=== PATIENT | male | born 1960 | race Caucasian/White ===

== ENCOUNTER 2016-10-30 16:53 | Inpatient (IN) | payer MEDICARE ==
[~2016-10-30] VITALS: Ht 177.8 cm; Wt 85.2 kg
[~2016-10-30 16:53] MED LIST: ASPIRIN EC81 M1 PO; BENICAR40 MG PO; BRILINTA90 MG PO; CELEXA40 MG PO; CRESTOR10 MG PO; ECOTRIN325 MG PO; GLUCOPHAGE500 MG PO; LANTUS SOL100 UNIT/1 SQ; LYRICA75 MG PO; METOPROLOL TART50 MG PO; MULTIPLE VITAMI1 TA1 PO; NOVOLOG100 U/M1 SQ; PERCOCET 10/3251 TA1 PO; PLAVIX75 MG PO; PRAVACHOL80 MG PO; PRINIVIL20 MG PO; TRESIBA; TRESIBA FL100 UNIT/1 SC; TRICOR145 MG PO; VALIUM5 MG PO; XANAX1 MG PO
[2016-10-30] MEDS ORDERED: ZOLOFT100 MG PO (17:35)
[2016-10-30] MEDS ORDERED: INSULIN ASPART (17:38)
[2016-10-30 18:05] LABS: BASOPHILS 0.3 % (0.0-2.0); EOSINOPHILS 0.8 % (0-7); HEMATOCRIT 44.3 % (42.0-54.0); IMMATURE GRANULOCYTES 0.3 % (0-5); LYMPHOCYTES 23.9 % (15-50); MCH 31.4 pg (26.0-34.0); MCHC 33.9 g/dL (31.0-37.0); MCV 92.9 fL (80.0-100.0); MEAN PLATELET VOLUME 12.9 fL (7.4-10.4); NEUTROPHILS 69.7 % (40-80); PLATELET COUNT 179 10x3/uL (130-400); RBC 4.77 10x6/uL (4.20-6.10); RDW 13.6 % (11.5-14.5); WBC 7.5 10x3/uL (4.8-10.8)
[2016-10-30 18:15] VITALS: BP 136/76; BMI 26.3
[2016-10-30 18:30] LABS: ALBUMIN 3.8 g/dL (3.4-5.0); ANION GAP 29.3 mmol/L (8-16); BILIRUBIN - TOTAL 0.52 mg/dL (0.2-1.3); CALCIUM 8.9 mg/dL (8.5-10.1); CARBON DIOXIDE 16.1 mmol/L (21.0-32.0); CREATININE - SERUM 2.1 mg/dL (0.6-1.3); POTASSIUM - SERUM 5.4 mmol/L (3.5-5.1); PROTEIN - SERUM 7.3 g/dL (6.4-8.2)
--- NOTE | 2016-10-30 18:34 | NUR ---
ALERT AND ORIENTED X4. BLOOD GAS GLUCOSE 627. HUMALOG GIVEN 28UNITS. PAGE ESTELLE WITH HEALTH STAR. UNABLE TO SITE IV. PASS ON TO GAUGE CONTROLLER. LOVENOX ORDERED. SCDs ON. INSTRUCT NOT TO EAT OR DRINK ANYTHING PER DOCTOR ORDER. AT BEDSIDE. LAB CALLED WITH CRITICAL GLUCOSE 566. PREPAIR SHIFT CHANGE REPORT. BED LOCKED AND LOW. CALL LIGHT IN REACH. TWO SIDERAILS UP.
--- NOTE | 2016-10-30 19:10 | NUR ---
ASSESSMENT COMPLETED, NO ACUTE DISTRESS NOTED, IN ROOM, PT DENIES NEEDS AT THIS TIME, WILL SITE IV, SR'S UP , CL IN REACH, WILL MONITOR
--- NOTE | 2016-10-30 20:06 | NUR ---
20G IV SITED IN R HAND X 1 ATTEMPT, FLUIDS STARTED ORDERED, DARVIN WELL, IN ROOM, CL IN REACH
--- NOTE | 2016-10-30 21:44 | NUR ---
MEDS GIVEN PER MAR, DARVIN WELL, DENIES NEEDS AT THIS TIME, CL IN REACH
[2016-10-30 21:56] VITALS: BP 130/65
--- NOTE | 2016-10-30 23:25 | NUR ---
RESTING WITH EYES CLOSED, RESP WITH EASE, NO DISTRESS NOTED, CL IN REACH
[2016-10-31] VITALS (11 sets, daily range): BP systolic 113–157; BP diastolic 58–81; Ht 177.8 cm; Wt 85.2 kg
--- NOTE | 2016-10-31 01:09 | NUR ---
RESTING WITH EYES CLOSED, SNORING RESP, NO DISTRESS NOTED, SR'S UP, CL IN REACH
--- NOTE | 2016-10-31 06:03 | NUR ---
INSULIN HELD PER SLIDING SCALE FOR BS OF 61, SNACK PROVIDED, PT UNSYMPTOMATIC, REMINDED TO CALL WHEN HE URINATES SO UA CAN BE COLLECTED, UNDERSTANDING VOICED, SR'S UP X2, CL IN REACH
--- NOTE | 2016-10-31 07:31 | NUR ---
RECHECKED FSBS THIS AM. RESULTS OF 127. RIGHT HAND SEEN WITH NS INFUSING AT 125 CC/HR. ON ROOM AIR. PATIENT IS INSTRUCTED IN NEED FOR UA. ON ROOM AIR. WILL CONTINUE TO MONITOR.
[2016-10-31] MEDS ORDERED: LYRICA150 MG PO (07:52)
--- NOTE | 2016-10-31 10:09 | NUR ---
WHILE WITH STUDENT NURSE, DAUGHTER IS AT BEDSIDE AND STATES THAT SHE BROUGHT PATIENT'S HOME DOSE OF TRESIBA INSULIN. I TOLD HER THAT WE WOULD HOLD IT RIGHT NOW HIS BLOOD SUGAR WAS 61 THIS AM AND THEN 127 AFTER TREATING IT. SHE REPLIES THAT SHE GAVE HIM THE 60 U OF INSULIN. I ALSO SEE THAT THIS HAS BEEN DISCONTUNUED ON THE EMAR FOR THE AM DOSE AND PLACED ON THE BEDTIME DOSE. THE PATIENT STATES THAT HE TAKES THIS DURING THE DAY, NOT AT NIGHT. I TOLD HER THAT I ASSUME THE DOCTOR CHANGED THIS R/T HIS LOW SUGAR THIS AM AND THAT I WOULD CLARIFY IT WITH THEM. PATIENT TELLS ME THAT HE HAD A MRI IN [place]UL[place] THAT SHOWED A LARGE STROKE TO THE BACK OF THE HEAD. I TOLD THEM THAT THE CT OF THE HEAD YESTERDAY SHOWED CHRONIC SINUSITIS, AND NO ACUTE ABNORMALITIES. HE AKED IF THAT MEANT HIS STROKE WAS GONE. I REPLIED THAT I COULD TELL HE HAD SOME RESIDUAL OF IT FROM HIS SPEECH. I ALSO INFORMD THEM THAT WE WOULD NEED TO KEEP A CLOSER EYE ON HIS BLOOD SUGAR SINCE THE HOME INSULIN WAS GIVEN. UP TO TAKE A SHOWER AND VOID IN URINAL. THIS INFO IS PASSED TO PRINCESS TOBIAS, CONTROLLER MECHANIC ABOUT THE INSULIN. 1010-ESTELLE CONDE APN PAGED TO NOTIFY HER OF THE INSULIN BEING GIVEN.
--- NOTE | 2016-10-31 10:19 | NUR ---
1020--CALL BACK FROM ESTELLE CONDE APN AND SHE IS NOTIFIED OF WHAT HAS BEEN DONE REGARDING HOME DOSE.
--- NOTE | 2016-10-31 10:38 | NUR ---
FSBS CHECKED WITH RESULT OF 273
[2016-10-31 10:55] LABS: APPEARANCE CLEAR (CLEAR); BILIRUBIN NEGATIVE (NEGATIVE); COLOR YELLOW (YELLOW); GLUCOSE 1000 mg/dL (NEGATIVE); KETONE LARGE mg/dL (NEGATIVE); LEUKOCYTE ESTERASE NEGATIVE (NEGATIVE); NITRITE NEGATIVE (NEGATIVE); PROTEIN NEGATIVE (NEGATIVE); UROBILINOGEN NORMAL (NORMAL)
--- NOTE | 2016-10-31 12:09 | NUR ---
FIRST TIMED EKG DONE ORDERED, FSBS IS 271. COVERED WITH 10 U INSULIN ORDERED. WILL COTNINUE TO MONITOR.
--- NOTE | 2016-10-31 12:22 | NUR ---
ORTHO. VITAL SIGNS: 116/58 LAYING 122/78 SITTING 122/72 STANDING
--- NOTE | 2016-10-31 13:24 | NUR ---
TO MRI VIA WHEELCHAIR
[2016-10-31 13:44] LABS: CKMB 1.2 U/L (0.0-3.6); CREATINE KINASE 81 UL (21-232); TROPONIN-I < 0.017 ng/mL (0.000-0.060)
--- NOTE | 2016-10-31 13:54 | NUR ---
RETURNS FROM MRI
[2016-10-31] MEDS ORDERED: LISINOPRIL2.5 MG PO (13:59)
--- NOTE | 2016-10-31 14:53 | NUR ---
UA SENT TO LAB ORDERED.
[2016-10-31 14:54] LABS: ALBUMIN 3.4 g/dL (3.4-5.0); BILIRUBIN - TOTAL 0.36 mg/dL (0.2-1.3); CALCIUM 8.4 mg/dL (8.5-10.1); CREATININE - SERUM 1.6 mg/dL (0.6-1.3); POTASSIUM - SERUM 5.1 mmol/L (3.5-5.1); PROTEIN - SERUM 6.6 g/dL (6.4-8.2)
[2016-10-31 15:00] LABS: CREATININE - URINE 69.3 mg/dL (30-125); PROTEIN - URINE 18.7 mg/dL (0.0-11.9)
[2016-10-31 15:03] LABS: APPEARANCE CLEAR (CLEAR); BILIRUBIN NEGATIVE (NEGATIVE); COLOR YELLOW (YELLOW); GLUCOSE 1000 mg/dL (NEGATIVE); KETONE LARGE mg/dL (NEGATIVE); LEUKOCYTE ESTERASE NEGATIVE (NEGATIVE); NITRITE NEGATIVE (NEGATIVE); PROTEIN NEGATIVE (NEGATIVE); UROBILINOGEN NORMAL (NORMAL)
[2016-10-31 15:04] LABS: BACTERIA NONE SEEN /hpf (NONE SEEN); EPITHELIAL CELLS NSEEN /hpf (0-5); RED CELLS - URINE 0-5 /hpf (0-5); WHITE CELLS - URINE NSEEN /hpf (0-5)
[2016-10-31 15:05] LABS: ANION GAP 22.6 mmol/L (8-16); CARBON DIOXIDE 20.5 mmol/L (21.0-32.0)
[2016-10-31 17:21] LABS: CKMB 0.9 U/L (0.0-3.6); CREATINE KINASE 74 UL (21-232)
[2016-10-31 17:25] LABS: TROPONIN-I < 0.017 ng/mL (0.000-0.060)
--- NOTE | 2016-10-31 18:15 | NUR ---
1730-2ND TIMED EKG DONE ORDERED. DENIES NEEDS AT PRESENT TIME. WILL CONTINUE TO MONITOR.
[2016-10-31 23:35] LABS: CKMB 0.7 U/L (0.0-3.6); CREATINE KINASE 68 UL (21-232); TROPONIN-I < 0.017 ng/mL (0.000-0.060)
[2016-11-01] VITALS: BP 123/64
--- NOTE | 2016-11-01 03:31 | NUR ---
CERAMIC PLATER AT BEDSIDE TO OBTAIN VITALS, CALL LIGHT IN REACH. WILL CONTINUE WITH PLAN OF CARE.
[2016-11-01 04:00] VITALS: BP 115/67
[2016-11-01 06:22] LABS: BASOPHILS 0.7 % (0.0-2.0); EOSINOPHILS 4.6 % (0-7); HEMATOCRIT 40.5 % (42.0-54.0); HEMOGLOBIN 14.1 g/dL (13.5-17.5); IMMATURE GRANULOCYTES 0.2 % (0-5); LYMPHOCYTES 35.2 % (15-50); MCH 30.9 pg (26.0-34.0); MCHC 34.8 g/dL (31.0-37.0); MEAN PLATELET VOLUME 12.6 fL (7.4-10.4); MONOCYTES 6.1 % (2-11); NEUTROPHILS 53.2 % (40-80); PLATELET COUNT 166 10x3/uL (130-400); RBC 4.56 10x6/uL (4.20-6.10); RDW 13.6 % (11.5-14.5); WBC 6.1 10x3/uL (4.8-10.8)
[2016-11-01 06:31] LABS: MCV 88.8 fL (80.0-100.0)
[2016-11-01 06:46] LABS: ALBUMIN 2.9 g/dL (3.4-5.0); ANION GAP 13.6 mmol/L (8-16); BILIRUBIN - DIRECT 0.09 mg/dL (0.00-0.30); BILIRUBIN - INDIRECT 0.31 mg/dL (0.00-1.00); BILIRUBIN - TOTAL 0.4 mg/dL (0.2-1.3); CALCIUM 8.1 mg/dL (8.5-10.1); CARBON DIOXIDE 26.4 mmol/L (21.0-32.0); CREATININE - SERUM 1.3 mg/dL (0.6-1.3); MAGNESIUM - SERUM 1.8 mg/dL (1.8-2.4); PHOSPHOROUS 2.7 mg/dL (2.5-4.9); PROTEIN - SERUM 6.2 g/dL (6.4-8.2)
--- NOTE | 2016-11-01 07:27 | NUR ---
AM ROUNDING- PT LAYING IN BED ON BACK WITH EYES OPEN RESTING. ON ROOM AIR. NO MONITOR. IV SEEN TO RIGHT HAND WITH SODIUM BICARB RUNNING AT 150CC/HR. PT IS ALERT AND ORIENTED. PER REPORT FROM [employer] TEACHER NURSE ETELVINA, PT IS UP WITH ASSIST. POTASSIUM WAS 3.0 THIS AM, WILL AWAIT ESTELLE CONDE NP TO MAKE ROUNDS AND WILL NOTIFY HER OF THIS. NO NEED AT CURRENT TIME. WILL CONTINUE TO MONITOR AND FOLLOW PLAN OF CARE.
[2016-11-01 07:56] VITALS: BP 129/79
--- NOTE | 2016-11-01 07:56 | NUR ---
ON THE PHONE WITH ESTELLE CONDE NP INFORMED HER OF PTS POTASSIUM LEVEL THIS AM. NEW ORDERS RECEIVED.
--- NOTE | 2016-11-01 09:59 | NUR ---
D/C PTS CURRENT IV FLUID (SODIUM BICARB) ORDERED AND STARTED NS AT 30CC ORDERED.
[2016-11-01 12:22] VITALS: BP 132/73
--- NOTE | 2016-11-01 15:06 | NUR ---
PT OUT OF SHOWER, HOOKED PT BACK UP TO IV FLUIDS ORDERED. PT DENIES ANY NEED AT CURRENT TIME.
[2016-11-01 16:06] VITALS: BP 131/94
--- NOTE | 2016-11-01 17:24 | NUR ---
Patient Name: ESTELLA GUSMAN Admission Status: Urgent Accout number: [id number] Admission Date: 10-31-2016 : 1960 Admission Diagnosis: Attending: REED Current LOS: 1 Anticipated DC Date: 11-02-2016 Planned Disposition: Home Primary Insurance: [facility] Discharge Planning Comments: CM met with patient to discuss discharge planning and needs. The patient states he resides at home with his spouse "Carole" ([phone]) and children. He states they reside in a single story home with 2 steps and rails leading into the front door. Patient stated he is independent of his care and occasionally uses a cane at home. The patient's PCP is Dr. Navas and his pharmacy is [facility] ([phone]) in [place]. The patient has not had home health before and declines the need for HH at this time. His transportation home will be his friend "Frantz Little" ([phone]) as his is scheduled to work the weekend. CM will continue to follow and assist as needed with discharge planning/needs. Beader Tender: Deirdre Anglin RN/CM Is the patient Alert and Oriented? Yes 0 * How many steps to enter\\exit or inside your home? 2 0 * PCP Dr. Navas 0 * Pharmacy Foodist ([facility]) " " 0 * Preadmission Environment Home with Family 0 * ADLs Independent 0 * Equipment Cane 0 * List name and contact numbers for known caregivers / representatives who currently or will assist patient after discharge: Carole (spouse) [phone] 0 * Community resources currently utilized None 0 * Additional services required to return to the preadmission environment? No 0 * Can the patient safely return to the preadmission environment? Yes 0 * Has this patient been hospitalized within the prior 30 days at any hospital? No 0 Grand Total: 0
--- NOTE | 2016-11-01 17:47 | NUR ---
PT SITTING UP IN BED ON BACK WITH EYES OPEN TALKING ON CELL PHONE. DENIES ANY NEED AT CURRENT TIME. WILL CONTINUE TO MONITOR.
[2016-11-01 20:31] VITALS: BP 151/92
--- NOTE | 2016-11-01 21:20 | NUR ---
PT LAYING IN BED NO DISTRESS OBSERVED RESPERATIONS EVEN AND UNLABORED CALL LIGHT IN REACH SRX2 BED LOW AND LOCKED WILL MONITOR
[2016-11-02 00:15] VITALS: BP 123/90
[2016-11-02 04:30] VITALS: BP 116/80
--- NOTE | 2016-11-02 04:34 | NUR ---
RECEIVED REPORT FROM OFF GOING NURSE. PT RESTING IN BED WITH NO DISTRESS. IVF NS @ 30ML/HR INFUSING. CPOC. CALL LIGHT IN REACH.
[2016-11-02 04:57] LABS: BASOPHILS 0.6 % (0.0-2.0); HEMATOCRIT 41.9 % (42.0-54.0); HEMOGLOBIN 14.5 g/dL (13.5-17.5); IMMATURE GRANULOCYTES 0.2 % (0-5); LYMPHOCYTES 42.8 % (15-50); MCH 30.9 pg (26.0-34.0); MCHC 34.6 g/dL (31.0-37.0); MCV 89.3 fL (80.0-100.0); MEAN PLATELET VOLUME 12.4 fL (7.4-10.4); MONOCYTES 7.8 % (2-11); NEUTROPHILS 43.6 % (40-80); PLATELET COUNT 156 10x3/uL (130-400); RBC 4.69 10x6/uL (4.20-6.10); RDW 13.3 % (11.5-14.5); WBC 5.2 10x3/uL (4.8-10.8)
[2016-11-02 05:23] LABS: CALC OSMOLALITY 281 mosm/kg (275-300); CALCIUM 8.8 mg/dL (8.5-10.1); CARBON DIOXIDE 28.7 mmol/L (21.0-32.0); CHLORIDE - SERUM 105 mmol/L (98-107); GLUCOSE 103 mg/dL (74-106); POTASSIUM - SERUM 3.1 mmol/L (3.5-5.1); SODIUM 142 mmol/L (136-145); UREA NITROGEN 10 mg/dL (7-18); eGFR NON AFRICAN AMERICAN 82 mL/min (90-120)
--- NOTE | 2016-11-02 07:00 | NUR ---
PT REC'D FROM [facility]. RESTING IN BED WATCHING TV WITH BREAKFAST TRAY IN ROOM. AAOX4. NO COMPLAINTS OF PAIN. LUNG SOUNDS CLEAR AND EQUAL BILAT. REGULAR HEART RATE AND RHYTHM. BOWEL SOUNDS ACTIVE X4 QUADRANTS. BED LOW, CALL LIGHT IN REACH, DENIES NEEDS. CPOC.
[2016-11-02 07:55] VITALS: BP 110/68
--- NOTE | 2016-11-02 09:20 | NUR ---
MORNING MEDS PASSED AT THIS TIME. PT WONDERING WHEN HE WILL BED DISCHARGED. STATED I DID NOT HAVE ANY DC ORDERS AT THIS TIME, BUT I WOULD BE LOOKING FOR THEM. BED LOW, CALL LIGHT IN REACH, DENIES NEEDS. CPOC.
--- NOTE | 2016-11-02 10:04 | NUR ---
RESTS IN BED WITHOUT NEEDS VOICED. CALL LIGHT IN REACH. WILL MONITOR.
--- NOTE | 2016-11-02 10:09 | NUR ---
IV SITE TO R HAND SWOLLEN AND LEAKING. IV REMOVED WITH CATHETER INTACT AND WARM COMPRESS APPLIED. BED LOW, CALL LIGHT IN REACH, DENIES NEEDS. CPOC.
--- NOTE | 2016-11-02 11:44 | NUR ---
CURRENT FSBS 334. 12 UNITS OF INSULIN ADMINISTERED PER SS. DR. WEINBERG IN ROOM DISCUSSING DISCHARGE. BED LOW, CALL LIGHT IN REACH, DENIES NEEDS.
[2016-11-02 11:47] VITALS: BP 145/90
[2016-11-02] MEDS ORDERED: HYDROCODON-ACE1 EAC7 PO (11:47)
--- NOTE | 2016-11-02 13:51 | NUR ---
PT ESCORTED OUT VIA WC BY STAFF. DC PAPER SIGNED AND HARD SCRIPTS IN HAND. DC TO HOME. NO QUESTIONS OR CONCERNS VOICED AT THIS TIME.
[2016-11-04 20:07] LABS: SPE - A/G RATIO 1.1 (0.7-1.7); SPE - ALBUMIN 3.1 g/dL (2.9-4.4); SPE - ALPHA-1 GLOBULIN 0.2 g/dL (0.0-0.4); SPE - ALPHA-2 GLOBULIN 0.8 g/dL (0.4-1.0); SPE - BETA GLOBULIN 0.9 g/dL (0.7-1.3); SPE - GAMMA GLOBULIN 0.9 g/dL (0.4-1.8); SPE - M-SPIKE Not Observed g/dL (Not Observed); SPE - TOTAL PROTEIN 5.8 g/dL (6.0-8.5)
--- NOTE | 2016-11-11 10:08 | EC ---
PATIENT:ESTELLA GUSMAN DATE OF SERVICE: 10/30/16 SEX: M MEDICAL RECORD: [id number] DATE OF : [birth year] LOCATION:D.M2 D.210 AGE OF PATIENT: 55 ADMISSION DATE: 10/31/16 REFERRING PHYSICIAN: INTERPRETING PHYSICIAN: LUCIO SUÁREZ MD ECHOCARDIOGRAM REPORT ECHO CHARGES 4 ECHO COMPLETE CLINICAL DIAGNOSIS: DIZZINESS/DYSPNEA HX OF CAD/CABG/STENTS X7 ECHOCARDIOGRAPHIC MEASUREMENTS (adult normal given) AC root (d.<3.7cm) 4.0 LV Septum d (<1.2 cm> 1.6 Valve Excursion 1.0 LV Septum (systole) 1.8 Left Atria (s.<4.0cm> 3.8 LVPW d(<1.2cm) 1.5 RV (d.<2.3cm) 3.8 LVPW (sytole) 1.8 LV diastole(<5.6CM) 4.2 MV E-F(>70mm/sec) LV systole 2.0 LVOT Diameter 1.7 MV exc.(>10mm) 1.4 Est.ejection fraction (50-75%) Pericardial Effusion N DOPPLER: LVIT A 79.0 E 62.0 LA RVSP 21 LVOT 105 AOP1/2T Asc. Ao 149 RVOT 87 RA PA 111 AV Gradient Peak 8.89 AV Mean 4.01 AV Area 1.6 MV Gradient Peak 4.02 MV Mean 1.38 MV Area COMMENTS: Concrete Truck Driver: Brittany DYE Buggy Ladle Tender:Moira Suárez TAPE# PACS DATE OF SERVICE: 10/31/2016 Echocardiogram FINDINGS: 1. Left ventricular chamber size is within normal limits. Left ventricular systolic function is normal. Overall ejection fraction estimated at 50%. 2. Left atrium is within normal limits at 3.8 cm. Right atrium and right ventricular chamber sizes are mildly dilated. 3. Valvular structures have normal structure and motion. ECHOCARDIOGRAM REPORT [id number] ESTELLA GUSMAN 4. Doppler interrogation reveals mild tricuspid regurgitation, no other valvular insufficiency or stenosis and pulmonary systolic pressure is normal estimated at 21 mmHg. 5. No evidence of pericardial effusion or left ventricular thrombus. TRANSINT:[id number] Voice Confirmation ID: [id number] DOCUMENT ID: [id number] LUCIO SUÁREZ MD at 1008 CC: [id number] DICTATION DATE: 10/31/16 1201 COMFORT STATION ATTENDANT: 10/31/16 1609 DIS IN 11/02/16 [address] [place] [id number]
--- NOTE | 2016-11-21 09:33 | HP ---
PATIENT: ESTELLA GUSMAN MEDICAL RECORD: [id number] ACCOUNT: [id number] LOCATION:[address] : [birth year] ADMISSION DATE: 10/31/16 HISTORY AND PHYSICAL EXAMINATION CHIEF COMPLAINT: Dizziness. HISTORY OF PRESENT ILLNESS: A 55-year-old white male patient of mine with history of recent stroke, insulin-dependent diabetes and coronary artery disease, presents with worsening dizziness over the past week or so. He feels fatigued, lightheaded, unsteady gait, weakness and says he can barely stand up straight. Reports his sugars at home, has been over 600. He did have a stroke here, back a couple months ago. He is on aspirin and Plavix. Urinalysis today shows large ketones and sugar over 400, so at that time, we will admit to the hospital for possible DKA. REVIEW OF SYSTEMS: CONSTITUTIONAL: Positive fatigue. No fever, no chills. CARDIOVASCULAR: No chest pain or tachycardia. RESPIRATORY: No cough or wheeze. GASTROINTESTINAL: Does have nausea and vomiting. MUSCULOSKELETAL: General for arthralgias and back pain. NEUROLOGIC: See HPI. PAST MEDICAL HISTORY: 1. Hyperlipidemia. 2. Hypertension. 3. Coronary artery disease. 4. Chronic back pain. 5. Peripheral neuropathy. 6. Insulin-dependent diabetes. 7. Cerebrovascular accident. PAST SURGICAL HISTORY: Coronary artery stent placement, triple bypass in 2017. FAMILY HISTORY: Father with stomach cancer. Mother with Alzheimer's. Brother with hypothyroidism. Sister with hypothyroidism. Paternal grandmother with type 2 diabetes. SOCIAL HISTORY: The patient is , retired. Has 5 children. Past history of cigarette smoking. Does drink alcohol on a regular basis, couple beers a night. ALLERGIES: No known drug allergies. MEDICATIONS: Lyrica 150 mg b.i.d., Tresiba U-100 of 60 units q.h.s., Zoloft 100 mg a day, NovoLog FlexPen sliding scale, metformin 1000 mg b.i.d., Antara 130 mg daily, Plavix 75 mg a day, Crestor 10 mg a day, Valium 5 mg at bedtime p.r.n. and aspirin 81 mg a day. PHYSICAL EXAMINATION: VITAL SIGNS: Temperature 97.7, blood pressure 122/64, pulse 90, respirations 18, O2 sat 98% on room air. GENERAL: No acute distress. HEENT: Normocephalic, atraumatic. HISTORY AND PHYSICAL [id number] ESTELLA GUSMAN NECK: Supple. LUNGS: Clear to auscultation bilaterally. CARDIOVASCULAR: Regular rate and rhythm. A II/ systolic ejection murmur. GASTROINTESTINAL: Soft, nontender to palpation. Bowel sounds positive. MUSCULOSKELETAL: Pain with flexion and extension of back. NEUROLOGIC: Awake, alert, oriented times 3, does have ataxic gait. ASSESSMENT: 1. Hyperglycemia. 2. Insulin-dependent diabetes. 3. Recent cerebrovascular accident. 4. Residual expressive aphasia. PLAN: We will admit the patient to the hospital for DKA workup, CT head due to recent stroke and dizziness. Other orders as written on chart. TRANSINT:[id number] Voice Confirmation ID: [id number] DOCUMENT ID: [id number] BRITTNEY MCBRIDE MD at 0933 CC: [id number] DICTATION DATE: 10/30/16 1619 CLOTHING PATTERN PREPARER: 10/30/16 1723 DIS IN 11/02/16 [facility] [address] [place] [address]
== END 2016-11-02 16:41 | disposition home or self-care (01) | DRG 638 ==
LOC: OBSVTIME → D.M2 16:53 → UNDOADMOB 16:53 → D.M2 16:53 → OBSVTIME 16:54 → UNDOADMOB 17:00 → OBSVTIME 17:00 → D.M2 17:00 → EDSTATUS 11-04 15:00
PROVIDERS: Emergency Medicine; Internal Medicine Nephrology; ADMIT Family Medicine
DX: E11.65 Type 2 diabetes mellitus with hyperglycemia (principal); N17.9 Acute kidney failure, unspecified; E11.42 Type 2 diabetes mellitus with diabetic polyneuropathy; Z79.4 Long term (current) use of insulin; I25.10 Atherosclerotic heart disease of native coronary artery without angina pectoris; E78.5 Hyperlipidemia, unspecified; E87.5 Hyperkalemia; I10 Essential (primary) hypertension; I07.1 Rheumatic tricuspid insufficiency; I69.920 Aphasia following unspecified cerebrovascular disease; Z87.891 Personal history of nicotine dependence

== ENCOUNTER → 2017-03-14 08:54 | Outpatient (CLI) | payer MEDICARE ==
[2016-10-31 09:51] VITALS: BMI 26.1
[~2017-03-14 08:54] MED LIST changes: +HYDROCODON-ACE1 EAC7 PO; +INSULIN ASPART; +LISINOPRIL2.5 MG PO; +LYRICA150 MG PO; +ZOLOFT100 MG PO
== END | disposition home or self-care (01) ==
LOC: D.RAD 08:54
DX: I69.991 Dysphagia following unspecified cerebrovascular disease (principal)

== ENCOUNTER 2017-04-23 11:37 | Inpatient (IN) | payer MEDICARE ==
[~2017-04-23] VITALS: Ht 177.8 cm; Wt 76.8 kg
--- NOTE | ~2017-04-23 | EC ---
PATIENT:ESTELLA GUSMAN DATE OF SERVICE: 04/24/17 SEX: M MEDICAL RECORD: [id number] DATE OF : [birth year] LOCATION:D.MS [address] AGE OF PATIENT: 56 ADMISSION DATE: 04/24/17 REFERRING PHYSICIAN: INTERPRETING PHYSICIAN: JUAN ALBERTO LANDRY MD ECHOCARDIOGRAM REPORT ECHO CHARGES 4 ECHO COMPLETE CLINICAL DIAGNOSIS: CVA HX CAD/CABG/STENTS ECHOCARDIOGRAPHIC MEASUREMENTS (adult normal given) AC root (d.<3.7cm) 3.0 cm LV Septum d (<1.2 cm> 1.3 cm Valve Excursion 1.6 cm LV Septum (systole) 1.4 cm Left Atria (s.<4.0cm> 3.8 cm LVPW d(<1.2cm) 1.3 cm RV (d.<2.3cm) 3.3 cm LVPW (sytole) 1.7 cm LV diastole(<5.6CM) 5.9 cm MV E-F(>70mm/sec) cm LV systole 3.3 cm LVOT Diameter 1.7 cm MV exc.(>10mm) 1.8 cm Est.ejection fraction (50-75%) % Pericardial Effusion N DOPPLER: LVIT cm/sec A 95.0 cm/sec E 77.0 cm/sec LA cm/sec RVSP 30 mmHg LVOT 92 cm/sec AOP1/2T m/s Asc. Ao 138 cm/sec RVOT 103 cm/sec RA cm/sec PA 115 cm/sec AV Gradient Peak 7.60 mmHg AV Mean 4.11 mmHg AV Area 1.5 cm MV Gradient Peak 4.0 mmHg MV Mean 1.66 mmHg MV Area cm COMMENTS: Delivery Driver/Supervisor: Brittany DYE Flight Test Supervisor: 4 Dr. Landry TAPE# PACS DATE OF SERVICE: 04/24/2017 Echocardiogram Report FINDINGS: 1. The left ventricle has regional wall motion abnormalities. There is considerable number of PVCs, which certainly limits interpretation on several views; however, there does appear to be an anterior septal area of dyskinesis. The overall ejection fraction is 45%. There does appear to be left ventricular hypertrophy. Inflow characteristics are consistent with diastolic dysfunction. ECHOCARDIOGRAM REPORT [id number] ESTELLA GUSMAN 2. The mitral valve is difficult to visualize on multiple views, but appears to be grossly normal in structure. We could not demonstrate any mitral regurgitation. 3. The tricuspid valve has normal structure and normal function, mild tricuspid regurgitation, RVSP of 30 mmHg. 4. The right ventricle is mildly enlarged. The right ventricular function appears to be grossly normal. Right atrium is mildly enlarged. 5. The aortic valve was not well visualized, but appears to be normal structurally without any evidence of stenosis or regurgitation. 6. The pericardium is normal. CONCLUSIONS: The patient has evidence of regional wall motion abnormalities and mild possible ischemic cardiomyopathy with fairly preserved valvular structure and evidence of left ventricular hypertrophy. TRANSINT:[id number] Voice Confirmation ID: [id number] DOCUMENT ID: [id number] JUAN ALBERTO LANDRY MD CC: [id number] DICTATION DATE: 04/24/17 162 TERRITORY MANAGER: 04/24/17 2253 [facility] [address] [id number]
[2017-04-23 12:34] LABS: BASOPHILS 0.2 % (0-2); EOSINOPHILS 0.4 % (0-7); HEMATOCRIT 46.1 % (42.0-54.0); HEMOGLOBIN 16.1 g/dL (13.5-17.5); IMMATURE GRANULOCYTES 0.2 % (0-5); LYMPHOCYTES 23.3 % (15-50); MCH 31.7 pg (26.0-34.0); MCHC 34.9 g/dL (31.0-37.0); MCV 90.7 fL (80.0-100.0); MEAN PLATELET VOLUME 13.5 fL (7.4-10.4); MONOCYTES 5.1 % (2-11); NEUTROPHILS 70.8 % (40-80); PLATELET COUNT 127 10x3/uL (130-400); RBC 5.08 10x6/uL (4.20-6.10); RDW 14.1 % (11.5-14.5)
[2017-04-23 12:37] LABS: APTT 26.3 SECONDS (22.8-39.4); INR 1.07 (0.85-1.17); PROTIME 13.7 SECONDS (11.6-15.0)
[2017-04-23 12:44] LABS: ALBUMIN 3.5 g/dL (3.4-5.0); ANION GAP 28.7 mmol/L (8-16); BILIRUBIN - TOTAL 0.46 mg/dL (0.2-1.3); CALCIUM 8.8 mg/dL (8.5-10.1); CARBON DIOXIDE 12.9 mmol/L (21.0-32.0); CREATININE - SERUM 1.6 mg/dL (0.6-1.3); POTASSIUM - SERUM 4.6 mmol/L (3.5-5.1); PROTEIN - SERUM 7.5 g/dL (6.4-8.2)
[2017-04-23 13:02] LABS: APPEARANCE HAZY (CLEAR); BACTERIA FEW /hpf (NONE SEEN); BILIRUBIN NEGATIVE (NEGATIVE); COLOR DK YELLOW (YELLOW); EPITHELIAL CELLS OCC /hpf (0-5); GLUCOSE 1000 mg/dL (NEGATIVE); GRANULAR CAST RARE /lpf (NONE SEEN); KETONE LARGE mg/dL (NEGATIVE); LEUKOCYTE ESTERASE NEGATIVE (NEGATIVE); MUCUS >1+ /lpf (NONE SEEN); NITRITE NEGATIVE (NEGATIVE); PROTEIN 1+ mg/dL (NEGATIVE); SPECIFIC GRAVITY 1.025 (1.005-1.020); WAXY CAST 0-5 /lpf (NONE SEEN); WHITE CELLS - URINE OCC /hpf (0-5)
[2017-04-23 17:51] LABS: UDS - AMPHET NEGATIVE QUAL (NEGATIVE); UDS - BARB NEGATIVE QUAL (NEGATIVE); UDS - BENZO POSITIVE QUAL (NEGATIVE); UDS - COCAINE NEGATIVE QUAL (NEGATIVE); UDS - METH NEGATIVE QUAL (NEGATIVE); UDS - OPIATE NEGATIVE QUAL (NEGATIVE); UDS - PCP NEGATIVE QUAL (NEGATIVE); UDS - THC NEGATIVE QUAL (NEGATIVE)
[2017-04-23 17:53] LABS: HEMOGLOBIN A1C 9.4 % (4.8-6.0)
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
[2017-04-23 19:33] LABS: CKMB 0.8 U/L (0.0-3.6); CREATINE KINASE 76 UL (21-232)
[2017-04-23 19:34] LABS: TROPONIN-I < 0.017 ng/mL (0.000-0.060)
[2017-04-23 23:48] VITALS: BP 118/55; BMI 24.0
[2017-04-24] VITALS: BP 105/62
[2017-04-24 00:14] LABS: CKMB 1.1 U/L (0.0-3.6); CREATINE KINASE 66 UL (21-232)
[2017-04-24 00:16] LABS: TROPONIN-I < 0.017 ng/mL (0.000-0.060)
--- NOTE | 2017-04-24 02:30 | NUR ---
IV RESITED TO LEFT HAND X2 STICKS USING ASEPTIC TECH,22G.PT TOLERATED WELL.PREVIOUS IV DCD WITH CATH TIP INTACT.
[2017-04-24 06:03] LABS: BASOPHILS 0.3 % (0-2); EOSINOPHILS 0.7 % (0-7); HEMATOCRIT 42.5 % (42.0-54.0); HEMOGLOBIN 14.9 g/dL (13.5-17.5); IMMATURE GRANULOCYTES 0.7 % (0-5); LYMPHOCYTES 24.8 % (15-50); MCH 31.8 pg (26.0-34.0); MCHC 35.1 g/dL (31.0-37.0); MCV 90.8 fL (80.0-100.0); MEAN PLATELET VOLUME 13.9 fL (7.4-10.4); MONOCYTES 4.8 % (2-11); NEUTROPHILS 68.7 % (40-80); PLATELET COUNT 115 10x3/uL (130-400); RBC 4.68 10x6/uL (4.20-6.10); RDW 14.7 % (11.5-14.5); WBC 7.1 10x3/uL (4.8-10.8)
[2017-04-24 06:41] LABS: ALKALINE PHOSPHATASE 85 U/L (46-116); ALT (SGPT) 15 U/L (10-68); CHLORIDE - SERUM 100 mmol/L (98-107); CREATINE KINASE 59 UL (21-232); CREATININE - SERUM 1.5 mg/dL (0.6-1.3); POTASSIUM - SERUM 4.7 mmol/L (3.5-5.1); PROTEIN - SERUM 6.5 g/dL (6.4-8.2); SODIUM 135 mmol/L (136-145); TROPONIN-I < 0.017 ng/mL (0.000-0.060); eGFR NON AFRICAN AMERICAN 51 mL/min (90-120)
[2017-04-24 06:45] LABS: CALC OSMOLALITY 281 mosm/kg (275-300); GLUCOSE 321 mg/dL (74-106); UREA NITROGEN 13 mg/dL (7-18)
--- NOTE | 2017-04-24 07:28 | NUR ---
REMAINS WITHOUT NEEDS,WITHOUT CHANGE.CONT PLAN OF CARE
--- NOTE | 2017-04-24 07:30 | NUR ---
PATIENT RECEIVED IN MID NIELSON POSITION RESTING QUIETLY. RESPIRATIONS EVEN AND UNLABORED. DENIES NEEDS. SIDE RAILS UP X2. BED IN LOW POSITION. CALL LIGHT IN REACH.
[2017-04-24 09:49] VITALS: BP 130/80
--- NOTE | 2017-04-24 10:20 | NUR ---
PATIENT IN MID NIELSON POSITION RESTING WITH EYES CLOSED. RESPIRATIONS EVEN AND UNLABORED. SIDE RAILS UP X2. BED IN LOW POSITION. CALL LIGHT IN REACH. BOX ALARM ON.
[2017-04-24 12:21] VITALS: Ht 177.8 cm; Wt 76.8 kg
--- NOTE | 2017-04-24 12:47 | NUR ---
ALERT IN BED EATING DINNER. NO DIFFICULTY. SCHEDULED MEDICATION ADMINISTERED. SIDE RAILS UP X2. BED IN LOW POSITION. CALL LIGHT IN REACH. DENIES NEEDS.
[2017-04-24 12:48] VITALS: BP 130/78
[2017-04-24 14:21] VITALS: BP 95/48
--- NOTE | 2017-04-24 14:55 | NUR ---
Rehab Note- Acute Rehab Prescreen order received. The patient continues to have a medical work up, awaiting Dr. Sun consult. The patient has [employer] and will need a PreAuth prior to transfer to acute rehab. The patient appears to be a good acute rehab candidate. Will follow at this time and plan for discharge to [facility] acute rehab when ready for discharge from the acute hospital. Thank you for this referral! Bonnie Burrows RN Clinical Liaison, [facility] Rehab
--- NOTE | 2017-04-24 16:03 | NUR ---
PATIENT RESTING QUIETLY WITH EYES CLOSED. RESPIRATIONS EVEN AND UNLABORED. ACCU CHECK 237. INSULIN PER SLIDING SCALE. SIDE RAILS UP X2. BED IN LOW POSITION. CALL LIGHT IN REACH. BOX ALARM ON AND ATTACHED TO PATIENT.
--- NOTE | 2017-04-24 16:13 | NUR ---
Patient Name: ESTELLA GUSMAN Admission Status: ER Accout number: [id number] Admission Date: 04-24-2017 : 1960 Admission Diagnosis: Attending: EDIL CHADWICK Current LOS: 1 Anticipated DC Date: 04-28-2017 Planned Disposition: Inpatient Rehab Primary Insurance: [facility] Discharge Planning Comments: CM MET WITH PATIENT, (ABILIO), AND DAUGHTER (GAYLE) REGARDING D/C NEEDS AND PLANS. DAUGHTER STATED THERE ARE 2 STEPS TO ENTER HOME AND NO STAIRS INSIDE HOME. PATIENT IS INDEPENDENT WITH HIS CARE AND HAS A CANE, AND GLUCOMETER AT HOME. PATIENT DOES NOT CHECK HIS SUGARS. PATIENTS PCP IS DR. MCBRIDE AND PHARMACY IS [facility] [place]. PATIENT WILL GO TO REHAB AT DISCHARGE PER ELIU. CM WILL CONTINUE TO FOLLOW PATIENT WITH D/C NEEDS AND PLANS. PCP DR. [facility]- [phone] ABILIO () [phone] CHRISTINA (DAUGHTER) [phone] Creative Writing Professor: Flavia Shrestha Is the patient Alert and Oriented? Yes 0 * How many steps to enter\exit or inside your home? 2 STEPS 0 * PCP DR. MCBRIDE 0 * Pharmacy [facility] 0 * Preadmission Environment Home with Family 0 * ADLs Independent 0 * Equipment Cane Glucometer 0 * List name and contact numbers for known caregivers / representatives who currently or will assist patient after discharge: ABILIO (SPOUSE) [phone] GAYLE (DAUGHTER) [phone] 0 * Additional services required to return to the preadmission environment? Yes 0 * Can the patient safely return to the preadmission environment? No 0 * Has this patient been hospitalized within the prior 30 days at any hospital? No 0 Grand Total: 0
--- NOTE | 2017-04-24 16:38 | NUR ---
OT NOTE: PT COMPLETED BUE FM ACTIVITIES FOR INCREASED I WITH ADLS. THANK YOU, BRUNILDA DANIELS/Flako
[2017-04-24 17:01] VITALS: BP 113/59
--- NOTE | 2017-04-24 19:20 | NUR ---
ASSESSMENT PER FLOW SHEET.PT ANXIOUS THIS AFTERNOON.STATES HE IS ALSO VERY TIRED.DENIES PAIN AT PRESENT.HE REMAINS ALAERT.FALL PREVENTION IN PLACE.MONIOTR FOR NEEDS.DOOR OPEN
[2017-04-24 20:00] VITALS: BP 110/55
[2017-04-25] VITALS: BP 106/58
--- NOTE | 2017-04-25 00:53 | NUR ---
SLEEPING SOUNDLY WITHOUT DISTRESS.CALL LIGHT IN REACH.DOOR OPEN
--- NOTE | 2017-04-25 02:33 | NUR ---
SLEEPING ON BACK,WITHOUT DISTRESS.DOOR OPEN TO MONITOR.FALL PREVENTION STILL IN PROGRESS
[2017-04-25 04:00] VITALS: BP 107/65
--- NOTE | 2017-04-25 05:48 | NUR ---
STILL SLEEPING,BUT AWAKENS INT.WITHOUT CHANGE.CONT PLAN OF CARE
--- NOTE | 2017-04-25 07:10 | NUR ---
PATIENT RECEIVED IN LEFT LATERAL POSITION RESTING WITH EYES CLOSED. RESPIRATIONS EVEN AND UNLABORED. SIDE RAILS UP X2. BED IN LOW POSITION. CALL LIGHT IN REACH.
[2017-04-25 07:12] LABS: HEMATOCRIT 40.2 % (42.0-54.0); HEMOGLOBIN 14.1 g/dL (13.5-17.5); LYMPHOCYTES 38.6 % (15-50); MCHC 35.1 g/dL (31.0-37.0); MEAN PLATELET VOLUME 13.4 fL (7.4-10.4); NEUTROPHILS 52.4 % (40-80); PLATELET COUNT 94 10x3/uL (130-400); RBC 4.55 10x6/uL (4.20-6.10)
[2017-04-25 07:13] LABS: MCV 88.4 fL (80.0-100.0); WBC 4.6 10x3/uL (4.8-10.8)
[2017-04-25 07:16] LABS: HEMOGLOBIN A1C 10.8 % (4.8-6.0)
[2017-04-25 07:29] LABS: PLATELET ESTIMATE DECREASED
[2017-04-25 07:43] LABS: ALBUMIN 2.9 g/dL (3.4-5.0); BILIRUBIN - TOTAL 0.5 mg/dL (0.2-1.3); CALCIUM 8.1 mg/dL (8.5-10.1); CHOL - HDL RATIO 4.3 ratio (2.3-4.9); CREATININE - SERUM 1.5 mg/dL (0.6-1.3); LDL-HDL RATIO 2.5 ratio (1.5-3.5); MAGNESIUM - SERUM 1.5 mg/dL (1.8-2.4); PHOSPHOROUS 2.7 mg/dL (2.5-4.9); PROTEIN - SERUM 6.1 g/dL (6.4-8.2); THYROID STIMULATING HORMONE 1.95 uIU/mL (0.36-3.74)
[2017-04-25 07:46] LABS: ANION GAP 26.1 mmol/L (8-16); CARBON DIOXIDE 13.8 mmol/L (21.0-32.0); POTASSIUM - SERUM 3.9 mmol/L (3.5-5.1)
[2017-04-25 08:32] VITALS: BP 105/63
--- NOTE | 2017-04-25 09:10 | NUR ---
ALERT IN HIGH NIELSON POSITION. NO SIGNS OF DISTRESS NOTED. SCHEDULED MEDICATION ADMINISTERED. DENIES NEEDS. SIDE RAILS UP X2. BED IN LOW POSITION. CALL LIGHT IN REACH. BOX ALARM ON AND ATTACHED TO PATIENT.
--- NOTE | 2017-04-25 10:26 | NUR ---
Called [facility] [phone] spoke to Charlette Austin No preauthorization is required for IRF, follow Medicare guidelines. This patient will be accepted today if physician agrees. Ref# [id number]. The YOLETTE Sykes RN has been made aware. Aliya Loera RN Clinical Liaison, Rehab
--- NOTE | 2017-04-25 11:39 | NUR ---
PATIENT IN RIGHT LATERAL POSITION RESTING WITH EYES CLOSED. RESPIRATIONS EVEN AND UNLABORED. WAKES EASY. ACCU CHECK 326. INSULIN PER SLIDING SCALE. NO NEEDS VOICED. SIDE RAILS UP X2. BED IN LOW POSITION. CALL LIGHT IN REACH. BOX ALARM ON.
[2017-04-25] MEDS ORDERED: THIAMINE HCL50 MG PO (12:01)
[2017-04-25] MEDS ORDERED: FOLIC ACID1 MG PO (12:01)
[2017-04-25] MEDS ORDERED: SODIUM BICARBO650 MG PO (12:03)
[2017-04-25] MEDS ORDERED: PROTONIX40 MG PO (12:03)
[2017-04-25] MEDS ORDERED: HUMALOG 30100 UNITS/ SC (12:03)
[2017-04-25 14:13] VITALS: BP 129/73
--- NOTE | 2017-04-25 14:14 | NUR ---
CM REASSESSMENT NOTE: PATIENT IS SCHEDULED TO DISCHARGE TO IP REHAB TODAY.
--- NOTE | 2017-04-25 16:19 | NUR ---
REPORT CALLED TO RAHEL HUA ON REHAB.
--- NOTE | 2017-04-25 16:35 | NUR ---
PATIENT D/C TO [facility] REHAB. TRANSFERRED DOWNSTAIRS VIA WHEELCHAIR WITH STAFF. D/C TEACHING PROVIDED. STATES UNDERSTANDING.
== END 2017-04-25 16:41 | DRG 64 ==
LOC: D.ER 11:37 → OBSVTIME 17:20 → D.M2 17:20 → D.MS 17:20
PROVIDERS: Emergency Medicine; ADMIT Family Medicine
DX: I63.9 Cerebral infarction, unspecified (principal); E10.10 Type 1 diabetes mellitus with ketoacidosis without coma; F17.293 Nicotine dependence, other tobacco product, with withdrawal; N17.9 Acute kidney failure, unspecified; R47.01 Aphasia; R13.10 Dysphagia, unspecified; E10.40 Type 1 diabetes mellitus with diabetic neuropathy, unspecified; F10.20 Alcohol dependence, uncomplicated

== ENCOUNTER 2017-04-25 16:15 | Inpatient (IN) | payer MEDICARE ==
[~2017-04-25] VITALS: Ht 177.8 cm; Wt 74.8 kg
[~2017-04-25 16:15] MED LIST changes: +FOLIC ACID1 MG PO; +HUMALOG 30100 UNITS/ SC; +PROTONIX40 MG PO; +SODIUM BICARBO650 MG PO; +THIAMINE HCL50 MG PO
[2017-04-25 17:38] VITALS: BP 106/70; BMI 23.7
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
--- NOTE | 2017-04-25 19:20 | NUR ---
RESTING IN BED ON RIGHT SIDE. DAUGHTER SEATED IN ROOM AT BEDSIDE. SAYS SHE WILL BE DEPARTING SOON.
--- NOTE | 2017-04-25 20:10 | NUR ---
DAUGHTER NO LONGER PRESENT. PATIENT CONTINUES ON HIS RIGHT SIDE WITH HOB UP 20 DEGREES. NO DISTRESS NOTED.
[2017-04-25 20:27] VITALS: BP 104/58
--- NOTE | 2017-04-25 22:25 | NUR ---
ASSESSMENT AND HS MEDS COMPLETE. FSBS 298. GAVE PATIENT 4 UNITS HUMALOG SLIDING SCALE INSULIN SC IN LEFT ARM.
--- NOTE | 2017-04-26 00:05 | NUR ---
RESTING IN BED ON LEFT SIDE, EYES CLOSED.
--- NOTE | 2017-04-26 02:15 | NUR ---
CONTINUES IN BED, EYES CLOSED. LEFT SIDELYING WITH HOB UP 20 DEGREES.
--- NOTE | 2017-04-26 04:45 | NUR ---
RESTING IN BED ON RIGHT SIDE. RESPIRATIONS ARE QUIET AND UNLABORED.
--- NOTE | 2017-04-26 06:35 | NUR ---
GAVE PATIENT SCHEDULED MEDS. DENIES NEEDS.
--- NOTE | 2017-04-26 07:30 | NUR ---
PATIENT ALERT/ORIENT X4. SPEECH IS SLOW. CALL LIGHT WITHIN REACH. PATIENT SITTING UP IN BED FOR BREAKFAST. VOICES NO NEEDS AT THIS TIME.
[2017-04-26 08:10] LABS: BASOPHILS 0.6 % (0-2); HEMATOCRIT 38.5 % (42.0-54.0); HEMOGLOBIN 13.7 g/dL (13.5-17.5); IMMATURE GRANULOCYTES 0.4 % (0-5); MCH 31.5 pg (26.0-34.0); MCHC 35.6 g/dL (31.0-37.0); MCV 88.5 fL (80.0-100.0); MEAN PLATELET VOLUME 13.5 fL (7.4-10.4); MONOCYTES 6.5 % (2-11); NEUTROPHILS 53.5 % (40-80); PLATELET COUNT 101 10x3/uL (130-400); RBC 4.35 10x6/uL (4.20-6.10); RDW 14.2 % (11.5-14.5); WBC 4.9 10x3/uL (4.8-10.8)
[2017-04-26 08:20] LABS: ANION GAP 23.3 mmol/L (8-16); CALCIUM 8.3 mg/dL (8.5-10.1); CARBON DIOXIDE 16.9 mmol/L (21.0-32.0); CREATININE - SERUM 1.4 mg/dL (0.6-1.3)
[2017-04-26 08:21] LABS: POTASSIUM - SERUM 3.2 mmol/L (3.5-5.1)
[2017-04-26 10:08] VITALS: BP 138/50
--- NOTE | 2017-04-26 10:10 | NUR ---
OCCUPATIONAL THERAPIST IN ROOM. SHOWER OT EVAL DONE. LINENS ON BED CHANGED WHILE PATIENT IN SHOWER.
--- NOTE | 2017-04-26 10:41 | NUR ---
SITTING UP IN WC IN ROOM.CL IN REACH.
[2017-04-26 10:43] VITALS: Ht 177.8 cm; Wt 74.8 kg
--- NOTE | 2017-04-26 11:50 | NUR ---
GLUCOSE LEVEL 294. SIX UNITS OF SLIDING SCALE INSULIN GIVEN
--- NOTE | 2017-04-26 17:00 | NUR ---
GLUCOSE LEVEL 497. TWELEVE UNITS OF SLIDING SCALE INSULIN GIVEN. CALL INTO DR Sheri WEINBERG.
--- NOTE | 2017-04-26 17:27 | NUR ---
GLUCOSE LEVEL RETAKEN. 552. DR. Sheri WEINBERG PAGED
--- NOTE | 2017-04-26 18:21 | NUR ---
DR. Sheri WEINBERG HAS NOT RETURNED PAGE. LAB GLUCOSE, ORDERED.
--- NOTE | 2017-04-26 19:16 | NUR ---
DR. Sheri WEINBERG RETURNED PAGE. NEW ORDERS RECEIVED. STEPHANIE RN, GOVERNMENT AFFAIRS MANAGER CALLED IN REGARDS TO NEW ORDER
--- NOTE | 2017-04-26 19:45 | NUR ---
PT. IN BED WITH HOB UP FOR COMFORT AND WATCHING TV AND REQUESTING TV GUIDE SO HE CAN FIND CHANNELS EASIER. ASSESSMENT COMPLETED. INFORMED PT. AWAITING CELERY TIER TO BRING HIS LANTUS INSULIN FOR ADMIN. FOR HIS ELEVATED BS OF 537. PT AWARE OF NEED FOR LANTUS. NO OTHER VOICED NEEDS AT THIS TIME AND HIS CALL LIGHT IS WITHIN REACH.
[2017-04-26 19:55] VITALS: BP 138/76
--- NOTE | 2017-04-26 20:15 | NUR ---
40UNITS OF LANTUS INSULIN ADMIN. FOR BS OF 537 THAT WAS OBTAINED EARLIER TODAY.
--- NOTE | 2017-04-26 21:15 | NUR ---
BS 418 AFTER RECEIVING HIS 40 UNITS OF LANTUS 1 HOUR AGO. ADMIN. 12 UNITS HUMALOG AND CALLED MD ANSWERING SERVICE FOR DR. WEINBERG.
--- NOTE | 2017-04-26 22:50 | NUR ---
NO RETURN CALL FROM DR. WEINBERG. CALLED ANSWERING SERVICE AGAIN AND WAS TOLD TO CALL THE ER PHYSICIAN. CALLED A DIFFERENT PHONE NUMBER FOR DR. WEINBERG AND LEFT MESSAGE REGARDING PT'S BS [phone] AT [phone].
--- NOTE | 2017-04-26 23:04 | NUR ---
PT. IN BED WITH HOB UP FOR COMFORT WITH EYES CLOSED AND RESP. EVEN. CALL LIGHT WITHIN REACH.
--- NOTE | 2017-04-27 03:01 | NUR ---
PT. IN BED WITH HOB UP FOR COMFORT AND LYING ON HIS RIGHT SIDE. EYES CLOSED AND RESP. DEEP AND EVEN. CALL LIGHT WITHIN REACH.
--- NOTE | 2017-04-27 05:37 | NUR ---
PT'S FSBS THIS MORNING IS 65. PT. DIDN'T EAT HIS BEDTIME SNACK LAST NIGHT. EVELIO CRACKERS STILL ON BEDSIDE TABLE SO I INSTRUCTED HIM TO EAT THOSE MARIN ALSO GAVE HIM APPLE JUICE.
--- NOTE | 2017-04-27 08:11 | NUR ---
UP OOB IN WC EATING BREAKFAST.CL IN REACH.
[2017-04-27 08:31] VITALS: BP 119/82
--- NOTE | 2017-04-27 08:47 | NUR ---
PT UP IN WHEELCHAIR AT BEDSIDE EATING BREAKFAST TOLERATING WELL WILL MONITER
--- NOTE | 2017-04-27 14:54 | NUR ---
PT RESTING IN BED WITH EYES OPEN CALL LIGHT IN REACH NO PROBLEMS WILL MONITER
--- NOTE | 2017-04-27 19:30 | NUR ---
PT. IN BED WITH HOB UP FOR COMFORT WATCHING TV. ASSESSMENT COMPLETED. NO VOICED NEEDS AND HE HAS HIS CALL LIGHT WITHIN REACH.
--- NOTE | 2017-04-27 19:30 | NUR ---
PT. IN BED WITH HOB UP FOR COMFORT AND IS WATCHING TV. ASSESSMENT COMPLETED. NO VOICED NEEDS AT THIS TIME AND HIS CALL LIGHT IS WITHIN REACH.
[2017-04-27 19:50] VITALS: BP 119/70
--- NOTE | 2017-04-27 23:10 | NUR ---
PT. IN BED WITH HOB UP FOR COMFORT AND LYING ON HIS RIGHT SIDE. EYES CLOSED AND RESP. DEEP AND EVEN. CALL LIGHT WITHIN REACH.
--- NOTE | 2017-04-28 03:07 | NUR ---
PT. IN BED WITH HOB UP FOR COMFORT WITH EYES CLOSED AND RESP. DEEP AND EVEN. CALL LIGHT WITHIN REACH.
[2017-04-28 06:05] LABS: BASOPHILS 0.2 % (0-2); EOSINOPHILS 1.5 % (0-7); HEMATOCRIT 38.4 % (42.0-54.0); HEMOGLOBIN 13.8 g/dL (13.5-17.5); LYMPHOCYTES 31.3 % (15-50); MCH 31.3 pg (26.0-34.0); MCHC 35.9 g/dL (31.0-37.0); MCV 87.1 fL (80.0-100.0); MEAN PLATELET VOLUME 13.5 fL (7.4-10.4); MONOCYTES 6.6 % (2-11); NEUTROPHILS 60.4 % (40-80); PLATELET COUNT 84 10x3/uL (130-400); RBC 4.41 10x6/uL (4.20-6.10); RDW 13.6 % (11.5-14.5); WBC 5.5 10x3/uL (4.8-10.8)
[2017-04-28 06:30] LABS: CALCIUM 8.8 mg/dL (8.5-10.1); CHLORIDE - SERUM 106 mmol/L (98-107); CHOL - HDL RATIO 3.9 ratio (2.3-4.9); CHOLESTEROL, TOTAL 159 mg/dL (0-200); HDL CHOLESTEROL 41 mg/dL (32-96); LDL CHOLESTEROL 100 mg/dL (0-100); LDL-HDL RATIO 2.4 ratio (1.5-3.5); SODIUM 145 mmol/L (136-145); TRIGLYCERIDE 91 mg/dL (30-200); UREA NITROGEN 7 mg/dL (7-18)
[2017-04-28 06:34] LABS: CALC OSMOLALITY 286 mosm/kg (275-300); GLUCOSE 101 mg/dL (74-106); eGFR NON AFRICAN AMERICAN 82 mL/min (90-120)
--- NOTE | 2017-04-28 07:18 | NUR ---
RESTING QUIETLY IN BED. NO S/S DISTRESS. CALL LIGHT IN REACH
--- NOTE | 2017-04-28 08:46 | NUR ---
PT UP IN WHEELCHAIR IN ROOM NO PROBELMS CALL LIGHT IN REACH WILL MONITER
[2017-04-28 08:59] VITALS: BP 119/76
--- NOTE | 2017-04-28 14:15 | NUR ---
PT RESTING IN BED WITH EYES OPEN CALL LIGHT IN REACH NO PROBLEMS WILL MONITER
--- NOTE | 2017-04-28 19:35 | NUR ---
PATIENT AWAKE. ARMED BED ALARM. INFORMED PATIENT THAT PER SPEECH THERAPIST HE IS STILL ASPIRATING A BIT WHEN HE SWALLOWS. A RESULT WE NEED TO MAKE ALL HIS FLUIDS NECTAR THICK. PATIENT REFUSED THIS. SAYS HE DOSEN'T LIKE THICKENED FLUIDS HE HAS TRIED THEM BEFORE.
--- NOTE | 2017-04-28 20:00 | NUR ---
RECEIVED CALL FROM PATIENT'S SAYING HE EXPRESSED HE SLEPT POORLY AND WANTED A "SLEEPING PILL" TONIGHT. EXPLAINED THAT WE WILL NEED TO ADDRESS THIS WITH DR. WEINBERG IN THE MORNING. I RPORTED PATIENT'S REFUSAL OF THICKENED FLUIDS AND SHE CORROBORATED HIS CLAIM THAT HE WILL NOT DRINK THICKENED FLUIDS AND HAS REFUSED IT ON MULTIPLE OCCASIONS IN THE PAST. SHE USED THE OLD ANALOGY ABOUT LEADING A HORSE TO WATER BUT INABILITY TO MAKE IT DRINK.
[2017-04-28 21:20] VITALS: BP 126/78
--- NOTE | 2017-04-28 21:20 | NUR ---
PATIENT RELENTED FROM EARLIER REFUSAL OF NECTAR THICK LIQUIDS. ASSESSMENT NOW COMPLETE. GAVE PATIENT HIS HS MEDS PO WITH NECTAR THICK WATER. FSBS 245. GAVE PATIENT 8 UNITS HUMALOG SLIDING SCALE INSULIN SC IN LEFT UPPER ARM. GAVE SCHEDULED 40 UNITS LANTUS INSULIN SC IN LEFT ABDOMEN. PATIENT DENIES NEEDS. REFUSED SHOWER SAYING HE TOOK ONE BY HIMSELF THIS MORNING.
--- NOTE | 2017-04-29 00:05 | NUR ---
RESTING IN BED ON BACK. APPEARS COMFORTABLE.
--- NOTE | 2017-04-29 02:15 | NUR ---
RESTING IN BED ON LEFT SIDE. APPEARS COMFORTABLE.
--- NOTE | 2017-04-29 02:45 | NUR ---
PATIENT REPORTS HE THINKS HIS BLOOD SUGAR WAS LOW. GLUCOMETER CHECK SHOWS FSBS OF 51. GAVE HIM 8 OZS NECTAR-THICK APPLE JUICE AND 5 EVELIO CRAX SQUARES.
--- NOTE | 2017-04-29 04:25 | NUR ---
RESTING QUIETLY IN BED, EYES CLOSED. WAS ASSISTED UP TO BR, AMBULATING WITH CANE AND SBA, AT 0330.
--- NOTE | 2017-04-29 06:10 | NUR ---
FSBS 272. GAVE PATIENT 10 UNITS HUMALOG SLIDING SCALE INSULIN WELL SCHEDULED PROTONIX. ASSISTED HIM TO TRANSFER SBA TO W/C.
[2017-04-29 07:00] VITALS: BP 121/67
--- NOTE | 2017-04-29 07:35 | NUR ---
SITTING UP IN WHEELCHAIR. DENIES ANY PAIN. NO S/SX OF DISTRESS. CALL LIGHT IN REACH. WILL CONTINUE TO MONITOR
--- NOTE | 2017-04-29 10:14 | NUR ---
IN THERAPY GYM WITH OCCUPATIONAL THERAPY. OFFERS NO COMPLAINTS. ADMINISTERED MORNING MEDS WITHOUT DIFFICULTY
--- NOTE | 2017-04-29 11:05 | NUR ---
SITTING UP IN WHEELCHAIR. OFFERS NO COMPLAINTS. CALL LIGHT IN REACH
--- NOTE | 2017-04-29 16:45 | NUR ---
LYING IN BED RESTING QUIETLY. OFFERS NO COMPLAINTS. CALL LIGHT IN REACH. WILL CONTINUE TO MONITOR
--- NOTE | 2017-04-29 18:14 | NUR ---
SITTING UP IN WHEELCHAIR VISITING FAMILY. CALL LIGHT IN REACH. OFFERS NO COMPLAINTS AND DENIES PAIN.
--- NOTE | 2017-04-29 19:40 | NUR ---
REST IN BED AND WATCH TV.
[2017-04-29 22:11] VITALS: BP 131/76
--- NOTE | 2017-04-30 01:53 | NUR ---
RESTING IN BED WITH EYES CLOSED. NO S/S OF DISTRESS OBSERVED. LYING INN BED WITH EYES CLOSED. CALL LIGHT AND OVERBED TABLE IN REACH,
--- NOTE | 2017-04-30 03:22 | NUR ---
REST QUIETLY IN BED, CALL LIGHT IN REACH.
[2017-04-30 06:44] LABS: BASOPHILS 0.4 % (0-2); EOSINOPHILS 2.4 % (0-7); MCH 31.3 pg (26.0-34.0); MCHC 35.1 g/dL (31.0-37.0); MCV 88.9 fL (80.0-100.0); MEAN PLATELET VOLUME 13.6 fL (7.4-10.4); MONOCYTES 7.9 % (2-11); NEUTROPHILS 55.3 % (40-80); PLATELET COUNT 96 10x3/uL (130-400); RBC 4.16 10x6/uL (4.20-6.10); WBC 4.9 10x3/uL (4.8-10.8)
[2017-04-30 06:54] LABS: CALC OSMOLALITY 294 mosm/kg (275-300); CALCIUM 8.2 mg/dL (8.5-10.1); CARBON DIOXIDE 31.2 mmol/L (21.0-32.0); CHLORIDE - SERUM 107 mmol/L (98-107); CREATININE - SERUM 0.9 mg/dL (0.6-1.3); GLUCOSE 167 mg/dL (74-106); POTASSIUM - SERUM 3.1 mmol/L (3.5-5.1); SODIUM 146 mmol/L (136-145); UREA NITROGEN 12 mg/dL (7-18); eGFR NON AFRICAN AMERICAN > 90 mL/min (90-120)
[2017-04-30 08:00] VITALS: BP 117/61
--- NOTE | 2017-04-30 08:00 | NUR ---
DENIES NEEDS.CL IN REACH.
--- NOTE | 2017-04-30 08:28 | NUR ---
PATIENT ALERT/ORIENT X4. SITTING UP IN A CHAIR TO EAT BREAKFAST. PATIENT ON THICKEN LIQUIDS. CALL LIGHT WITHIN REACH. USING CALL LIGHT FOR NEEDS.
--- NOTE | 2017-04-30 10:00 | NUR ---
PATIENT IN REHAB ROOM. WORKING WITH PHYSICAL THERAPIST. DENIES ANY PAIN/DISC AT THIS TIME.
--- NOTE | 2017-04-30 10:20 | NUR ---
Nutrition Follow Up: Pt was asleep at the time of RD visit. Interview deferred. Pt is eating 89% meal avg on a diabetic diet. He is receiving Glucerna with meals. +BM 04/29/17. No new wt. Labs reviewed - Glucose continues elevated. Meds noted. Rec continue current diet, supplement regimen. RD following.
--- NOTE | 2017-04-30 11:55 | NUR ---
GLUCOSE LEVEL 136. NO SLIDING SCALE INSULIN GIVEN PER SLIDING SCALE
--- NOTE | 2017-04-30 17:43 | NUR ---
PATIENT HAS SIGNED A RELEASE OF RESPONSIBILITY FOR BED/CHAIR ALARM. PATIENT HAS A STEADY GAIT WHILE WALKING AROUND IN ROOM. PATIENT REMINDED TO USE CALL LIGHT IF HE FEELS UNSTEADY AT ANY TIME. REMINDED TO HAVE SOMEONE WITH HIM TO WALK IN HALLWAYS
--- NOTE | 2017-04-30 19:25 | NUR ---
PT. IN BED WITH HOB UP FOR COMFORT WATCHING TV. NO VOICED NEEDS AT THIS TIME. ASSSESSMENT COMPLETED. DISCUSSED MD ORDERS FOR NECTAR THICK LIQUIDS AND PT. STATED HE DIDN'T NEED IT. INFORMED PT. THAT HIS SPEECH THERAPIST HAS SAID THAT HE DOES SO HE DOESN'T ASPIRATE AND GET ASPIRATION PNEUMONIA. PT. STATED HE DIDN'T THINK THAT WOULD HAPPEN. REINFORCED NEED TO ALWAYS DRINK NECTAR THICK LIQUIDS UNTIL INSTRUCTED OTHERWISE. CALL LIGHT WITHIN REACH.
[2017-04-30 19:50] VITALS: BP 112/63
--- NOTE | 2017-04-30 23:01 | NUR ---
PT. IN BED WITH HOB UP FOR COMFORT WITH EYES CLOSED AND RESP. DEEP AND EVEN. CALL LIGHT WITHIN REACH.
--- NOTE | 2017-05-01 03:00 | NUR ---
PT. IN BED WITH HOB UP FOR COMFORT AND IS LYING ON HIS STOMACH. EYES CLOSED AND RESP. DEEP AND EVEN. CALL LIGHT WITHIN REACH.
[2017-05-01 05:54] LABS: BASOPHILS 0.4 % (0-2); EOSINOPHILS 2.8 % (0-7); HEMATOCRIT 36.6 % (42.0-54.0); HEMOGLOBIN 12.7 g/dL (13.5-17.5); LYMPHOCYTES 32.8 % (15-50); MCH 31.2 pg (26.0-34.0); MCHC 34.7 g/dL (31.0-37.0); MCV 89.9 fL (80.0-100.0); MONOCYTES 7.7 % (2-11); NEUTROPHILS 56.3 % (40-80); PLATELET COUNT 93 10x3/uL (130-400); RBC 4.07 10x6/uL (4.20-6.10); WBC 5.3 10x3/uL (4.8-10.8)
[2017-05-01 06:04] LABS: CALC OSMOLALITY 281 mosm/kg (275-300); CALCIUM 7.9 mg/dL (8.5-10.1); CARBON DIOXIDE 30.8 mmol/L (21.0-32.0); CHLORIDE - SERUM 103 mmol/L (98-107); GLUCOSE 155 mg/dL (74-106); POTASSIUM - SERUM 3.3 mmol/L (3.5-5.1); SODIUM 140 mmol/L (136-145); UREA NITROGEN 13 mg/dL (7-18); eGFR NON AFRICAN AMERICAN 82 mL/min (90-120)
--- NOTE | 2017-05-01 07:25 | NUR ---
SITTING UP IN W/C READING NEWSPAPER. OFFERS NO COMPLAINTS. AND DENIES PAIN. CALL LIGHT IN REACH. BED ALARM WAIVER SIGNED. WILL CONTINUE TO MONITOR
[2017-05-01 08:00] VITALS: BP 105/69
--- NOTE | 2017-05-01 08:00 | NUR ---
SITTING UP IN BED.CL IN REACH.
[2017-05-01] MEDS ORDERED: LANTUS INSULIN10 ML SC (08:21)
--- NOTE | 2017-05-01 08:22 | RHP ---
PATIENT: ESTELLA GUSMAN MEDICAL RECORD: [id number] ACCOUNT: [id number] LOCATION:[facility]1110 : 58 ADMISSION DATE: 04/25/17 REHABILITATION HISTORY AND PHYSICAL EXAMINATION POST ADMISSION PHYSICIAN EXAMINATION Post-Admission Physical Examination and History and Physical DATE OF ADMISSION: 04/25/2017 ADMITTING DIAGNOSIS: Cerebrovascular accident affecting the right basal ganglia with left body involvement. HISTORY OF PRESENT ILLNESS: The patient is a 56-year-old gentleman admitted to inpatient rehab for a right basal ganglia infarction. He presented with complaints of weakness, slurred speech, dysphagia and unintentional weight loss of 30 pounds. There is not any new neurological symptoms, has had chronic dizziness and some weakness on the right side of face and slurred speech that have been present since the previous stroke, admitting he stated he has just not been feeling good, not taking care of himself at home. He has got a history of hypertension, diabetes, hyperlipidemia; former tobacco use, quit 2-3 years ago; coronary artery disease, has had multiple previous infarcts. He is on aspirin and Plavix. MRI revealed a right basal ganglia lacunar infarct. Echo with regional wall motion abnormalities, but no thrombus. Bedside swallow eval revealed oropharyngeal dysphagia on exam. He had no language deficits, slight dysarthria. His extraocular muscles are full. Face had some mild right central 7th nerve palsy. He, prior to admit, was independent with ADLs and ambulated with a cane. Currently, he is moderate to max assist with ADLs and mobility. His blood sugars have been running greater than 250. He is on fingerstick blood sugars q.a.c. and q.h.s. with a low resistant sliding scale. His hemoglobin A1c shows poor control at 10.8. He has been ambulating short distances with a cane, but very unsteady and dizzy with any movement. He hopes to regain his strength and return home, hopefully with his family. COMORBIDITIES: Include malnutrition, metabolic acidosis, hypomagnesemia, CHF, acute kidney injury, diabetic ketoacidosis, dysarthria, expressive aphasia, ataxia, dysphagia, peripheral neuropathy, coronary artery disease, hyperlipidemia, hypertension, history of CT, status post coronary artery bypass grafting, and unintentional weight loss. PAST MEDICAL HISTORY: Significant for neuropathy, diabetes, history of CT, angina, coronary artery disease, and depression. PAST SURGICAL HISTORY: Includes open-heart surgery, he has had stents times 7. He has had a vasectomy. ALLERGIES: No known drug allergies. CURRENT MEDICATIONS: Include potassium 20 mEq daily, thiamine 100 mg daily, Zoloft 100 mg daily, Crestor 10 mg daily, Protonix 40 mg daily, multivitamin daily, folic acid 1 mg daily, TriCor 145 mg daily, Plavix 75 mg daily, chewable aspirin 81 mg daily, sodium bicarbonate 1300 mg t.i.d., Lyrica 150 b.i.d. He is on [place] 10/325 as needed for pain and he is on low resistant sliding scale insulin. HISTORY AND PHYSICAL [id number] ESTELLA GUSMAN HABITS: No alcohol or tobacco use at this time, but smoked in approximately 3 years ago. FAMILY HISTORY: Noncontributory. SOCIAL HISTORY: The patient hopes to return back home with family and hopefully get back to his prior level of functioning. REVIEW OF SYSTEMS: GENERAL: Does complain of weakness and fatigue, worse on one side. HEENT: Denies cold, cough or congestion. CARDIOVASCULAR: Denies chest pain. LUNGS: Does complain of shortness of breath with activity. PHYSICAL EXAMINATION: VITAL SIGNS: Stable, afebrile. GENERAL: A well-developed gentleman in no acute distress, alert upon exam. HEENT: Normocephalic and atraumatic. Mucosa moist. NECK: Supple, with no lymphadenopathy. LUNGS: Clear at this time. HEART: Regular rate and rhythm. ABDOMEN: Benign. EXTREMITIES: No clubbing, cyanosis or edema. NEUROLOGIC: Does have left-sided weakness. LABORATORY DATA: White count is 4.9, H&H of 13 and 38 and platelet count was noted to be 101. His sodium is 140, potassium 3.2, BUN and creatinine of 7 and 1.4, blood sugars noted to be 252. ASSESSMENT: This 56-year-old gentleman was admitted to the rehab with a working diagnosis of cerebrovascular accident involving the left side of his body with his right basal ganglia involvement. The patient has potential to make improvement. We instituted the following multidisciplinary therapies including, but not limited to physical, occupational, respiratory, speech, nutritional services, prosthetics and orthotics. Given his complex condition and risk for more complications, rehabilitation services cannot be provided at a lower level of care such as a custodial facility. PLAN: 1. Admit to [facility] rehab for intensive inpatient therapy to include the following disciplines: A. Physical therapy to improve gait, all transfer skills and bed mobility to a modified independent level. B. Occupational therapy to improve activities of daily living to a modified independent level. C. Case management to assist with discharge planning and placement options. D. Nutrition to assist with nutritional needs. E. Rehabilitation nursing to assist in monitoring the patient's underlying medical condition and to assist with any type of bowel or bladder management. 2. The patient's current medications and medical care will be continued. 3. The patient will be placed on standard fall precautions. 4. The patient's estimated length of stay is approximately 10-14 days. 5. Discuss this patient during care team staff meeting this week. TRANSINT:[id number] Voice Confirmation ID: [id number] DOCUMENT ID: [id number] HISTORY AND PHYSICAL [id number] ESTELLA GUSMAN notes whether there has been none or any medical/functional change since admission: - JOSH attests patient continues to be appropriate for IRF: - JENA WEINBERG MD at 0822 CC: [id number] DICTATION DATE: 04/26/17 1606 OFFICE COORDINATOR RECEPTIONIST: 04/26/17 1640 ADM IN [place] [id number]
--- NOTE | 2017-05-01 09:08 | NUR ---
SITTING UP IN BED WATCHING TV. OFFERS NO COMPLAINTS. ADMINISTERED MORNING MEDS WITHOUT DIFFICULTY. CALL LIGHT IN REACH.
--- NOTE | 2017-05-01 12:31 | NUR ---
SITTING UP IN BED EATING LUNCH. OFFERS NO COMPLAINTS. CALL LIGHT IN REACH
--- NOTE | 2017-05-01 14:18 | NUR ---
SITTING UP IN WHEELCHAIR WATCHING TV. OFFERS NO COMPLAINTS. CALL LIGHT IN REACH
--- NOTE | 2017-05-01 16:58 | NUR ---
SITTING UP IN BED VISITING WITH FRIENDS. OFFERS NO COMPLAINTS. CALL LIGHT IN REACH
--- NOTE | 2017-05-01 19:30 | NUR ---
RESTING IN BED ON LEFT SIDE, HOB UP 20 DEGREES. APPEARS COMFORTABLE.
--- NOTE | 2017-05-01 21:40 | NUR ---
IN BED WATCHING FOOTBALL GAME.
[2017-05-01 22:55] VITALS: BP 146/72
--- NOTE | 2017-05-01 22:55 | NUR ---
ASSESSMENT AND HS MEDS COMPLETE. FSBS 180. GAVE PATIENT 4 UNITS SLIDING SCALE HUMALOG INSULIN SC IN LEFT UPPER ARM. GAVE PATIENT 40 UNITS LANTUS INSULIN SC IN LEFT ABDOMEN. GAVE PATIENT SNACK WHICH HE STATED HE WOULD EAT LATER IN THE NIGHT.
--- NOTE | 2017-05-02 00:05 | NUR ---
RESTING QUIETLY IN BED, EYES CLOSED.
--- NOTE | 2017-05-02 02:15 | NUR ---
IN BED ON LEFT SIDE, SNORING.
--- NOTE | 2017-05-02 02:15 | NUR ---
RESTING IN BED ON LEFT SIDE. NO DISTRESS NOTED.
--- NOTE | 2017-05-02 07:48 | NUR ---
RESTING QUIETLY IN BED. NO S/S DISTRESS OR NEEDS. CALL LIGHT IN REACH
[2017-05-02 08:11] VITALS: BP 120/81
[2017-05-02] MEDS ORDERED: HYDROCODON-ACE1 EAC7 PO (08:30)
--- NOTE | 2017-05-02 10:19 | NUR ---
DISCHARGE INSTRUCTIONS GIVEN TO PATIENT AND PATIENTS DAUGHTER. DISCHARGE MEDICATIONS CALLED INTO [facility].
--- NOTE | 2017-05-02 10:33 | NUR ---
PATIENT DISCHARGING HOME TODAY WITH FAMILY. [facility] WILL FOLLOW WITH PATIENT AT HOME. NO DME NEEDED AT THIS TIME. DR. MCBRIDE 05/08/17 @ 10:30. PATIENT CHOICE FORM FOR HOME HEALTH WAS SIGNED AND FILED IN CHART. ORDERS HAVE BEEN FAXED WITH CONFORMATION RECIEVED
--- NOTE | 2017-05-02 11:25 | NUR ---
GLUCOSE LEVEL 203. EIGHT UNITS OF SLIDING SCALE INSULIN GIVEN PER ORDER.
--- NOTE | 2017-05-02 11:40 | NUR ---
PATIENTS FRIEND HERE TO TAKE PATIENT HOME. PATIENT HELPED OUT OT CAR BY STAFF.
== END 2017-05-02 11:41 | disposition home health service (06) | DRG 64 ==
LOC: D.REHAB 16:15
PROVIDERS: ADMIT Emergency Medicine
DX: I63.9 Cerebral infarction, unspecified (principal); E13.10 Other specified diabetes mellitus with ketoacidosis without coma; E43 Unspecified severe protein-calorie malnutrition; R13.12 Dysphagia, oropharyngeal phase; R47.1 Dysarthria and anarthria; R53.1 Weakness; R47.01 Aphasia; E78.5 Hyperlipidemia, unspecified; Z87.891 Personal history of nicotine dependence; E83.42 Hypomagnesemia; I11.0 Hypertensive heart disease with heart failure; I50.9 Heart failure, unspecified; R27.0 Ataxia, unspecified; I25.10 Atherosclerotic heart disease of native coronary artery without angina pectoris; Z95.1 Presence of aortocoronary bypass graft; G62.9 Polyneuropathy, unspecified; N28.9 Disorder of kidney and ureter, unspecified; Z68.24 Body mass index [BMI] 24.0-24.9, adult

== ENCOUNTER 2017-05-09 09:32 | Inpatient (IN) | payer MEDICARE ==
[2017-05-09] VITALS (15 sets, daily range): BP systolic 92–127; BP diastolic 53–74; BMI 23.7
[~2017-05-09] VITALS: Ht 177.8 cm; Wt 76.5 kg
[~2017-05-09 09:32] MED LIST changes: +LANTUS INSULIN10 ML SC
[2017-05-09 10:05] LABS: BASOPHILS 0.1 % (0-2); EOSINOPHILS 0 % (0-7); HEMATOCRIT 42.7 % (42.0-54.0); HEMOGLOBIN 14.5 g/dL (13.5-17.5); IMMATURE GRANULOCYTES 0.4 % (0-5); LYMPHOCYTES 11.4 % (15-50); MCH 31.9 pg (26.0-34.0); MCV 93.8 fL (80.0-100.0); MEAN PLATELET VOLUME 12.2 fL (7.4-10.4); MONOCYTES 3.1 % (2-11); RBC 4.55 10x6/uL (4.20-6.10); RDW 15.2 % (11.5-14.5)
[2017-05-09 10:18] LABS: PLATELET COUNT 208 10x3/uL (130-400)
[2017-05-09 10:22] LABS: ALBUMIN 3.6 g/dL (3.4-5.0); ALKALINE PHOSPHATASE 103 U/L (46-116); ALT (SGPT) 19 U/L (10-68); BILIRUBIN - TOTAL 0.52 mg/dL (0.2-1.3); CHLORIDE - SERUM 94 mmol/L (98-107); CREATININE - SERUM 2.3 mg/dL (0.6-1.3); POTASSIUM - SERUM 4.8 mmol/L (3.5-5.1); PROTEIN - SERUM 7.8 g/dL (6.4-8.2); SODIUM 137 mmol/L (136-145); UREA NITROGEN 20 mg/dL (7-18); eGFR NON AFRICAN AMERICAN 31 mL/min (90-120)
[2017-05-09 10:23] LABS: CALC OSMOLALITY 307 mosm/kg (275-300)
[2017-05-09 10:25] LABS: GLUCOSE 653 mg/dL (74-106)
[2017-05-09 10:29] LABS: KETONE - SERUM LARGE mg/dL (NEGATIVE)
--- NOTE | 2017-05-09 13:12 | NUR ---
REC'D FROM ER VIA STRETCHER. TRANSFERRED WITH ASSISTANCE X2 TO ICU BED. CONNECTED TO MONITOR AND VS OBTAINED. SEE FLOWSHEET FOR ASSESSMENT.
[2017-05-09] MEDS ORDERED: BAYER CHEWABLE81 MG PO (13:40)
--- NOTE | 2017-05-09 15:00 | NUR ---
RESTING QUIETLY WITH EYES CLOSED. NO DISTRESS NOTED.
[2017-05-09 16:49] LABS: CALCIUM 8.5 mg/dL (8.5-10.1); CREATININE - SERUM 2.1 mg/dL (0.6-1.3); MAGNESIUM - SERUM 2.2 mg/dL (1.8-2.4)
[2017-05-09 16:51] LABS: ANION GAP 26.5 mmol/L (8-16); POTASSIUM - SERUM 3.5 mmol/L (3.5-5.1)
--- NOTE | 2017-05-09 17:00 | NUR ---
INSULIN GTT CONTINUES. FSBS Q ONE HOUR. NO DISTRESS NOTED.
--- NOTE | 2017-05-09 18:00 | NUR ---
DAUGHTER AT BEDSIDE. CONDITION UPDATE GIVEN. NO ACUTE DISTRESS NOTED.
--- NOTE | 2017-05-09 19:10 | NUR ---
ASSESSMENT COMPLETE. S1S2. AAO. PERRLA. RR UNLABORED; SHALLOW; DIMINISHED BILATERALLY IN LOWER LOBES. NSR SHOWING ON MONITOR. RADIAL AND PEDAL PULSES PALPATED. NPO WITH ICE CHIPS. ROOM AIR. ACTIVE BOWEL SOUNDS X4. URINAL AT BEDSIDE. DENIES URGE TO VOID.
--- NOTE | 2017-05-09 20:00 | NUR ---
FSBS 85. 25 X 0.03 = 0.75. READJUSTED INSULIN DRIP.
--- NOTE | 2017-05-09 21:00 | NUR ---
PT ABLE TO HAVE ICE CHIPS, WATER, AND FLUIDS WITH MODERATION; PER DR. WEINBERG. PT SWALLOWED DIET COLA WITHOUT DIFFICULTY. PT AWARE OF MODERATION. WILL CONTINUE TO MONITOR.
--- NOTE | 2017-05-09 21:30 | NUR ---
NO VISITORS OR FAMILY DURING VISITATION.
[2017-05-09 21:41] LABS: KETONE - SERUM LARGE mg/dL (NEGATIVE)
[2017-05-09 21:43] LABS: CALC OSMOLALITY 289 mosm/kg (275-300); CALCIUM 8.5 mg/dL (8.5-10.1); CARBON DIOXIDE 20.3 mmol/L (21.0-32.0); CHLORIDE - SERUM 106 mmol/L (98-107); GLUCOSE 79 mg/dL (74-106); POTASSIUM - SERUM 3.5 mmol/L (3.5-5.1); SODIUM 145 mmol/L (136-145); UREA NITROGEN 17 mg/dL (7-18); eGFR NON AFRICAN AMERICAN 37 mL/min (90-120)
--- NOTE | 2017-05-09 22:00 | NUR ---
FSBS 93. 93-60 = 33. 33 X 0.01 = 0.33. ADJUSTED INSULIN DRIP.
--- NOTE | 2017-05-09 23:20 | NUR ---
REASSESSMENT COMPLETE. VSS. NO DISTRESS NOTED. NO ACUTE CHANGES FROM PREVIOUS ASSESSMENT. WILL CONTINUE TO MONITOR.
[2017-05-10] VITALS (24 sets, daily range): BP systolic 94–117; BP diastolic 46–72; Ht 177.8 cm; Wt 76.5 kg
--- NOTE | 2017-05-10 | NUR ---
FSBS 125. INSULIN ADJUSTED. CURRENT 1.3
[2017-05-10 01:45] LABS: CALC OSMOLALITY 282 mosm/kg (275-300); CALCIUM 7.9 mg/dL (8.5-10.1); CARBON DIOXIDE 18.1 mmol/L (21.0-32.0); CHLORIDE - SERUM 104 mmol/L (98-107); CREATININE - SERUM 1.7 mg/dL (0.6-1.3); POTASSIUM - SERUM 3.7 mmol/L (3.5-5.1); SODIUM 140 mmol/L (136-145); UREA NITROGEN 16 mg/dL (7-18); eGFR NON AFRICAN AMERICAN 44 mL/min (90-120)
[2017-05-10 01:47] LABS: GLUCOSE 152 mg/dL (74-106)
[2017-05-10 01:56] LABS: KETONE - SERUM LARGE mg/dL (NEGATIVE)
--- NOTE | 2017-05-10 03:15 | NUR ---
REASSESSMENT COMPLETE. NO ACUTE CHANGES FROM PREVIOUS ASSESSMENT. OCCASIONAL PVC'S AND PAC'S NOTED. WILL CONTINUE TO MONITOR.
--- NOTE | 2017-05-10 05:16 | NUR ---
PT RESTING; EYES CLOSED. VSS. NO DISTRESS NOTED. CALL LIGHT IN REACH. WILL CONTINUE TO MONITOR.
[2017-05-10 05:31] LABS: BASOPHILS 0.1 % (0-2); EOSINOPHILS 0.2 % (0-7); IMMATURE GRANULOCYTES 0.2 % (0-5); LYMPHOCYTES 17.6 % (15-50); MCH 31.7 pg (26.0-34.0); MCHC 36.1 g/dL (31.0-37.0); MEAN PLATELET VOLUME 11.2 fL (7.4-10.4); MONOCYTES 5.2 % (2-11); NEUTROPHILS 76.7 % (40-80); PLATELET COUNT 171 10x3/uL (130-400); RBC 3.78 10x6/uL (4.20-6.10)
[2017-05-10 05:36] LABS: ALBUMIN 2.7 g/dL (3.4-5.0); ALKALINE PHOSPHATASE 68 U/L (46-116); ALT (SGPT) 15 U/L (10-68); BILIRUBIN - TOTAL 0.24 mg/dL (0.2-1.3); CALC OSMOLALITY 280 mosm/kg (275-300); CALCIUM 7.9 mg/dL (8.5-10.1); CARBON DIOXIDE 22.5 mmol/L (21.0-32.0); CHLORIDE - SERUM 106 mmol/L (98-107); CREATININE - SERUM 1.7 mg/dL (0.6-1.3); GLUCOSE 137 mg/dL (74-106); SODIUM 140 mmol/L (136-145); UREA NITROGEN 13 mg/dL (7-18); eGFR NON AFRICAN AMERICAN 44 mL/min (90-120)
[2017-05-10 05:37] LABS: HEMATOCRIT 33.2 % (42.0-54.0); MCV 87.8 fL (80.0-100.0); WBC 11.1 10x3/uL (4.8-10.8)
[2017-05-10 06:09] LABS: KETONE - SERUM MODERATE mg/dL (NEGATIVE)
--- NOTE | 2017-05-10 06:27 | NUR ---
RIGHT AC PIV INFILTRATED. DC'D WITH CATH INTACT. PIV STARTED TO RIGHT WRIST; PATENT. X6 ATTEMPT.
--- NOTE | 2017-05-10 07:30 | NUR ---
ASSESSMENT COMPLETE. NO DISTRESS NOTED.
--- NOTE | 2017-05-10 09:00 | NUR ---
REMAINS ON INSULIN GTT. NO DISTRESS NOTED.
[2017-05-10 09:35] LABS: KETONE - SERUM MODERATE mg/dL (NEGATIVE)
[2017-05-10 09:37] LABS: CALC OSMOLALITY 282 mosm/kg (275-300); CALCIUM 7.8 mg/dL (8.5-10.1); CARBON DIOXIDE 26.5 mmol/L (21.0-32.0); CHLORIDE - SERUM 107 mmol/L (98-107); CREATININE - SERUM 1.7 mg/dL (0.6-1.3); GLUCOSE 127 mg/dL (74-106); SODIUM 141 mmol/L (136-145); UREA NITROGEN 12 mg/dL (7-18); eGFR NON AFRICAN AMERICAN 44 mL/min (90-120)
[2017-05-10 09:38] LABS: POTASSIUM - SERUM 3.5 mmol/L (3.5-5.1)
--- NOTE | 2017-05-10 11:00 | NUR ---
ASSESSMENT UNCHANGED. REMAINS ON INSULIN. SERUM KETONES REMAIN POSITIVE.
--- NOTE | 2017-05-10 13:00 | NUR ---
RESTING QUIETLY WITH EYES CLOSED. NO DISTRESS NOTED.
[2017-05-10 13:10] LABS: CALC OSMOLALITY 280 mosm/kg (275-300); CALCIUM 8.1 mg/dL (8.5-10.1); CARBON DIOXIDE 24.3 mmol/L (21.0-32.0); CHLORIDE - SERUM 108 mmol/L (98-107); CREATININE - SERUM 1.5 mg/dL (0.6-1.3); GLUCOSE 121 mg/dL (74-106); KETONE - SERUM SMALL mg/dL (NEGATIVE); POTASSIUM - SERUM 3.3 mmol/L (3.5-5.1); SODIUM 141 mmol/L (136-145); UREA NITROGEN 11 mg/dL (7-18); eGFR NON AFRICAN AMERICAN 51 mL/min (90-120)
--- NOTE | 2017-05-10 15:00 | NUR ---
NO CHANGES IN CONDITION.
[2017-05-10 16:58] LABS: KETONE - SERUM SMALL mg/dL (NEGATIVE)
[2017-05-10 17:00] LABS: CALC OSMOLALITY 282 mosm/kg (275-300); CALCIUM 8.2 mg/dL (8.5-10.1); CARBON DIOXIDE 24.3 mmol/L (21.0-32.0); CHLORIDE - SERUM 107 mmol/L (98-107); CREATININE - SERUM 1.5 mg/dL (0.6-1.3); GLUCOSE 153 mg/dL (74-106); POTASSIUM - SERUM 3.4 mmol/L (3.5-5.1); SODIUM 141 mmol/L (136-145); UREA NITROGEN 10 mg/dL (7-18); eGFR NON AFRICAN AMERICAN 51 mL/min (90-120)
--- NOTE | 2017-05-10 19:50 | NUR ---
IN ROOM WITH PATIENT. SHIFT ASSESSMENT COMPLETED. SEE ASSESSMENT FLOWSHEET DOCUMENTED @ 2000 FOR DETAILS. EQUAL MOVEMENT AGAINST GRAVITY TO UE'S BILATERALLY. LE'S ALSO EQUAL. OLD SCAR TO CHEST FROM OPEN HEART SURGERY REPORTED. AND LEFT KNEE SCAR FROM CHAINSAW INJURY REPORTED. FSBS ASSESSED. DECREASED INSULIN GTT PER PROTOCOL TO 2 UNITS/HR ON REGULAR INSULIN GTT. NSR IN THE 60'S ON THE MONITOR. DENIES NEEDS OR ANY PAIN JUST "DON'T FEEL GOOD" REPORTED ALL OVER. WILL MONITOR.
--- NOTE | 2017-05-10 21:45 | NUR ---
LAB CALLED TO INFORM OF NEED FOR TIMED BMP AND KETONES.
[2017-05-10 22:10] LABS: KETONE - SERUM SMALL mg/dL (NEGATIVE)
[2017-05-10 22:14] LABS: CALC OSMOLALITY 281 mosm/kg (275-300); CALCIUM 8.1 mg/dL (8.5-10.1); CARBON DIOXIDE 24.2 mmol/L (21.0-32.0); CHLORIDE - SERUM 110 mmol/L (98-107); CREATININE - SERUM 1.4 mg/dL (0.6-1.3); GLUCOSE 110 mg/dL (74-106); POTASSIUM - SERUM 3.2 mmol/L (3.5-5.1); SODIUM 142 mmol/L (136-145); UREA NITROGEN 8 mg/dL (7-18); eGFR NON AFRICAN AMERICAN 55 mL/min (90-120)
--- NOTE | 2017-05-10 22:38 | NUR ---
PO KCL GIVEN PER ELECTROLYTE PROTOCOL WITH DIET LEMON-LOWER ELWHA DRINK. REASSESSMENT COMPLETED. SEE ASSESSMENT FLOWSHEET. DAUGHTER CALLED ON PHONE TO CHECK ON HIM. PASSWORD OBTAINED AND VERIFIED. PATIENT DID NOT WANT TO SPEAK WITH DAUGHTER AT THIS TIME.
--- NOTE | 2017-05-10 23:00 | NUR ---
DECREASED INSULIN GTT TO 1 UNIT/HR PER PROTOCOL. WILL MONITOR.
[2017-05-11] VITALS (21 sets, daily range): BP systolic 110–146; BP diastolic 60–103
--- NOTE | 2017-05-11 00:55 | NUR ---
FSBS ASSESSED. INSULIN GTT ADJUSTED PER PROTOCOL.
--- NOTE | 2017-05-11 02:00 | NUR ---
FSBS ASSESSED. EYES CLOSED. AWAKENS TO GIVE ME A FINGER TO POKE. INCREASED INSULIN GTT TO 2.8 UNITS/HR. WILL MONITOR.
[2017-05-11 02:27] LABS: KETONE - SERUM SMALL mg/dL (NEGATIVE)
[2017-05-11 02:29] LABS: CALC OSMOLALITY 282 mosm/kg (275-300); CALCIUM 8.1 mg/dL (8.5-10.1); CARBON DIOXIDE 24.1 mmol/L (21.0-32.0); CHLORIDE - SERUM 110 mmol/L (98-107); CREATININE - SERUM 1.3 mg/dL (0.6-1.3); GLUCOSE 136 mg/dL (74-106); POTASSIUM - SERUM 3.5 mmol/L (3.5-5.1); SODIUM 142 mmol/L (136-145); UREA NITROGEN 6 mg/dL (7-18); eGFR NON AFRICAN AMERICAN 60 mL/min (90-120)
--- NOTE | 2017-05-11 03:10 | NUR ---
POTASSIUM 3.5 ON BMP AND INFORMED OF LEVEL. INFORMED OF NEED FOR MORE POTASSIUM IN JUICE PER PROTOCOL. REFUSES. WANTS TO EAT. INFORMED OF DOCTOR ORDERS BUT IF STILL KETONES IN AM WITH ASK DOC IF HE CAN EAT. VERBALIZED UNDERSTANDING.
--- NOTE | 2017-05-11 04:08 | NUR ---
REASSESSMENT COMPLETED. SEE ASSESSMENT FLOWSHEET. FSBS ASSESSED. DECREASED INSULIN GTT.
--- NOTE | 2017-05-11 05:00 | NUR ---
FSBS ASSESSED. INSULIN GTT ADJUSTED.
--- NOTE | 2017-05-11 06:10 | NUR ---
FSBS TAKEN USING BLOOD DRAWN FROM PERIPHERAL STICK PER ESTELLE HARRISON. INSULIN GTT ADJUSTED PER PROTOCOL.
[2017-05-11 06:24] LABS: BASOPHILS 0.2 % (0-2); EOSINOPHILS 1.1 % (0-7); HEMATOCRIT 32.9 % (42.0-54.0); HEMOGLOBIN 11.9 g/dL (13.5-17.5); LYMPHOCYTES 24.1 % (15-50); MCH 31.6 pg (26.0-34.0); MCHC 36.2 g/dL (31.0-37.0); MCV 87.5 fL (80.0-100.0); MEAN PLATELET VOLUME 11.6 fL (7.4-10.4); MONOCYTES 3.9 % (2-11); NEUTROPHILS 70.7 % (40-80); PLATELET COUNT 143 10x3/uL (130-400); RBC 3.76 10x6/uL (4.20-6.10); RDW 15.1 % (11.5-14.5)
[2017-05-11 06:28] LABS: WBC 6.4 10x3/uL (4.8-10.8)
[2017-05-11 06:42] LABS: ALBUMIN 2.5 g/dL (3.4-5.0); ANION GAP 10.6 mmol/L (8-16); BILIRUBIN - TOTAL 0.27 mg/dL (0.2-1.3); CARBON DIOXIDE 24.8 mmol/L (21.0-32.0); CREATININE - SERUM 1.2 mg/dL (0.6-1.3); POTASSIUM - SERUM 3.4 mmol/L (3.5-5.1); PROTEIN - SERUM 5.8 g/dL (6.4-8.2)
--- NOTE | 2017-05-11 07:15 | NUR ---
K+ RESULTS 3.4. REFUSES PO K+. STATES " I WILL TAKE IT LATER" .
[2017-05-11 10:34] LABS: KETONE - SERUM SMALL mg/dL (NEGATIVE)
[2017-05-11 10:38] LABS: CALC OSMOLALITY 280 mosm/kg (275-300); CHLORIDE - SERUM 108 mmol/L (98-107); CREATININE - SERUM 1.1 mg/dL (0.6-1.3); GLUCOSE 160 mg/dL (74-106); POTASSIUM - SERUM 3.4 mmol/L (3.5-5.1); SODIUM 141 mmol/L (136-145); UREA NITROGEN 4 mg/dL (7-18); eGFR NON AFRICAN AMERICAN 73 mL/min (90-120)
[2017-05-11 13:46] LABS: ANION GAP 10.5 mmol/L (8-16); CALCIUM 8.4 mg/dL (8.5-10.1); CREATININE - SERUM 1.1 mg/dL (0.6-1.3); POTASSIUM - SERUM 3.5 mmol/L (3.5-5.1)
[2017-05-11 18:34] LABS: CALC OSMOLALITY 280 mosm/kg (275-300); CALCIUM 8.5 mg/dL (8.5-10.1); CARBON DIOXIDE 24.2 mmol/L (21.0-32.0); CHLORIDE - SERUM 109 mmol/L (98-107); GLUCOSE 117 mg/dL (74-106); POTASSIUM - SERUM 3.3 mmol/L (3.5-5.1); SODIUM 142 mmol/L (136-145); eGFR NON AFRICAN AMERICAN 82 mL/min (90-120)
[2017-05-11 18:35] LABS: UREA NITROGEN 3 mg/dL (7-18)
[2017-05-11 18:50] LABS: KETONE - SERUM NEGATIVE (NEGATIVE)
--- NOTE | 2017-05-11 19:00 | NUR ---
REPORT RECIEVED SHIFT ASSESSMENT COMPLETE, PLEASE SEE FLOW SHEETS FOR DETAILS. DENIES PAIN/NEEDS ATT. VSS, BED LOW AND LOCKED, CALL LIGHT IN REACH. ARNOLDO @ 2205 NEGATIVE, PREVIOUS NURSE ADJUSTING INSULIN ORDERS PER ORDERS. WILL CPOC.
--- NOTE | 2017-05-11 20:15 | NUR ---
FSBS 83, KETONES NEGATIVE, TURNED OFF INSULIN GTTP, GAVE LANTUS PER ORDERS. CONFERED WITH CHARGE NURSE, WILL IMPLEMENT MD ORDERS TO TX PT TO FLOOR.
--- NOTE | 2017-05-11 20:59 | NUR ---
RESTING, VSS, BED LOW AND LOCKED, CALL LIGHT IN REACH. WILL CPOC.
--- NOTE | 2017-05-11 23:00 | NUR ---
RESTING, VSS, BED LOW AND LOCKED, CALL LIGHT IN REACH. WILL CPOC.
--- NOTE | 2017-05-12 00:59 | NUR ---
RESTING, NO S&S OF ACUTE DISTRESS NOTED. BED LOW AND LOCKED, CALL LIGHT IN REACH. VSS, WILL CPOC.
[2017-05-12 03:00] VITALS: BP 150/98
--- NOTE | 2017-05-12 03:06 | NUR ---
RESTING, VSS, NO S&S OF ACUTE DISTRESS NOTED. BED LOW AND LOCKED, CALL LIGHT IN REACH. WILL CPOC.
[2017-05-12 03:46] LABS: BASOPHILS 0.4 % (0-2); EOSINOPHILS 3.4 % (0-7); HEMATOCRIT 36.3 % (42.0-54.0); HEMOGLOBIN 13.1 g/dL (13.5-17.5); IMMATURE GRANULOCYTES 0.2 % (0-5); LYMPHOCYTES 38.7 % (15-50); MCH 31.6 pg (26.0-34.0); MCHC 36.1 g/dL (31.0-37.0); MCV 87.5 fL (80.0-100.0); MEAN PLATELET VOLUME 11.5 fL (7.4-10.4); MONOCYTES 6.6 % (2-11); NEUTROPHILS 50.7 % (40-80); PLATELET COUNT 134 10x3/uL (130-400); RBC 4.15 10x6/uL (4.20-6.10); RDW 14.8 % (11.5-14.5); WBC 4.7 10x3/uL (4.8-10.8)
[2017-05-12 04:12] LABS: ALBUMIN 2.6 g/dL (3.4-5.0); ALKALINE PHOSPHATASE 77 U/L (46-116); ALT (SGPT) 16 U/L (10-68); BILIRUBIN - TOTAL 0.34 mg/dL (0.2-1.3); CALC OSMOLALITY 279 mosm/kg (275-300); CALCIUM 8.3 mg/dL (8.5-10.1); CARBON DIOXIDE 26.2 mmol/L (21.0-32.0); CHLORIDE - SERUM 108 mmol/L (98-107); CREATININE - SERUM 0.9 mg/dL (0.6-1.3); GLUCOSE 105 mg/dL (74-106); POTASSIUM - SERUM 3.4 mmol/L (3.5-5.1); PROTEIN - SERUM 6.2 g/dL (6.4-8.2); SODIUM 142 mmol/L (136-145); UREA NITROGEN 3 mg/dL (7-18); eGFR NON AFRICAN AMERICAN > 90 mL/min (90-120)
--- NOTE | 2017-05-12 05:00 | NUR ---
SLEEPING, NO S&S OF ACUTE DISTRESS NOTED. VSS, BED LOW AND LOCKED, CALL LIGHT IN REACH. WILL CPOC.
[2017-05-12 08:00] VITALS: BP 150/98
--- NOTE | 2017-05-12 09:55 | NUR ---
NUTRITION F/U CHART REVIEWED, NURSING REPORTS PT TOLERATING REG ADA DIET, GOOD INTAKE BREAKFAST. WILL CONTINUE TO PROVIDE DIET, MONITOR PO INTAKE. RD FOLLOWING
--- NOTE | 2017-05-12 10:03 | NUR ---
* Is the patient Alert and Oriented? Yes 0 * How many steps to enter\exit or inside your home? 2 0 * PCP Dr. Navas 0 * Pharmacy [facility] 0 * Preadmission Environment Home with Family 0 * ADLs Independent 0 * Equipment Cane Glucometer 0 * List name and contact numbers for known caregivers / representatives who currently or will assist patient after discharge: Spouse - Brandi [phone] 0 * Community resources currently utilized Home Health 0 * Please name any agencies selected above. [facility] 0 * Additional services required to return to the preadmission environment? No 0 * Can the patient safely return to the preadmission environment? Yes 0 * Has this patient been hospitalized within the prior 30 days at any hospital? Yes Patient Name: ESTELLA GUSMAN Admission Status: ER Accout number: [id number] Admission Date: 05-09-2017 : 1960 Admission Diagnosis: Attending: JENA WEINBERG Current LOS: 3 Anticipated DC Date: 05-14-2017 Planned Disposition: Home with Home Health Primary Insurance: [facility] Discharge Planning Comments: CM met with patient & spouse to assess dc plans/needs. Patient states he lives at home with his , Brandi. He reports he uses a cane for mobility. He is current with [facility] & wants to resume their services at discharge. No other needs identified or verbalized at this time. CM will follow. Gas Welding Equipment Mechanic: Mela Vela
--- NOTE | 2017-05-12 13:59 | NUR ---
Patient arrived from ICU @ 1325 via wheelchair, IV site in right wrist with D5 1/2 running at 75ml/hr. Denies any needs or pain at this time, call light within reach and daughter is at bedside. Oriented patient to room and call light.
--- NOTE | 2017-05-12 14:10 | NUR ---
0800 AM ASSESMENT IS COMPLETE SEE FLOW SHEET FOR FINDINGS.. PT IS AWAKE AND ALERT .. FSBS DONE INSULIN COVER .. BREAKFAST IS SERVED.. RIGHT PIV WITH D51/2NS AT 75CC /HR... 0900 VISITOR AT THE BEDSIDE.. UPDATE GIVEN.. 1030 DR REAL IN TO SEE PT.. UPDATE IS GIVEN.. 1200 DAUGHTER AT BEDSIDE.. FSBS DONE LUNCH SERVED.. 1300 ROOM 2135 OBTAINED FOR TRANSFER TO FLOOR.. REPORT CALLED.. 1315 TRANSPORTED TO THE FLOOR VIA WHEELCHAIR
--- NOTE | 2017-05-12 15:48 | NUR ---
PT IN BED, RESP EVEN AND UNLABORED, PT DENIES ANY NEEDS AT THIS TIME. CALL LIGHT IN REACH, NAD NOTED, WILL CONTINUE TO MONITOR.
--- NOTE | 2017-05-12 16:14 | NUR ---
Patient is resting in bed watching TV, call light within reach. Denies any needs or pain at this time.
[2017-05-12 17:18] VITALS: BP 139/83
[2017-05-12 19:00] VITALS: BP 129/83
--- NOTE | 2017-05-12 20:00 | NUR ---
PT RESTING IN BED WITH NO DISTRESS. IVF INFUSING. CALL LIGHT IN REACH. SEE SHIFT ASSESSMENT. CPOC.
[2017-05-13] VITALS: BP 134/81
[2017-05-13 04:03] VITALS: BP 139/82
--- NOTE | 2017-05-13 05:49 | NUR ---
PT HAS RESTED THROUGHT THE NIGHT. NONLABORED RESPIRATIONS ON ROOM AIR. D5.45NS @ 75ML/HR INFUSING TO RIGHT WRIST. SPEECH IS SLOW AND CAREFULLY SPOKEN, RESIDUAL FROM HIS CVA. NO NEEDS VOICED. CALL LIGHT IN REACH. CPOC.
[2017-05-13 05:52] LABS: BASOPHILS 0.4 % (0-2); EOSINOPHILS 4.5 % (0-7); HEMATOCRIT 36.8 % (42.0-54.0); HEMOGLOBIN 13.2 g/dL (13.5-17.5); LYMPHOCYTES 33.9 % (15-50); MCH 31.8 pg (26.0-34.0); MCHC 35.9 g/dL (31.0-37.0); MCV 88.7 fL (80.0-100.0); MEAN PLATELET VOLUME 11.8 fL (7.4-10.4); MONOCYTES 7.1 % (2-11); NEUTROPHILS 54.1 % (40-80); PLATELET COUNT 125 10x3/uL (130-400); RBC 4.15 10x6/uL (4.20-6.10); RDW 14.8 % (11.5-14.5); WBC 4.5 10x3/uL (4.8-10.8)
[2017-05-13 06:11] LABS: ALBUMIN 2.7 g/dL (3.4-5.0); ALKALINE PHOSPHATASE 87 U/L (46-116); ALT (SGPT) 16 U/L (10-68); BILIRUBIN - TOTAL 0.52 mg/dL (0.2-1.3); CALCIUM 8.5 mg/dL (8.5-10.1); CARBON DIOXIDE 23.8 mmol/L (21.0-32.0); CHLORIDE - SERUM 103 mmol/L (98-107); CREATININE - SERUM 0.9 mg/dL (0.6-1.3); POTASSIUM - SERUM 4.2 mmol/L (3.5-5.1); PROTEIN - SERUM 6.4 g/dL (6.4-8.2); SODIUM 138 mmol/L (136-145); eGFR NON AFRICAN AMERICAN > 90 mL/min (90-120)
[2017-05-13 06:13] LABS: CALC OSMOLALITY 283 mosm/kg (275-300); GLUCOSE 285 mg/dL (74-106); UREA NITROGEN 8 mg/dL (7-18)
--- NOTE | 2017-05-13 07:30 | NUR ---
AM ROUNDS COMPLETED. INTRODUCED MYSELF TO PT PRIMARY RN FOR TODAYS SHIFT. PT A&O SITTING UP IN BED RESTING QUIETLY SHIFT ASSESSMENT COMPLETED. PT HAS A R.WRIST PIV WITH FLUIDS RUNNING @100ML/HR, DRSG CDI AND SWAB CAPS IN USE. PT DENIES ANY CURRENT PAIN OR NEEDS AT THIS TIME. CL IN REACH. WILL CPOC.
[2017-05-13 08:00] VITALS: BP 129/78
--- NOTE | 2017-05-13 08:11 | NUR ---
FSBS 260. PROVIDED PT WITH 10 UNITS SS INSULIN. PT SITTING UP IN BED EATING BREAKFAST AND HOPES TO BE DISCHARGED TODAY. PT A&O RR NONLABORED ON RA. SHIFT ASSESSMENT COMPLETED. PT DENIES ANY CURRENT PAIN OR NEEDS. CL IN REACH, BED IN LOWEST, SIDE RAILS X2. WILL CPOC.
--- NOTE | 2017-05-13 10:27 | NUR ---
PT REMOVED TELEMETRY AND DOESNT WANT TO WEAR IT ANYMORE. PT ANXIOUS TO BE DISCHARGE AND IS AWAITING DOCTORS RELEASE. WILL CTM.
[2017-05-13 12:00] VITALS: BP 110/62
--- NOTE | 2017-05-13 12:35 | NUR ---
PT HAD ME SL HIS PIV AND STATED TO TAKE IT OUT AND HE WANTS TO BE DISCHARGED OR HE IS LEAVING IN THE NEXT HOUR. AND ESTELLE HAVE ROUNDED AND AWAITING DISCHARGE PAPERS. WILL CTM.
--- NOTE | 2017-05-13 14:09 | NUR ---
WENT TO D/C PTS PIV BUT HE HAD ALREADY TAKEN IT OUT HIMSELF. DISCHARGED TEACHING PROVIDED AND PAPERS SIGNED AND SENT WITH PT. PT REFUSED A W/C TRANSPORTATION AND WANTED TO AMBULATE OUT. NO FURTHER NEEDS.
--- NOTE | 2017-05-14 09:15 | NUR ---
Patient Name: ESTELLA GUSMAN Encounter No: [id number] : 1960 Primary Insurance: [facility] [employer] MCR PFFS Anticipated DC Date: 05-14-2017 Planned Disposition: Home with Home Health External Planned Provider: [facility] DCP follow-up note: CM REVIEWED CHART, PT DISCHARGED HOME. CM CALLED [facility], , SPOKE TO WIN SWANN PT WAS ON HOLD FOR HOME HEALTH, [facility] TO RESUME HOME HEALTH TODAY. CM FAXED DISCHARGE INFORMATION TO [facility] AT [phone]. Ammon Augustin, CASE MANAGEMENT
== END 2017-05-13 14:10 | disposition home health service (06) | DRG 638 ==
LOC: D.ER 09:32 → D.M2 12:05 → D.ICU 12:05 → D.M2 05-12 13:51
PROVIDERS: Emergency Medicine; ADMIT Emergency Medicine
DX: E13.10 Other specified diabetes mellitus with ketoacidosis without coma (principal); F17.203 Nicotine dependence unspecified, with withdrawal; Z79.4 Long term (current) use of insulin; E11.40 Type 2 diabetes mellitus with diabetic neuropathy, unspecified; I25.10 Atherosclerotic heart disease of native coronary artery without angina pectoris; E78.1 Pure hyperglyceridemia; I69.920 Aphasia following unspecified cerebrovascular disease; Z95.1 Presence of aortocoronary bypass graft

== ENCOUNTER → 2017-12-25 11:40 | Outpatient (CLI) | payer MEDICARE, BC ==
[2017-05-10 11:24] VITALS: BMI 24.0
[~2017-12-25 11:40] MED LIST changes: +BAYER CHEWABLE81 MG PO; +CIPRO500 MG PO; +HUMULIN R100 U/ML SC; +NEURONTIN 300300 MG PO
== END | disposition home or self-care (01) ==
LOC: D.MRI 11:30
DX: M25.512 Pain in left shoulder (principal)

== ENCOUNTER 2018-01-20 15:05 | Emergency (ER) | payer MEDICARE, BC ==
[2017-05-10 11:24] VITALS: BMI 24.0
[~2018-01-20 15:05] MED LIST changes: -CIPRO500 MG PO; -HUMULIN R100 U/ML SC; -NEURONTIN 300300 MG PO
[2018-01-20 16:00] LABS: BASOPHILS 0.3 % (0-2); EOSINOPHILS 1.4 % (0-7); HEMATOCRIT 36.7 % (42.0-54.0); IMMATURE GRANULOCYTES 0.1 % (0-5); LYMPHOCYTES 25.5 % (15-50); MCH 31.4 pg (26.0-34.0); MCHC 35.4 g/dL (31.0-37.0); MCV 88.6 fL (80.0-100.0); MEAN PLATELET VOLUME 11.9 fL (7.4-10.4); MONOCYTES 2.3 % (2-11); NEUTROPHILS 70.4 % (40-80); RBC 4.14 10x6/uL (4.20-6.10); RDW 12.8 % (11.5-14.5); WBC 7.8 10x3/uL (4.8-10.8)
[2018-01-20 16:09] LABS: PLATELET COUNT 209 10x3/uL (130-400)
[2018-01-20 16:13] LABS: APPEARANCE CLEAR (CLEAR); BILIRUBIN NEGATIVE (NEGATIVE); COLOR YELLOW (YELLOW); GLUCOSE 1000 mg/dL (NEGATIVE); KETONE MODERATE mg/dL (NEGATIVE); NITRITE NEGATIVE (NEGATIVE); PROTEIN NEGATIVE (NEGATIVE); SPECIFIC GRAVITY 1.015 (1.005-1.020); UROBILINOGEN NORMAL (NORMAL)
[2018-01-20 16:41] LABS: ALBUMIN 3.3 g/dL (3.4-5.0); ALKALINE PHOSPHATASE 89 U/L (46-116); ALT (SGPT) 15 U/L (10-68); CALC OSMOLALITY 292 mosm/kg (275-300); CALCIUM 8.2 mg/dL (8.5-10.1); CARBON DIOXIDE 24.9 mmol/L (21.0-32.0); CHLORIDE - SERUM 98 mmol/L (98-107); CREATININE - SERUM 1.5 mg/dL (0.6-1.3); POTASSIUM - SERUM 3.7 mmol/L (3.5-5.1); PROTEIN - SERUM 6.9 g/dL (6.4-8.2); SODIUM 136 mmol/L (136-145); UDS - AMPHET NEGATIVE QUAL (NEGATIVE); UDS - BARB NEGATIVE QUAL (NEGATIVE); UDS - BENZO POSITIVE QUAL (NEGATIVE); UDS - COCAINE NEGATIVE QUAL (NEGATIVE); UDS - OPIATE NEGATIVE QUAL (NEGATIVE); UDS - PCP NEGATIVE QUAL (NEGATIVE); UDS - THC NEGATIVE QUAL (NEGATIVE); UREA NITROGEN 17 mg/dL (7-18); eGFR NON AFRICAN AMERICAN 51 mL/min (90-120)
[2018-01-20 16:57] LABS: GLUCOSE 443 mg/dL (74-106)
[2018-01-20 17:00] LABS: KETONE - SERUM SMALL mg/dL (NEGATIVE)
== END 2018-01-20 19:46 | disposition home or self-care (01) ==
LOC: D.ER 15:05
PROVIDERS: Family Medicine; Physician Assistant Medical
DX: E10.65 Type 1 diabetes mellitus with hyperglycemia (principal); Z79.4 Long term (current) use of insulin; Z91.14 Patient's other noncompliance with medication regimen; I25.10 Atherosclerotic heart disease of native coronary artery without angina pectoris; I10 Essential (primary) hypertension; Z86.73 Personal history of transient ischemic attack (TIA), and cerebral infarction without residual deficits

== ENCOUNTER 2018-01-21 19:11 | Inpatient (IN) | payer MEDICARE, BC ==
[~2018-01-21] VITALS: Ht 177.8 cm; Wt 81.4 kg
[2018-01-21 20:22] LABS: BASOPHILS 0 % (0-2); EOSINOPHILS 0 % (0-7); HEMATOCRIT 36.4 % (42.0-54.0); HEMOGLOBIN 12.3 g/dL (13.5-17.5); IMMATURE GRANULOCYTES 0.4 % (0-5); LYMPHOCYTES 7.4 % (15-50); MCH 31.5 pg (26.0-34.0); MCHC 33.8 g/dL (31.0-37.0); MEAN PLATELET VOLUME 12.7 fL (7.4-10.4); MONOCYTES 0.4 % (2-11); NEUTROPHILS 91.8 % (40-80); RBC 3.91 10x6/uL (4.20-6.10); RDW 13.7 % (11.5-14.5)
[2018-01-21 20:29] LABS: KETONE - SERUM MODERATE mg/dL (NEGATIVE)
[2018-01-21 20:31] LABS: MCV 93.1 fL (80.0-100.0); PLATELET COUNT 254 10x3/uL (130-400); WBC 16.8 10x3/uL (4.8-10.8)
[2018-01-21 20:42] LABS: ALBUMIN 3.5 g/dL (3.4-5.0); ALKALINE PHOSPHATASE 86 U/L (46-116); ALT (SGPT) 17 U/L (10-68); BILIRUBIN - TOTAL 0.52 mg/dL (0.2-1.3); CALCIUM 9.2 mg/dL (8.5-10.1); CHLORIDE - SERUM 91 mmol/L (98-107); PROTEIN - SERUM 6.7 g/dL (6.4-8.2); SODIUM 137 mmol/L (136-145)
[2018-01-21 20:45] LABS: CALC OSMOLALITY 304 mosm/kg (275-300); CREATININE - SERUM 1.9 mg/dL (0.6-1.3); UREA NITROGEN 23 mg/dL (7-18); eGFR NON AFRICAN AMERICAN 39 mL/min (90-120)
[2018-01-21 20:48] LABS: APPEARANCE CLEAR (CLEAR); COLOR YELLOW (YELLOW); GLUCOSE 1000 mg/dL (NEGATIVE); KETONE LARGE mg/dL (NEGATIVE); NITRITE NEGATIVE (NEGATIVE); PROTEIN NEGATIVE (NEGATIVE); SPECIFIC GRAVITY 1.015 (1.005-1.020)
[2018-01-21 20:49] LABS: BILIRUBIN NEGATIVE (NEGATIVE); UROBILINOGEN NORMAL (NORMAL)
[2018-01-21 20:50] LABS: GLUCOSE 580 mg/dL (74-106)
[2018-01-21 20:51] LABS: BACTERIA FEW /hpf (NONE SEEN); RED CELLS - URINE OCC /hpf (0-5); WHITE CELLS - URINE 0-5 /hpf (0-5)
[2018-01-21 20:51] LABS: CARBON DIOXIDE 8.7 mmol/L (21.0-32.0)
[2018-01-21 23:55] VITALS: BP 123/78; BMI 25.6
[2018-01-22] VITALS (28 sets, daily range): BP systolic 98–149; BP diastolic 50–92; Ht 177.8 cm; Wt 81.4 kg
[2018-01-22 04:29] LABS: BASOPHILS 0.2 % (0-2); EOSINOPHILS 0.1 % (0-7); HEMATOCRIT 32.2 % (42.0-54.0); HEMOGLOBIN 11.3 g/dL (13.5-17.5); IMMATURE GRANULOCYTES 0.2 % (0-5); LYMPHOCYTES 16.7 % (15-50); MCH 31.4 pg (26.0-34.0); MCHC 35.1 g/dL (31.0-37.0); MEAN PLATELET VOLUME 12.1 fL (7.4-10.4); MONOCYTES 5.1 % (2-11); NEUTROPHILS 77.7 % (40-80); PLATELET COUNT 237 10x3/uL (130-400); RDW 13.5 % (11.5-14.5); WBC 12.7 10x3/uL (4.8-10.8)
[2018-01-22 04:30] LABS: MCV 89.4 fL (80.0-100.0)
[2018-01-22 04:58] LABS: ALBUMIN 3.1 g/dL (3.4-5.0); BILIRUBIN - TOTAL 0.51 mg/dL (0.2-1.3); CALCIUM 8.5 mg/dL (8.5-10.1); CREATININE - SERUM 1.5 mg/dL (0.6-1.3); PROTEIN - SERUM 6.3 g/dL (6.4-8.2)
[2018-01-22 04:59] LABS: ANION GAP 21.5 mmol/L (8-16); CARBON DIOXIDE 19.3 mmol/L (21.0-32.0); POTASSIUM - SERUM 3.8 mmol/L (3.5-5.1)
[2018-01-22 09:56] LABS: % SATURATION 5 % (15-55); IRON 13 ug/dl (35-150); TOTAL IRON BIND CAPACITY 256 ug/dl (260-445); UNSAT IRON BIND CAPACITY 243 ug/dl (150-375)
[2018-01-23] VITALS (10 sets, daily range): BP systolic 121–154; BP diastolic 51–90
[2018-01-23 03:53] LABS: CALCIUM 8.4 mg/dL (8.5-10.1); CREATININE - SERUM 1.3 mg/dL (0.6-1.3)
[2018-01-23 03:55] LABS: BASOPHILS 0.2 % (0-2); EOSINOPHILS 0.9 % (0-7); HEMATOCRIT 31.8 % (42.0-54.0); HEMOGLOBIN 11.2 g/dL (13.5-17.5); IMMATURE GRANULOCYTES 0.2 % (0-5); LYMPHOCYTES 20.9 % (15-50); MCH 30.9 pg (26.0-34.0); MCHC 35.2 g/dL (31.0-37.0); MCV 87.8 fL (80.0-100.0); MEAN PLATELET VOLUME 11.8 fL (7.4-10.4); MONOCYTES 4.9 % (2-11); NEUTROPHILS 72.9 % (40-80); PLATELET COUNT 190 10x3/uL (130-400); RBC 3.62 10x6/uL (4.20-6.10); RDW 13.4 % (11.5-14.5)
[2018-01-23 04:04] LABS: WBC 9.4 10x3/uL (4.8-10.8)
[2018-01-23 04:10] LABS: CARBON DIOXIDE 27.2 mmol/L (21.0-32.0); POTASSIUM - SERUM 3.2 mmol/L (3.5-5.1)
[2018-01-23 08:20] LABS: FOLATE (FOLIC ACID) - SERUM 15.5 ng/mL (>3.0)
[2018-01-23] MEDS ORDERED: HUMULIN R100 U/ML SC (13:18)
== END 2018-01-23 16:17 | disposition home or self-care (01) | DRG 637 ==
LOC: D.ER 19:11 → D.EDHOLD 22:33 → D.MS 22:33 → D.ICU 22:33 → D.MS 01-23 06:35
PROVIDERS: Family Medicine; Internal Medicine Nephrology
DX: E11.10 Type 2 diabetes mellitus with ketoacidosis without coma (principal); G92 Toxic encephalopathy; N17.9 Acute kidney failure, unspecified; I69.353 Hemiplegia and hemiparesis following cerebral infarction affecting right non-dominant side; Z79.4 Long term (current) use of insulin; I10 Essential (primary) hypertension; I25.10 Atherosclerotic heart disease of native coronary artery without angina pectoris; D64.9 Anemia, unspecified; I69.322 Dysarthria following cerebral infarction

== ENCOUNTER 2018-01-27 15:37 | Inpatient (IN) | payer MEDICARE, BC ==
[~2018-01-27] VITALS: Ht 177.8 cm; Wt 72.6 kg
[~2018-01-27 15:37] MED LIST changes: +HUMULIN R100 U/ML SC
[2018-01-27 16:15] LABS: BASOPHILS 0.3 % (0-2); EOSINOPHILS 1.2 % (0-7); HEMATOCRIT 35.1 % (42.0-54.0); HEMOGLOBIN 12.5 g/dL (13.5-17.5); LYMPHOCYTES 23.3 % (15-50); MCH 31.3 pg (26.0-34.0); MCHC 35.6 g/dL (31.0-37.0); MEAN PLATELET VOLUME 11.7 fL (7.4-10.4); MONOCYTES 6.9 % (2-11); NEUTROPHILS 68.3 % (40-80); RBC 3.99 10x6/uL (4.20-6.10); RDW 13.1 % (11.5-14.5); WBC 6.7 10x3/uL (4.8-10.8)
[2018-01-27 16:32] LABS: INR 0.97 (0.85-1.17); PROTIME 12.5 SECONDS (11.6-15.0)
[2018-01-27 16:38] LABS: ALBUMIN 3.2 g/dL (3.4-5.0); ALKALINE PHOSPHATASE 77 U/L (46-116); ALT (SGPT) 16 U/L (10-68); BILIRUBIN - TOTAL 0.34 mg/dL (0.2-1.3); CALC OSMOLALITY 288 mosm/kg (275-300); CALCIUM 9.8 mg/dL (8.5-10.1); CARBON DIOXIDE 28.8 mmol/L (21.0-32.0); CHLORIDE - SERUM 99 mmol/L (98-107); CREATININE - SERUM 1.6 mg/dL (0.6-1.3); GLUCOSE 351 mg/dL (74-106); PLATELET COUNT 277 10x3/uL (130-400); POTASSIUM - SERUM 3.8 mmol/L (3.5-5.1); PROTEIN - SERUM 7.2 g/dL (6.4-8.2); SODIUM 137 mmol/L (136-145); UREA NITROGEN 16 mg/dL (7-18); eGFR NON AFRICAN AMERICAN 47 mL/min (90-120)
[2018-01-27 16:46] LABS: CREATINE KINASE 60 UL (21-232); LIPASE 257 U/L (73-393); PRO BNP 236 pg/mL (0-125)
[2018-01-27 16:49] LABS: TROPONIN-I < 0.017 ng/mL (0.000-0.060)
[2018-01-27 17:14] LABS: KETONE - SERUM SMALL mg/dL (NEGATIVE)
[2018-01-27 17:47] LABS: APPEARANCE CLEAR (CLEAR); BILIRUBIN NEGATIVE (NEGATIVE); COLOR YELLOW (YELLOW); GLUCOSE 1000 mg/dL (NEGATIVE); KETONE MODERATE mg/dL (NEGATIVE); NITRITE NEGATIVE (NEGATIVE); PROTEIN NEGATIVE (NEGATIVE); SPECIFIC GRAVITY 1.015 (1.005-1.020); UROBILINOGEN NORMAL (NORMAL)
[2018-01-27 17:50] LABS: UDS - AMPHET NEGATIVE QUAL (NEGATIVE); UDS - BARB NEGATIVE QUAL (NEGATIVE); UDS - BENZO POSITIVE QUAL (NEGATIVE); UDS - COCAINE NEGATIVE QUAL (NEGATIVE); UDS - OPIATE NEGATIVE QUAL (NEGATIVE); UDS - PCP NEGATIVE QUAL (NEGATIVE); UDS - THC NEGATIVE QUAL (NEGATIVE)
[2018-01-28 04:56] LABS: BASOPHILS 0.2 % (0-2); EOSINOPHILS 1.5 % (0-7); HEMATOCRIT 37.6 % (42.0-54.0); HEMOGLOBIN 13.1 g/dL (13.5-17.5); IMMATURE GRANULOCYTES 0.2 % (0-5); MCH 31.5 pg (26.0-34.0); MCHC 34.8 g/dL (31.0-37.0); MCV 90.4 fL (80.0-100.0); MEAN PLATELET VOLUME 11.8 fL (7.4-10.4); NEUTROPHILS 71.1 % (40-80); PLATELET COUNT 260 10x3/uL (130-400); RBC 4.16 10x6/uL (4.20-6.10); RDW 13.4 % (11.5-14.5); WBC 8.9 10x3/uL (4.8-10.8)
[2018-01-28 05:06] LABS: ANION GAP 23.7 mmol/L (8-16); CALCIUM 9.1 mg/dL (8.5-10.1); CREATININE - SERUM 1.3 mg/dL (0.6-1.3); POTASSIUM - SERUM 4.2 mmol/L (3.5-5.1)
[2018-01-28 05:08] LABS: CARBON DIOXIDE 19.5 mmol/L (21.0-32.0)
[2018-01-28 23:26] VITALS: BP 129/76; BMI 23.0
[2018-01-29 03:50] VITALS: BP 134/74
[2018-01-29 05:34] LABS: BASOPHILS 0.3 % (0-2); EOSINOPHILS 2.6 % (0-7); HEMATOCRIT 32.9 % (42.0-54.0); HEMOGLOBIN 11.6 g/dL (13.5-17.5); IMMATURE GRANULOCYTES 0.1 % (0-5); LYMPHOCYTES 30.6 % (15-50); MCH 31.2 pg (26.0-34.0); MCHC 35.3 g/dL (31.0-37.0); MEAN PLATELET VOLUME 11.5 fL (7.4-10.4); MONOCYTES 7.7 % (2-11); NEUTROPHILS 58.7 % (40-80); PLATELET COUNT 267 10x3/uL (130-400); RBC 3.72 10x6/uL (4.20-6.10); WBC 6.8 10x3/uL (4.8-10.8)
[2018-01-29 06:01] LABS: ALBUMIN 2.6 g/dL (3.4-5.0); BILIRUBIN - TOTAL 0.23 mg/dL (0.2-1.3); CALCIUM 8.3 mg/dL (8.5-10.1); CREATININE - SERUM 1.1 mg/dL (0.6-1.3)
[2018-01-29 06:03] LABS: MCV 88.4 fL (80.0-100.0)
[2018-01-29 08:14] VITALS: BP 122/73
[2018-01-29 10:40] VITALS: Ht 177.8 cm; Wt 72.6 kg
[2018-01-29 12:27] VITALS: BP 142/85
[2018-01-29 15:59] VITALS: BP 137/87
[2018-01-29 21:15] VITALS: BP 134/79
[2018-01-30 00:45] VITALS: BP 129/71
[2018-01-30 04:00] VITALS: BP 119/77
[2018-01-30 04:22] LABS: BASOPHILS 0.5 % (0-2); EOSINOPHILS 3.9 % (0-7); HEMATOCRIT 32.9 % (42.0-54.0); HEMOGLOBIN 11.4 g/dL (13.5-17.5); IMMATURE GRANULOCYTES 0.2 % (0-5); LYMPHOCYTES 44.8 % (15-50); MCH 30.9 pg (26.0-34.0); MCHC 34.7 g/dL (31.0-37.0); MCV 89.2 fL (80.0-100.0); MEAN PLATELET VOLUME 11.5 fL (7.4-10.4); MONOCYTES 9.7 % (2-11); NEUTROPHILS 40.9 % (40-80); PLATELET COUNT 271 10x3/uL (130-400); RBC 3.69 10x6/uL (4.20-6.10); RDW 13.2 % (11.5-14.5); WBC 6.2 10x3/uL (4.8-10.8)
[2018-01-30 04:38] LABS: ALBUMIN 2.7 g/dL (3.4-5.0); ALKALINE PHOSPHATASE 57 U/L (46-116); ALT (SGPT) 13 U/L (10-68); BILIRUBIN - TOTAL 0.18 mg/dL (0.2-1.3); CALCIUM 8.5 mg/dL (8.5-10.1); CARBON DIOXIDE 29.6 mmol/L (21.0-32.0); CHLORIDE - SERUM 106 mmol/L (98-107); PROTEIN - SERUM 6.1 g/dL (6.4-8.2); SODIUM 143 mmol/L (136-145); UREA NITROGEN 13 mg/dL (7-18); eGFR NON AFRICAN AMERICAN 81 mL/min (90-120)
[2018-01-30 04:40] LABS: CALC OSMOLALITY 282 mosm/kg (275-300); GLUCOSE 63 mg/dL (74-106); POTASSIUM - SERUM 2.9 mmol/L (3.5-5.1)
[2018-01-30 08:02] VITALS: BP 131/76
[2018-01-30] MEDS ORDERED: HUMALOG 30100 UNITS/ SC (10:07)
[2018-01-30 10:18] LABS: MAGNESIUM - SERUM 1.9 mg/dL (1.8-2.4); PHOSPHOROUS 3.8 mg/dL (2.5-4.9)
[2018-01-30] MEDS ORDERED: CIPRO500 MG PO (14:25)
== END 2018-01-30 16:22 | disposition home health service (06) | DRG 638 ==
LOC: D.ER 15:37 → D.EDHOLD 22:43 → OBSVTIME 22:43 → D.MS 22:43
PROVIDERS: Family Medicine; Nurse Practitioner Family
DX: E11.10 Type 2 diabetes mellitus with ketoacidosis without coma (principal); E87.2 Acidosis; N17.9 Acute kidney failure, unspecified; F17.203 Nicotine dependence unspecified, with withdrawal; Z79.4 Long term (current) use of insulin; F10.20 Alcohol dependence, uncomplicated; E11.42 Type 2 diabetes mellitus with diabetic polyneuropathy; R63.4 Abnormal weight loss; Z68.22 Body mass index [BMI] 22.0-22.9, adult; G89.29 Other chronic pain; M54.9 Dorsalgia, unspecified

== ENCOUNTER 2018-02-04 08:00 | Outpatient (CLI) | payer MEDICARE, BC ==
[~2018-02-04 08:00] MED LIST changes: +CIPRO500 MG PO
[2018-02-04] MEDS ORDERED: VALIUM5 MG PO (08:54)
[2018-02-04] MEDS ORDERED: NEURONTIN 300300 MG PO (08:55)
[2018-02-13 05:29] VITALS: BMI 22.7
== END 2018-02-04 08:01 | disposition home or self-care (01) ==
LOC: D.RAD 08:00
DX: M75.102 Unspecified rotator cuff tear or rupture of left shoulder, not specified as traumatic (principal)

== ENCOUNTER 2018-02-13 05:20 | Day surgery (SDC) | payer MEDICARE, BC ==
[~2018-02-13] VITALS: Ht 177.8 cm; Wt 71.8 kg
--- NOTE | ~2018-02-13 | OP ---
PATIENT NAME: ESTELLA GUSMAN MEDICAL RECORD: [id number] :58 LOCATION:D.OPS ADMISSION DATE: SURGEON: KRIS CASTLE MD DATE OF OPERATION: 02/13/2018 PREOPERATIVE DIAGNOSES: 1. Instability of the left shoulder. 2. Rotator cuff tear of the left shoulder. POSTOPERATIVE DIAGNOSES: 1. Instability of the left shoulder. 2. Rotator cuff tear of the left shoulder. 3. Biceps tendinitis. PROCEDURES: 1. Open Bankart repair of the left shoulder. 2. Rotator cuff repair of the left shoulder. 3. Diagnostic arthroscopy. 4. Biceps tenodesis. SURGEON: Kris Castle MD ANESTHESIA: General. INTRAOPERATIVE COMPLICATIONS: None. SUMMARY OF PATHOLOGIC FINDINGS: The patient had a bony Bankart with approximately the anterior inferior 5 mm less than overall 10%; however, the labrum was done on the neck of the glenoid and had to be reapproximated as a part of the tear. OPERATIVE SUMMARY IN DETAIL: After obtaining the appropriate preoperative orthopedic surgery consent as well as anesthetic consultation, evaluation and clearance, the patient was brought to the operating room and placed on operating table in supine position. After general laryngeal mask airway was administered, the patient was placed in beach chair position. All pressure points were well padded. He was held firmly to the operating table using the vacuum pack suction system. Left upper extremity and shoulder were then prepped and draped in routine sterile fashion. The arm was held in Trimano arm holding device. Arthroscopy was established in the glenohumeral joint for diagnostic arthroscopy. At this point, the Bankart and labral tear was seen and photographed. At this point, decision was made to proceed with a standard Bankart repair, non-Latarjet as there was not enough bone loss as predicted by the MRI. Rotator cuff tearing was noted at the time of diagnostic arthroscopy and the patient also had severe biceps tendinitis. Having completed the arthroscopic portion of the case, deltopectoral incision was taken down past the cephalic vein. The patient's deltoid was retracted gently over the lateral aspect of the humeral head using the brown retractor. Conjoint tendon was gently retracted medially. Subscapularis was then peeled off the capsule and both planes were identified. The capsule was then incised and the brown retractor was switched for a Fukuda retractor, gently held the humeral head back. The anterior and inferior portion of the defect was burred using arthroscopic resector for a good bleeding bone bed. Three Arthrex suture tacks were then placed, one at the 6 o'clock, 8 o'clock, and 10 o'clock position. These were then passed through the capsule underneath the labrum and tied OPERATIVE REPORT [id number] GUSMANESTELLA CONNN extracapsularly while the capsule was held very taut. Having completed this, the capsule was then reapproximated to the humerus transosseously with #2 FiberWire. This was then followed by reapproximation of the subscapularis back to the rotator cuff tissue. Good repair was achieved. At this point, the patient's rotator cuff tear and biceps tendonitis was approached. Rotator cuff tear was just at the anterior aspect of the supraspinatus tendon. The biceps tendon was mobilized, tied, and then cut at the bicipital-labral junction. The Arthrex system for Bio-Tenodesis was then used, size 7 screw was used for Bio-Tenodesis of the tendon at approximately the lower one-third to proximal two-third junction of the bicipital groove. Good fixation was achieved. Having completed this, the resector was again brought in to decorticate the footprint of the supraspinatus tendinous footprint. A #2 Ethibond was placed in a horizontal mattress fashion. It was anchored laterally using a self-punching 5.5 SwiveLock from Arthrex. Having completed this, the wound was copiously irrigated. The skin was closed with #1 Vicryl, followed by 2-0 Vicryl, followed by skin dyllan. The arthroscopic portal posteriorly was also treated with the skin dyllan. Sterile dressings were applied. The patient was awakened and taken to recovery room in stable condition. All final needle and sponge counts were correct. TRANSINT:[id number] Voice Confirmation ID: [id number] DOCUMENT ID: [id number] 02/20/2018 Edited per susan Villafana. TIN APARICIO, KRIS ALVAREZ at 0903 CC: [id number] DICTATION DATE: 02/13/18920 TANK CAR CLEANER: 02/13/18 1055 [facility] 02/13/18 [facility] [address] [facility] [place] [address]
[~2018-02-13 05:20] MED LIST changes: +NEURONTIN 300300 MG PO
[2018-02-13 05:29] VITALS: BP 117/75; Ht 177.8 cm; Wt 71.8 kg
[2018-02-13 05:55] LABS: BASOPHILS 0.3 % (0-2); EOSINOPHILS 7.6 % (0-7); IMMATURE GRANULOCYTES 0.1 % (0-5); LYMPHOCYTES 30.1 % (15-50); MCH 31.3 pg (26.0-34.0); MCHC 34.2 g/dL (31.0-37.0); MCV 91.3 fL (80.0-100.0); MEAN PLATELET VOLUME 10.9 fL (7.4-10.4); MONOCYTES 5.4 % (2-11); NEUTROPHILS 56.5 % (40-80); PLATELET COUNT 232 10x3/uL (130-400); RBC 4.16 10x6/uL (4.20-6.10); RDW 14.3 % (11.5-14.5); WBC 7.9 10x3/uL (4.8-10.8)
[2018-02-13 06:05] LABS: APTT 23.8 SECONDS (22.8-39.4); PROTIME 12.8 SECONDS (11.6-15.0)
[2018-02-13 06:18] LABS: ANION GAP 11.8 mmol/L (8-16); CALCIUM 9.2 mg/dL (8.5-10.1); CREATININE - SERUM 1.4 mg/dL (0.6-1.3); POTASSIUM - SERUM 3.8 mmol/L (3.5-5.1)
[2018-02-13] MEDS ORDERED: PERCOCET 10/3251 TA1 PO (09:15)
== END 2018-02-13 13:20 | disposition home or self-care (01) ==
LOC: D.OPS 05:20
PROVIDERS: Anesthesiology
DX: S43.491A Other sprain of right shoulder joint, initial encounter (principal); M75.102 Unspecified rotator cuff tear or rupture of left shoulder, not specified as traumatic; F17.200 Nicotine dependence, unspecified, uncomplicated; I25.10 Atherosclerotic heart disease of native coronary artery without angina pectoris; E11.9 Type 2 diabetes mellitus without complications; Z95.1 Presence of aortocoronary bypass graft; Z01.812 Encounter for preprocedural laboratory examination

== ENCOUNTER 2018-04-14 16:26 | Inpatient (IN) | payer MEDICARE, BC ==
[~2018-04-14] VITALS: Ht 177.8 cm; Wt 76.6 kg
--- NOTE | ~2018-04-14 | EC ---
PATIENT:ESTELLA GUSMAN DATE OF SERVICE: 04/15/18 SEX: M MEDICAL RECORD: [id number] DATE OF : [birth year] LOCATION:D.M2 D.211 AGE OF PATIENT: 57 ADMISSION DATE: 04/15/18 REFERRING PHYSICIAN: INTERPRETING PHYSICIAN: LUCIO SUÁREZ MD ECHOCARDIOGRAM REPORT ECHO CHARGES 4 ECHO COMPLETE Date: 04/15 CLINICAL DIAGNOSIS: CHF ECHOCARDIOGRAPHIC MEASUREMENTS (adult normal given) AC root (d.<3.7cm) 2.2 cm LV Septum d (<1.2 cm> 1.0 cm Valve Excursion 1.4 cm LV Septum (systole) 1.0 cm Left Atria (s.<4.0cm> 2.9 cm LVPW d(<1.2cm) 0.9 cm RV (d.<2.3cm) 2.9 cm LVPW (sytole) 1.2 cm LV diastole(<5.6CM) 4.8 cm MV E-F(>70mm/sec) cm LV systole 4.0 cm LVOT Diameter 1.9 cm MV exc.(>10mm) cm Est.ejection fraction (50-75%) % DOPPLER: LVIT cm/sec A 80 cm/sec E 60 cm/sec LA cm/sec RVSP 29.3 mmHg LVOT 132 cm/sec AOP1/2T m/s Asc. Ao 162 cm/sec RVOT 109 cm/sec RA cm/sec PA 123 cm/sec AV Gradient Peak 10.5 mmHg AV Mean 1.1 mmHg AV Area 2.2 cm MV Gradient Peak 3.0 mmHg MV Mean 2.0 mmHg MV Area cm COMMENTS: Pattern Fitter: Beulah [facility] Director Of Enrollment: 1 Dr. Suárez TAPE# PACS Pericardial Effusion N DATE OF SERVICE: FINDINGS: 1. Left ventricular chamber size is within normal limits. Left ventricular systolic function is preserved. Overall ejection fraction estimated at 50%. 2. Left atrium, right atrium, and right ventricle chamber sizes are within normal limits. 3. Valvular structures have normal structure and motion. 4. Doppler interrogation reveals trace mitral regurgitation, trace tricuspid regurgitation, no other valvular insufficiency or stenosis. Pulmonary systolic ECHOCARDIOGRAM REPORT [id number] ESTELLA GUSMAN pressure is estimated at 29 mmHg. 5. No evidence of pericardial effusion or left ventricular thrombus. TRANSINT:[id number] Voice Confirmation ID: [id number] DOCUMENT ID: [id number] LUCIO SUÁREZ MD at 1752 CC: [id number] DICTATION DATE: 04/15/18 1615 RESIDENT SERVICE COORDINATOR: 04/15/18 1620 ADM IN [place] [id number] [place] [address]
[2018-04-14 17:00] LABS: BASOPHILS 0.3 % (0-2); HEMATOCRIT 37.7 % (42.0-54.0); HEMOGLOBIN 13.2 g/dL (13.5-17.5); IMMATURE GRANULOCYTES 0.2 % (0-5); LYMPHOCYTES 26.3 % (15-50); MCH 30.8 pg (26.0-34.0); MCV 87.9 fL (80.0-100.0); MEAN PLATELET VOLUME 11.7 fL (7.4-10.4); MONOCYTES 4.5 % (2-11); NEUTROPHILS 67.7 % (40-80); RBC 4.29 10x6/uL (4.20-6.10); RDW 13.5 % (11.5-14.5); WBC 10.2 10x3/uL (4.8-10.8)
[2018-04-14 17:01] LABS: PLATELET COUNT 285 10x3/uL (130-400)
[2018-04-14 17:17] LABS: APTT 22.8 SECONDS (22.8-39.4); INR 0.96 (0.85-1.17); PROTIME 12.4 SECONDS (11.6-15.0)
[2018-04-14 17:19] LABS: ALBUMIN 3.6 g/dL (3.4-5.0); ALKALINE PHOSPHATASE 98 U/L (46-116); ALT (SGPT) 20 U/L (10-68); BILIRUBIN - TOTAL 0.38 mg/dL (0.2-1.3); CALC OSMOLALITY 283 mosm/kg (275-300); CALCIUM 9.5 mg/dL (8.5-10.1); CARBON DIOXIDE 21.6 mmol/L (21.0-32.0); CHLORIDE - SERUM 95 mmol/L (98-107); CREATININE - SERUM 1.8 mg/dL (0.6-1.3); D-DIMER-QUANTITATIVE 0.28 ug/mLFEU (0.20-0.54); GLUCOSE 310 mg/dL (74-106); POTASSIUM - SERUM 4.5 mmol/L (3.5-5.1); PROTEIN - SERUM 7.5 g/dL (6.4-8.2); SODIUM 134 mmol/L (136-145); UREA NITROGEN 25 mg/dL (7-18); eGFR NON AFRICAN AMERICAN 41 mL/min (90-120)
[2018-04-14 17:30] LABS: CKMB 1.3 U/L (0.0-3.6); CREATINE KINASE 56 UL (21-232); MAGNESIUM - SERUM 2.2 mg/dL (1.8-2.4); THYROID STIMULATING HORMONE 1.93 uIU/mL (0.36-3.74)
[2018-04-14 17:31] LABS: TROPONIN-I < 0.017 ng/mL (0.000-0.060)
[2018-04-14 19:59] LABS: APPEARANCE CLEAR (CLEAR); BILIRUBIN NEGATIVE (NEGATIVE); COLOR YELLOW (YELLOW); GLUCOSE 1000 mg/dL (NEGATIVE); KETONE MODERATE mg/dL (NEGATIVE); NITRITE NEGATIVE (NEGATIVE); PROTEIN NEGATIVE (NEGATIVE); SPECIFIC GRAVITY 1.025 (1.005-1.020); UROBILINOGEN NORMAL (NORMAL)
[2018-04-15 02:59] VITALS: BP 176/62; BMI 24.4
[2018-04-15 05:28] VITALS: BP 176/62
[2018-04-15 06:50] LABS: BASOPHILS 0.2 % (0-2); HEMATOCRIT 40.1 % (42.0-54.0); HEMOGLOBIN 13.4 g/dL (13.5-17.5); IMMATURE GRANULOCYTES 0.3 % (0-5); LYMPHOCYTES 21.6 % (15-50); MCH 30.5 pg (26.0-34.0); MCHC 33.4 g/dL (31.0-37.0); MEAN PLATELET VOLUME 11.6 fL (7.4-10.4); MONOCYTES 3.1 % (2-11); NEUTROPHILS 73.8 % (40-80); PLATELET COUNT 265 10x3/uL (130-400); RDW 14.1 % (11.5-14.5); WBC 12.5 10x3/uL (4.8-10.8)
[2018-04-15 06:53] LABS: MCV 91.1 fL (80.0-100.0)
[2018-04-15 07:04] LABS: CALCIUM 8.8 mg/dL (8.5-10.1); CREATININE - SERUM 1.6 mg/dL (0.6-1.3)
[2018-04-15 07:29] LABS: ANION GAP 34.4 mmol/L (8-16); POTASSIUM - SERUM 5.3 mmol/L (3.5-5.1)
[2018-04-15 07:31] LABS: CARBON DIOXIDE 6.9 mmol/L (21.0-32.0)
[2018-04-15 09:12] VITALS: BP 128/76
[2018-04-15] MEDS ORDERED: XALATAN 0.0052.5 ML EACH EYE (10:25)
[2018-04-15] MEDS ORDERED: GLIPIZIDE10 MG PO (10:25)
[2018-04-15 12:08] VITALS: BP 148/89
[2018-04-15 12:17] VITALS: BMI 24.3
[2018-04-15 12:35] VITALS: Ht 177.8 cm; Wt 76.6 kg
[2018-04-15 14:22] LABS: % SATURATION 15 % (15-55); IRON 54 ug/dl (35-150); TOTAL IRON BIND CAPACITY 341 ug/dl (260-445); UNSAT IRON BIND CAPACITY 287 ug/dl (150-375)
[2018-04-15 14:35] LABS: MAGNESIUM - SERUM 2.2 mg/dL (1.8-2.4)
[2018-04-15 16:05] VITALS: BP 137/66
[2018-04-15 20:42] VITALS: BP 110/70
[2018-04-16 00:59] VITALS: BP 119/76
[2018-04-16 05:14] VITALS: BP 104/66
[2018-04-16 05:35] LABS: BASOPHILS 0.2 % (0-2); EOSINOPHILS 2.4 % (0-7); HEMATOCRIT 36.5 % (42.0-54.0); HEMOGLOBIN 12.6 g/dL (13.5-17.5); IMMATURE GRANULOCYTES 0.2 % (0-5); LYMPHOCYTES 25.1 % (15-50); MCH 30.4 pg (26.0-34.0); MCHC 34.5 g/dL (31.0-37.0); MEAN PLATELET VOLUME 11.4 fL (7.4-10.4); MONOCYTES 4.7 % (2-11); NEUTROPHILS 67.4 % (40-80); PLATELET COUNT 231 10x3/uL (130-400); RBC 4.14 10x6/uL (4.20-6.10); RDW 14.1 % (11.5-14.5)
[2018-04-16 05:39] LABS: MCV 88.2 fL (80.0-100.0)
[2018-04-16 06:03] LABS: CALCIUM 8.7 mg/dL (8.5-10.1); CHOL - HDL RATIO 5.7 ratio (2.3-4.9); CREATININE - SERUM 1.7 mg/dL (0.6-1.3); LDL-HDL RATIO 3.5 ratio (1.5-3.5)
[2018-04-16 06:05] LABS: ANION GAP 13.4 mmol/L (8-16); CARBON DIOXIDE 25.4 mmol/L (21.0-32.0); POTASSIUM - SERUM 3.8 mmol/L (3.5-5.1)
[2018-04-16 07:30] VITALS: BP 105/63
[2018-04-16 08:22] LABS: FOLATE (FOLIC ACID) - SERUM >20.0 ng/mL (>3.0)
[2018-04-16 11:40] VITALS: BP 101/58
[2018-04-16 16:21] VITALS: BP 108/64
[2018-04-16 21:09] VITALS: BP 99/60
[2018-04-17 05:47] LABS: BASOPHILS 0.2 % (0-2); EOSINOPHILS 1.2 % (0-7); HEMATOCRIT 34.6 % (42.0-54.0); HEMOGLOBIN 11.8 g/dL (13.5-17.5); IMMATURE GRANULOCYTES 0.2 % (0-5); LYMPHOCYTES 21.5 % (15-50); MCH 30.3 pg (26.0-34.0); MCHC 34.1 g/dL (31.0-37.0); MCV 88.7 fL (80.0-100.0); MEAN PLATELET VOLUME 11.4 fL (7.4-10.4); NEUTROPHILS 70.9 % (40-80); PLATELET COUNT 234 10x3/uL (130-400); RDW 13.8 % (11.5-14.5); WBC 8.5 10x3/uL (4.8-10.8)
[2018-04-17 05:50] VITALS: BP 100/67
[2018-04-17 06:07] LABS: ANION GAP 12.4 mmol/L (8-16); CALCIUM 8.9 mg/dL (8.5-10.1); CREATININE - SERUM 1.5 mg/dL (0.6-1.3); POTASSIUM - SERUM 3.4 mmol/L (3.5-5.1)
[2018-04-17 08:25] VITALS: BP 114/74
[2018-04-17 11:43] VITALS: BP 132/59
[2018-04-17 15:10] VITALS: BP 104/74
== END 2018-04-17 18:30 | DRG 637 ==
LOC: D.ER 16:26 → D.M2 20:18 → D.EDHOLD 20:18 → OBSVTIME 20:18 → D.M2 22:19
PROVIDERS: Family Medicine; Internal Medicine Nephrology
DX: E11.65 Type 2 diabetes mellitus with hyperglycemia (principal); G93.41 Metabolic encephalopathy; N17.9 Acute kidney failure, unspecified; E87.1 Hypo-osmolality and hyponatremia; I69.951 Hemiplegia and hemiparesis following unspecified cerebrovascular disease affecting right dominant side; E78.5 Hyperlipidemia, unspecified; D64.9 Anemia, unspecified; I25.10 Atherosclerotic heart disease of native coronary artery without angina pectoris; Z95.5 Presence of coronary angioplasty implant and graft; Z95.1 Presence of aortocoronary bypass graft; E87.5 Hyperkalemia; I10 Essential (primary) hypertension; K21.9 Gastro-esophageal reflux disease without esophagitis; F32.9 Major depressive disorder, single episode, unspecified

== ENCOUNTER 2018-04-17 15:48 | Inpatient (IN) | payer MEDICARE, BC ==
[~2018-04-17] VITALS: Ht 177.8 cm; Wt 77.1 kg
--- NOTE | ~2018-04-17 | RHP ---
PATIENT: ESTELLA GUSMAN MEDICAL RECORD: [id number] ACCOUNT: [id number] LOCATION:[facility]1114 : 58 ADMISSION DATE: 04/17/18 REHABILITATION HISTORY AND PHYSICAL EXAMINATION POST ADMISSION PHYSICIAN EXAMINATION POST-ADMISSION PHYSICAL EXAMINATION AND HISTORY AND PHYSICAL DATE OF ADMISSION TO THE REHAB: 04/17/2018 ADMITTING DIAGNOSIS: Acute metabolic encephalopathy. HISTORY OF PRESENT ILLNESS: The patient is a 57-year-old gentleman, who presented to inpatient rehab with nontraumatic brain dysfunction secondary to acute metabolic encephalopathy. He has had a history of hypertension, hyperlipidemia, coronary artery disease status post stent placement, most recent in 2017, coronary artery bypass grafting, diabetes, CVA, gastroesophageal reflux disease, and depression, presented to the Emergency Room with complaints of right-sided weakness. It has been there for approximately 2-3 hours. The patient states he was in his normal state of health. When he woke up, he felt dizzy, his right arm was weaker than usual, he had associated nausea and vomiting. His blood sugars have been really high over the previous week. He demonstrated ataxia and dysarthria of speech, right facial droop and then drooling. Pediatric Physiatrist were weak on the right, absent on left secondary to a recent shoulder surgery. A bedside swallow eval showed no signs of aspiration. He has got a history of oropharyngeal dysphagia and admits to being choking and strangulating on foods at times. Speech therapy is recommended for dietary tolerance and safety swallowing 5-7 days a week, to work on this. MRI of his brain showed no acute intracranial abnormality, specifically no evidence of a recent ischemic injury or intracranial hemorrhage. He did have signs of chronic microvascular ischemic changes. He has stable lacunar infarcts noted in the left basal ganglia and thalamus. The patient has remained stable and is in need of intensive therapy by physical therapy, occupational therapy, and speech therapy. Previously, he lived alone, was moderately independent with single-point cane for ADLs and mobility. Currently, he is mod-to-max assist for ADLs and mobility. He is fatigued and weak. He continued to have a flaccid arm and with limited use. His balance is fair and he has ambulated 40 feet with a rolling walker, gait belt, and 15% assist by PT. He would like to regain his strength and hopefully return home at his prior level of functioning or better if possible. Comorbidities in this patient include acute dysarthria of speech, oropharyngeal dysphagia, diabetes, coronary artery disease, peripheral neuropathy, diabetes, acute metabolic encephalopathy, right-sided weakness, flaccid arm, right side facial droop, TIA in the past, nausea, vomiting, dizziness, electrolyte abnormalities, acute kidney injury, and normocytic anemia. PAST MEDICAL HISTORY: Significant for CVA, neuropathy, diabetes, OH, stents, coronary artery bypass grafting, angina, coronary artery disease, shortness of breath, acid reflux, depression, bulging and herniated discs, and clavicular fracture in the past. PAST SURGICAL HISTORY: Includes heart surgery, stents times 7, and vasectomy. ALLERGIES: No known drug allergies. HISTORY AND PHYSICAL [id number] ESTELLA GUSMAN CURRENT MEDICATIONS: Include insulin 10 units q.a.c. He is on thiamine 100 mg daily, Zoloft 100 mg daily, Crestor 10 mg daily, Protonix 40 mg daily, multivitamin daily, Glucotrol 10 mg b.i.d. prior to meals, folic acid 1 mg daily, TriCor 145 mg daily, Plavix 75 mg daily, aspirin 325 mg daily. He is on Xalatan eye drops at bedtime. He is on Lantus 40 units at bedtime and Neurontin 300 mg b.i.d. and polyethylene glycol 17 grams in 8 ounces of water daily. HABITS: No current alcohol or tobacco use. FAMILY HISTORY: Noncontributory. SOCIAL HISTORY: The patient hopes to return back home and get back to his prior level of functioning. REVIEW OF SYSTEMS: GENERAL: Does complain of weakness and fatigue, worse on the right side. HEENT: Denies cold, cough, or congestion. CARDIOVASCULAR: Denies chest pain. PHYSICAL EXAMINATION: VITAL SIGNS: Stable, afebrile. GENERAL: An older than stated age gentleman in no acute distress upon exam. HEENT: Normocephalic and atraumatic. Mucosa moist. NECK: Supple. No lymphadenopathy. LUNGS: Clear at this time. HEART: Regular rate and rhythm. ABDOMEN: Benign. EXTREMITIES: No clubbing, cyanosis or edema. NEUROLOGIC: He does have noted weakness. He also has some facial droop noted. LABORATORY DATA: White count of 6.2, H&H of 11 and 33, and platelet count was noted to be 199. His sodium is 143, potassium 3.3, BUN and creatinine of 15 and 1.1, and blood sugar was noted to be 122 on admission. ASSESSMENT: This is a 57-year-old gentleman admitted to the rehab with a working diagnosis of metabolic encephalopathy. The patient has potential to make improvement. We will institute the following multidisciplinary therapies including but not limited to physical, occupational, respiratory, speech, nutritional services, prosthetics and orthotics. Given his complex medical condition and risks for more complications, rehabilitation services cannot be provided at a low level of care such as shelter facility. PLAN: 1. Admit to [facility] for intensive inpatient therapy to include the following disciplines: A. Physical therapy to improve gait, all transfer skills, and bed mobility to a modified independent level. B. Occupational therapy to improve activities of daily living to a modified independent level. C. Case management to assist with discharge planning and placement options. D. Nutrition to assist with nutritional needs. E. Rehabilitation nursing to assist in following the patient's medical conditions and to assist with any type of bowel or bladder management. 2. The patient's current medication and medical care will be continued. 3. The patient will be placed on standard fall precautions. HISTORY AND PHYSICAL [id number] ESTELLA GUSMAN 4. I am going to check a hemoglobin A1c. Follow up his blood work on Friday. 5. We work with speech therapy closely and I will follow up their recommendations. TRANSINT:[id number] Voice Confirmation ID: [id number] DOCUMENT ID: [id number] JOSH notes whether there has been none or any medical/functional change since admission: - No change since prescreen. JOSH attests patient continues to be appropriate for IRF: - Continues to be appropriate. JENA WEINBERG MD at 0814 CC: [id number] DICTATION DATE: 04/18/18 1312 INJECTION MOLDING PROCESS TECHNICIAN: 04/18/18 1336 ADM IN [place] [address] [place] [address]
[~2018-04-17 15:48] MED LIST changes: +GLIPIZIDE10 MG PO; +XALATAN 0.0052.5 ML EACH EYE
[2018-04-17 18:00] VITALS: BP 112/66
[2018-04-17 20:08] VITALS: BP 112/66; BMI 24.4
[2018-04-18 06:47] LABS: BASOPHILS 0.5 % (0-2); EOSINOPHILS 2.6 % (0-7); HEMATOCRIT 32.6 % (42.0-54.0); HEMOGLOBIN 11.2 g/dL (13.5-17.5); IMMATURE GRANULOCYTES 0.2 % (0-5); LYMPHOCYTES 24.7 % (15-50); MCH 30.6 pg (26.0-34.0); MCHC 34.4 g/dL (31.0-37.0); MCV 89.1 fL (80.0-100.0); MEAN PLATELET VOLUME 11.4 fL (7.4-10.4); MONOCYTES 6.1 % (2-11); NEUTROPHILS 65.9 % (40-80); PLATELET COUNT 199 10x3/uL (130-400); RBC 3.66 10x6/uL (4.20-6.10); RDW 13.8 % (11.5-14.5)
[2018-04-18 06:49] LABS: WBC 6.2 10x3/uL (4.8-10.8)
[2018-04-18 06:54] LABS: ANION GAP 10.9 mmol/L (8-16); CALCIUM 8.3 mg/dL (8.5-10.1); CARBON DIOXIDE 28.4 mmol/L (21.0-32.0); POTASSIUM - SERUM 3.3 mmol/L (3.5-5.1)
[2018-04-18 07:02] LABS: CREATININE - SERUM 1.1 mg/dL (0.6-1.3)
[2018-04-18 08:00] VITALS: BP 142/83
[2018-04-18 08:32] VITALS: Ht 177.8 cm; Wt 77.1 kg
[2018-04-18 22:59] VITALS: BP 127/56
[2018-04-19 06:39] LABS: BASOPHILS 0.6 % (0-2); EOSINOPHILS 4.1 % (0-7); HEMATOCRIT 32.2 % (42.0-54.0); LYMPHOCYTES 33.5 % (15-50); MCH 30.1 pg (26.0-34.0); MCHC 34.2 g/dL (31.0-37.0); MCV 88.2 fL (80.0-100.0); MEAN PLATELET VOLUME 11.5 fL (7.4-10.4); MONOCYTES 6.4 % (2-11); NEUTROPHILS 55.4 % (40-80); PLATELET COUNT 202 10x3/uL (130-400); RBC 3.65 10x6/uL (4.20-6.10); RDW 13.6 % (11.5-14.5); WBC 4.8 10x3/uL (4.8-10.8)
[2018-04-19 06:54] LABS: CALC OSMOLALITY 284 mosm/kg (275-300); CALCIUM 8.1 mg/dL (8.5-10.1); CARBON DIOXIDE 28.6 mmol/L (21.0-32.0); CHLORIDE - SERUM 105 mmol/L (98-107); CREATININE - SERUM 0.9 mg/dL (0.6-1.3); GLUCOSE 163 mg/dL (74-106); POTASSIUM - SERUM 3.6 mmol/L (3.5-5.1); SODIUM 141 mmol/L (136-145); UREA NITROGEN 13 mg/dL (7-18); eGFR NON AFRICAN AMERICAN > 90 mL/min (90-120)
[2018-04-19 08:18] VITALS: BP 147/91
[2018-04-20 00:10] VITALS: BP 121/76
[2018-04-20 08:00] VITALS: BP 129/78
[2018-04-20 20:00] VITALS: BP 130/63
[2018-04-21 08:00] VITALS: BP 143/83
[2018-04-21 19:00] VITALS: BP 152/76
[2018-04-22 06:28] LABS: BASOPHILS 0.2 % (0-2); EOSINOPHILS 2.4 % (0-7); HEMATOCRIT 32.9 % (42.0-54.0); IMMATURE GRANULOCYTES 0.2 % (0-5); LYMPHOCYTES 19.5 % (15-50); MCH 30.1 pg (26.0-34.0); MCHC 33.4 g/dL (31.0-37.0); MCV 89.9 fL (80.0-100.0); MEAN PLATELET VOLUME 11.8 fL (7.4-10.4); MONOCYTES 6.6 % (2-11); NEUTROPHILS 71.1 % (40-80); RBC 3.66 10x6/uL (4.20-6.10); RDW 13.6 % (11.5-14.5); WBC 9.2 10x3/uL (4.8-10.8)
[2018-04-22 06:45] LABS: ANION GAP 11.6 mmol/L (8-16); CALCIUM 8.2 mg/dL (8.5-10.1); CARBON DIOXIDE 29.1 mmol/L (21.0-32.0); CREATININE - SERUM 1.1 mg/dL (0.6-1.3); POTASSIUM - SERUM 3.7 mmol/L (3.5-5.1)
[2018-04-22 06:50] LABS: PLATELET COUNT 265 10x3/uL (130-400)
[2018-04-22 08:00] VITALS: BP 112/73
[2018-04-22 19:00] VITALS: BP 118/74
[2018-04-23 07:53] VITALS: BP 110/70
[2018-04-23 19:00] VITALS: BP 124/76; BP 146/58
[2018-04-24 07:21] LABS: ANION GAP 6.5 mmol/L (8-16); CALCIUM 7.7 mg/dL (8.5-10.1); CARBON DIOXIDE 30.2 mmol/L (21.0-32.0); CREATININE - SERUM 1.2 mg/dL (0.6-1.3); POTASSIUM - SERUM 3.7 mmol/L (3.5-5.1)
[2018-04-24 07:58] VITALS: BP 122/81
[2018-04-24 08:02] LABS: BASOPHILS 0.3 % (0-2); HEMOGLOBIN 10.5 g/dL (13.5-17.5); IMMATURE GRANULOCYTES 0.3 % (0-5); LYMPHOCYTES 47.2 % (15-50); MCH 30.4 pg (26.0-34.0); MCHC 33.9 g/dL (31.0-37.0); MCV 89.9 fL (80.0-100.0); MEAN PLATELET VOLUME 11.4 fL (7.4-10.4); MONOCYTES 7.2 % (2-11); PLATELET COUNT 311 10x3/uL (130-400); RBC 3.45 10x6/uL (4.20-6.10); RDW 14.1 % (11.5-14.5)
[2018-04-24 18:00] VITALS: BP 141/51
[2018-04-25 08:00] VITALS: BP 107/53
[2018-04-25 19:24] VITALS: BP 128/72
[2018-04-26 08:00] VITALS: BP 119/71
[2018-04-26 20:00] VITALS: BP 130/70
[2018-04-27 05:27] LABS: BASOPHILS 0.2 % (0-2); EOSINOPHILS 3.4 % (0-7); HEMATOCRIT 31.6 % (42.0-54.0); HEMOGLOBIN 10.4 g/dL (13.5-17.5); IMMATURE GRANULOCYTES 0.2 % (0-5); LYMPHOCYTES 28.9 % (15-50); MCH 29.8 pg (26.0-34.0); MCHC 32.9 g/dL (31.0-37.0); MCV 90.5 fL (80.0-100.0); MEAN PLATELET VOLUME 11.1 fL (7.4-10.4); MONOCYTES 6.2 % (2-11); NEUTROPHILS 61.1 % (40-80); PLATELET COUNT 292 10x3/uL (130-400); RBC 3.49 10x6/uL (4.20-6.10); RDW 14.3 % (11.5-14.5); WBC 8.5 10x3/uL (4.8-10.8)
[2018-04-27 05:37] LABS: ANION GAP 11.6 mmol/L (8-16); CARBON DIOXIDE 25.7 mmol/L (21.0-32.0); CREATININE - SERUM 1.2 mg/dL (0.6-1.3); POTASSIUM - SERUM 4.3 mmol/L (3.5-5.1)
[2018-04-27] MEDS ORDERED: TRADJENTA5 MG PO (08:13)
[2018-04-27 09:11] VITALS: BP 130/74
[2018-04-27 18:00] VITALS: BP 127/61
[2018-04-28 07:47] VITALS: BP 125/68
[2018-04-28 07:51] VITALS: BP 124/71
== END 2018-04-28 12:30 | disposition home or self-care (01) | DRG 71 ==
LOC: D.REHAB 15:48
PROVIDERS: Emergency Medicine
DX: G93.41 Metabolic encephalopathy (principal); N17.9 Acute kidney failure, unspecified; E87.1 Hypo-osmolality and hyponatremia; R47.1 Dysarthria and anarthria; R13.12 Dysphagia, oropharyngeal phase; I25.10 Atherosclerotic heart disease of native coronary artery without angina pectoris; G62.9 Polyneuropathy, unspecified; R53.1 Weakness; R29.810 Facial weakness; R11.2 Nausea with vomiting, unspecified; R42 Dizziness and giddiness; D64.9 Anemia, unspecified; E11.65 Type 2 diabetes mellitus with hyperglycemia

== ENCOUNTER 2018-07-28 14:45 | Inpatient (IN) | payer MEDICARE, BC ==
[~2018-07-28] VITALS: Ht 177.8 cm; Wt 74.8 kg
--- NOTE | ~2018-07-28 | MORECARE ---
CASE MANAGEMENT DISCHARGE SUMMARY PATIENT: ESTELLA GUSMAN UNIT: [id number] ADM DATE: 07/28/18 AGE: 57 : 58 SEX: M ROOM/BED: D.2102 AUTHOR: JANINE,DOC PHYSICIAN: REFERRING PHYSICIAN: ANTONIO LO MD DATE OF SERVICE: 08/03/18 Discharge Plan Patient Name: ESTELLA GUSMAN Facility: [facility]:[place] : 1960 Planned Disposition: Home Anticipated Discharge Date: 08/02/18 Discharge Date: 08/02/2018 Expected LOS: 5 Initial Reviewer: [email or web address] Initial Review Date: 07/29/2018 Generated: 08/03/18 10:25 am Comments DCP- Discharge Planning Updated by [email or web address]: Mela Stringer on 08/01/18 4:[address] Patient Name: ESTELLA GUSMAN Admission Status: ER Accout number: [id number] Admission Date: 07-28-2018 : 1960 Admission Diagnosis:UNSPECIFIED ABDOMINAL PAIN Attending: ANTONIO LO Current LOS: 4 Anticipated DC Date: 08-02-2018 Planned Disposition: Primary Insurance: MEDICARE A & B Discharge Planning Comments: CM met with patient about dc planning/needs. Plans to discharge to home tomorrow. No needs identified. States goes to physical therapy at [facility]. CM will follow and assist as needed with dc planning/needs. IMM served. [employer]: Mela Stringer DCPIA - Discharge Planning Initial Assessment Updated by [email or web address]: Mela Stringer on 08/01/18 5:29 pm * Is the patient Alert and Oriented? Yes * PCP SUSAN * [facility] * Preadmission Environment Home Alone * ADLs Independent * Equipment Cane * List name and contact numbers for known caregivers / representatives who currently or will assist patient after discharge: JOSE EDUARDO GUSMAN, BROTHER, * Community resources currently utilized Other * Please name any agencies selected above. PHYSICAL THERAPY AT [facility] * Can the patient safely return to the preadmission environment? Yes * Has this patient been hospitalized within the prior 30 days at any hospital? No Coverage Notice Reviewer: [email or web address] Arlin Stringer Notice Issued Date-Time: 08/01/2018 17:25 Notice Type: IM Discharge Notice Notice Delivered To: Patient Relationship to Patient: Self Commercial Loan Administrator Name: Delivery Method: HAND - Hand Delivered Rachel Days: Prior Verbal Notification: Recipient Understood Notice: Yes Recipient Signature: Yes Med Rec Note Co-signed by Attending: Coverage Notice Comment: Last DP export: 08/01/18 4:33 p Patient Name: ESTELLA GUSMAN Page [id number] at 0926 All edits/amendments must be made on the electronic document DICTATION DATE: 08/03/18924 MERCHANDISER: AGNES 08/03/18924 RPT#: [id number] DC DATE:08/02/18 STATUS: DIS IN [facility] [address] [place] [address] END OF REPORT
--- NOTE | ~2018-07-28 | MORECARE ---
CASE MANAGEMENT DISCHARGE SUMMARY PATIENT: ESTELLA GUSMAN UNIT: [id number] ADM DATE: 07/28/18 AGE: 57 : 58 SEX: M ROOM/BED: D.2101 AUTHOR: JANINE,DOC PHYSICIAN: REFERRING PHYSICIAN: ANTONIO LO MD DATE OF SERVICE: 08/01/18 Discharge Plan Patient Name: ESTELLA GUSMAN Facility: [facility]:[place] : 1960 Planned Disposition: Anticipated Discharge Date: 08/02/18 Discharge Date: Expected LOS: 5 Initial Reviewer: [email or web address] Initial Review Date: 07/29/2018 Generated: 08/01/18 6:33 pm Comments DCP- Discharge Planning Updated by [email or web address]: Mela Stringer on 08/01/18 4:[address] Patient Name: ESTELLA GUSMAN Admission Status: ER Accout number: [id number] Admission Date: 07-28-2018 : 1960 Admission Diagnosis:UNSPECIFIED ABDOMINAL PAIN Attending: ANTONIO LO Current LOS: 4 Anticipated DC Date: 08-02-2018 Planned Disposition: Primary Insurance: MEDICARE A & B Discharge Planning Comments: CM met with patient about dc planning/needs. Plans to discharge to home tomorrow. No needs identified. States goes to physical therapy at [facility]. CM will follow and assist as needed with dc planning/needs. IMM served. Automobile Designer: Mela Stringer DCPIA - Discharge Planning Initial Assessment Updated by [email or web address]: Mela Stringer on 08/01/18 5:29 pm * Is the patient Alert and Oriented? Yes * PCP SUSAN * [facility] * Preadmission Environment Home Alone * ADLs Independent * Equipment Cane * List name and contact numbers for known caregivers / representatives who currently or will assist patient after discharge: JOSE EDUARDO GUSMAN, BROTHER, * Community resources currently utilized Other * Please name any agencies selected above. [facility]ICAL [facility]APY AT [facility] * Can the patient safely return to the preadmission environment? Yes * Has this patient been hospitalized within the prior 30 days at any hospital? No Coverage Notice Reviewer: [email or web address] Arlin Stringer Notice Issued Date-Time: 08/01/2018 17:25 Notice Type: IM Discharge Notice Notice Delivered To: Patient Relationship to Patient: Self Radio Electronics Officer Name: Delivery Method: HAND - Hand Delivered Rachel Days: Prior Verbal Notification: Recipient Understood Notice: Yes Recipient Signature: Yes Med Rec Note Co-signed by Attending: Coverage Notice Comment: Last DP export: 07/29/18 7:04 Patient Name: ESTELLA GUSMAN Page [id number] at 1734 All edits/amendments must be made on the electronic document DICTATION DATE: 08/01/181732 DRIER AND EVAPORATOR OPERATOR: AGNES 08/01/181732 RPT#: [id number] DC DATE: STATUS: ADM IN [facility] [address] [place] [address] END OF REPORT
--- NOTE | ~2018-07-28 | MORECARE ---
CASE MANAGEMENT DISCHARGE SUMMARY PATIENT: ESTELLA GUSMAN UNIT: [id number] ADM DATE: 07/28/18 AGE: 57 : 58 SEX: M ROOM/BED: D.2105 AUTHOR: CARLOS MANUEL MEHTA PHYSICIAN: REFERRING PHYSICIAN: ANTONIO LO MD DATE OF SERVICE: 07/29/18 Discharge Plan Patient Name: ESTELLA GUSMAN Facility: [facility]:[place] : 1960 Planned Disposition: Anticipated Discharge Date: Discharge Date: Expected LOS: 0 Initial Reviewer: [email or web address] Initial Review Date: 07/29/2018 Generated: 07/29/18 9:04 am Patient Name: ESTELLA GUSMAN Page [phone] at 0804 All edits/amendments must be made on the electronic document DICTATION DATE: 07/29/18 0804 FIXED WING AIRCRAFT FLIGHT MECHANIC: AGNES 07/29/18 0804 RPT#: [id number] DC DATE: STATUS: ADM IN [facility] [address] [place] [address] END OF REPORT
[~2018-07-28 14:45] MED LIST changes: +TRADJENTA5 MG PO
[2018-07-28 15:15] LABS: BASOPHILS 0.2 % (0-2); EOSINOPHILS 0.1 % (0-7); HEMOGLOBIN 14.4 g/dL (13.5-17.5); IMMATURE GRANULOCYTES 0.2 % (0-5); LYMPHOCYTES 14.4 % (15-50); MCH 30.4 pg (26.0-34.0); MCHC 34.3 g/dL (31.0-37.0); MCV 88.8 fL (80.0-100.0); MEAN PLATELET VOLUME 12.8 fL (7.4-10.4); MONOCYTES 2.4 % (2-11); NEUTROPHILS 82.7 % (40-80); PLATELET COUNT 253 10x3/uL (130-400); RBC 4.73 10x6/uL (4.20-6.10); RDW 13.9 % (11.5-14.5); WBC 13.1 10x3/uL (4.8-10.8)
[2018-07-28 15:20] LABS: KETONE - SERUM MODERATE mg/dL (NEGATIVE)
[2018-07-28 15:28] LABS: ALBUMIN 4.2 g/dL (3.4-5.0); ALKALINE PHOSPHATASE 106 U/L (46-116); ALT (SGPT) 16 U/L (10-68); BILIRUBIN - TOTAL 0.63 mg/dL (0.2-1.3); CALCIUM 10.6 mg/dL (8.5-10.1); CARBON DIOXIDE 15.5 mmol/L (21.0-32.0); CHLORIDE - SERUM 93 mmol/L (98-107); CREATININE - SERUM 2.1 mg/dL (0.6-1.3); POTASSIUM - SERUM 4.9 mmol/L (3.5-5.1); PROTEIN - SERUM 8.8 g/dL (6.4-8.2); SODIUM 136 mmol/L (136-145); UREA NITROGEN 27 mg/dL (7-18); eGFR NON AFRICAN AMERICAN 35 mL/min (90-120)
[2018-07-28 15:31] VITALS: BP 112/50
[2018-07-28 15:31] LABS: AMYLASE - SERUM 245 U/L (25-115)
[2018-07-28 15:32] LABS: APTT 22.9 SECONDS (22.8-39.4); PROTIME 12.7 SECONDS (11.6-15.0)
[2018-07-28 15:37] LABS: LIPASE 2471 U/L (73-393)
[2018-07-28 15:38] LABS: CALC OSMOLALITY 287 mosm/kg (275-300); GLUCOSE 305 mg/dL (74-106); TROPONIN-I < 0.017 ng/mL (0.000-0.060)
[2018-07-28 16:31] VITALS: BP 131/63
[2018-07-28 16:31] LABS: APPEARANCE CLEAR (CLEAR); BILIRUBIN NEGATIVE (NEGATIVE); COLOR YELLOW (YELLOW); GLUCOSE 1000 mg/dL (NEGATIVE); KETONE LARGE mg/dL (NEGATIVE); NITRITE NEGATIVE (NEGATIVE); PROTEIN TRACE mg/dL (NEGATIVE); UROBILINOGEN NORMAL (NORMAL)
[2018-07-28 17:31] VITALS: BP 115/44
[2018-07-28 18:30] VITALS: BP 145/78; BMI 23.7
[2018-07-28 19:00] VITALS: BP 119/81
[2018-07-29 01:14] VITALS: BP 125/66
[2018-07-29 05:25] VITALS: BP 136/69
[2018-07-29 05:53] LABS: BASOPHILS 0.1 % (0-2); EOSINOPHILS 0.2 % (0-7); HEMATOCRIT 34.9 % (42.0-54.0); IMMATURE GRANULOCYTES 0.4 % (0-5); LYMPHOCYTES 14.6 % (15-50); MCH 30.5 pg (26.0-34.0); MCHC 34.4 g/dL (31.0-37.0); MCV 88.6 fL (80.0-100.0); MEAN PLATELET VOLUME 12.2 fL (7.4-10.4); NEUTROPHILS 80.7 % (40-80); RBC 3.94 10x6/uL (4.20-6.10); RDW 14.1 % (11.5-14.5); WBC 11.2 10x3/uL (4.8-10.8)
[2018-07-29 06:04] LABS: PLATELET COUNT 202 10x3/uL (130-400)
[2018-07-29 06:23] LABS: ALBUMIN 3.3 g/dL (3.4-5.0); BILIRUBIN - TOTAL 0.39 mg/dL (0.2-1.3); CREATININE - SERUM 1.9 mg/dL (0.6-1.3); PROTEIN - SERUM 7.1 g/dL (6.4-8.2)
[2018-07-29 07:18] LABS: ANION GAP 18.1 mmol/L (8-16); CARBON DIOXIDE 22.8 mmol/L (21.0-32.0); POTASSIUM - SERUM 3.9 mmol/L (3.5-5.1)
[2018-07-29 09:27] VITALS: BP 131/75
[2018-07-29 11:33] VITALS: BP 128/70
[2018-07-29 19:45] VITALS: BP 149/68
[2018-07-29 23:35] VITALS: BP 136/40
[2018-07-30 03:34] VITALS: BP 123/71
[2018-07-30 06:16] LABS: BASOPHILS 0.1 % (0-2); EOSINOPHILS 1.3 % (0-7); HEMATOCRIT 31.3 % (42.0-54.0); HEMOGLOBIN 10.5 g/dL (13.5-17.5); IMMATURE GRANULOCYTES 0.2 % (0-5); LYMPHOCYTES 14.7 % (15-50); MCH 30.1 pg (26.0-34.0); MCHC 33.5 g/dL (31.0-37.0); MCV 89.7 fL (80.0-100.0); MONOCYTES 5.1 % (2-11); NEUTROPHILS 78.6 % (40-80); RBC 3.49 10x6/uL (4.20-6.10); RDW 14.2 % (11.5-14.5); WBC 9.4 10x3/uL (4.8-10.8)
[2018-07-30 06:20] LABS: PLATELET COUNT 160 10x3/uL (130-400)
[2018-07-30 06:43] LABS: ALBUMIN 2.7 g/dL (3.4-5.0); ANION GAP 19.5 mmol/L (8-16); BILIRUBIN - TOTAL 0.41 mg/dL (0.2-1.3); CALCIUM 8.7 mg/dL (8.5-10.1); CARBON DIOXIDE 21.3 mmol/L (21.0-32.0); CREATININE - SERUM 1.5 mg/dL (0.6-1.3); POTASSIUM - SERUM 3.8 mmol/L (3.5-5.1); PROTEIN - SERUM 6.2 g/dL (6.4-8.2)
[2018-07-30 08:22] VITALS: BP 116/68
[2018-07-30 09:40] VITALS: Ht 177.8 cm; Wt 74.8 kg
[2018-07-30 11:39] VITALS: BP 118/68
[2018-07-30 15:30] VITALS: BP 146/68
[2018-07-30 19:45] VITALS: BP 149/65
[2018-07-30 23:45] VITALS: BP 117/53
[2018-07-31 03:55] VITALS: BP 130/64
[2018-07-31 05:08] LABS: BASOPHILS 0.3 % (0-2); EOSINOPHILS 1.9 % (0-7); HEMOGLOBIN 10.4 g/dL (13.5-17.5); IMMATURE GRANULOCYTES 0.2 % (0-5); LYMPHOCYTES 19.4 % (15-50); MCH 30.1 pg (26.0-34.0); MCHC 33.5 g/dL (31.0-37.0); MCV 89.9 fL (80.0-100.0); MEAN PLATELET VOLUME 13.2 fL (7.4-10.4); MONOCYTES 7.6 % (2-11); NEUTROPHILS 70.6 % (40-80); PLATELET COUNT 145 10x3/uL (130-400); RBC 3.45 10x6/uL (4.20-6.10); RDW 14.1 % (11.5-14.5)
[2018-07-31 05:09] LABS: WBC 6.4 10x3/uL (4.8-10.8)
[2018-07-31 05:32] LABS: ALBUMIN 2.4 g/dL (3.4-5.0); ANION GAP 22.8 mmol/L (8-16); BILIRUBIN - TOTAL 0.44 mg/dL (0.2-1.3); CALCIUM 8.9 mg/dL (8.5-10.1); CREATININE - SERUM 1.4 mg/dL (0.6-1.3); POTASSIUM - SERUM 3.8 mmol/L (3.5-5.1); PROTEIN - SERUM 6.1 g/dL (6.4-8.2)
[2018-07-31 08:35] VITALS: BP 118/57
[2018-07-31 11:34] VITALS: BP 110/53
[2018-07-31 15:16] VITALS: BP 112/59
[2018-07-31 20:00] VITALS: BP 123/52
[2018-08-01 04:00] VITALS: BP 130/54
[2018-08-01 05:11] LABS: BASOPHILS 0.6 % (0-2); EOSINOPHILS 2.9 % (0-7); HEMATOCRIT 28.7 % (42.0-54.0); HEMOGLOBIN 9.8 g/dL (13.5-17.5); IMMATURE GRANULOCYTES 0.2 % (0-5); LYMPHOCYTES 23.4 % (15-50); MCH 30.1 pg (26.0-34.0); MCHC 34.1 g/dL (31.0-37.0); MEAN PLATELET VOLUME 12.2 fL (7.4-10.4); MONOCYTES 7.3 % (2-11); NEUTROPHILS 65.6 % (40-80); PLATELET COUNT 140 10x3/uL (130-400); RBC 3.26 10x6/uL (4.20-6.10); RDW 13.7 % (11.5-14.5); WBC 5.2 10x3/uL (4.8-10.8)
[2018-08-01 05:33] LABS: ALBUMIN 2.1 g/dL (3.4-5.0); ANION GAP 16.6 mmol/L (8-16); BILIRUBIN - TOTAL 0.26 mg/dL (0.2-1.3); CALCIUM 8.6 mg/dL (8.5-10.1); CARBON DIOXIDE 20.9 mmol/L (21.0-32.0); CREATININE - SERUM 1.1 mg/dL (0.6-1.3); POTASSIUM - SERUM 3.5 mmol/L (3.5-5.1); PROTEIN - SERUM 5.7 g/dL (6.4-8.2)
[2018-08-01 09:56] VITALS: BP 113/52
[2018-08-01 16:17] VITALS: BP 120/68
[2018-08-01 20:30] VITALS: BP 149/80
[2018-08-02 04:30] VITALS: BP 147/85
[2018-08-02 06:53] LABS: ALBUMIN 2.4 g/dL (3.4-5.0); ANION GAP 24.1 mmol/L (8-16); BILIRUBIN - TOTAL 0.32 mg/dL (0.2-1.3); CALCIUM 8.8 mg/dL (8.5-10.1); CARBON DIOXIDE 18.5 mmol/L (21.0-32.0); CREATININE - SERUM 1.1 mg/dL (0.6-1.3); POTASSIUM - SERUM 3.6 mmol/L (3.5-5.1); PROTEIN - SERUM 6.3 g/dL (6.4-8.2)
[2018-08-02 07:06] LABS: BASOPHILS 0.4 % (0-2); EOSINOPHILS 3.5 % (0-7); HEMATOCRIT 31.7 % (42.0-54.0); HEMOGLOBIN 10.9 g/dL (13.5-17.5); LYMPHOCYTES 34.1 % (15-50); MCH 30.1 pg (26.0-34.0); MCHC 34.4 g/dL (31.0-37.0); MCV 87.6 fL (80.0-100.0); MEAN PLATELET VOLUME 13.2 fL (7.4-10.4); MONOCYTES 7.7 % (2-11); NEUTROPHILS 54.3 % (40-80); RBC 3.62 10x6/uL (4.20-6.10); RDW 13.7 % (11.5-14.5); WBC 5.1 10x3/uL (4.8-10.8)
[2018-08-02 07:15] LABS: PLATELET COUNT 183 10x3/uL (130-400)
[2018-08-02] MEDS ORDERED: CREON DR 6,0001 EACH PO (07:33)
[2018-08-02 09:23] VITALS: BP 134/87
== END 2018-08-02 10:15 | disposition home or self-care (01) | DRG 439 ==
LOC: D.ER 14:45 → D.M2 17:16
PROVIDERS: Emergency Medicine; Family Medicine
DX: K85.90 Acute pancreatitis without necrosis or infection, unspecified (principal); F33.0 Major depressive disorder, recurrent, mild; N28.9 Disorder of kidney and ureter, unspecified; I10 Essential (primary) hypertension; E78.5 Hyperlipidemia, unspecified; I25.10 Atherosclerotic heart disease of native coronary artery without angina pectoris; Z95.1 Presence of aortocoronary bypass graft; E11.9 Type 2 diabetes mellitus without complications; K21.9 Gastro-esophageal reflux disease without esophagitis

== ENCOUNTER 2018-08-03 03:41 | Inpatient (IN) | payer MEDICARE, BC ==
[2018-08-03] VITALS (24 sets, daily range): BP systolic 75–123; BP diastolic 48–73; Ht 177.8 cm; Wt 86.4 kg
[~2018-08-03] VITALS: Ht 177.8 cm; Wt 86.4 kg
--- NOTE | ~2018-08-03 | MORECARE ---
CASE MANAGEMENT DISCHARGE SUMMARY PATIENT: ESTELLA GUSMAN UNIT: [id number] ADM DATE: 08/03/18 AGE: 57 : 58 SEX: M ROOM/BED: D.2302 AUTHOR: CARLOS MANUEL MEHTA PHYSICIAN: REFERRING PHYSICIAN: JAMES BAH MD DATE OF SERVICE: 08/03/18 Discharge Plan Patient Name: ESTELLA GUSMAN Facility: [facility]:[place] : 1960 Planned Disposition: Home Anticipated Discharge Date: Discharge Date: Expected LOS: Initial Reviewer: [email or web address] Initial Review Date: 08/03/2018 Generated: 08/03/18 7:37 pm DCPIA - Discharge Planning Initial Assessment Updated by [email or web address]: Abi Vaz on 08/03/18 6:34 pm * Is the patient Alert and Oriented? Yes * How many steps to enter\exit or inside your home? * PCP Dennise * Pharmacy [place] * Preadmission Environment Home Alone * ADLs Independent * Equipment Cane * Other Equipment Glucometer * List name and contact numbers for known caregivers / representatives who currently or will assist patient after discharge: Velasquez Gusman - brother- [phone] Anuradha WaldronTonny girlfriend- [phone] * Verbal permission to speak to the caregivers and representatives has been obtained from the patient. N/A * Community resources currently utilized Home Health * Please name any agencies selected above. Patient stated that he has had HH in past with [facility] but was suppose to be setup with HH on last discharge but unsure of company * Additional services required to return to the preadmission environment? No * Can the patient safely return to the preadmission environment? Yes * Has this patient been hospitalized within the prior 30 days at any hospital? Yes Last DP export: 08/03/18 5:30 p Patient Name: ESTELLA GUSMAN Page [id number] at 1837 All edits/amendments must be made on the electronic document DICTATION DATE: 08/03/181835 DIRECTOR OF SPEECH PATHOLOGY: AGNES 08/03/181835 RPT#: [id number] DC DATE: STATUS: ADM IN [facility] [address] [facility] [place] [address] END OF REPORT
--- NOTE | ~2018-08-03 | EC ---
PATIENT:ESTELLA GUSMAN DATE OF SERVICE: 08/03/18 SEX: M MEDICAL RECORD: [id number] DATE OF : 58 LOCATION:[facility] AGE OF PATIENT: 57 ADMISSION DATE: 08/03/18 REFERRING PHYSICIAN: INTERPRETING PHYSICIAN: LUCIO SUÁREZ MD ECHOCARDIOGRAM REPORT ECHO CHARGES 5 ECHO LIMITED Date: 08/06/18 CLINICAL DIAGNOSIS: S/P VFIB/ ASSESS EF ECHOCARDIOGRAPHIC MEASUREMENTS (adult normal given) AC root (d.<3.7cm) cm LV Septum d (<1.2 cm> 1.3 cm Valve Excursion cm LV Septum (systole) 1.4 cm Left Atria (s.<4.0cm> 4.5 cm LVPW d(<1.2cm) 1.4 cm RV (d.<2.3cm) 3.7 cm LVPW (sytole) 1.5 cm LV diastole(<5.6CM) 5.4 cm MV E-F(>70mm/sec) cm LV systole 4.7 cm LVOT Diameter cm MV exc.(>10mm) cm Est.ejection fraction (50-75%) % DOPPLER: LVIT cm/sec A cm/sec E cm/sec LA cm/sec RVSP 28 mmHg LVOT cm/sec AOP1/2T m/s Asc. Ao cm/sec RVOT cm/sec RA cm/sec PA cm/sec AV Gradient Peak mmHg AV Mean mmHg AV Area cm MV Gradient Peak mmHg MV Mean mmHg MV Area cm COMMENTS: Cyber Incident Handler: Brittany DYE Social Worker Masters: 1 Dr. Suárez TAPE# PACS Pericardial Effusion N DATE OF SERVICE: 08/06/2018 FINDINGS: 1. Left ventricular chamber size is mildly dilated. Left ventricular systolic function is markedly reduced. Overall ejection fraction 15% to 20%. 2. Left atrium, right atrium, and right ventricular chamber sizes are mildly dilated. Left atrium measures 4.5 cm. 3. Valvular structures have normal structure and motion. 4. Doppler interrogation only reveals mild tricuspid regurgitation. No other valvular insufficiency or stenosis. Pulmonary systolic pressure is normal, ECHOCARDIOGRAM REPORT [id number] ESTELLA GUSMAN estimated at 28 mmHg. 5. No evidence of pericardial effusion or left ventricular thrombus. TRANSINT:[id number] Voice Confirmation ID: [id number] DOCUMENT ID: [id number] LUCIO SUÁREZ MD at 1025 CC: [id number] DICTATION DATE: 08/06/18 1238 BINDER CHAINSTITCH: 08/06/18 1301 ADM IN [facility] [address] [place] [id number]
--- NOTE | ~2018-08-03 | MORECARE ---
CASE MANAGEMENT DISCHARGE SUMMARY PATIENT: ESTELLA GUSMAN UNIT: [id number] ADM DATE: 08/03/18 AGE: 57 : 58 SEX: M ROOM/BED: D.2128 AUTHOR: JANINE,DOC PHYSICIAN: REFERRING PHYSICIAN: JAMES BAH MD DATE OF SERVICE: 08/14/18 Discharge Plan Patient Name: ESTELLA GUSMAN Facility: [facility]:[place] : 1960 Planned Disposition: Inpatient Rehab Anticipated Discharge Date: 08/14/18 Discharge Date: Expected LOS: 11 Initial Reviewer: [email or web address] Initial Review Date: 08/03/2018 Generated: 08/14/18 4:26 pm Comments DCP- Discharge Planning Updated by [email or web address]: Ammon Augustin on 08/14/18 2:[address] Patient Name: ESTELLA GUSMAN Encounter No: [id number] : 1960 Primary Insurance: MEDICARE A & B Anticipated DC Date: 08-14-2018 Planned Disposition: Inpatient Rehab External Planned Provider: [facility] DCP follow-up note: CM SPOKE TO [facility] OF INPATIENT REHAB, THEY WILL ACCEPT PT TODAY FOR REHAB. PT NOTIFIED, IN AGREEMENT WITH DISCHARGE TO INPATIENT REHAB. [facility] ACCEPTED TO ROOM 1108-B, READY TO ACCEPT NURSE REPORT. BUTTON RIVETER NURSE AND MINING HELPER NOTIFIED. Ammon Augustin, JASMYN LANGSTON DCP- Discharge Planning Updated by [email or web address]: Ammon Augustin on 08/13/18 2:[address] Patient Name: ESTELLA GUSMAN Encounter No: [id number] : 1960 Primary Insurance: MEDICARE A & B Anticipated DC Date: 08-14-2018 Planned Disposition: Inpatient Rehab External Planned Provider: [facility] DCP follow-up note: CM RECEIVED ORDER FOR INPATIENT REHAB PRESCREENING, MET WITH PT IN ROOM TO DISCUSS DISCHARGE PLANNING AND NEEDS. CM DISCUSSED INPATIENT REHAB PROVIDERS, EXPECTIONS OF REHAB AND LOCATIONS. PT WOULD LIKE TO REMAIN AT [facility] INPAT[facility] WITH PLAN TO RETURN HOME AT DISCHARGE FROM REHAB. PT STATES HE HAS BEEN TO REHAB AT [facility] AND KNOWS HE CAN DO THREE HOURS OF PROGRESSIVE THERAPY PER DAY. BEDSIDE NURSE WHO WAS PROVIDING PT'S MEDICATIONS AGREES THAT SHE ALSO THINKS PT CAN DO THREE OR MORE HOURS OF THERAPY PER DAY. IMPORTANT MESSAGE FROM MEDICARE PROVIDED AND EXPLAINED. CM WAITING COMPLETION OF INPATIENT REHAB PRESCREENING AND ADMISSION DETERMINATION FROM [facility]. Ammon Augustin, CASE MANAGEMENT DCP- Discharge Planning Updated by [email or web address]: Beena Goodrich on 08/08/18 2:[address] FAMILY REQUESTED MEETING WITH PMD AT NOON TOMORROW. PRIMARY NURSE SPOKE WITH DR BAH. FAMILY HAS QUESTIONS REGARDING PATIENT'S PROGNOSIS AND PLAN OF CARE. DCP- Discharge Planning Updated by [email or web address]: Abi Vaz on 08/03/18 5:[address] Patient Name: ESTELLA GUSMAN Admission Status: ER Accout number: [id number] Admission Date: 08-03-2018 : 1960 Admission Diagnosis: Attending: JAMES BAH Current LOS: 1 Anticipated DC Date: Planned Disposition: Home Primary Insurance: MEDICARE A & B Discharge Planning Comments: CM met with patient at bedside after obtaining verbal consent. Patient states he plans on returning home after discharge. Patient states he will have family transport him home via private vehicle. CM spoke with patient about his ability to obtain his insulin Patient denies any problems obtaining insulin. Patient stated he wished he could find a way to get it free. CM called [facility] to see when his insulin was last filled. Last filled 06/03/18 Novalog 34 day supply $68.00 and Levamir 25 day supply $10.00. Pharmacist stated that has [employer] Ins. for prescription drug coverage. She stated that as far as she can tell patient isn't in donut hole at this time. She stated that patient doesn't get meds filled on a regular basis. Patient denies any discharge needs. CM will continue to follow and assist as needed for discharge planning / needs. Cement Loader: Abi Vaz DCPIA - Discharge Planning Initial Assessment Updated by [email or web address]: Abi Vaz on 08/03/18 6:34 pm * Is the patient Alert and Oriented? Yes * How many steps to enter\exit or inside your home? * PCP Dennise * Pharmacy [facility] * Preadmission Environment Home Alone * ADLs Independent * Equipment Cane * Other Equipment Glucometer * List name and contact numbers for known caregivers / representatives who currently or will assist patient after discharge: Velasquez Gusman - brother- [phone] Anuradha Herr - girlfriend- [phone] * Verbal permission to speak to the caregivers and representatives has been obtained from the patient. N/A * Community resources currently utilized Home Health * Please name any agencies selected above. Patient stated that he has had HH in past with [facility] but was suppose to be setup with HH on last discharge but unsure of company * Additional services required to return to the preadmission environment? No * Can the patient safely return to the preadmission environment? Yes * Has this patient been hospitalized within the prior 30 days at any hospital? Yes Coverage Notice Reviewer: [id number] Arlin Augustin Notice Issued Date-Time: 08/13/2018 12:10 Notice Type: IM Discharge Notice Notice Delivered To: Patient Relationship to Patient: Production Finisher Name: Delivery Method: HAND - Hand Delivered Rachel Days: Prior Verbal Notification: Recipient Understood Notice: Yes Recipient Signature: Yes Med Rec Note Co-signed by Attending: Coverage Notice Comment: Last DP export: 08/13/18 2:18 Patient Name: ESTELLA GUSMAN Page 97622 at 1527 All edits/amendments must be made on the electronic document DICTATION DATE: 08/14/18 152 DAG COATER: AGNES 08/14/18 1526 RPT#: [id number] DC DATE: STATUS: ADM IN [facility] [address] [place] [address] END OF REPORT
--- NOTE | ~2018-08-03 | MORECARE ---
CASE MANAGEMENT DISCHARGE SUMMARY PATIENT: ESTELLA GUSMAN UNIT: [id number] ADM DATE: 08/03/18 AGE: 57 : 58 SEX: M ROOM/BED: D.1258 AUTHOR: JANINE,DOC PHYSICIAN: REFERRING PHYSICIAN: JAMES BAH MD DATE OF SERVICE: 08/13/18 Discharge Plan Patient Name: ESTELLA GUSMAN Facility: [facility]:[place] : 1960 Planned Disposition: Inpatient Rehab Anticipated Discharge Date: 08/14/18 Discharge Date: Expected LOS: 11 Initial Reviewer: [email or web address] Initial Review Date: 08/03/2018 Generated: 08/13/18 4:18 pm Comments DCP- Discharge Planning Updated by [email or web address]: Ammon Augustin on 08/13/18 2:[address] Patient Name: ESTELLA GUSMAN Encounter No: [id number] : 1960 Primary Insurance: MEDICARE A & B Anticipated DC Date: 08-14-2018 Planned Disposition: Inpatient Rehab External Planned Provider: [facility] DCP follow-up note: CM RECEIVED ORDER FOR INPATIENT REHAB PRESCREENING, MET WITH PT IN ROOM TO DISCUSS DISCHARGE PLANNING AND NEEDS. CM DISCUSSED INPATIENT REHAB PROVIDERS, EXPECTIONS OF REHAB AND LOCATIONS. PT WOULD LIKE TO REMAIN AT [facility] IN[facility] WITH PLAN TO RETURN HOME AT DISCHARGE FROM REHAB. PT STATES HE HAS BEEN TO REHAB AT [facility] AND KNOWS HE CAN DO THREE HOURS OF PROGRESSIVE THERAPY PER DAY. BEDSIDE NURSE WHO WAS PROVIDING PT'S MEDICATIONS AGREES THAT SHE ALSO THINKS PT CAN DO THREE OR MORE HOURS OF THERAPY PER DAY. IMPORTANT MESSAGE FROM MEDICARE PROVIDED AND EXPLAINED. CM WAITING COMPLETION OF INPATIENT REHAB PRESCREENING AND ADMISSION DETERMINATION FROM [facility]. Ammon Augustin, CASE MANAGEMENT DCP- Discharge Planning Updated by [email or web address]: Beena Goodrich on 08/08/18 2:[address] FAMILY REQUESTED MEETING WITH PMD AT NOON TOMORROW. PRIMARY NURSE SPOKE WITH DR BAH. FAMILY HAS QUESTIONS REGARDING PATIENT'S PROGNOSIS AND PLAN OF CARE. DCP- Discharge Planning Updated by [id number]: Abi Vaz on 08/03/18 5:[address] Patient Name: ESTELLA GUSMAN Admission Status: ER Accout number: [id number] Admission Date: 08-03-2018 : 1960 Admission Diagnosis: Attending: JAMES BAH Current LOS: 1 Anticipated DC Date: Planned Disposition: Home Primary Insurance: MEDICARE A & B Discharge Planning Comments: CM met with patient at bedside after obtaining verbal consent. Patient states he plans on returning home after discharge. Patient states he will have family transport him home via private vehicle. CM spoke with patient about his ability to obtain his insulin Patient denies any problems obtaining insulin. Patient stated he wished he could find a way to get it free. CM called [facility] to see when his insulin was last filled. Last filled 06/03/18 Novalog 34 day supply $68.00 and Levamir 25 day supply $10.00. Pharmacist stated that has [employer] Ins. for prescription drug coverage. She stated that as far as she can tell patient isn't in donut hole at this time. She stated that patient doesn't get meds filled on a regular basis. Patient denies any discharge needs. CM will continue to follow and assist as needed for discharge planning / needs. Stretching Machine Tender Frame: Abi ESCOBEDOA - Discharge Planning Initial Assessment Updated by [id number]: Abi Vaz on 08/03/18 6:34 pm * Is the patient Alert and Oriented? Yes * How many steps to enter\exit or inside your home? * PCP Dennise * Pharmacy [facility] * Preadmission Environment Home Alone * ADLs Independent * Equipment Cane * Other Equipment Glucometer * List name and contact numbers for known caregivers / representatives who currently or will assist patient after discharge: Velasquez Gusman - brother- [phone] Anuradha HartArlinDes girlfriend- [phone] * Verbal permission to speak to the caregivers and representatives has been obtained from the patient. N/A * Community resources currently utilized Home Health * Please name any agencies selected above. Patient stated that he has had HH in past with [facility] but was suppose to be setup with HH on last discharge but unsure of company * Additional services required to return to the preadmission environment? No * Can the patient safely return to the preadmission environment? Yes * Has this patient been hospitalized within the prior 30 days at any hospital? Yes Coverage Notice Reviewer: [id number] - Ammon Augustin Notice Issued Date-Time: 08/13/2018 12:10 Notice Type: IM Discharge Notice Notice Delivered To: Patient Relationship to Patient: Senior Applications Developer Name: Delivery Method: HAND - Hand Delivered Rachel Days: Prior Verbal Notification: Recipient Understood Notice: Yes Recipient Signature: Yes Med Rec Note Co-signed by Attending: Coverage Notice Comment: Last DP export: 08/13/18 2:04 Patient Name: ESTELLA GUSMAN Page 85021 at 1518 All edits/amendments must be made on the electronic document DICTATION DATE: 08/13/181516 PROCESSING ASSISTANT: AGNES 08/13/181516 RPT#: [id number] DC DATE: STATUS: ADM IN [facility] [address] [place] [address] END OF REPORT
--- NOTE | ~2018-08-03 | MORECARE ---
CASE MANAGEMENT DISCHARGE SUMMARY PATIENT: ESTELLA GUSMAN UNIT: [id number] ADM DATE: 08/03/18 AGE: 57 : 58 SEX: M ROOM/BED: D.2302 AUTHOR: CARLOS MANUEL MEHTA PHYSICIAN: REFERRING PHYSICIAN: JAMES BAH MD DATE OF SERVICE: 08/03/18 Discharge Plan Patient Name: ESTELLA GUSMAN Facility: [facility]:[place] : 1960 Planned Disposition: Home Anticipated Discharge Date: Discharge Date: Expected LOS: Initial Reviewer: [email or web address] Initial Review Date: 08/03/2018 Generated: 08/03/18 7:30 pm Patient Name: ESTELLA GUSMAN Page 91749 at 1830 All edits/amendments must be made on the electronic document DICTATION DATE: 08/03/181829 KETTLE ROOM HELPER: AGNES 08/03/181829 RPT#: [id number] DC DATE: STATUS: ADM IN [facility] [address] [place] [address] END OF REPORT
--- NOTE | ~2018-08-03 | MORECARE ---
CASE MANAGEMENT DISCHARGE SUMMARY PATIENT: ESTELLA GUSMAN UNIT: [id number] ADM DATE: 08/03/18 AGE: 57 : 58 SEX: M ROOM/BED: D.3392 AUTHOR: JANINE,DOC PHYSICIAN: REFERRING PHYSICIAN: JAMES BAH MD DATE OF SERVICE: 08/13/18 Discharge Plan Patient Name: ESTELLA GUSMAN Facility: [facility]:[place] : 1960 Planned Disposition: Inpatient Rehab Anticipated Discharge Date: 08/14/18 Discharge Date: Expected LOS: 11 Initial Reviewer: [id number] Initial Review Date: 08/03/2018 Generated: 08/13/18 4:04 pm Comments DCP- Discharge Planning Updated by [email or web address]: Beena Goodrich on 08/08/18 2:[address] FAMILY REQUESTED MEETING WITH PMD AT NOON TOMORROW. PRIMARY NURSE SPOKE WITH DR BAH. FAMILY HAS QUESTIONS REGARDING PATIENT'S PROGNOSIS AND PLAN OF CARE. DCP- Discharge Planning Updated by [email or web address]: Abi Vaz on 08/03/18 5:[address] Patient Name: ESTELLA GUSMAN Admission Status: ER Accout number: [id number] Admission Date: 08-03-2018 : 1960 Admission Diagnosis: Attending: JAMES BAH Current LOS: 1 Anticipated DC Date: Planned Disposition: Home Primary Insurance: MEDICARE A & B Discharge Planning Comments: CM met with patient at bedside after obtaining verbal consent. Patient states he plans on returning home after discharge. Patient states he will have family transport him home via private vehicle. CM spoke with patient about his ability to obtain his insulin Patient denies any problems obtaining insulin. Patient stated he wished he could find a way to get it free. CM called [facility] to see when his insulin was last filled. Last filled 06/03/18 Novalog 34 day supply $68.00 and Levamir 25 day supply $10.00. Pharmacist stated that has [employer] Ins. for prescription drug coverage. She stated that as far as she can tell patient isn't in donut hole at this time. She stated that patient doesn't get meds filled on a regular basis. Patient denies any discharge needs. CM will continue to follow and assist as needed for discharge planning / needs. Risk Management Intern: Abi Vaz DCPIA - Discharge Planning Initial Assessment Updated by [id number]: Abi Vaz on 08/03/18 6:34 pm * Is the patient Alert and Oriented? Yes * How many steps to enter\exit or inside your home? * PCP Dennise * Pharm[facility] * Preadmission Environment Home Alone * ADLs Independent * Equipment Cane * Other Equipment Glucometer * List name and contact numbers for known caregivers / representatives who currently or will assist patient after discharge: Velasquez Gusman - brother- [phone] Anuradha RamirezDes Arlin girlfriend- [phone] * Verbal permission to speak to the caregivers and representatives has been obtained from the patient. N/A * Community resources currently utilized Home Health * Please name any agencies selected above. Patient stated that he has had HH in past with [facility] but was suppose to be setup with HH on last discharge but unsure of company * Additional services required to return to the preadmission environment? No * Can the patient safely return to the preadmission environment? Yes * Has this patient been hospitalized within the prior 30 days at any hospital? Yes Coverage Notice Reviewer: [id number] Arlin Augustin Notice Issued Date-Time: 08/13/2018 12:10 Notice Type: IM Discharge Notice Notice Delivered To: Patient Relationship to Patient: Children'S Tutor Name: Delivery Method: HAND - Hand Delivered Rachel Days: Prior Verbal Notification: Recipient Understood Notice: Yes Recipient Signature: Yes Med Rec Note Co-signed by Attending: Coverage Notice Comment: Last DP export: 08/11/18 2:30 Patient Name: ESTELLA GUSMAN Page 59705 at 1504 All edits/amendments must be made on the electronic document DICTATION DATE: 08/13/18 150 ANIMATION CAMERA OPERATOR: AGNES 08/13/18 1504 RPT#: [id number] DC DATE: STATUS: ADM IN [facility] [address] [place] [address] END OF REPORT
--- NOTE | ~2018-08-03 | MORECARE ---
CASE MANAGEMENT DISCHARGE SUMMARY PATIENT: ESTELLA GUSMAN UNIT: [id number] ADM DATE: 08/03/18 AGE: 57 : 58 SEX: M ROOM/BED: D.2301 AUTHOR: JANINE,DOC PHYSICIAN: REFERRING PHYSICIAN: JAMES BAH MD DATE OF SERVICE: 08/08/18 Discharge Plan Patient Name: ESTELLA GSUMAN Facility: [facility]:[place] : 1960 Planned Disposition: Home Anticipated Discharge Date: Discharge Date: Expected LOS: Initial Reviewer: [email or web address] Initial Review Date: 08/03/2018 Generated: 08/08/18 4:55 pm Comments DCP- Discharge Planning Updated by [email or web address]: Beena Goodrich on 08/08/18 2:[address] FAMILY REQUESTED MEETING WITH PMD AT NOON TOMORROW. PRIMARY NURSE SPOKE WITH DR BAH. FAMILY HAS QUESTIONS REGARDING PATIENT'S PROGNOSIS AND PLAN OF CARE. DCP- Discharge Planning Updated by [email or web address]: Abi Vaz on 08/03/18 5:[address] Patient Name: ESTELLA GUSMAN Admission Status: ER Accout number: [id number] Admission Date: 08-03-2018 : 1960 Admission Diagnosis: Attending: JAMES BAH Current LOS: 1 Anticipated DC Date: Planned Disposition: Home Primary Insurance: MEDICARE A & B Discharge Planning Comments: CM met with patient at bedside after obtaining verbal consent. Patient states he plans on returning home after discharge. Patient states he will have family transport him home via private vehicle. CM spoke with patient about his ability to obtain his insulin Patient denies any problems obtaining insulin. Patient stated he wished he could find a way to get it free. CM called [facility] to see when his insulin was last filled. Last filled 06/03/18 Novalog 34 day supply $68.00 and Levamir 25 day supply $10.00. Pharmacist stated that has [employer] Ins. for prescription drug coverage. She stated that as far as she can tell patient isn't in donut hole at this time. She stated that patient doesn't get meds filled on a regular basis. Patient denies any discharge needs. CM will continue to follow and assist as needed for discharge planning / needs. Flange Turner: Abi Vaz DCPIA - Discharge Planning Initial Assessment Updated by [email or web address]: Abi Vaz on 08/03/18 6:34 pm * Is the patient Alert and Oriented? Yes * How many steps to enter\exit or inside your home? * PCP Dennise * Pharmacy [facility] * Preadmission Environment Home Alone * ADLs Independent * Equipment Cane * Other Equipment Glucometer * List name and contact numbers for known caregivers / representatives who currently or will assist patient after discharge: Velasquez Gusman - brother- [phone] Anuradha Herr girlfriend- [phone] * Verbal permission to speak to the caregivers and representatives has been obtained from the patient. N/A * Community resources currently utilized Home Health * Please name any agencies selected above. Patient stated that he has had HH in past with [facility] but was suppose to be setup with HH on last discharge but unsure of company * Additional services required to return to the preadmission environment? No * Can the patient safely return to the preadmission environment? Yes * Has this patient been hospitalized within the prior 30 days at any hospital? Yes Last DP export: 08/03/18 5:50 p Patient Name: ESTELLA GUSMAN Page 83781 at 1555 All edits/amendments must be made on the electronic document DICTATION DATE: 08/08/181553 COAL GASIFICATION TECHNICIAN: AGNES 08/08/181553 RPT#: [id number] DC DATE: STATUS: ADM IN [facility] [address] [place] [address] END OF REPORT
--- NOTE | ~2018-08-03 | MORECARE ---
CASE MANAGEMENT DISCHARGE SUMMARY PATIENT: ESTELLA GUSMAN UNIT: [id number] ADM DATE: 08/03/18 AGE: 57 : 58 SEX: M ROOM/BED: D.2302 AUTHOR: JANINE,DOC PHYSICIAN: REFERRING PHYSICIAN: JAMES BAH MD DATE OF SERVICE: 08/03/18 Discharge Plan Patient Name: ESTELLA GUSMAN Facility: [facility]:[place] : 1960 Planned Disposition: Home Anticipated Discharge Date: Discharge Date: Expected LOS: Initial Reviewer: [email or web address] Initial Review Date: 08/03/2018 Generated: 08/03/18 7:50 pm Comments DCP- Discharge Planning Updated by [email or web address]: Abi Vaz on 08/03/18 5:[address] Patient Name: ESTELLA GUSMAN Admission Status: ER Accout number: [id number] Admission Date: 08-03-2018 : 1960 Admission Diagnosis: Attending: JAMES BAH Current LOS: 1 Anticipated DC Date: Planned Disposition: Home Primary Insurance: MEDICARE A & B Discharge Planning Comments: CM met with patient at bedside after obtaining verbal consent. Patient states he plans on returning home after discharge. Patient states he will have family transport him home via private vehicle. CM spoke with patient about his ability to obtain his insulin Patient denies any problems obtaining insulin. Patient stated he wished he could find a way to get it free. CM called [facility] to see when his insulin was last filled. Last filled 06/03/18 Novalog 34 day supply $68.00 and Levamir 25 day supply $10.00. Pharmacist stated that has [employer]. for prescription drug coverage. She stated that as far as she can tell patient isn't in donut hole at this time. She stated that patient doesn't get meds filled on a regular basis. Patient denies any discharge needs. CM will continue to follow and assist as needed for discharge planning / needs. Online Services Manager: Abi Vaz DCPIA - Discharge Planning Initial Assessment Updated by [email or web address]: Abi Vaz on 08/03/18 6:34 pm * Is the patient Alert and Oriented? Yes * How many steps to enter\exit or inside your home? * PCP Dennise * Pharm[facility] * Preadmission Environment Home Alone * ADLs Independent * Equipment Cane * Other Equipment Glucometer * List name and contact numbers for known caregivers / representatives who currently or will assist patient after discharge: Velasquez Gusman - brother- [phone] Anuradha Herr - girlfriend- [phone] * Verbal permission to speak to the caregivers and representatives has been obtained from the patient. N/A * Community resources currently utilized Home Health * Please name any agencies selected above. Patient stated that he has had HH in past with [facility] but was suppose to be setup with HH on last discharge but unsure of company * Additional services required to return to the preadmission environment? No * Can the patient safely return to the preadmission environment? Yes * Has this patient been hospitalized within the prior 30 days at any hospital? Yes Last DP export: 08/03/18 5:37 p Patient Name: ESTELLA GUSMAN Page [id number] at 1850 All edits/amendments must be made on the electronic document DICTATION DATE: 08/03/181848 AGRICULTURAL ADVISER: AGNES 08/03/181848 RPT#: [id number] DC DATE: STATUS: ADM IN [facility] [address] [place] [address] END OF REPORT
--- NOTE | ~2018-08-03 | OP ---
PATIENT NAME: ESTELLA GUSMAN MEDICAL RECORD: [id number] :58 LOCATION:D[facility] D.2301 ADMISSION DATE:08/03/18 SURGEON: LUCIO RM MD DATE OF OPERATION: 08/08/2018 DATE OF SERVICE: 08/08/2018 PROCEDURES: 1. PTCA stent RCA after a patent vein graft. 2. Selective coronary and vein graft angiography. INDICATION: Myocardial infarction, coronary artery disease, cardiomyopathy. PROCEDURE IN DETAIL: After informed consent was obtained and after detailed description of risks, benefits, as well as alternative therapies the patient elected to proceed with angiogram and angioplasty. The left femoral area was prepped and draped in normal sterile fashion. Left femoral artery was cannulated via modified Seldinger technique with placement of 6-Japanese sheath. All catheters exchanged through this sheath. FINDINGS: The right coronary vein graft is open. The distal RCA is closed. This was easy to traverse with a balloon wire and stent with a 2.5 x 22 mm Integrity stent. Result was 0% residual stenosis. OVERALL IMPRESSION: Successful percutaneous transluminal coronary angioplasty stent of the right coronary artery going from 100% initial stenosis to 0% residual. TRANSINT:[id number] Voice Confirmation ID: [id number] DOCUMENT ID: [id number] LUCIO RM MD at 1108 CC: [id number] DICTATION DATE: 08/08/18 0953 GARBAGE PICK UP MAN: 08/08/18 1130 [place] [address]
--- NOTE | ~2018-08-03 | MORECARE ---
CASE MANAGEMENT DISCHARGE SUMMARY PATIENT: ESTELLA GUSMAN UNIT: [id number] ADM DATE: 08/03/18 AGE: 57 : 58 SEX: M ROOM/BED: D.2301 AUTHOR: JANINE,DOC PHYSICIAN: REFERRING PHYSICIAN: JAMES BAH MD DATE OF SERVICE: 08/11/18 Discharge Plan Patient Name: ESTELLA GUSMAN Facility: [facility]:[place] : 1960 Planned Disposition: Home Anticipated Discharge Date: Discharge Date: Expected LOS: Initial Reviewer: [email or web address] Initial Review Date: 08/03/2018 Generated: 08/11/18 4:30 pm Comments DCP- Discharge Planning Updated by [email or web address]: Beena Goodrich on 08/08/18 2:[address] FAMILY REQUESTED MEETING WITH PMD AT NOON TOMORROW. PRIMARY NURSE SPOKE WITH DR BAH. FAMILY HAS QUESTIONS REGARDING PATIENT'S PROGNOSIS AND PLAN OF CARE. DCP- Discharge Planning Updated by [email or web address]: Abi Vaz on 08/03/18 5:[address] Patient Name: ESTELLA GUSMAN Admission Status: ER Accout number: [id number] Admission Date: 08-03-2018 : 1960 Admission Diagnosis: Attending: JAMES BAH Current LOS: 1 Anticipated DC Date: Planned Disposition: Home Primary Insurance: MEDICARE A & B Discharge Planning Comments: CM met with patient at bedside after obtaining verbal consent. Patient states he plans on returning home after discharge. Patient states he will have family transport him home via private vehicle. CM spoke with patient about his ability to obtain his insulin Patient denies any problems obtaining insulin. Patient stated he wished he could find a way to get it free. CM called [facility] to see when his insulin was last filled. Last filled 06/03/18 Novalog 34 day supply $68.00 and Levamir 25 day supply $10.00. Pharmacist stated that has [employer]. for prescription drug coverage. She stated that as far as she can tell patient isn't in donut hole at this time. She stated that patient doesn't get meds filled on a regular basis. Patient denies any discharge needs. CM will continue to follow and assist as needed for discharge planning / needs. Plate Filler: Abi Vaz DCPIA - Discharge Planning Initial Assessment Updated by [email or web address]: Abi Vaz on 08/03/18 6:34 pm * Is the patient Alert and Oriented? Yes * How many steps to enter\exit or inside your home? * PCP Dennise * [facility] * Preadmission Environment Home Alone * ADLs Independent * Equipment Cane * Other Equipment Glucometer * List name and contact numbers for known caregivers / representatives who currently or will assist patient after discharge: Velasquez Gusman - brother- [phone] Anuradha Herr girlfriend- [phone] * Verbal permission to speak to the caregivers and representatives has been obtained from the patient. N/A * Community resources currently utilized Home Health * Please name any agencies selected above. Patient stated that he has had HH in past with [facility] but was suppose to be setup with HH on last discharge but unsure of company * Additional services required to return to the preadmission environment? No * Can the patient safely return to the preadmission environment? Yes * Has this patient been hospitalized within the prior 30 days at any hospital? Yes Last DP export: 08/08/18 2:55 p Patient Name: ESTELLA GUSMAN Page [id number] at 1530 All edits/amendments must be made on the electronic document DICTATION DATE: 08/11/18 1530 SECURITY SYSTEMS ADMINISTRATOR: AGNES 08/11/18 1530 RPT#: [id number] DC DATE: STATUS: ADM IN [facility] [address] [place] [address] END OF REPORT
--- NOTE | ~2018-08-03 | HEMODYNAMI ---
PATIENT:ESTELLA GUSMAN MEDICAL RECORD: [id number] : 58 LOC[id number] ADMISSION DATE: 08/03/18 Generatedon:08/07/20188:34 Patient name: ESTELLA GUSMAN Patient #: [id number] SSN: : 1960 Date of study: 08/07/2018 Page: Of Hemodynamic Procedure Report Patient Data Patient Demographics Procedure consent was obtained First Name: ESTELLA Gender: Male Last Name: UZMA : 1960 Middle Initial: MAYANK Age: 57 year(s) Patient #: [id number] Race: Additional ID: [id number] Contact details Address: [place] [address] State: [place] City: [place] Zip code: [address] Past Medical History Allergies: No known allergies Admission Admission Data Admission Date: 08/03/2018 Admission Time: 6:50 Room #: D2301 Lab Results Lab Result Date: 08/07/2018 Lab Result Time: 0:00 Biochemistry Name Units Result Min Max BUN mg/dl 10 --(-*--)-- 7 18 Creatinine mg/dl 1.4 --(----)*- 0.6 1.3 CBC Name Units Result Min Max Hemoglobin g/dl 10 *-(----)-- 13.5 17.5 Procedure Procedure Types Cath Procedure Diagnostic Procedure [facility] w/Coronaries PCI Procedure Coronary Stent Coronary Stent Initial 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 SVG-BMS/ADIN Initial Procedure Description Procedure Date Procedure Date: 08/07/2018 Procedure Start Time: 7:44 Procedure End Time: 8:34 Procedure Staff Name Function Ace Thomson MD Performing Physician Lashay Nunes RN Nurse Aide Resendiz RT Scrub Dena Mcdowell RT Monitor Procedure Data Cath Procedure Fluoroscopy Diagnostic fluoroscopy Total fluoroscopy Time: time: 11.2 min 11.2 min Diagnostic fluoroscopy Total fluoroscopy dose: dose: 1721 mGy 1721 mGy Contrast Material Contrast Material Type Amount (ml) Isovue 370 0 Isovue 300 207 Entry Location Entry Primary Successful Side Size Upsize Upsize Entry Closure Succes sful Closure Location (Fr) 1 (Fr) 2 (Fr) Remarks Device Remarks Femoral Right 5 Fr 6 Fr Exoseal artery Short Estimated blood loss: 10 ml Diagnostic catheters Device Type Used For End Catheter Placement MULTIPACK JL 4.0 5Fr Left Coronary catheter Angiography DIAGNOSTIC AR MOD 5Fr Right Coronary Catheter ([id number]) Angiography DIAGNOSTIC AR MOD 5Fr SVG Angiography Catheter ([id number]) DIAGNOSTIC AR MOD 5Fr SVG Angiography Catheter ([id number]) DIAGNOSTIC IM 5Fr Internal mammary catheter ([id number]) arteriography MULTIPACK Pigtail 5 Fr LV Angiography catheter Procedure Complications No complications Procedure Medications Medication Administration Route Dosage Sodium Bicarbonate I.V. drip 125 Drip (3amps/1LD5W) Oxygen Lidocaine 2% added to field 20 Heparin Flush Bag added to field 2 bags (1000units/500ml NS) unlisted medication I.V. drip 60 mcg/kg/min 0.9% NaCl I.V. 100 ml/hr Heparin Bolus I.V. 7400 units Nitroglycerin IC/IA I.C. 50 mcg Plavix 600 mg Integrilin Drip I.V. drip 6 ml/hr (75mg/100ml) Hemodynamics Rest HGB: 10 (g/dl) Heart Rate: 79 (bpm) Pressure Samples Time Site Value (mmHg) Purpose Heart Use Rate(bpm) 7:57 LV 103/11,30 Snapshot 91 7:57 AO 101/62(79) Pullback 79 7:57 LV 106/11,33 Pullback 79 Gradients Valve Time Site 1 Site 2 Mean SEP/DFP Peak To Heart Use (mmHg) (sec/min) Peak Rate (mmHg) (bpm) Aortic 7:57 LV AO 8 17 5 79 106/11,33 101/62(79) Calculations Valve P-P Mean Valve Index Valve Source Name Gradient Area Flow (cm2) Aortic 5 8 5 8 Snapshots Pre Cath Intra NCS Post Cath Vital Signs Time Heart Resp SPO2 NIBP Rhythm Pain Sedation Rate (ipm) (%) (mmHg) Status Level (bpm) 7:35:48 77 21 100 105/65(81) NSR 0 (11) 5(A) , No pain 7:39:54 72 20 100 96/59(77) NSR 0 (11) 5(A) , No pain 7:44:00 73 22 100 97/61(79) NSR 0 (11) 5(A) , No pain 7:48:05 76 20 100 99/62(77) NSR 0 (11) 5(A) , No pain 7:52:11 81 21 100 100/67(83) NSR 0 (11) 5(A) , No pain 7:56:19 79 20 100 102/61(83) NSR 0 (11) 5(A) , No pain 8:00:27 78 21 100 100/66(82) NSR 0 (11) 5(A) , No pain 8:04:35 77 21 100 99/61(80) NSR 0 (11) 5(A) , No pain 8:08:41 82 22 100 97/64(80) NSR 0 (11) 5(A) , No pain 8:12:46 84 21 100 94/62(75) NSR 0 (11) 5(A) , No pain 8:16:54 89 23 100 95/60(73) NSR 0 (11) 5(A) , No pain 8:21:00 76 20 100 91/55(72) NSR 0 (11) 5(A) , No pain 8:25:08 77 21 100 87/54(64) NSR 0 (11) 5(A) , No pain 8:29:12 79 21 100 90/59(71) NSR 0 (11) 5(A) , No pain 8:33:13 87 15 100 97/67(81) NSR 0 (11) 5(A) , No pain Medications Time Medication Route Dose Verified Delivered Reason Notes Effectiveness by by 7:31:56 Sodium I.V. drip 125mL/hr Ace Lashay Per physician infusing Bicarbonate Drip Berto Nunes upon (3amps/1LD5W) RN arriva l 7:32:59 Oxygen ventilator FiO2 100% Ace Lashay for low 02 sat s pt Berto Nunes intubated RN upon arrival 7:33:53 Lidocaine 2% added to 20ml vial Ace Ace for local field Berto Thomson MD anesthetic 7:34:07 Heparin Flush added to 2 bags Ace Ace used for Bag field Berto Thomson MD procedure (1000units/500ml NS) 7:34:50 Diprivan I.V. drip 60 Ace Lashay for sedation infusing (1000mg/100mL) mcg/kg/min Berto Nunes upon RN arrival 7:39:04 0.9% NaCl I.V. 100 ml/hr Ace Lashay used for Berto Nunes regulatory affairs analyst 8:03:35 Heparin Bolus I.V. 7400 units Ace Lashay for verified Berto Nunes anticoagulation with DrLayton Thomson 8:21:40 Nitroglycerin I.C. 50 mcg Ace Ace for IC/IA Berto Thomson MD vasodilation 8:29:59 Plavix NGT 600 mg Ace Lashay for Berto Nunes antiplatelet RN therapy 8:31:39 Integrilin Drip I.V. drip 6 ml/hr Ace Lashay for (75mg/100ml) Berto Nunes anticoagulation protection analyst Log Time Note 6:59:50 Informed consent obtained and on chart 6:59:53 Diagnostic Cath Status : Elective 7:10:35 Lashay Nunes RN sent for patient. Start room use. 7:10:36 Time tracking: Regular hours (M-F 7:00 - 5:00) 7:10:41 Plan of Care:Hemodynamics will remain stable., Cardiac rhythm will remain stable., Comfort level will be maintained., Respiratory function will remain adequate., Patient/ family verbilizes understanding of procedure., Procedure tolerated without complication., Recovers from procedure without complications.. 7:19:14 Lab Result : BUN 10 mg/dl 7:19:14 Lab Result : Hemoglobin 10 g/dl 7:19:14 Lab Result : Creatinine 1.4 mg/dl 7:26:06 Pt received from ICU intubated and sedated with Propofol drip infusing upon arrival. 7:26:10 Patient received from ICU to CCL 1 Alert and oriented. Tansferred to table in Supine position. 7:26:11 Warm blankets applied, and laron hugger turned on for patient comfort. 7:26:11 Correct patient and procedure confirmed by team. 7:26:13 ECG and BP/O2 sat monitors applied to patient. 7:26:14 Full Disclosure recording started 7:30:28 PATIENT ARRIVED ON VENT FROM ICU. 7:31:56 Sodium Bicarbonate Drip (3amps/1LD5W) 125mL/hr I.V. drip was administered by Lashay Nunes RN; Per physician; infusing upon arrival 7:32:59 Oxygen FiO2 100% ventilator was administered by Lashay Nunes RN; for low 02 sats; pt intubated upon arrival 7:33:53 Lidocaine 2% 20ml vial added to field was administered by Ace Thomson MD; for local anesthetic; 7:34:07 Heparin Flush Bag (1000units/500ml NS) 2 bags added to field was administered by Ace Thomson MD; used for procedure; 7:34:42 Vital chart was started 7:34:50 Diprivan (1000mg/100mL) 60 mcg/kg/min I.V. drip was administered by Lashay Nunes RN; for sedation; infusing upon arrival 7:35:35 Baseline sample Acquired. 7:36:32 H&P Date Dictated: 08/06/2018 Within 30 days and on chart.. 7:36:36 Pre-procedure instructions explained to patient. 7:36:37 Pre-op teaching completed and patient verbalized understanding. 7:36:40 Family in waiting room. 7:36:42 Patient NPO since Midnight. 7:36:57 Patient allergic to No known allergies 7:36:59 Is the patient allergic to Iodine/contrast media? No. 7:37:05 Is patient on blood thinner?Yes 7:37:09 ACC The patient was administered the following blood thiners within the last 24 hours: ACCLovenox 7:37:12 Patient diabetic? No. 7:38:20 UNABLE TO OBTAIN PRE-ASSESSMENT/PATIENT ON VENT 7:38:24 Pre procedure: right dorsailis pedis pulse 2+ Normal; easily identifiable; not easily obliterated 7:38:27 Patient pain scale 0/10 ?. 7:38:39 IV patent on arrival in left forearm with 0.9% NaCl at KVO. 7:38:43 Lab results completed and on chart. 7:38:46 Right groin area was prepped with chlora-prep and draped in sterile fashion 7:38:47 Alarms reviewed by R. N. 7:38:47 Sharps counted by scrub and verified by R.N. 7:39:04 0.9% NaCl 100 ml/hr I.V. was administered by Lashay Nunes RN; used for procedure; 7:40:50 Final Timeout: patient, procedure, and site verified with staff and physician. All members of the team are in agreement. 7:40:51 Right groin site verified by team. 7:40:59 Physical assessment completed. ASA score P 4 - A patient with severe systemic disease that is a constant threat to life as per Ace Thomson MD. 7:41:27 JOE EtCO2, pt intubated upon arrival to CL 7:41:43 SEDATION PLAN: PATIENT ALREADY ON DIPROVAN DRIP FOR VENT 7:41:48 Use device set Femoral Dx 7:41:49 ACIST Syringe (37338) opened to sterile field. 7:41:49 Bag Decanter (2002S) opened to sterile field. 7:41:50 Medline Cath Pack ([id number]) opened to sterile field. 7:41:50 DIAGNOSTIC WIRE .035 260cm J wire (845751) opened to sterile field. 7:41:52 ACIST Hand Control (92161) opened to sterile field. 7:41:53 ACIST Manifold (96838) opened to sterile field. 7:41:54 DIAGNOSTIC Multipack 5Fr catheter set (PR4105) opened to sterile field. 7:41:54 Tegaderm 4 x 4 (1626W) opened to sterile field. 7:42:09 SHEATH 6FR [place] (YCX061) opened to sterile field. 7:44:32 Procedure started. 7:44:35 Local anesthetic to right femoral artery with Lidocaine 2% by Ace Thomson MD.INITIAL ACCESS ONLY 7:44:50 A 5 Fr sheath was inserted into the Right Femoral artery 7:47:00 A MULTIPACK JL 4.0 5Fr catheter was advanced over the wire and used for Left Coronary Angiography. 7:51:08 Catheter removed. 7:51:21 A DIAGNOSTIC AR MOD 5Fr Catheter ([id number]) was advanced over the wire and used for Right Coronary Angiography. 7:53:09 A DIAGNOSTIC AR MOD 5Fr Catheter (083549D) was advanced over the wire and used for SVG Angiography.TO CIRC 7:53:18 A DIAGNOSTIC AR MOD 5Fr Catheter (059204G) was advanced over the wire and used for SVG Angiography.TO RCA 7:53:33 Catheter removed. 7:53:46 A DIAGNOSTIC IM 5Fr catheter ([id number]) was advanced over the wire and used for Internal mammary arteriography. TO DIAG 7:55:18 Catheter removed. 7:56:22 A MULTIPACK Pigtail 5 Fr catheter was advanced over the wire and used for LV Angiography. 7:57:07 LV gram done using PALACIO 7:57:11 Injector settings: Ml/sec: 10, Volume: 20, 7:57:27 EF : 15 % 7:58:04 Catheter removed. 7:58:06 Use device set Bangcle PCI 7:58:13 TUBING High Pressure Extension Tubing (Edusoft) ([id number]) opened to sterile field. 7:58:14 INFLATOR Merit BasixCompak (XS3602) opened to sterile field. 7:58:17 BMW 300cm [place] 2 J wire ([id number]) opened to sterile field. 7:58:21 GUIDE 6FR AR 2.0 catheter (AE4ND92) opened to sterile field. 8:01:02 Sheath upsized to a 6 Fr Short. 8:02:40 6 Fr AR 2.0 guide catheter was inserted over the wire 8:03:35 Heparin Bolus 7400 units I.V. was administered by Lashay Nunes RN; for anticoagulation; verified with Dr. Thomson 8:08:17 BMW wire advanced. 8:10:27 Place stent Inflation Number: 1 A SHREYA OTW 3.5 x 34 stent ([id number]) was prepped and advanced across the Aorta Left -> Prox CX. The stent was deployed at 12 LITZY for 0:26 (min:sec). 8:11:12 Stent catheter was removed intact over wire. 8:11:13 Wire removed. 8:11:14 Guide catheter removed. 8:11:17 GUIDE 6FR XBLAD 3.5 catheter ([id number]) opened to sterile field. 8:12:19 6 Fr XBLAD 3.5 guide catheter was inserted over the wire 8:15:00 BMW wire advanced. 8:18:12 Inflate balloon Inflation number: 1 A EUPHORA 2.5 x 15 Balloon ([id number]) was prepped and advanced across the Prox LAD, then inflated to 12 LITZY for 0:22 (min:sec). 8:18:55 Balloon removed over the wire. 8:21:40 Nitroglycerin IC/IA 50 mcg I.C. was administered by Ace Thomson MD; for vasodilation; 8:22:25 Place stent Inflation Number: 2 A SHREYA OTW 2.5 x 15 stent ([id number]) was prepped and advanced across the Prox LAD. The stent was deployed at 14 LITZY for 0:22 (min:sec). 8:25:02 Stent catheter was removed intact over wire. 8:25:03 Wire removed. 8:25:03 Guide catheter removed. 8:25:19 Sheath removed intact; hemostasis achieved with Exoseal to the Right Femoral artery. 8:25:24 Procedure ended.(Physican Out) 8:25:48 Fluoroscopy time 11.20 minutes. 8:25:52 Flurop Dose total: 1721 8:25:52 Fluoroscopy dose: 1721 mGy 8:26:06 Contrast amount:Isovue 370 0ml. 8:26:08 Contrast amount:Isovue 300 207ml. 8:26:16 Sharps counted by scrub and verified by R.N. 8:26:20 Insertion/operative site no bleeding no hematoma. 8:26:23 Post-op/insertion site Right Femoral artery dressed using a 4 x 4 and Tegaderm. 8:26:26 Post right femoral artery:stable, clean and dry 8:26:28 Post Procedure Pulses reassessed and unchanged 8:26:32 Post-procedure physical assessment completed. ASA score P 3 - A patient with severe systemic disease as per Ace Thomson MD. 8:26:34 Post procedure rhythm: unchanged. 8:26:39 Estimated blood loss: 10 ml 8:26:40 Post procedure instruction explained to patient.Patient verbalizes understanding. 8:26:41 Patient needs reinforcement of post procedure teaching. 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 8:27:47 EXOSEAL 6Fr (EX600) opened to sterile field. 8:29:43 Procedure and supply charges have been captured, reviewed, submitted and are correct. 8:29:59 Plavix 600 mg NGT was administered by Lashay Nunes RN; for antiplatelet therapy; 8:31:39 Integrilin Drip (75mg/100ml) 6 ml/hr I.V. drip was administered by Lashay Nunes RN; for anticoagulation; 8:34:15 Vital chart was stopped 8:34:17 Report given to ICU. 8:34:21 Patient transfered to ICU with Bed. 8:34:33 Procedure ended. 8:34:33 Full Disclosure recording stopped 8:34:37 End room use (Document Last) Intervention Summary Intervention Notes Time ActionType Lesion and Equipment Action# Pressure Duration Attributes Used 8:10:27 Place stent Aorta Left SHREYA OTW 3.5 1 12 00:26 -> Prox CX x 34 stent ([id number]) 8:18:12 Inflate Prox LAD EUPHORA 2.5 x 1 12 00:22 balloon 15 Balloon ([id number]) 8:22:25 Place stent Prox LAD SHREYA OTW 2.5 2 14 00:22 x 15 stent ([id number]) Device Usage Item Name Manufacture Quantity Catalog Hospital Part Current Mini [facility] Lot# / Number Charge Number Stock Stock Serial# Code ACIST Syringe Acist 1 92187 689900 841183 626756 20 (06803) Medical Systems Inc Bag Decanter Microtek 1 2001S 481774 82091 749197 5 () Medical Inc. Medline Cath Medline 1 [id number] 914704 41339 043463 5 Pack ([id number]) DIAGNOSTIC [facility] [place] 1 572038 734814 110668 847211 30 WIRE .035 260cm J wire (708324) ACIST Hand Acist 1 82541 229604 120270 408852 5 Control Medical (26611) Systems Inc ACIST Acist 1 54720 804482 613752 132292 5 Manifold Medical (27202) Systems Inc DIAGNOSTIC Cardinal 1 KV1123 714420 49993 007453 30 Multipack 5Fr Health catheter set (TL8997) Tegaderm 4 x 3M 1 1626W 991028 741479 050179 5 4 (1626W) SHEATH 6FR Terumo 1 BRF024 920482 551924 625672 40 [place] (ZAH981) MULTIPACK JL Cardinal 1 553882 5 4.0 5Fr Health catheter DIAGNOSTIC AR Cardinal 1 173353I 895696 265381 678876 15 MOD 5Fr Health Catheter (403471U) DIAGNOSTIC IM Cardinal 1 544297Q 116005 823080 932447 5 5Fr catheter Health (530894E) MULTIPACK Cardinal 1 037106 5 Pigtail 5 Fr Health catheter TUBING High Merit 1 [id number] 754260 98099 393176 10 Pressure Medical Extension Tubing (Thomson) (CH6435Y) INFLATOR Merit 1 LJ5882 557387 528823 963372 15 Merit Medical BasixCompak (SA8535) BMW 300cm Baeza 1 [id number] 073802 988245 183344 5 [place] 2 J Vascular wire ([id number]) GUIDE 6FR AR Medtronic 1 IR3GF47 503325 67469 418865 1 2.0 catheter (PI3AA39) SHREYA OTW 3.5 Medtronic 1 [id number] 929026 2967973 875350 5 [id number] x 34 stent ([id number]) GUIDE 6FR Cardinal 1 75114579 991668 146764 048390 10 XBLAD 3.5 Health catheter (49411656) EUPHORA 2.5 x Medtronic 1 [id number] 694970 236068 991014 5 [id number] 15 Balloon (CHY0871W) SHREYA OTW 2.5 Medtronic 1 [id number] 541790 15810 125064 5 [id number] x 15 stent ([id number]) EXOSEAL 6Fr Cardinal 1 EX600 868705 858408 535610 10 (EX600) Health Signature Audit [place] Stage Time Signature Unsigned Intra-Procedure 08/07/2018 Dena 8:34:48 AM Counts RT(R) Signatures Monitor : Dena Signature : Counts RT Date : Time : [facility] [address] [place] [address]
--- NOTE | ~2018-08-03 | HEMODYNAMI ---
PATIENT:ESTELLA GUSMAN MEDICAL RECORD: [id number] : 58 LOCATION[facility] [facility] [id number] ADMISSION DATE: 08/03/18 Generatedon:08/08/20189:54 Patient name: ESTELLA GUSMAN Patient #: [id number] SSN: : 1960 Date of study: 08/08/2018 Page: Of Hemodynamic Procedure Report Patient Data Patient Demographics Procedure consent was obtained First Name: ESTELLA Gender: Male Last Name: UZMA : 1960 Middle Initial: MAYANK Age: 57 year(s) Patient #: [id number] Race: Additional ID: [id number] Contact details Address: [place] [address] State: [place] City: [place] Zip code: [address] Past Medical History Allergies: No known allergies Admission Admission Data Admission Date: 08/03/2018 Admission Time: 6:50 Room #: D.2301 Weight (lbs.): 163.14 Weight (kg.): 74 Lab Results Lab Result Date: 08/08/2018 Lab Result Time: 0:00 Biochemistry Name Units Result Min Max BUN mg/dl 12 --(-*--)-- 7 18 Creatinine mg/dl 1 --(--*-)-- 0.6 1.3 CBC Name Units Result Min Max Hemoglobin g/dl 8 *-(----)-- 13.5 17.5 Platelets 10^3/l 107 -*(----)-- 130 400 Procedure Procedure Types Cath Procedure PCI Procedure AMI/SVG/HANG GLIDING INSTRUCTOR PTCA or Stent SVG-BMS/ADIN Initial Procedure Description Procedure Date Procedure Date: 08/08/2018 Procedure Start Time: 9:35 Procedure End Time: 9:53 Procedure Staff Name Function Kalen Suárez MD Performing Physician Vipul Johnson RT Monitor Annel Turner RN Nurse Virgie Catherien RT Scrub Procedure Data Cath Procedure Fluoroscopy Diagnostic fluoroscopy Total fluoroscopy Time: 5.6 time: 5.6 min min Diagnostic fluoroscopy Total fluoroscopy dose: 640 dose: 640 mGy mGy Contrast Material Contrast Material Type Amount (ml) Isovue 300 43 Entry Location Entry Primary Successful Side Size Upsize Upsize Entry Closure Succes sful Closure Location (Fr) 1 (Fr) 2 (Fr) Remarks Device Remarks Femoral Left 6 Fr Exoseal artery Short Estimated blood loss: 10 ml Procedure Complications No complications Procedure Medications Medication Administration Route Dosage Oxygen Lidocaine 2% added to field 20 Heparin Flush Bag added to field 2 bags (1000units/500ml NS) Levophed (8mg/250ml 4 mcg/min D5W) Heparin Bolus I.V. 4000 units Potassium I.V. drip 20 Diprivan 1% I.V. 40 mcg/kg/min (Propofol) Hemodynamics Rest HGB: 8 (g/dl) Heart Rate: 74 (bpm) Snapshots Pre Cath Intra NCS Post Cath Vital Signs Time Heart Resp SPO2 etCO2 NIBP Rhythm Pain Sedation Rate (ipm) (%) (mmHg) (mmHg) Status Level (bpm) 9:23:21 74 14 94 0 117/76(99) NSR 0 (11) 4(A) , No pain 9:27:31 73 14 94 0 121/75(93) NSR 0 (11) 4(A) , No pain 9:31:39 74 27 91 0 111/76(92) NSR 0 (11) 4(A) , No pain 9:35:47 75 11 94 0 108/75(90) NSR 0 (11) 4(A) , No pain 9:39:52 75 11 91 0 115/76(91) NSR 0 (11) 4(A) , No pain 9:44:02 76 12 91 0 108/71(85) NSR 0 (11) 4(A) , No pain 9:48:12 75 12 94 0 108/68(80) NSR 0 (11) 4(A) , No pain 9:52:20 75 13 0 108/73(89) NSR 0 (11) 4(A) , No pain Medications Time Medication Route Dose Verified Delivered Reason No loida Effectiveness by by 8:30:07 Levophed 4 mcg/min Kalen Up Per physician (8mg/250ml D5W) Kamini Tunrer RN 8:30:11 Diprivan 1% I.V. 40 Kalen Up Per physician (Propofol) mcg/kg/min Kamini Turner RN 8:30:38 Oxygen ET intubated Kalen Up for low 02 sats tube on Kamini Turner RN ventilator 8:30:45 Potassium I.V. 20 meq/100 Kalen Up Per physician drip ml @50 Kamini Turner RN ml/hr 9:21:50 Lidocaine 2% added 20ml vial Kalen Kalen for local to Kamini Suárez MD anesthetic field 9:21:56 Heparin Flush added 2 bags Kalenned Higuera used for Bag to Kamini Suárez MD procedure (1000units/500ml field NS) 9:39:14 Heparin Bolus I.V. 4000 units Kalen Up for ve rified Kamini Turner RN anticoagulation with dr suárez Procedure Log Time Note 8:30:07 Levophed (8mg/250ml D5W) 4 mcg/min was administered by Annel Turner RN; Per physician; 8:30:11 Diprivan 1% (Propofol) 40 mcg/kg/min I.V. was administered by Annel Turner RN; Per physician; 8:30:38 Oxygen intubated on ventilator ET tube was administered by Annel Turner RN; for low 02 sats; 8:30:45 Potassium 20 meq/100 ml @50 ml/hr I.V. drip was administered by Annel Turner RN; Per physician; 8:30:52 Vipul Johnson RT(R) sent for patient. Start room use. 8:41:53 Time tracking: Regular hours (M-F 7:00 - 5:00) 8:41:58 Plan of Care:Hemodynamics will remain stable., Cardiac rhythm will remain stable., Comfort level will be maintained., Respiratory function will remain adequate., Patient/ family verbilizes understanding of procedure., Procedure tolerated without complication., Recovers from procedure without complications.. 8:46:42 Signed procedure consent form obtained from patient. 9:09:40 Patient received from ICU to CCL 1 Alert and oriented. Tansferred to table in Supine position. 9:09:41 Warm blankets applied, and laron hugger turned on for patient comfort. 9:09:42 Correct patient and procedure confirmed by team. 9:09:44 ECG and BP/O2 sat monitors applied to patient. 9:21:50 Lidocaine 2% 20ml vial added to field was administered by Kalen Suárez MD; for local anesthetic; 9:21:56 Heparin Flush Bag (1000units/500ml NS) 2 bags added to field was administered by Kalen Suárez MD; used for procedure; 9::21 Vital chart was started 9:26:06 Baseline sample Acquired. 9:26:11 Rhythm: sinus rhythm 9:26:13 Full Disclosure recording started 9:26:18 H&P Date Dictated: 08/07/2018 Within 30 days and on chart.. 9::26 Pre-procedure instructions explained to patient. 9:26:26 Pre-op teaching completed and patient verbalized understanding. 9:26:30 Family in waiting room. 9::31 Patient NPO since Midnight. 9:26:34 Is the patient allergic to Iodine/contrast media? No. 9:26:36 Is patient on blood thinner?Yes 9:26:53 ACC The patient was administered the following blood thiners within the last 24 hours: ACCPlavix 9:27:58 Pt is intubated, unable to answer pre-cath questions. 9:28:05 Pre procedure: left dorsailis pedis pulse Doppler 9:28:08 Patient pain scale 0/10 ?. 9:28:15 IV patent on arrival in left forearm with 0.9% NaCl at O. 9:28:17 Lab results completed and on chart. 9:28:21 Left groin area was prepped with chlora-prep and draped in sterile fashion 9::22 Alarms reviewed by R. N. 9:28:22 Sharps counted by scrub and verified by R.N. 9:28:42 Physician paged 9:: Lab Result : Hemoglobin 8 g/dl 9:: Lab Result : Platelets 107 10^3/l 9:: Lab Result : BUN 12 mg/dl :: Lab Result : Creatinine 1 mg/dl 9:29:33 Patient Weight : 163.14 lbs 9:32:54 --------ALL STOP TIME OUT------ 9:32:55 Final Timeout: patient, procedure, and site verified with staff and physician. All members of the team are in agreement. 9:32:59 Left groin site verified by team. 9:33:09 Physical assessment completed. ASA score P 4 - A patient with severe systemic disease that is a constant threat to life as per Kalen Suárez MD. 9:33:13 Sedation plan: IV Moderate Sedation Medication:Versed, Fentanyl 9:34:56 Use device set Radial Dx or PCI 9:34:58 Use device set TAUTH PCI 9:35:04 Tegaderm 4 x 4 (1626W) opened to sterile field. 9:35:05 ACIST Manifold (16650) opened to sterile field. 9:35:06 ACIST Hand Control (98328) opened to sterile field. 9:35:07 ACIST Syringe (63129) opened to sterile field. 9:35:07 Medline Cath Pack ([id number]) opened to sterile field. 9:35:08 Bag Decanter (2002S) opened to sterile field. 9:35:08 DIAGNOSTIC WIRE .035 260cm J wire (829881) opened to sterile field. 9:35:11 INFLATOR Merit BasixCompak (PJ4318) opened to sterile field. 9:35:13 CHOICE PT Extra Support 182cm wire ([id number]) opened to sterile field. 9:35:16 SHEATH 6FR [place] (RMV309) opened to sterile field. 9:35:20 Procedure started. 9:35:24 Local anesthetic to left femerol artery with Lidocaine 2% by Kalen Suárez MD.INITIAL ACCESS ONLY 9:36:05 A 6 Fr Short sheath was inserted into the Left Femoral artery 9:36:10 GUIDE 6FR MB 1 catheter (LA6MB1) opened to sterile field. 9:36:19 6 Fr MB 1 guide catheter was inserted over the wire 9:38:12 CPTXS wire advanced. 9:39:14 Heparin Bolus 4000 units I.V. was administered by Annel Turner RN; for anticoagulation; verified with dr suárez 9:40:42 Wire removed. unable to cross lesion. 9:40:50 CHOICE PT Extra Support J 300cm guide wire ([id number]) opened to sterile field. 9:41:05 CPTXS wire advanced. 9:41:32 Wire advanced across lesion. 9:42:35 Inflate balloon Inflation number: 1 A EMERGE OTW 2.5 x 30 balloon ([id number]) was prepped and advanced across the Aorta Right -> Dist RCA, then inflated to 13 LITZY for 0:10 (min:sec). 9:43:15 Inflation number: 2 The EMERGE OTW 2.5 x 30 balloon ([id number]) was reinflated across the Aorta Right -> Dist RCA, to 15 LITZY for 0:10 (min:sec). 9:43:34 Balloon removed over the wire. 9:44:12 Place stent Inflation Number: 3 A INTEGRITY RX 2.5 x 22 stent ([id number]) was prepped and advanced across the Aorta Right -> Dist RCA. The stent was deployed at 17 LITZY for 0:10 (min:sec). 9:45:06 Stent catheter was removed intact over wire. 9:45:07 Wire removed. 9:45:08 Guide catheter removed. 9:45:11 EXOSEAL 6Fr (EX600) opened to sterile field. 9:46:19 Sheath removed intact; hemostasis achieved with Exoseal to the Left Femoral artery. 9:46:21 Procedure ended.(Physican Out) 9:51:02 Fluoroscopy time 05.60 minutes. 9:51:06 Fluoroscopy dose: 640 mGy 9:51:06 Flurop Dose total: 640 9:51:10 Contrast amount:Isovue 300 43ml. 9:51:12 Sharps counted by scrub and verified by R.N. 9:51:13 Insertion/operative site no bleeding no hematoma. 9:51:17 Post-op/insertion site Left Femoral artery dressed using a 4 x 4 and Tegaderm. 9:51:27 Post Procedure Pulses reassessed and unchanged 9:51:30 Post-procedure physical assessment completed. ASA score P 4 - A patient with severe systemic disease that is a constant threat to life as per Kalen Suárez MD. 9:51:33 Post procedure rhythm: unchanged. 9:51:38 Estimated blood loss: 10 ml 9:51:40 Post procedure instruction explained to patient.Patient verbalizes understanding. 9:51:41 Patient needs reinforcement of post procedure teaching. 9:51:49 Procedure and supply charges have been captured, reviewed, submitted and are correct. 9:51:59 Procedure Complication : No complications 9:52:51 Vital chart was stopped 9:52:51 See physician's report for complete and final results. 9:53:26 Report given to ICU. 9:53:30 Patient transfered to ICU with Bed. 9:53:33 Procedure ended. 9:53:33 Full Disclosure recording stopped 9:53:37 End room use (Document Last) Intervention Summary Intervention Notes Time ActionType Lesion and Equipment Action# Pressure Duration Attributes Used 9:42:35 Inflate Aorta Right EMERGE OTW 1 13 00:10 balloon -> Dist RCA 2.5 x 30 balloon ([id number]) 9:43:15 Reinflate Aorta Right EMERGE OTW 2 15 00:10 balloon -> Dist RCA 2.5 x 30 balloon ([id number]) 9:44:12 Place stent Aorta Right INTEGRITY RX 3 17 00:10 -> Dist RCA 2.5 x 22 stent ([id number]) Device Usage Item Name Manufacture Quantity Catalog Number Hospital Part Current Min imal Lot# / Charge Number Stock Stock Serial# Code Tegaderm 4 x 3M 1 1626W [id number] 792229 [id number] 5 4 (1626W) ACIST Acist 1 69794 112092 050746 739459 5 Manifold Medical (00479) Systems Inc ACIST Hand Acist 1 33593 877934 139618 708257 5 Control Medical (47969) Systems Inc ACIST Acist 1 01102 746166 998133 625539 20 Syringe Medical (62194) Systems Inc Medline Cath Medline 1 [id number] 076422 58800 908462 5 Pack ([id number]) Bag Decanter Microtek 1 2002S 789098 89172 771161 5 (2001S) Medical Inc. DIAGNOSTIC [place] 1 859183 250900 589069 296703 30 WIRE .035 260cm J wire (116939) INFLATOR Merit 1 CV9976 789240 024184 247733 15 Merit Medical BasixCompak (RK0041) CHOICE PT [place] 1 [id number] 304164 180715 320939 5 Extra Scientific Support 182cm wire ([id number]) SHEATH 6FR Terumo 1 TVD014 703323 972377 614092 40 [place] (GCG843) CHOICE PT [place] 1 [id number] 592355 569688 178289 5 Extra Scientific Support J 300cm guide wire (5038446P7) EMERGE OTW [place] 1 [id number] 013219 248840 891408 5 [id number] 2.5 x 30 Scientific balloon ([id number]) GUIDE 6FR MB Medtronic 1 LA6MB1 742357 42761 511188 1 1 catheter (LA6MB1) INTEGRITY RX Medtronic 1 [id number] 282535 730599 252958 5 [id number] 2.5 x 22 stent ([id number]) EXOSEAL 6Fr Cardinal 1 EX600 613915 731349 120953 10 (EX600) Health Signature Audit [place] Stage Time Signature Unsigned Intra-Procedure 08/08/2018 Vipul Johnson 9:54:54 AM RT(R) Signatures Monitor : Vipul Johnson RT Signature : Date : Time : [address] [address]
[~2018-08-03 03:41] MED LIST changes: +CREON DR 6,0001 EACH PO
[2018-08-03 04:04] LABS: BASOPHILS 0.2 % (0-2); EOSINOPHILS 0.1 % (0-7); HEMATOCRIT 34.5 % (42.0-54.0); HEMOGLOBIN 11.3 g/dL (13.5-17.5); IMMATURE GRANULOCYTES 1.1 % (0-5); MCHC 32.8 g/dL (31.0-37.0); MEAN PLATELET VOLUME 12.2 fL (7.4-10.4); MONOCYTES 4.2 % (2-11); NEUTROPHILS 74.4 % (40-80); RBC 3.65 10x6/uL (4.20-6.10); RDW 14.6 % (11.5-14.5)
[2018-08-03 04:09] LABS: MCV 94.5 fL (80.0-100.0); PLATELET COUNT 298 10x3/uL (130-400); WBC 14.3 10x3/uL (4.8-10.8)
[2018-08-03 04:17] LABS: D-DIMER-QUANTITATIVE 2.04 ug/mLFEU (0.20-0.54)
[2018-08-03 04:19] LABS: ALKALINE PHOSPHATASE 98 U/L (46-116); BILIRUBIN - TOTAL 0.44 mg/dL (0.2-1.3); CALCIUM 9.9 mg/dL (8.5-10.1); CHLORIDE - SERUM 93 mmol/L (98-107); PROTEIN - SERUM 7.5 g/dL (6.4-8.2); SODIUM 134 mmol/L (136-145)
[2018-08-03 04:22] LABS: CREATINE KINASE 47 UL (21-232); MAGNESIUM - SERUM 2.1 mg/dL (1.8-2.4); TROPONIN-I 0.019 ng/mL (0.000-0.060)
[2018-08-03 04:24] LABS: ALBUMIN 3.2 g/dL (3.4-5.0); ALT (SGPT) 11 U/L (10-68); APTT 25.3 SECONDS (22.8-39.4); CALC OSMOLALITY 306 mosm/kg (275-300); CARBON DIOXIDE 4.7 mmol/L (21.0-32.0); CREATININE - SERUM 2.1 mg/dL (0.6-1.3); GLUCOSE 762 mg/dL (74-106); INR 1.36 (0.85-1.17); POTASSIUM - SERUM 4.8 mmol/L (3.5-5.1); PROTIME 16.2 SECONDS (11.6-15.0); UREA NITROGEN 17 mg/dL (7-18); eGFR NON AFRICAN AMERICAN 35 mL/min (90-120)
[2018-08-03 04:32] LABS: LIPASE 261 U/L (73-393)
[2018-08-03 04:36] LABS: AMYLASE - SERUM 48 U/L (25-115)
[2018-08-03 05:11] LABS: KETONE - SERUM LARGE mg/dL (NEGATIVE)
[2018-08-03 08:28] LABS: ANION GAP 37.4 mmol/L (8-16); CALCIUM 9.7 mg/dL (8.5-10.1); POTASSIUM - SERUM 3.7 mmol/L (3.5-5.1)
[2018-08-03 08:29] LABS: CARBON DIOXIDE 7.3 mmol/L (21.0-32.0)
[2018-08-03 14:47] LABS: ANION GAP 24.7 mmol/L (8-16); CREATININE - SERUM 1.6 mg/dL (0.6-1.3); POTASSIUM - SERUM 3.8 mmol/L (3.5-5.1)
[2018-08-03 15:15] LABS: CARBON DIOXIDE 17.1 mmol/L (21.0-32.0)
[2018-08-03 18:26] LABS: ANION GAP 23.4 mmol/L (8-16); CALCIUM 8.4 mg/dL (8.5-10.1); CARBON DIOXIDE 15.1 mmol/L (21.0-32.0); CREATININE - SERUM 1.5 mg/dL (0.6-1.3); POTASSIUM - SERUM 3.5 mmol/L (3.5-5.1)
[2018-08-03 22:33] LABS: ANION GAP 15.5 mmol/L (8-16); CALCIUM 8.3 mg/dL (8.5-10.1); CREATININE - SERUM 1.5 mg/dL (0.6-1.3); POTASSIUM - SERUM 3.2 mmol/L (3.5-5.1)
[2018-08-03 22:38] LABS: CARBON DIOXIDE 20.7 mmol/L (21.0-32.0)
[2018-08-04] VITALS (15 sets, daily range): BP systolic 77–110; BP diastolic 45–73
[2018-08-04 04:49] LABS: BASOPHILS 0.1 % (0-2); IMMATURE GRANULOCYTES 0.3 % (0-5); LYMPHOCYTES 22.2 % (15-50); MCH 29.8 pg (26.0-34.0); MEAN PLATELET VOLUME 12.1 fL (7.4-10.4); MONOCYTES 7.5 % (2-11); NEUTROPHILS 68.9 % (40-80); RBC 3.02 10x6/uL (4.20-6.10); RDW 14.1 % (11.5-14.5)
[2018-08-04 05:01] LABS: HEMATOCRIT 26.5 % (42.0-54.0); MCV 87.7 fL (80.0-100.0); PLATELET COUNT 192 10x3/uL (130-400)
[2018-08-04 05:39] LABS: ANION GAP 17.9 mmol/L (8-16); BILIRUBIN - TOTAL 0.14 mg/dL (0.2-1.3); CALCIUM 8.1 mg/dL (8.5-10.1); CARBON DIOXIDE 19.4 mmol/L (21.0-32.0); CREATININE - SERUM 1.4 mg/dL (0.6-1.3); POTASSIUM - SERUM 3.3 mmol/L (3.5-5.1)
[2018-08-04 05:47] LABS: ALBUMIN 2.2 g/dL (3.4-5.0); PROTEIN - SERUM 5.5 g/dL (6.4-8.2)
[2018-08-04 12:41] LABS: ANION GAP 17.6 mmol/L (8-16); CALCIUM 7.9 mg/dL (8.5-10.1); CREATININE - SERUM 1.1 mg/dL (0.6-1.3); POTASSIUM - SERUM 3.6 mmol/L (3.5-5.1)
[2018-08-05 01:06] VITALS: BP 101/60
[2018-08-05 03:21] LABS: APPEARANCE CLEAR (CLEAR); BILIRUBIN NEGATIVE (NEGATIVE); COLOR STRAW (YELLOW); GLUCOSE 1000 mg/dL (NEGATIVE); KETONE SMALL mg/dL (NEGATIVE); NITRITE NEGATIVE (NEGATIVE); PROTEIN NEGATIVE (NEGATIVE); SPECIFIC GRAVITY 1.015 (1.005-1.020); UROBILINOGEN NORMAL (NORMAL)
[2018-08-05 03:29] VITALS: BP 110/58
[2018-08-05 08:11] VITALS: BP 125/76
[2018-08-05 08:11] LABS: CALC OSMOLALITY 285 mosm/kg (275-300); CALCIUM 8.1 mg/dL (8.5-10.1); CARBON DIOXIDE 19.5 mmol/L (21.0-32.0); CHLORIDE - SERUM 103 mmol/L (98-107); GLUCOSE 280 mg/dL (74-106); POTASSIUM - SERUM 3.3 mmol/L (3.5-5.1); SODIUM 139 mmol/L (136-145); UREA NITROGEN 7 mg/dL (7-18); eGFR NON AFRICAN AMERICAN 81 mL/min (90-120)
[2018-08-05 12:43] LABS: CALC OSMOLALITY 279 mosm/kg (275-300); CALCIUM 8.1 mg/dL (8.5-10.1); CARBON DIOXIDE 23.2 mmol/L (21.0-32.0); CHLORIDE - SERUM 106 mmol/L (98-107); CREATININE - SERUM 0.9 mg/dL (0.6-1.3); GLUCOSE 198 mg/dL (74-106); POTASSIUM - SERUM 3.2 mmol/L (3.5-5.1); SODIUM 138 mmol/L (136-145); UREA NITROGEN 7 mg/dL (7-18); eGFR NON AFRICAN AMERICAN > 90 mL/min (90-120)
[2018-08-05 15:35] VITALS: BP 117/72
[2018-08-05 16:00] LABS: CALCIUM 8.2 mg/dL (8.5-10.1); CARBON DIOXIDE 22.5 mmol/L (21.0-32.0); CHLORIDE - SERUM 106 mmol/L (98-107); SODIUM 139 mmol/L (136-145); UREA NITROGEN 7 mg/dL (7-18); eGFR NON AFRICAN AMERICAN 81 mL/min (90-120)
[2018-08-05 16:05] LABS: CALC OSMOLALITY 283 mosm/kg (275-300); GLUCOSE 247 mg/dL (74-106); POTASSIUM - SERUM 3.7 mmol/L (3.5-5.1)
[2018-08-05 20:14] VITALS: BP 105/69
[2018-08-05 21:30] LABS: CALC OSMOLALITY 276 mosm/kg (275-300); CALCIUM 8.2 mg/dL (8.5-10.1); CARBON DIOXIDE 23.3 mmol/L (21.0-32.0); CHLORIDE - SERUM 109 mmol/L (98-107); POTASSIUM - SERUM 3.4 mmol/L (3.5-5.1); SODIUM 140 mmol/L (136-145); UREA NITROGEN 7 mg/dL (7-18); eGFR NON AFRICAN AMERICAN 81 mL/min (90-120)
[2018-08-05 21:39] LABS: GLUCOSE 95 mg/dL (74-106)
[2018-08-06] VITALS (82 sets, daily range): BP systolic 77–138; BP diastolic 48–89
[2018-08-06 03:58] LABS: BASOPHILS 0.3 % (0-2); EOSINOPHILS 1.1 % (0-7); IMMATURE GRANULOCYTES 5.8 % (0-5); MCHC 33.3 g/dL (31.0-37.0); MCV 90.1 fL (80.0-100.0); MEAN PLATELET VOLUME 12.1 fL (7.4-10.4); MONOCYTES 1.5 % (2-11); NEUTROPHILS 43.3 % (40-80); PLATELET COUNT 172 10x3/uL (130-400); RBC 3.33 10x6/uL (4.20-6.10); RDW 14.9 % (11.5-14.5); WBC 7.4 10x3/uL (4.8-10.8)
[2018-08-06 04:23] LABS: ALKALINE PHOSPHATASE 81 U/L (46-116); ALT (SGPT) 139 U/L (10-68); BILIRUBIN - TOTAL 0.14 mg/dL (0.2-1.3); CALC OSMOLALITY 292 mosm/kg (275-300); CALCIUM 7.3 mg/dL (8.5-10.1); CARBON DIOXIDE 25.1 mmol/L (21.0-32.0); CHLORIDE - SERUM 108 mmol/L (98-107); CKMB 1.7 U/L (0.0-3.6); CREATINE KINASE 105 UL (21-232); GLUCOSE 286 mg/dL (74-106); POTASSIUM - SERUM 3.6 mmol/L (3.5-5.1); PROTEIN - SERUM 5.3 g/dL (6.4-8.2); SODIUM 143 mmol/L (136-145); UREA NITROGEN 8 mg/dL (7-18); eGFR NON AFRICAN AMERICAN 81 mL/min (90-120)
[2018-08-06 04:25] LABS: TROPONIN-I 0.976 ng/mL (0.000-0.060)
[2018-08-06 10:31] LABS: CALC OSMOLALITY 297 mosm/kg (275-300); CALCIUM 7.6 mg/dL (8.5-10.1); CARBON DIOXIDE 26.8 mmol/L (21.0-32.0); CHLORIDE - SERUM 108 mmol/L (98-107); CREATINE KINASE 138 UL (21-232); GLUCOSE 310 mg/dL (74-106); MAGNESIUM - SERUM 1.2 mg/dL (1.8-2.4); POTASSIUM - SERUM 3.6 mmol/L (3.5-5.1); SODIUM 144 mmol/L (136-145); UREA NITROGEN 10 mg/dL (7-18)
[2018-08-06 10:36] LABS: CKMB 2.2 U/L (0.0-3.6); CREATININE - SERUM 1.4 mg/dL (0.6-1.3); eGFR NON AFRICAN AMERICAN 55 mL/min (90-120)
[2018-08-06 10:38] LABS: TROPONIN-I 1.233 ng/mL (0.000-0.060)
[2018-08-06 15:13] LABS: CALCIUM 7.8 mg/dL (8.5-10.1); CARBON DIOXIDE 26.3 mmol/L (21.0-32.0); CHLORIDE - SERUM 109 mmol/L (98-107); CKMB 9.7 U/L (0.0-3.6); CREATININE - SERUM 1.2 mg/dL (0.6-1.3); POTASSIUM - SERUM 3.3 mmol/L (3.5-5.1); SODIUM 145 mmol/L (136-145); UREA NITROGEN 11 mg/dL (7-18); eGFR NON AFRICAN AMERICAN 66 mL/min (90-120)
[2018-08-06 15:20] LABS: CALC OSMOLALITY 291 mosm/kg (275-300); CREATINE KINASE 324 UL (21-232); GLUCOSE 175 mg/dL (74-106)
[2018-08-06 15:36] LABS: BASOPHILS 0.4 % (0-2); EOSINOPHILS 0.9 % (0-7); HEMATOCRIT 29.3 % (42.0-54.0); HEMOGLOBIN 9.9 g/dL (13.5-17.5); IMMATURE GRANULOCYTES 0.6 % (0-5); MCH 29.8 pg (26.0-34.0); MCHC 33.8 g/dL (31.0-37.0); MCV 88.3 fL (80.0-100.0); MEAN PLATELET VOLUME 12.3 fL (7.4-10.4); MONOCYTES 7.3 % (2-11); NEUTROPHILS 60.8 % (40-80); PLATELET COUNT 161 10x3/uL (130-400); RBC 3.32 10x6/uL (4.20-6.10); RDW 15.1 % (11.5-14.5); WBC 8.5 10x3/uL (4.8-10.8)
[2018-08-06 22:00] LABS: CALC OSMOLALITY 289 mosm/kg (275-300); CALCIUM 7.4 mg/dL (8.5-10.1); CARBON DIOXIDE 27.8 mmol/L (21.0-32.0); CHLORIDE - SERUM 106 mmol/L (98-107); CKMB 51.9 U/L (0.0-3.6); CREATINE KINASE 1109 UL (21-232); CREATININE - SERUM 1.2 mg/dL (0.6-1.3); GLUCOSE 233 mg/dL (74-106); POTASSIUM - SERUM 3.3 mmol/L (3.5-5.1); SODIUM 142 mmol/L (136-145); UREA NITROGEN 12 mg/dL (7-18); eGFR NON AFRICAN AMERICAN 66 mL/min (90-120)
[2018-08-06 22:01] LABS: TROPONIN-I 25.846 ng/mL (0.000-0.060)
[2018-08-07] VITALS (46 sets, daily range): BP systolic 75–123; BP diastolic 44–78
[2018-08-07 05:10] LABS: TROPONIN-I 49.286 ng/mL (0.000-0.060)
[2018-08-07 09:16] LABS: BASOPHILS 0.2 % (0-2); EOSINOPHILS 0.3 % (0-7); HEMATOCRIT 25.7 % (42.0-54.0); HEMOGLOBIN 8.6 g/dL (13.5-17.5); IMMATURE GRANULOCYTES 0.3 % (0-5); LYMPHOCYTES 14.5 % (15-50); MCHC 33.5 g/dL (31.0-37.0); MCV 89.5 fL (80.0-100.0); MEAN PLATELET VOLUME 12.8 fL (7.4-10.4); MONOCYTES 7.9 % (2-11); NEUTROPHILS 76.8 % (40-80); RBC 2.87 10x6/uL (4.20-6.10); RDW 15.1 % (11.5-14.5); WBC 9.3 10x3/uL (4.8-10.8)
[2018-08-07 09:19] LABS: ANION GAP 17.4 mmol/L (8-16); CALCIUM 7.5 mg/dL (8.5-10.1); CARBON DIOXIDE 25.1 mmol/L (21.0-32.0); CREATININE - SERUM 1.3 mg/dL (0.6-1.3); POTASSIUM - SERUM 3.5 mmol/L (3.5-5.1)
[2018-08-07 09:20] LABS: PLATELET COUNT 114 10x3/uL (130-400)
[2018-08-07 13:01] LABS: CARBON DIOXIDE 28.1 mmol/L (21.0-32.0); CREATININE - SERUM 1.2 mg/dL (0.6-1.3)
[2018-08-07 13:04] LABS: ANION GAP 14.8 mmol/L (8-16)
[2018-08-07 13:05] LABS: CALCIUM 6.6 mg/dL (8.5-10.1); POTASSIUM - SERUM 2.9 mmol/L (3.5-5.1)
[2018-08-07 17:14] LABS: ANION GAP 13.6 mmol/L (8-16); CARBON DIOXIDE 29.7 mmol/L (21.0-32.0); CREATININE - SERUM 1.3 mg/dL (0.6-1.3); POTASSIUM - SERUM 3.3 mmol/L (3.5-5.1)
[2018-08-07 20:42] LABS: ANION GAP 7.7 mmol/L (8-16); CALCIUM 7.1 mg/dL (8.5-10.1); CARBON DIOXIDE 34.3 mmol/L (21.0-32.0); CREATININE - SERUM 1.2 mg/dL (0.6-1.3)
[2018-08-08] VITALS (51 sets, daily range): BP systolic 78–135; BP diastolic 53–89
[2018-08-08 05:08] LABS: BASOPHILS 0.1 % (0-2); EOSINOPHILS 0.4 % (0-7); HEMATOCRIT 23.5 % (42.0-54.0); IMMATURE GRANULOCYTES 0.1 % (0-5); LYMPHOCYTES 8.1 % (15-50); MCH 30.1 pg (26.0-34.0); MCV 88.3 fL (80.0-100.0); MEAN PLATELET VOLUME 11.7 fL (7.4-10.4); MONOCYTES 8.9 % (2-11); NEUTROPHILS 82.4 % (40-80); PLATELET COUNT 107 10x3/uL (130-400); RBC 2.66 10x6/uL (4.20-6.10); RDW 15.3 % (11.5-14.5); WBC 13.5 10x3/uL (4.8-10.8)
[2018-08-08 05:25] LABS: ALBUMIN 1.9 g/dL (3.4-5.0); ALKALINE PHOSPHATASE 72 U/L (46-116); ALT (SGPT) 75 U/L (10-68); BILIRUBIN - DIRECT 0.19 mg/dL (0.00-0.30); BILIRUBIN - INDIRECT 0.18 mg/dL (0.00-1.00); BILIRUBIN - TOTAL 0.37 mg/dL (0.2-1.3); PHOSPHOROUS 3.1 mg/dL (2.5-4.9)
[2018-08-08 06:39] LABS: CALC OSMOLALITY 280 mosm/kg (275-300); CALCIUM 7.2 mg/dL (8.5-10.1); CARBON DIOXIDE 30.5 mmol/L (21.0-32.0); CHLORIDE - SERUM 105 mmol/L (98-107); SODIUM 142 mmol/L (136-145); UREA NITROGEN 12 mg/dL (7-18); eGFR NON AFRICAN AMERICAN 81 mL/min (90-120)
[2018-08-08 06:42] LABS: GLUCOSE 68 mg/dL (74-106)
[2018-08-08 08:57] LABS: CHLORIDE - SERUM 109 mmol/L (98-107); SODIUM 143 mmol/L (136-145); UREA NITROGEN 10 mg/dL (7-18)
[2018-08-08 09:03] LABS: CALC OSMOLALITY 284 mosm/kg (275-300); CALCIUM 5.9 mg/dL (8.5-10.1); CREATININE - SERUM 0.7 mg/dL (0.6-1.3); GLUCOSE 110 mg/dL (74-106); POTASSIUM - SERUM 2.6 mmol/L (3.5-5.1); eGFR NON AFRICAN AMERICAN > 90 mL/min (90-120)
[2018-08-08 09:13] LABS: ALBUMIN 1.6 g/dL (3.4-5.0)
[2018-08-08 13:48] LABS: CALC OSMOLALITY 281 mosm/kg (275-300); CARBON DIOXIDE 27.4 mmol/L (21.0-32.0); CHLORIDE - SERUM 103 mmol/L (98-107); GLUCOSE 183 mg/dL (74-106); POTASSIUM - SERUM 3.6 mmol/L (3.5-5.1); SODIUM 139 mmol/L (136-145); UREA NITROGEN 11 mg/dL (7-18); eGFR NON AFRICAN AMERICAN 81 mL/min (90-120)
[2018-08-08 13:49] LABS: CALCIUM 6.9 mg/dL (8.5-10.1)
[2018-08-08 13:55] LABS: ALBUMIN 1.9 g/dL (3.4-5.0)
[2018-08-08 21:31] LABS: CALC OSMOLALITY 278 mosm/kg (275-300); CALCIUM 7.1 mg/dL (8.5-10.1); CARBON DIOXIDE 25.5 mmol/L (21.0-32.0); CHLORIDE - SERUM 102 mmol/L (98-107); GLUCOSE 206 mg/dL (74-106); POTASSIUM - SERUM 3.4 mmol/L (3.5-5.1); SODIUM 137 mmol/L (136-145); UREA NITROGEN 11 mg/dL (7-18); eGFR NON AFRICAN AMERICAN 81 mL/min (90-120)
[2018-08-09] VITALS (39 sets, daily range): BP systolic 82–137; BP diastolic 52–87
[2018-08-09 05:27] LABS: BASOPHILS 0.2 % (0-2); EOSINOPHILS 0.8 % (0-7); IMMATURE GRANULOCYTES 0.3 % (0-5); LYMPHOCYTES 11.3 % (15-50); MCH 29.8 pg (26.0-34.0); MCHC 33.6 g/dL (31.0-37.0); MCV 88.7 fL (80.0-100.0); MEAN PLATELET VOLUME 13.2 fL (7.4-10.4); MONOCYTES 6.3 % (2-11); NEUTROPHILS 81.1 % (40-80); PLATELET COUNT 115 10x3/uL (130-400); RDW 15.3 % (11.5-14.5); WBC 10.5 10x3/uL (4.8-10.8)
[2018-08-09 05:28] LABS: HEMATOCRIT 28.9 % (42.0-54.0); HEMOGLOBIN 9.7 g/dL (13.5-17.5); RBC 3.26 10x6/uL (4.20-6.10)
[2018-08-09 06:13] LABS: ALBUMIN 1.9 g/dL (3.4-5.0); ALKALINE PHOSPHATASE 83 U/L (46-116); ALT (SGPT) 55 U/L (10-68); BILIRUBIN - TOTAL 0.46 mg/dL (0.2-1.3); CALC OSMOLALITY 276 mosm/kg (275-300); CALCIUM 7.1 mg/dL (8.5-10.1); CARBON DIOXIDE 25.7 mmol/L (21.0-32.0); CHLORIDE - SERUM 102 mmol/L (98-107); CREATININE - SERUM 0.9 mg/dL (0.6-1.3); GLUCOSE 210 mg/dL (74-106); MAGNESIUM - SERUM 1.7 mg/dL (1.8-2.4); PHOSPHOROUS 2.7 mg/dL (2.5-4.9); POTASSIUM - SERUM 3.7 mmol/L (3.5-5.1); PROTEIN - SERUM 5.3 g/dL (6.4-8.2); SODIUM 136 mmol/L (136-145); UREA NITROGEN 11 mg/dL (7-18); eGFR NON AFRICAN AMERICAN > 90 mL/min (90-120)
[2018-08-09 09:03] LABS: CALC OSMOLALITY 275 mosm/kg (275-300); CARBON DIOXIDE 27.3 mmol/L (21.0-32.0); CHLORIDE - SERUM 103 mmol/L (98-107); CREATININE - SERUM 0.8 mg/dL (0.6-1.3); GLUCOSE 187 mg/dL (74-106); POTASSIUM - SERUM 3.2 mmol/L (3.5-5.1); SODIUM 136 mmol/L (136-145); UREA NITROGEN 9 mg/dL (7-18); eGFR NON AFRICAN AMERICAN > 90 mL/min (90-120)
[2018-08-09 09:10] LABS: ALBUMIN 1.7 g/dL (3.4-5.0)
[2018-08-10] VITALS (39 sets, daily range): BP systolic 91–141; BP diastolic 35–88
[2018-08-10 05:30] LABS: BASOPHILS 0.1 % (0-2); EOSINOPHILS 2.5 % (0-7); HEMOGLOBIN 9.4 g/dL (13.5-17.5); IMMATURE GRANULOCYTES 0.1 % (0-5); LYMPHOCYTES 11.1 % (15-50); MCH 30.1 pg (26.0-34.0); MCHC 33.6 g/dL (31.0-37.0); MCV 89.7 fL (80.0-100.0); MEAN PLATELET VOLUME 12.1 fL (7.4-10.4); MONOCYTES 9.7 % (2-11); NEUTROPHILS 76.5 % (40-80); PLATELET COUNT 120 10x3/uL (130-400); RBC 3.12 10x6/uL (4.20-6.10); RDW 15.4 % (11.5-14.5)
[2018-08-10 05:36] LABS: WBC 6.8 10x3/uL (4.8-10.8)
[2018-08-10 06:46] LABS: ALBUMIN 1.9 g/dL (3.4-5.0); ALKALINE PHOSPHATASE 79 U/L (46-116); ALT (SGPT) 38 U/L (10-68); BILIRUBIN - TOTAL 0.36 mg/dL (0.2-1.3); CALC OSMOLALITY 284 mosm/kg (275-300); CALCIUM 7.1 mg/dL (8.5-10.1); CARBON DIOXIDE 27.2 mmol/L (21.0-32.0); CHLORIDE - SERUM 104 mmol/L (98-107); CREATININE - SERUM 0.8 mg/dL (0.6-1.3); GLUCOSE 251 mg/dL (74-106); PROTEIN - SERUM 4.6 g/dL (6.4-8.2); SODIUM 139 mmol/L (136-145); UREA NITROGEN 10 mg/dL (7-18); eGFR NON AFRICAN AMERICAN > 90 mL/min (90-120)
[2018-08-11] VITALS (19 sets, daily range): BP systolic 57–138; BP diastolic 44–94
[2018-08-12] VITALS: BP 149/80
[2018-08-12 05:30] VITALS: BP 132/72
[2018-08-12 07:52] VITALS: BP 135/70
[2018-08-12 08:42] LABS: BASOPHILS 0.4 % (0-2); EOSINOPHILS 3.3 % (0-7); HEMATOCRIT 26.6 % (42.0-54.0); HEMOGLOBIN 8.7 g/dL (13.5-17.5); IMMATURE GRANULOCYTES 0.3 % (0-5); LYMPHOCYTES 15.5 % (15-50); MCH 29.8 pg (26.0-34.0); MCHC 32.7 g/dL (31.0-37.0); MCV 91.1 fL (80.0-100.0); MEAN PLATELET VOLUME 11.4 fL (7.4-10.4); NEUTROPHILS 70.5 % (40-80); RBC 2.92 10x6/uL (4.20-6.10); RDW 14.5 % (11.5-14.5)
[2018-08-12 08:44] LABS: PLATELET COUNT 173 10x3/uL (130-400)
[2018-08-12 08:51] LABS: CALC OSMOLALITY 284 mosm/kg (275-300); CALCIUM 7.7 mg/dL (8.5-10.1); CARBON DIOXIDE 30.9 mmol/L (21.0-32.0); CHLORIDE - SERUM 103 mmol/L (98-107); CREATININE - SERUM 0.9 mg/dL (0.6-1.3); POTASSIUM - SERUM 3.1 mmol/L (3.5-5.1); SODIUM 142 mmol/L (136-145); UREA NITROGEN 10 mg/dL (7-18); eGFR NON AFRICAN AMERICAN > 90 mL/min (90-120)
[2018-08-12 08:52] LABS: GLUCOSE 148 mg/dL (74-106)
[2018-08-12 11:32] VITALS: BP 114/65
[2018-08-12 15:54] VITALS: BP 131/64
[2018-08-12 20:00] VITALS: BP 138/76
[2018-08-13 04:00] VITALS: BP 129/71
[2018-08-13 05:25] LABS: BASOPHILS 0.5 % (0-2); EOSINOPHILS 2.1 % (0-7); HEMATOCRIT 26.8 % (42.0-54.0); HEMOGLOBIN 8.7 g/dL (13.5-17.5); IMMATURE GRANULOCYTES 0.4 % (0-5); LYMPHOCYTES 12.9 % (15-50); MCH 29.4 pg (26.0-34.0); MCHC 32.5 g/dL (31.0-37.0); MCV 90.5 fL (80.0-100.0); MEAN PLATELET VOLUME 11.5 fL (7.4-10.4); MONOCYTES 10.1 % (2-11); PLATELET COUNT 204 10x3/uL (130-400); RBC 2.96 10x6/uL (4.20-6.10); RDW 14.2 % (11.5-14.5); WBC 7.3 10x3/uL (4.8-10.8)
[2018-08-13 05:48] LABS: ALBUMIN 2.2 g/dL (3.4-5.0); ALKALINE PHOSPHATASE 87 U/L (46-116); ALT (SGPT) 25 U/L (10-68); BILIRUBIN - TOTAL 0.54 mg/dL (0.2-1.3); CALC OSMOLALITY 279 mosm/kg (275-300); CALCIUM 8.3 mg/dL (8.5-10.1); CARBON DIOXIDE 29.8 mmol/L (21.0-32.0); CHLORIDE - SERUM 97 mmol/L (98-107); CREATININE - SERUM 0.8 mg/dL (0.6-1.3); PHOSPHOROUS 2.7 mg/dL (2.5-4.9); POTASSIUM - SERUM 3.3 mmol/L (3.5-5.1); SODIUM 137 mmol/L (136-145); UREA NITROGEN 9 mg/dL (7-18); eGFR NON AFRICAN AMERICAN > 90 mL/min (90-120)
[2018-08-13 05:49] LABS: GLUCOSE 220 mg/dL (74-106)
[2018-08-13 07:53] VITALS: BP 140/73
[2018-08-13 11:02] VITALS: BP 116/59
[2018-08-13 15:00] VITALS: BP 118/60
[2018-08-13 20:00] VITALS: BP 133/73
[2018-08-14] VITALS: BP 132/68
[2018-08-14 04:00] VITALS: BP 148/81
[2018-08-14 05:46] LABS: BASOPHILS 0.4 % (0-2); HEMOGLOBIN 8.9 g/dL (13.5-17.5); IMMATURE GRANULOCYTES 0.3 % (0-5); LYMPHOCYTES 17.3 % (15-50); MCH 29.7 pg (26.0-34.0); MEAN PLATELET VOLUME 11.3 fL (7.4-10.4); MONOCYTES 9.5 % (2-11); NEUTROPHILS 70.5 % (40-80); RDW 14.1 % (11.5-14.5); WBC 6.9 10x3/uL (4.8-10.8)
[2018-08-14 05:47] LABS: PLATELET COUNT 257 10x3/uL (130-400)
[2018-08-14 06:16] LABS: CARBON DIOXIDE 29.6 mmol/L (21.0-32.0)
[2018-08-14 06:41] LABS: ALBUMIN 2.4 g/dL (3.4-5.0); CALC OSMOLALITY 277 mosm/kg (275-300); CALCIUM 7.9 mg/dL (8.5-10.1); CHLORIDE - SERUM 97 mmol/L (98-107); CREATININE - SERUM 0.7 mg/dL (0.6-1.3); GLUCOSE 176 mg/dL (74-106); MAGNESIUM - SERUM 1.6 mg/dL (1.8-2.4); POTASSIUM - SERUM 3.6 mmol/L (3.5-5.1); SODIUM 138 mmol/L (136-145); eGFR NON AFRICAN AMERICAN > 90 mL/min (90-120)
[2018-08-14 06:53] LABS: UREA NITROGEN 6 mg/dL (7-18)
[2018-08-14 07:27] LABS: ALKALINE PHOSPHATASE 82 U/L (46-116); ALT (SGPT) 23 U/L (10-68); BILIRUBIN - TOTAL 0.45 mg/dL (0.2-1.3); PHOSPHOROUS 2.6 mg/dL (2.5-4.9); PROTEIN - SERUM 5.6 g/dL (6.4-8.2)
[2018-08-14 08:34] VITALS: BP 142/81
[2018-08-14 11:28] VITALS: BP 130/77
[2018-08-14] MEDS ORDERED: ATROVENT 0.02%2.5 ML UPD (12:24)
[2018-08-14] MEDS ORDERED: Lantus Solostar PEN SC (12:26)
[2018-08-14] MEDS ORDERED: HUMULIN R100 U/ML SC (12:26)
[2018-08-14] MEDS ORDERED: CALMOSEPTINE OI71 GM TOPICAL (12:26)
[2018-08-14 16:09] VITALS: BP 128/74
== END 2018-08-14 17:33 | DRG 981 ==
LOC: D.ER 03:41 → D.ICU 06:50 → D.M2 06:50 → D.M3 08-04 22:38 → D.ICU 08-06 04:09 → D.M2 08-11 18:49
PROVIDERS: Family Medicine; Family Medicine Adult Medicine; Internal Medicine Cardiovascular Disease; Internal Medicine Nephrology; Internal Medicine Pulmonary Disease
PROC: 0BH17EZ Insertion of Endotracheal Airway into Trachea, Via Natural or Artificial Opening (ICD-10-PCS; 2018-08-06)
PROC: 05HY33Z Insertion of Infusion Device into Upper Vein, Percutaneous Approach (ICD-10-PCS; 2018-08-06)
PROC: 5A1945Z Respiratory Ventilation, 24-96 Consecutive Hours (ICD-10-PCS; 2018-08-06)
PROC: B2131ZZ Fluoroscopy of Multiple Coronary Artery Bypass Grafts using Low Osmolar Contrast (ICD-10-PCS; 2018-08-07)
PROC: B2151ZZ Fluoroscopy of Left Heart using Low Osmolar Contrast (ICD-10-PCS; 2018-08-07)
PROC: 027135Z Dilation of Coronary Artery, Two Arteries with Two Drug-eluting Intraluminal Devices, Percutaneous Approach (ICD-10-PCS; principal; 2018-08-07 09:00)
DX: E11.10 Type 2 diabetes mellitus with ketoacidosis without coma (principal); I50.23 Acute on chronic systolic (congestive) heart failure; R57.0 Cardiogenic shock; K72.00 Acute and subacute hepatic failure without coma; J96.02 Acute respiratory failure with hypercapnia; I13.0 Hypertensive heart and chronic kidney disease with heart failure and stage 1 through stage 4 chronic kidney disease, or unspecified chronic kidney disease; N17.9 Acute kidney failure, unspecified; E87.2 Acidosis; E87.3 Alkalosis; F17.203 Nicotine dependence unspecified, with withdrawal; E11.22 Type 2 diabetes mellitus with diabetic chronic kidney disease; N18.9 Chronic kidney disease, unspecified; D64.9 Anemia, unspecified; K21.9 Gastro-esophageal reflux disease without esophagitis; E78.5 Hyperlipidemia, unspecified; I25.10 Atherosclerotic heart disease of native coronary artery without angina pectoris; I69.322 Dysarthria following cerebral infarction; E11.21 Type 2 diabetes mellitus with diabetic nephropathy; E11.40 Type 2 diabetes mellitus with diabetic neuropathy, unspecified; I95.9 Hypotension, unspecified; Z95.1 Presence of aortocoronary bypass graft; Z95.5 Presence of coronary angioplasty implant and graft

== ENCOUNTER 2018-08-14 15:43 | Inpatient (IN) | payer MEDICARE, BC ==
[~2018-08-14] VITALS: Ht 177.8 cm; Wt 72.6 kg
--- NOTE | ~2018-08-14 | RHP ---
PATIENT: ESTELLA GUSMAN MEDICAL RECORD: [id number] ACCOUNT: [id number] LOCATION:[facility]8 : 58 ADMISSION DATE: 08/14/18 REHABILITATION HISTORY AND PHYSICAL EXAMINATION POST ADMISSION PHYSICIAN EXAMINATION DATE OF ADMISSION: 08/14/2018 ADMITTING DIAGNOSIS: Critical illness myopathy. HISTORY OF PRESENT ILLNESS: The patient is a 57-year-old gentleman who presents secondary to critical illness myopathy. He was in the Emergency Room on 08/03/2018 with dyspnea and an elevated blood sugar. He is recently discharged following a treatment for pancreatitis. He reports that he did not have enough insulin following discharge, he has been tachypneic. He smelled like ketones. He was in DKA, had an elevated D-dimer, but was considered a low risk for PE. He was admitted to ICU for insulin drip and pH correction. On 08/06/2018, he had V-fib arrest, was intubated, sedated, put on Levophed, Diprivan and fentanyl drips. Cardiology and pulmonary were consulted. On 08/08/2018, he went to the fence laborer for PTCA and stent of his right coronary artery after a patent vein graft per Dr. Suárez. He was successfully extubated on 08/10/2018. He was transferred from the ICU on 08/12/2018 to a telemetry bed. He is currently on 3-1/2 liters of O2 continuously. He is in normal sinus rhythm with intermittent sinus tachycardia on the monitor. He is very easily fatigued, has limited flexion and extension of his lower extremities. Previously, he was living alone, was moderately independent using a cane for ADLs and mobility. He is highly motivated and has a good support system to return back home hopefully at his prior level of functioning. COMORBIDITIES: In this patient include status post cardiopulmonary arrest with ventricular fibrillation, pleural effusion, aspiration pneumonia, pulmonary edema, leukocytosis, cardiogenic shock, hypotension, diabetes, hyperlipidemia, hypokalemia, history of CVA, dysarthria speech, pancreatitis and depression. PAST MEDICAL HISTORY: Significant for CVA. He has got a history of diabetes, he has got a history of coronary artery disease. He has got a history of herniated disc, depression. PAST SURGICAL HISTORY: Includes vasectomy, stent placement and open heart surgery. ALLERGIES: No known drug allergies. CURRENT MEDICATIONS: Include [place] 5/325 one tab every 6 hours p.r.n., Cepacol lozenges as needed, Plavix 75 mg daily, Crestor 10 mg daily, he is on Protonix 40 mg daily, multivitamin 1 tab daily, folic acid 1 mg daily, fenofibrate 145 mg daily, aspirin 325 mg daily, Creon 3 tabs t.i.d. with meals, he is on a glucose replacement protocol, he is on Xalatan eyedrops, Lantus 20 units at bedtime, he is on Atrovent and ipratropium bromide updrafts as needed, he is on a low-resistant sliding scale with Humulin R, Neurontin 300 mg b.i.d., and MiraLax 17 grams in 8 ounces of water daily. HABITS: No current alcohol or tobacco use. FAMILY HISTORY: Noncontributory. HISTORY AND PHYSICAL [id number] ESTELLA GUSMAN SOCIAL HISTORY: The patient hopes to return back home and get back to his prior level of functioning. REVIEW OF SYSTEMS: GENERAL: He does complain of weakness and fatigue. HEENT: Denies cold, cough, or congestion. CARDIOVASCULAR: Denies any chest pain. PHYSICAL EXAMINATION: VITAL SIGNS: Stable, afebrile. GENERAL: Much older than stated aged gentleman who is in no acute distress, alert and oriented, friendly while on exam. HEENT: Normocephalic and atraumatic. Mucosa moist. NECK: Supple. No lymphadenopathy. LUNGS: Clear at this time. HEART: Regular rate and rhythm. ABDOMEN: Benign. EXTREMITIES: No clubbing, cyanosis or edema. NEUROLOGIC: He does have noted weakness. LABORATORY DATA: White count is 6.1, H&H of 9.8 and 29.6 and platelet count is 344. His sodium is 142, potassium 2.9, BUN and creatinine of 8 and 0.8 and blood sugar is noted to be 280. ASSESSMENT: This 57-year-old gentleman admitted to the rehab with a working diagnosis of critical illness myopathy secondary to a prolonged stay in the ICU and resuscitation. The patient has potential to make improvement. We instituted the following multidisciplinary therapies including but not limited to physical, occupational, respiratory, speech, nutritional services, prosthetics and orthotics. Given his complex medical condition and risk for more complications, rehabilitation services cannot be provided at a low level of care such as residential facility. PLAN: 1. Admit to [facility] for intensive inpatient therapy to include the following disciplines: A. Physical therapy to improve gait, all transfer skills and bed mobility to a modified independent level. B. Occupational therapy to a modified independent level. C. Case management to assist with discharge planning and placement options. D. Nutrition to assist with nutritional needs. E. Rehabilitation nursing to assist in monitoring the patient's underlying medical conditions and to assist with any type of bowel or bladder management. 2. The patient's current medical care and medication will be continued. 3. Placed on standard fall precautions. 4. I am going to go ahead and replace his potassium. 5. I am going to follow him up on the a.m. on Friday. TRANSINT:[id number] Voice Confirmation ID: [id number] DOCUMENT ID: [id number] JOSH notes whether there has been none or any medical/functional change since admission: - No change since pre-admission screen. HISTORY AND PHYSICAL [id number] ESTELLA GUSMAN attests patient continues to be appropriate for IRF: - Continues to be appropriate. JENA WEINBERG MD at 1503 CC: [id number] DICTATION DATE: 08/15/18 1033 ADVANCED MANUFACTURING VICE PRESIDENT: 08/15/18 1143 DIS IN 08/23/18 [facility] [address] [place] [address]
[~2018-08-14 15:43] MED LIST changes: +ATROVENT 0.02%2.5 ML UPD; +CALMOSEPTINE OI71 GM TOPICAL; +Lantus Solostar PEN SC
[2018-08-14 17:54] VITALS: BP 150/82; BMI 23.0
[2018-08-14 19:00] VITALS: BP 150/82
[2018-08-15 06:50] LABS: BASOPHILS 0.7 % (0-2); EOSINOPHILS 2.8 % (0-7); HEMATOCRIT 29.6 % (42.0-54.0); HEMOGLOBIN 9.8 g/dL (13.5-17.5); IMMATURE GRANULOCYTES 0.3 % (0-5); LYMPHOCYTES 27.9 % (15-50); MCH 29.5 pg (26.0-34.0); MCHC 33.1 g/dL (31.0-37.0); MCV 89.2 fL (80.0-100.0); MEAN PLATELET VOLUME 10.8 fL (7.4-10.4); MONOCYTES 10.9 % (2-11); NEUTROPHILS 57.4 % (40-80); RBC 3.32 10x6/uL (4.20-6.10); WBC 6.1 10x3/uL (4.8-10.8)
[2018-08-15 06:58] LABS: PLATELET COUNT 344 10x3/uL (130-400)
[2018-08-15 07:25] LABS: CALC OSMOLALITY 280 mosm/kg (275-300); CALCIUM 8.4 mg/dL (8.5-10.1); CARBON DIOXIDE 26.5 mmol/L (21.0-32.0); CHLORIDE - SERUM 102 mmol/L (98-107); CREATININE - SERUM 0.8 mg/dL (0.6-1.3); GLUCOSE 102 mg/dL (74-106); SODIUM 142 mmol/L (136-145); UREA NITROGEN 8 mg/dL (7-18); eGFR NON AFRICAN AMERICAN > 90 mL/min (90-120)
[2018-08-15 07:26] LABS: POTASSIUM - SERUM 2.9 mmol/L (3.5-5.1)
[2018-08-15 08:32] VITALS: BP 114/75
[2018-08-15 09:15] VITALS: Ht 177.8 cm; Wt 72.6 kg
[2018-08-15 19:19] VITALS: BP 118/70
[2018-08-16 08:00] VITALS: BP 136/77
[2018-08-16 21:29] VITALS: BP 123/74
[2018-08-17 07:11] LABS: BASOPHILS 0.6 % (0-2); EOSINOPHILS 3.3 % (0-7); HEMATOCRIT 30.2 % (42.0-54.0); HEMOGLOBIN 9.9 g/dL (13.5-17.5); IMMATURE GRANULOCYTES 0.3 % (0-5); LYMPHOCYTES 26.5 % (15-50); MCH 29.6 pg (26.0-34.0); MCHC 32.8 g/dL (31.0-37.0); MCV 90.4 fL (80.0-100.0); MEAN PLATELET VOLUME 10.7 fL (7.4-10.4); MONOCYTES 8.4 % (2-11); NEUTROPHILS 60.9 % (40-80); RBC 3.34 10x6/uL (4.20-6.10); RDW 14.3 % (11.5-14.5); WBC 6.5 10x3/uL (4.8-10.8)
[2018-08-17 07:20] LABS: CALC OSMOLALITY 277 mosm/kg (275-300); CALCIUM 8.7 mg/dL (8.5-10.1); CARBON DIOXIDE 25.7 mmol/L (21.0-32.0); CHLORIDE - SERUM 103 mmol/L (98-107); CREATININE - SERUM 0.9 mg/dL (0.6-1.3); GLUCOSE 87 mg/dL (74-106); POTASSIUM - SERUM 3.6 mmol/L (3.5-5.1); SODIUM 141 mmol/L (136-145); UREA NITROGEN 6 mg/dL (7-18); eGFR NON AFRICAN AMERICAN > 90 mL/min (90-120)
[2018-08-17 07:21] LABS: PLATELET COUNT 423 10x3/uL (130-400)
[2018-08-17 08:13] VITALS: BP 141/84
[2018-08-17 19:00] VITALS: BP 110/68
[2018-08-18 08:35] VITALS: BP 113/57
[2018-08-18 19:00] VITALS: BP 145/77
[2018-08-19 07:00] LABS: BASOPHILS 0.3 % (0-2); EOSINOPHILS 2.1 % (0-7); HEMATOCRIT 30.2 % (42.0-54.0); HEMOGLOBIN 9.8 g/dL (13.5-17.5); IMMATURE GRANULOCYTES 0.2 % (0-5); LYMPHOCYTES 27.2 % (15-50); MCH 29.4 pg (26.0-34.0); MCHC 32.5 g/dL (31.0-37.0); MCV 90.7 fL (80.0-100.0); MEAN PLATELET VOLUME 10.9 fL (7.4-10.4); MONOCYTES 6.2 % (2-11); PLATELET COUNT 474 10x3/uL (130-400); RBC 3.33 10x6/uL (4.20-6.10); RDW 14.4 % (11.5-14.5); WBC 6.3 10x3/uL (4.8-10.8)
[2018-08-19 07:11] LABS: CALCIUM 8.7 mg/dL (8.5-10.1); CARBON DIOXIDE 24.1 mmol/L (21.0-32.0); CHLORIDE - SERUM 105 mmol/L (98-107); CREATININE - SERUM 0.8 mg/dL (0.6-1.3); POTASSIUM - SERUM 3.2 mmol/L (3.5-5.1); SODIUM 142 mmol/L (136-145); eGFR NON AFRICAN AMERICAN > 90 mL/min (90-120)
[2018-08-19 07:21] LABS: CALC OSMOLALITY 277 mosm/kg (275-300); GLUCOSE 48 mg/dL (74-106); UREA NITROGEN 8 mg/dL (7-18)
[2018-08-19 08:00] VITALS: BP 127/72
[2018-08-19 19:00] VITALS: BP 114/68
[2018-08-20 08:00] VITALS: BP 93/63
[2018-08-20 19:00] VITALS: BP 102/65
[2018-08-21 05:13] LABS: BASOPHILS 0.6 % (0-2); EOSINOPHILS 3.1 % (0-7); HEMATOCRIT 29.5 % (42.0-54.0); HEMOGLOBIN 9.7 g/dL (13.5-17.5); IMMATURE GRANULOCYTES 0.2 % (0-5); LYMPHOCYTES 26.5 % (15-50); MCH 29.8 pg (26.0-34.0); MCHC 32.9 g/dL (31.0-37.0); MCV 90.5 fL (80.0-100.0); MEAN PLATELET VOLUME 10.7 fL (7.4-10.4); MONOCYTES 5.5 % (2-11); NEUTROPHILS 64.1 % (40-80); PLATELET COUNT 482 10x3/uL (130-400); RBC 3.26 10x6/uL (4.20-6.10); WBC 6.5 10x3/uL (4.8-10.8)
[2018-08-21 06:06] LABS: CALCIUM 8.8 mg/dL (8.5-10.1); CHLORIDE - SERUM 101 mmol/L (98-107); CREATININE - SERUM 0.9 mg/dL (0.6-1.3); SODIUM 136 mmol/L (136-145); eGFR NON AFRICAN AMERICAN > 90 mL/min (90-120)
[2018-08-21 06:08] LABS: CALC OSMOLALITY 287 mosm/kg (275-300); GLUCOSE 363 mg/dL (74-106); POTASSIUM - SERUM 4.2 mmol/L (3.5-5.1); UREA NITROGEN 15 mg/dL (7-18)
[2018-08-21 08:00] VITALS: BP 93/66
[2018-08-21 19:00] VITALS: BP 110/70
[2018-08-22 08:45] VITALS: BP 118/74
[2018-08-22] MEDS ORDERED: HYDROCODON-ACE1 EAC7 PO (11:46)
[2018-08-22 22:04] VITALS: BP 138/69
== END 2018-08-23 11:24 | disposition home health service (06) | DRG 91 ==
LOC: D.REHAB 15:43
PROVIDERS: Emergency Medicine
DX: G72.81 Critical illness myopathy (principal); J69.0 Pneumonitis due to inhalation of food and vomit; R57.0 Cardiogenic shock; K85.90 Acute pancreatitis without necrosis or infection, unspecified; I50.23 Acute on chronic systolic (congestive) heart failure; J96.01 Acute respiratory failure with hypoxia; E87.2 Acidosis; N17.9 Acute kidney failure, unspecified; D72.829 Elevated white blood cell count, unspecified; I95.9 Hypotension, unspecified; E11.9 Type 2 diabetes mellitus without complications; E78.5 Hyperlipidemia, unspecified; E87.6 Hypokalemia; R47.1 Dysarthria and anarthria; F32.9 Major depressive disorder, single episode, unspecified; I11.0 Hypertensive heart disease with heart failure; J44.9 Chronic obstructive pulmonary disease, unspecified; R13.12 Dysphagia, oropharyngeal phase; E11.21 Type 2 diabetes mellitus with diabetic nephropathy; E11.40 Type 2 diabetes mellitus with diabetic neuropathy, unspecified; K21.9 Gastro-esophageal reflux disease without esophagitis; D64.9 Anemia, unspecified; E88.09 Other disorders of plasma-protein metabolism, not elsewhere classified; E83.42 Hypomagnesemia

== ENCOUNTER 2018-08-25 05:05 | Inpatient (IN) | payer MEDICARE, BC ==
[~2018-08-25] VITALS: Ht 177.8 cm; Wt 69.1 kg
[2018-08-25] VITALS (19 sets, daily range): BP systolic 78–105; BP diastolic 44–64; BMI 22.5
[2018-08-25 06:20] LABS: BASOPHILS 0.2 % (0-2); EOSINOPHILS 0.1 % (0-7); HEMATOCRIT 35.9 % (42.0-54.0); HEMOGLOBIN 10.7 g/dL (13.5-17.5); IMMATURE GRANULOCYTES 0.5 % (0-5); LYMPHOCYTES 10.6 % (15-50); MCHC 29.8 g/dL (31.0-37.0); MCV 100.6 fL (80.0-100.0); MEAN PLATELET VOLUME 11.5 fL (7.4-10.4); MONOCYTES 5.6 % (2-11); PLATELET COUNT 523 10x3/uL (130-400); RBC 3.57 10x6/uL (4.20-6.10); RDW 14.4 % (11.5-14.5); WBC 19.1 10x3/uL (4.8-10.8)
[2018-08-25 06:23] LABS: UDS - AMPHET NEGATIVE QUAL (NEGATIVE); UDS - BARB NEGATIVE QUAL (NEGATIVE); UDS - BENZO NEGATIVE QUAL (NEGATIVE); UDS - COCAINE NEGATIVE QUAL (NEGATIVE); UDS - OPIATE NEGATIVE QUAL (NEGATIVE); UDS - PCP NEGATIVE QUAL (NEGATIVE); UDS - THC NEGATIVE QUAL (NEGATIVE)
[2018-08-25 06:28] LABS: APPEARANCE HAZY (CLEAR); COLOR YELLOW (YELLOW); GLUCOSE 1000 mg/dL (NEGATIVE); NITRITE NEGATIVE (NEGATIVE); PROTEIN 1+ mg/dL (NEGATIVE)
[2018-08-25 06:28] LABS: KETONE - SERUM LARGE mg/dL (NEGATIVE)
[2018-08-25 06:29] LABS: BILIRUBIN NEGATIVE (NEGATIVE); EPITHELIAL CELLS 0-5 /hpf (0-5); KETONE MODERATE mg/dL (NEGATIVE); RED CELLS - URINE 0-5 /hpf (0-5); UROBILINOGEN NORMAL (NORMAL); WHITE CELLS - URINE 0-5 /hpf (0-5)
[2018-08-25 06:53] LABS: ALBUMIN 3.4 g/dL (3.4-5.0); ALKALINE PHOSPHATASE 143 U/L (46-116); ALT (SGPT) 9 U/L (10-68); AMYLASE - SERUM 195 U/L (25-115); BILIRUBIN - TOTAL 0.53 mg/dL (0.2-1.3); CALCIUM 9.1 mg/dL (8.5-10.1); CHLORIDE - SERUM 90 mmol/L (98-107); CKMB 2.8 U/L (0.0-3.6); CREATINE KINASE 74 UL (21-232); CREATININE - SERUM 2.5 mg/dL (0.6-1.3); LIPASE 390 U/L (73-393); PROTEIN - SERUM 8.1 g/dL (6.4-8.2); SODIUM 133 mmol/L (136-145); UREA NITROGEN 44 mg/dL (7-18); eGFR NON AFRICAN AMERICAN 28 mL/min (90-120)
[2018-08-25 07:09] LABS: CALC OSMOLALITY 326 mosm/kg (275-300); CARBON DIOXIDE 4.7 mmol/L (21.0-32.0); GLUCOSE 1005 mg/dL (74-106); TROPONIN-I 0.089 ng/mL (0.000-0.060)
[2018-08-25 08:39] LABS: CALCIUM 8.1 mg/dL (8.5-10.1); CREATININE - SERUM 2.4 mg/dL (0.6-1.3); MAGNESIUM - SERUM 2.5 mg/dL (1.8-2.4)
[2018-08-25 08:42] LABS: ANION GAP 37.8 mmol/L (8-16); CARBON DIOXIDE 7.7 mmol/L (21.0-32.0); POTASSIUM - SERUM 4.5 mmol/L (3.5-5.1)
[2018-08-25 11:42] LABS: APPEARANCE HAZY (CLEAR); BILIRUBIN NEGATIVE (NEGATIVE); COLOR YELLOW (YELLOW); GLUCOSE 1000 mg/dL (NEGATIVE); KETONE SMALL mg/dL (NEGATIVE); NITRITE NEGATIVE (NEGATIVE); PROTEIN TRACE mg/dL (NEGATIVE); UROBILINOGEN NORMAL (NORMAL)
[2018-08-25 11:43] LABS: RED CELLS - URINE 0-5 /hpf (0-5); WHITE CELLS - URINE OCC /hpf (0-5)
[2018-08-25 12:34] LABS: CALCIUM 8.4 mg/dL (8.5-10.1); MAGNESIUM - SERUM 2.2 mg/dL (1.8-2.4)
[2018-08-25 12:37] LABS: ANION GAP 24.7 mmol/L (8-16); CARBON DIOXIDE 17.9 mmol/L (21.0-32.0); POTASSIUM - SERUM 3.6 mmol/L (3.5-5.1)
[2018-08-25 16:22] LABS: ANION GAP 15.3 mmol/L (8-16); CALCIUM 8.7 mg/dL (8.5-10.1); CREATININE - SERUM 1.7 mg/dL (0.6-1.3); MAGNESIUM - SERUM 2.3 mg/dL (1.8-2.4); POTASSIUM - SERUM 3.5 mmol/L (3.5-5.1)
[2018-08-25 16:27] LABS: CARBON DIOXIDE 25.2 mmol/L (21.0-32.0)
[2018-08-26] VITALS (26 sets, daily range): BP systolic 87–120; BP diastolic 36–67; Ht 177.8 cm; Wt 69.1 kg
[2018-08-26 05:52] LABS: BASOPHILS 0.1 % (0-2); EOSINOPHILS 0.1 % (0-7); HEMATOCRIT 28.8 % (42.0-54.0); HEMOGLOBIN 9.5 g/dL (13.5-17.5); IMMATURE GRANULOCYTES 0.2 % (0-5); LYMPHOCYTES 11.4 % (15-50); MCH 29.1 pg (26.0-34.0); MEAN PLATELET VOLUME 10.9 fL (7.4-10.4); MONOCYTES 4.8 % (2-11); NEUTROPHILS 83.4 % (40-80); RBC 3.26 10x6/uL (4.20-6.10); RDW 13.7 % (11.5-14.5)
[2018-08-26 06:03] LABS: ANION GAP 19.4 mmol/L (8-16); CALCIUM 8.6 mg/dL (8.5-10.1); CARBON DIOXIDE 22.2 mmol/L (21.0-32.0); POTASSIUM - SERUM 3.6 mmol/L (3.5-5.1)
[2018-08-26 06:11] LABS: CREATININE - SERUM 1.2 mg/dL (0.6-1.3)
[2018-08-26 06:21] LABS: MCV 88.3 fL (80.0-100.0); PLATELET COUNT 346 10x3/uL (130-400); WBC 13.3 10x3/uL (4.8-10.8)
[2018-08-27] VITALS (24 sets, daily range): BP systolic 100–130; BP diastolic 55–82
[2018-08-27 14:00] LABS: BASOPHILS 0.3 % (0-2); EOSINOPHILS 1.4 % (0-7); HEMATOCRIT 29.5 % (42.0-54.0); HEMOGLOBIN 9.9 g/dL (13.5-17.5); IMMATURE GRANULOCYTES 0.1 % (0-5); LYMPHOCYTES 30.9 % (15-50); MCH 29.6 pg (26.0-34.0); MCHC 33.6 g/dL (31.0-37.0); MCV 88.3 fL (80.0-100.0); MEAN PLATELET VOLUME 10.9 fL (7.4-10.4); NEUTROPHILS 62.3 % (40-80); PLATELET COUNT 282 10x3/uL (130-400); RBC 3.34 10x6/uL (4.20-6.10); RDW 14.1 % (11.5-14.5)
[2018-08-27 14:13] LABS: ALBUMIN 2.4 g/dL (3.4-5.0); ALKALINE PHOSPHATASE 98 U/L (46-116); ALT (SGPT) 11 U/L (10-68); BILIRUBIN - TOTAL 0.19 mg/dL (0.2-1.3); CALCIUM 8.3 mg/dL (8.5-10.1); CHLORIDE - SERUM 102 mmol/L (98-107); GLUCOSE 215 mg/dL (74-106); POTASSIUM - SERUM 3.1 mmol/L (3.5-5.1); PROTEIN - SERUM 6.2 g/dL (6.4-8.2); SODIUM 140 mmol/L (136-145); eGFR NON AFRICAN AMERICAN 81 mL/min (90-120)
[2018-08-27 14:14] LABS: CALC OSMOLALITY 285 mosm/kg (275-300); CARBON DIOXIDE 28.5 mmol/L (21.0-32.0); UREA NITROGEN 16 mg/dL (7-18)
[2018-08-28] VITALS (18 sets, daily range): BP systolic 90–140; BP diastolic 48–86
[2018-08-28 06:31] LABS: BASOPHILS 0.4 % (0-2); EOSINOPHILS 1.6 % (0-7); HEMATOCRIT 33.6 % (42.0-54.0); HEMOGLOBIN 11.3 g/dL (13.5-17.5); LYMPHOCYTES 31.8 % (15-50); MCH 29.7 pg (26.0-34.0); MCHC 33.6 g/dL (31.0-37.0); MCV 88.2 fL (80.0-100.0); MEAN PLATELET VOLUME 11.5 fL (7.4-10.4); MONOCYTES 6.9 % (2-11); NEUTROPHILS 59.3 % (40-80); PLATELET COUNT 290 10x3/uL (130-400); RBC 3.81 10x6/uL (4.20-6.10); RDW 14.2 % (11.5-14.5); WBC 5.5 10x3/uL (4.8-10.8)
[2018-08-28 06:36] LABS: ALBUMIN 2.7 g/dL (3.4-5.0); ALKALINE PHOSPHATASE 107 U/L (46-116); ALT (SGPT) 13 U/L (10-68); BILIRUBIN - TOTAL 0.42 mg/dL (0.2-1.3); CHLORIDE - SERUM 104 mmol/L (98-107); POTASSIUM - SERUM 3.9 mmol/L (3.5-5.1); PROTEIN - SERUM 7.1 g/dL (6.4-8.2); SODIUM 140 mmol/L (136-145); UREA NITROGEN 13 mg/dL (7-18)
[2018-08-28 06:37] LABS: CALC OSMOLALITY 282 mosm/kg (275-300); CREATININE - SERUM 0.7 mg/dL (0.6-1.3); GLUCOSE 163 mg/dL (74-106); eGFR NON AFRICAN AMERICAN > 90 mL/min (90-120)
--- NOTE | 2018-08-28 19:53 | MORECARE ---
CASE MANAGEMENT DISCHARGE SUMMARY PATIENT: ESTELLA GUSMAN UNIT: [id number] ADM DATE: 08/25/18 AGE: 57 : 58 SEX: M ROOM/BED: D.1210 AUTHOR: CARLOS MANUEL MEHTA PHYSICIAN: REFERRING PHYSICIAN: VINITA THOMAS MD DATE OF SERVICE: 08/28/18 Discharge Plan Patient Name: ESTELLA GUSMAN Facility: [facility]:[place] : 1960 Planned Disposition: Inpatient Rehab Anticipated Discharge Date: Discharge Date: Expected LOS: Initial Reviewer: [email or web address] Initial Review Date: 08/28/2018 Generated: 08/28/18 8:53 pm Patient Name: ESTELLA GUSMAN Page 09475 at 1953 All edits/amendments must be made on the electronic document DICTATION DATE: 08/28/181951 BLOCKER AUTOMATIC: AGNES 08/28/181951 RPT#: [id number] DC DATE: STATUS: ADM IN [facility] [address] [place] [address] END OF REPORT
--- NOTE | 2018-08-28 20:02 | MORECARE ---
CASE MANAGEMENT DISCHARGE SUMMARY PATIENT: ESTELLA GUSMAN UNIT: [id number] ADM DATE: 08/25/18 AGE: 57 : 58 SEX: M ROOM/BED: D.1210 AUTHOR: CARLOS MANUEL MEHTA PHYSICIAN: REFERRING PHYSICIAN: VINITA THOMAS MD DATE OF SERVICE: 08/28/18 Discharge Plan Patient Name: ESTELLA GUSMAN Facility: [facility]:[place] : 1960 Planned Disposition: Inpatient Rehab Anticipated Discharge Date: Discharge Date: Expected LOS: Initial Reviewer: [email or web address] Initial Review Date: 08/28/2018 Generated: 08/28/18 9:02 pm DCPIA - Discharge Planning Initial Assessment Updated by [email or web address]: Abi Vaz on 08/28/18 7:56 pm * Is the patient Alert and Oriented? Yes * How many steps to enter\exit or inside your home? * PCP SUSAN * [facility] * Preadmission Environment Home Alone * ADLs Independent * Equipment None * List name and contact numbers for known caregivers / representatives who currently or will assist patient after discharge: GAYLE NOGUEIRA [phone] * Verbal permission to speak to the caregivers and representatives has been obtained from the patient. Yes * Community resources currently utilized Home Health * Please name any agencies selected above. [facility] * Additional services required to return to the preadmission environment? No * Can the patient safely return to the preadmission environment? Yes * Has this patient been hospitalized within the prior 30 days at any hospital? Yes Last DP export: 08/28/18 6:53 Patient Name: ESTELLA GUSMAN Page 60091 at 2001 All edits/amendments must be made on the electronic document DICTATION DATE: 08/28/182001 STRATEGIC SOURCING SPECIALIST: AGNES 08/28/182001 RPT#: [id number] DC DATE: STATUS: ADM IN [facility] [address] [place] [address] END OF REPORT
--- NOTE | 2018-08-28 20:21 | MORECARE ---
CASE MANAGEMENT DISCHARGE SUMMARY PATIENT: ESTELLA GUSMAN UNIT: [id number] ADM DATE: 08/25/18 AGE: 57 : 58 SEX: M ROOM/BED: D.1210 AUTHOR: JANINEDOC PHYSICIAN: REFERRING PHYSICIAN: VINITA THOMAS MD DATE OF SERVICE: 08/28/18 Discharge Plan Patient Name: ESTELLA GUSMAN Facility: [facility]:[place] : 1960 Planned Disposition: Inpatient Rehab Anticipated Discharge Date: Discharge Date: Expected LOS: Initial Reviewer: [email or web address] Initial Review Date: 08/28/2018 Generated: 08/28/18 9:21 pm Comments DCP- Discharge Planning Updated by [email or web address]: Abi Vaz on 08/28/18 7:[address] Late Entry 08/28/18 @ 1600 Patient Name: ESTELLA GUSMAN Admission Status: ER Accout number: [id number] Admission Date: 08-25-2018 : 1960 Admission Diagnosis: Attending: VINITA PULIDO Current LOS: 3 Anticipated DC Date: Planned Disposition: Inpatient Rehab Primary Insurance: MEDICARE A & B Discharge Planning Comments: CM met with patient at bedside. Patient states he lives at home alone. His daughter Skye [phone] requested that he have rehab or snf rehab because he can't take care of himself and she is unable to care for him. Patient states he would like to go back to inpatient rehab. Patient does have [facility] and will resume care with them once discharged. CM will continue to follow and assist with discharge planning / needs. Industrial Paramedic: Abi Vaz DCPIA - Discharge Planning Initial Assessment Updated by [email or web address]: Abi Vaz on 08/28/18 7:56 pm * Is the patient Alert and Oriented? Yes * How many steps to enter\exit or inside your home? * PCP SUSAN * [facility] * Preadmission Environment Home Alone * ADLs Independent * Equipment None * List name and contact numbers for known caregivers / representatives who currently or will assist patient after discharge: SKYE DAUGHTER [phone] * Verbal permission to speak to the caregivers and representatives has been obtained from the patient. Yes * Community resources currently utilized Home Health * Please name any agencies selected above. [facility] * Additional services required to return to the preadmission environment? No * Can the patient safely return to the preadmission environment? Yes * Has this patient been hospitalized within the prior 30 days at any hospital? Yes Last DP export: 08/28/18 7:02 Patient Name: ESTELLA GUSMAN Page 92952 at 202 All edits/amendments must be made on the electronic document DICTATION DATE: 08/28/182020 MEDICAL STAFF SPECIALIST: AGNES 08/28/182020 RPT#: [id number] IN DATE: STATUS: ADM IN [facility] [address] [place] [address] END OF REPORT
[2018-08-29] VITALS: BP 102/62
[2018-08-29 04:00] VITALS: BP 114/72
[2018-08-29 07:44] LABS: BASOPHILS 0.4 % (0-2); EOSINOPHILS 2.7 % (0-7); HEMATOCRIT 34.3 % (42.0-54.0); HEMOGLOBIN 11.6 g/dL (13.5-17.5); LYMPHOCYTES 33.6 % (15-50); MCH 30.1 pg (26.0-34.0); MCHC 33.8 g/dL (31.0-37.0); MCV 89.1 fL (80.0-100.0); MEAN PLATELET VOLUME 11.7 fL (7.4-10.4); MONOCYTES 6.7 % (2-11); NEUTROPHILS 56.6 % (40-80); PLATELET COUNT 272 10x3/uL (130-400); RBC 3.85 10x6/uL (4.20-6.10); WBC 5.5 10x3/uL (4.8-10.8)
[2018-08-29 08:12] LABS: ALBUMIN 2.8 g/dL (3.4-5.0); ALKALINE PHOSPHATASE 106 U/L (46-116); ALT (SGPT) 13 U/L (10-68); BILIRUBIN - TOTAL 0.39 mg/dL (0.2-1.3); CALCIUM 8.9 mg/dL (8.5-10.1); CARBON DIOXIDE 25.2 mmol/L (21.0-32.0); CHLORIDE - SERUM 104 mmol/L (98-107); GLUCOSE 140 mg/dL (74-106); POTASSIUM - SERUM 3.5 mmol/L (3.5-5.1); PROTEIN - SERUM 7.1 g/dL (6.4-8.2); SODIUM 143 mmol/L (136-145)
[2018-08-29 08:13] LABS: CALC OSMOLALITY 288 mosm/kg (275-300); CREATININE - SERUM 0.9 mg/dL (0.6-1.3); UREA NITROGEN 18 mg/dL (7-18); eGFR NON AFRICAN AMERICAN > 90 mL/min (90-120)
[2018-08-29 11:33] VITALS: BP 111/71
[2018-08-29 16:41] VITALS: BP 114/77
[2018-08-29 19:40] VITALS: BP 122/72
[2018-08-29 23:55] VITALS: BP 109/52
[2018-08-30 03:45] VITALS: BP 108/74
[2018-08-30 06:27] LABS: BASOPHILS 0.2 % (0-2); EOSINOPHILS 2.5 % (0-7); HEMATOCRIT 33.7 % (42.0-54.0); HEMOGLOBIN 11.3 g/dL (13.5-17.5); IMMATURE GRANULOCYTES 0.1 % (0-5); MCH 29.6 pg (26.0-34.0); MCHC 33.5 g/dL (31.0-37.0); MCV 88.2 fL (80.0-100.0); MEAN PLATELET VOLUME 11.3 fL (7.4-10.4); MONOCYTES 4.8 % (2-11); NEUTROPHILS 70.4 % (40-80); PLATELET COUNT 236 10x3/uL (130-400); RBC 3.82 10x6/uL (4.20-6.10); RDW 13.9 % (11.5-14.5)
[2018-08-30 06:30] LABS: WBC 9.3 10x3/uL (4.8-10.8)
[2018-08-30 06:44] LABS: ALBUMIN 2.7 g/dL (3.4-5.0); ALKALINE PHOSPHATASE 106 U/L (46-116); ALT (SGPT) 10 U/L (10-68); BILIRUBIN - TOTAL 0.33 mg/dL (0.2-1.3); CALC OSMOLALITY 280 mosm/kg (275-300); CALCIUM 8.9 mg/dL (8.5-10.1); CARBON DIOXIDE 23.6 mmol/L (21.0-32.0); CHLORIDE - SERUM 104 mmol/L (98-107); CREATININE - SERUM 0.7 mg/dL (0.6-1.3); GLUCOSE 160 mg/dL (74-106); POTASSIUM - SERUM 3.6 mmol/L (3.5-5.1); PROTEIN - SERUM 6.6 g/dL (6.4-8.2); SODIUM 138 mmol/L (136-145); UREA NITROGEN 17 mg/dL (7-18); eGFR NON AFRICAN AMERICAN > 90 mL/min (90-120)
[2018-08-30 07:26] VITALS: BP 108/59
[2018-08-30 11:40] VITALS: BP 102/68
[2018-08-30 16:29] VITALS: BP 100/73
[2018-08-30 20:00] VITALS: BP 114/67
[2018-08-31] VITALS: BP 100/67
[2018-08-31 04:00] VITALS: BP 115/71
[2018-08-31 07:02] LABS: BASOPHILS 0.3 % (0-2); EOSINOPHILS 2.1 % (0-7); HEMATOCRIT 34.6 % (42.0-54.0); HEMOGLOBIN 11.4 g/dL (13.5-17.5); IMMATURE GRANULOCYTES 0.3 % (0-5); LYMPHOCYTES 21.1 % (15-50); MCH 29.4 pg (26.0-34.0); MCHC 32.9 g/dL (31.0-37.0); MCV 89.2 fL (80.0-100.0); MEAN PLATELET VOLUME 12.2 fL (7.4-10.4); MONOCYTES 5.7 % (2-11); NEUTROPHILS 70.5 % (40-80); PLATELET COUNT 254 10x3/uL (130-400); RBC 3.88 10x6/uL (4.20-6.10); WBC 10.3 10x3/uL (4.8-10.8)
[2018-08-31 07:26] LABS: ALBUMIN 2.7 g/dL (3.4-5.0); ALKALINE PHOSPHATASE 106 U/L (46-116); ALT (SGPT) 12 U/L (10-68); BILIRUBIN - TOTAL 0.37 mg/dL (0.2-1.3); CALC OSMOLALITY 282 mosm/kg (275-300); CALCIUM 8.8 mg/dL (8.5-10.1); CARBON DIOXIDE 24.9 mmol/L (21.0-32.0); CHLORIDE - SERUM 104 mmol/L (98-107); CREATININE - SERUM 0.8 mg/dL (0.6-1.3); GLUCOSE 120 mg/dL (74-106); POTASSIUM - SERUM 3.6 mmol/L (3.5-5.1); PROTEIN - SERUM 7.1 g/dL (6.4-8.2); SODIUM 140 mmol/L (136-145); UREA NITROGEN 20 mg/dL (7-18); eGFR NON AFRICAN AMERICAN > 90 mL/min (90-120)
--- NOTE | 2018-08-31 11:58 | MORECARE ---
CASE MANAGEMENT DISCHARGE SUMMARY PATIENT: ESTELLA GUSMAN UNIT: [id number] ADM DATE: 08/25/18 AGE: 57 : 58 SEX: M ROOM/BED: D.1210 AUTHOR: JANINE,DOC PHYSICIAN: REFERRING PHYSICIAN: VINITA THOMAS MD DATE OF SERVICE: 08/31/18 Discharge Plan Patient Name: ESTELLA GUSMAN Facility: [facility]:[place] : 1960 Planned Disposition: Inpatient Rehab Anticipated Discharge Date: Discharge Date: Expected LOS: Initial Reviewer: [id number] Initial Review Date: 08/28/2018 Generated: 08/31/18 12:58 pm Comments DCP- Discharge Planning Updated by [email or web address]: Paola Freed on 08/31/18 10:[address] CM notified that patient has been accepted to [facility] IRF. CM informed patient. CM explained and served DC IMM. CM will continue to follow and assist as needed with discharge planning / needs. DCP- Discharge Planning Updated by [id number]: Abi Vaz on 08/28/18 7:[address] Late Entry 08/28/18 @ 1600 Patient Name: ESTELLA GUSMAN Admission Status: ER Accout number: [id number] Admission Date: 08-25-2018 : 1960 Admission Diagnosis: Attending: VINITA PULIDO Current LOS: 3 Anticipated DC Date: Planned Disposition: Inpatient Rehab Primary Insurance: MEDICARE A & B Discharge Planning Comments: CM met with patient at bedside. Patient states he lives at home alone. His daughter Skye [phone] requested that he have rehab or snf rehab because he can't take care of himself and she is unable to care for him. Patient states he would like to go back to inpatient rehab. Patient does have [facility] and will resume care with them once discharged. CM will continue to follow and assist with discharge planning / needs. Commercial Lines Account Manager: Abi Vaz DCPIA - Discharge Planning Initial Assessment Updated by [id number]: Abi Vaz on 08/28/18 7:56 pm * Is the patient Alert and Oriented? Yes * How many steps to enter\exit or inside your home? * PCP S[facility]AN * [facility] * Preadmission Environment Home Alone * ADLs Independent * Equipment None * List name and contact numbers for known caregivers / representatives who currently or will assist patient after discharge: SKYE DAUGHTER [phone] * Verbal permission to speak to the caregivers and representatives has been obtained from the patient. Yes * Community resources currently utilized Home Health * Please name any agencies selected above. [facility] * Additional services required to return to the preadmission environment? No * Can the patient safely return to the preadmission environment? Yes * Has this patient been hospitalized within the prior 30 days at any hospital? Yes Coverage Notice Reviewer: [id number] Arlin Freed Notice Issued Date-Time: 08/31/2018 11:52 Notice Type: IM Discharge Notice Notice Delivered To: Patient Relationship to Patient: Self Impregnator Operator Name: Delivery Method: HAND - Hand Delivered Rachel Days: Prior Verbal Notification: Recipient Understood Notice: Yes Recipient Signature: Yes Med Rec Note Co-signed by Attending: Coverage Notice Comment: Last DP export: 08/28/18 7:21 Patient Name: ESTELLA GUSMAN Page [id number] at 1158 All edits/amendments must be made on the electronic document DICTATION DATE: 08/31/181157 DRAW BENCH OPERATOR HELPER: AGNES 08/31/181157 RPT#: [id number] DC DATE: STATUS: ADM IN [facility] [address] [place] [address] END OF REPORT
--- NOTE | 2018-09-02 09:24 | MORECARE ---
CASE MANAGEMENT DISCHARGE SUMMARY PATIENT: ESTELLA GUSMAN UNIT: [id number] ADM DATE: 08/25/18 AGE: 57 : 58 SEX: M ROOM/BED: D.1210 AUTHOR: JANINE,DOC PHYSICIAN: REFERRING PHYSICIAN: VINITA THOMAS MD DATE OF SERVICE: 09/02/18 Discharge Plan Patient Name: ESTELLA GUSMAN Facility: [facility]:[place] : 1960 Planned Disposition: Inpatient Rehab Anticipated Discharge Date: Discharge Date: 08/31/2018 Expected LOS: Initial Reviewer: [email or web address] Initial Review Date: 08/28/2018 Generated: 09/02/18 10:24 am Comments DCP- Discharge Planning Updated by [email or web address]: Paola Freed on 08/31/18 10:[address] CM notified that patient has been accepted to [facility]. CM informed patient. CM explained and served DC IMM. CM will continue to follow and assist as needed with discharge planning / needs. DCP- Discharge Planning Updated by [email or web address]: Abi Vaz on 08/28/18 7:[address] Late Entry 08/28/18 @ 1600 Patient Name: ESTELLA GUSMAN Admission Status: ER Accout number: [id number] Admission Date: 08-25-2018 : 1960 Admission Diagnosis: Attending: VINITA PULIDO Current LOS: 3 Anticipated DC Date: Planned Disposition: Inpatient Rehab Primary Insurance: MEDICARE A & B Discharge Planning Comments: CM met with patient at bedside. Patient states he lives at home alone. His daughter Skye [phone] requested that he have rehab or snf rehab because he can't take care of himself and she is unable to care for him. Patient states he would like to go back to inpatient rehab. Patient does have [facility] and will resume care with them once discharged. CM will continue to follow and assist with discharge planning / needs. Residential Treatment Specialist: Abi Vaz DCPIA - Discharge Planning Initial Assessment Updated by [id number]: Abi Vaz on 08/28/18 7:56 pm * Is the patient Alert and Oriented? Yes * How many steps to enter\exit or inside your home? * PCP S[facility]AN * [facility] * Preadmission Environment Home Alone * ADLs Independent * Equipment None * List name and contact numbers for known caregivers / representatives who currently or will assist patient after discharge: SKYE DAUGHTER [phone] * Verbal permission to speak to the caregivers and representatives has been obtained from the patient. Yes * Community resources currently utilized Home Health * Please name any agencies selected above. [facility] * Additional services required to return to the preadmission environment? No * Can the patient safely return to the preadmission environment? Yes * Has this patient been hospitalized within the prior 30 days at any hospital? Yes Coverage Notice Reviewer: [id number] Arlin Freed Notice Issued Date-Time: 08/31/2018 11:52 Notice Type: IM Discharge Notice Notice Delivered To: Patient Relationship to Patient: Self Cable Technician Name: Delivery Method: HAND - Hand Delivered Rachel Days: Prior Verbal Notification: Recipient Understood Notice: Yes Recipient Signature: Yes Med Rec Note Co-signed by Attending: Coverage Notice Comment: Last DP export: 08/31/18 10:58 Patient Name: ESTELLA GUSMAN Page [id number] at 0924 All edits/amendments must be made on the electronic document DICTATION DATE: 09/02/18923 TRAVEL RN OR: AGNES 09/02/18923 RPT#: [id number] DC DATE:08/31/18 STATUS: DIS IN [facility] [address] [place] [address] END OF REPORT
== END 2018-08-31 15:03 | DRG 637 ==
LOC: D.ER 05:05 → D.M3 06:04 → D.CVICU 06:04 → D.M3 08-28 18:25
PROVIDERS: Emergency Medicine; Family Medicine; ADMIT Family Medicine
DX: E11.10 Type 2 diabetes mellitus with ketoacidosis without coma (principal); G93.41 Metabolic encephalopathy; J18.9 Pneumonia, unspecified organism; N17.9 Acute kidney failure, unspecified; D64.9 Anemia, unspecified; I69.398 Other sequelae of cerebral infarction

== ENCOUNTER 2018-08-31 13:40 | Inpatient (IN) | payer MEDICARE, BC ==
[~2018-08-31] VITALS: Ht 177.8 cm; Wt 74.5 kg
[2018-08-31 15:22] VITALS: BMI 21.8
[2018-08-31 15:29] VITALS: BP 107/62; Ht 177.8 cm; Wt 74.5 kg
--- NOTE | 2018-08-31 18:58 | NUR ---
PATIENT IS RESTING IN HIS BED. BED IS DOWN LOW WITH SIDE RAILS UP X2. CALL LIGHT IS IN REACH. PATIENT STATES HE UNDERSTANDS HE MUST USE HIS CALL LIGHT FOR ANY NEEDS.
[2018-08-31 19:30] VITALS: BP 96/57
--- NOTE | 2018-08-31 20:52 | NUR ---
PATIENT IS RESTING IN HIS BED. VITAL SIGNS ARE STABLE. BED IS DOWN LOW WITH SIDE RAILS UP X2. CALL LIGHT IS IN REACH.
--- NOTE | 2018-09-01 00:06 | NUR ---
PATIENT IS SLEEPING. BED IS DOWN LOW WITH SIDE RAILS UP X2. CALL LIGHT IS IN REACH.
--- NOTE | 2018-09-01 04:01 | NUR ---
PATIENT IS RESTING IN HIS BED. HE DENIES ANY NEEDS. BED IS DOWN LOW WITH SIDE RAILS UP X2 AND CALL LIGHT IN REACH.
[2018-09-01 07:33] LABS: BASOPHILS 0.3 % (0-2); EOSINOPHILS 1.4 % (0-7); HEMATOCRIT 34.2 % (42.0-54.0); IMMATURE GRANULOCYTES 0.3 % (0-5); LYMPHOCYTES 21.2 % (15-50); MCH 29.1 pg (26.0-34.0); MCHC 32.2 g/dL (31.0-37.0); MCV 90.5 fL (80.0-100.0); MEAN PLATELET VOLUME 12.7 fL (7.4-10.4); NEUTROPHILS 69.8 % (40-80); PLATELET COUNT 144 10x3/uL (130-400); RBC 3.78 10x6/uL (4.20-6.10); RDW 14.4 % (11.5-14.5); WBC 7.1 10x3/uL (4.8-10.8)
[2018-09-01 07:34] LABS: CALC OSMOLALITY 288 mosm/kg (275-300); CALCIUM 8.7 mg/dL (8.5-10.1); CARBON DIOXIDE 23.1 mmol/L (21.0-32.0); CHLORIDE - SERUM 104 mmol/L (98-107); POTASSIUM - SERUM 3.9 mmol/L (3.5-5.1); SODIUM 139 mmol/L (136-145); UREA NITROGEN 23 mg/dL (7-18); eGFR NON AFRICAN AMERICAN 81 mL/min (90-120)
[2018-09-01 07:39] LABS: GLUCOSE 229 mg/dL (74-106)
--- NOTE | 2018-09-01 07:48 | NUR ---
PATIENT AWAKE AND ALERT AT THIS TIME. SITTING UP IN BED EATING BREAKFAST. NO COMPLAINTS AT THIS TIME. WILL CONTINUE TO MONITOR.
[2018-09-01 08:00] VITALS: BP 123/73
[2018-09-01 19:00] VITALS: BP 122/50
--- NOTE | 2018-09-01 19:12 | NUR ---
PATIENT IS SLEEPING. BED IS DOWN LOW WITH SIDE RAILS UP X2. CALL LIGHT IS IN REACH.
--- NOTE | 2018-09-01 20:12 | NUR ---
PATIENT IS RESTING IN HIS BED. HE DENIES ANY NEEDS. BED IS DOWN LOW WITH SIDE RAILS UP X2. CALL LIGHT IS IN REACH.
--- NOTE | 2018-09-02 00:02 | NUR ---
PATIENT IS SLEEPING. BED IS DOWN LOW WITH SIDE RAILS UP X2. CALL LIGHT IS IN REACH.
--- NOTE | 2018-09-02 04:02 | NUR ---
PATIENT IS SLEEPING. BED IS DOWN WITH SIDE RAILS UP X2. CALL LIGHT IS IN REACH.
[2018-09-02 06:00] LABS: BASOPHILS 0.3 % (0-2); EOSINOPHILS 2.4 % (0-7); HEMATOCRIT 30.5 % (42.0-54.0); IMMATURE GRANULOCYTES 0.2 % (0-5); LYMPHOCYTES 21.7 % (15-50); MCH 29.5 pg (26.0-34.0); MCHC 32.8 g/dL (31.0-37.0); MEAN PLATELET VOLUME 12.2 fL (7.4-10.4); MONOCYTES 8.3 % (2-11); NEUTROPHILS 67.1 % (40-80); RBC 3.39 10x6/uL (4.20-6.10); RDW 14.4 % (11.5-14.5); WBC 8.7 10x3/uL (4.8-10.8)
[2018-09-02 06:17] LABS: PLATELET COUNT 223 10x3/uL (130-400)
[2018-09-02 06:48] LABS: CALC OSMOLALITY 285 mosm/kg (275-300); CALCIUM 8.4 mg/dL (8.5-10.1); CARBON DIOXIDE 22.4 mmol/L (21.0-32.0); CHLORIDE - SERUM 106 mmol/L (98-107); CREATININE - SERUM 0.8 mg/dL (0.6-1.3); POTASSIUM - SERUM 3.8 mmol/L (3.5-5.1); SODIUM 141 mmol/L (136-145); UREA NITROGEN 20 mg/dL (7-18); eGFR NON AFRICAN AMERICAN > 90 mL/min (90-120)
[2018-09-02 06:49] LABS: GLUCOSE 143 mg/dL (74-106)
--- NOTE | 2018-09-02 07:24 | NUR ---
PT RESTING QUIETLY. CL IN REACH. NO SIGNS OF DISTRESS OR PAIN. BED IN LOW POSITION. SIDE RAILS X2. BED ALARM WAIVER SIGNED. RESP EVEN AND UNLABORED. WCTM
[2018-09-02 08:00] VITALS: BP 116/71
--- NOTE | 2018-09-02 08:00 | NUR ---
PT RESTING IN BED, EATING BREAKFAST. PT DENIES NEEDS AT THIS TIME. WCTM.
--- NOTE | 2018-09-02 11:20 | NUR ---
PT LYING IN BED. CL IN REACH. PT DENIES NEEDS OR PAIN. WCTM
--- NOTE | 2018-09-02 13:17 | NUR ---
Nutrition Follow Up: Pt stated that his appetite was fair. Food preferences noted. RD encouraged pt to continue increasing po intake as able to maintain strength, etc. Diet: ADA with honey thick liquids PO Intake: 71% meal avg - po intake is improving BM: 09/01/18 Labs reviewed - Glucose continues elevated Meds noted including MV Rec continue ADA diet with SWEEPER OPERATOR HIGHWAYS recs for consistencies. RD following.
--- NOTE | 2018-09-02 14:16 | NUR ---
PT LYING IN BED. CL IN REACH. PT DENIES NEEDS OR PAIN. WCTM
[2018-09-02 20:00] VITALS: BP 115/72
--- NOTE | 2018-09-02 20:15 | NUR ---
GREETED PATIENT AND INTRODUCED MYSELF HIS NURSE FOR THE EVENING. PATIENT DENIES ANY PAIN AT THIS TIME OR ANY FURTHER NEEDS. CALL LIGHT IN REACH. BED IN LOWEST POSITION.
--- NOTE | 2018-09-02 20:54 | NUR ---
PATIENTS BLOOD SUGAR WAS 54. PATIENT WAS GIVEN THICKENED APPLE JUICE TO BRING BLOOD SUGAR UP. CALL LIGHT IN REACH. [facility].
--- NOTE | 2018-09-02 21:39 | NUR ---
PATIENTS BLOOD SUGAR RECHECKED. BLOOD SUGAR WAS 98. ADMINISTERED 20 UNITS OF LANTUS THAT WAS PREVIOUSLY HELD AND GAVE PATIENT A SNACK OF CHOCOLATE PUDDING AND EVELIO CRACKERS. WCTM.
--- NOTE | 2018-09-02 23:35 | NUR ---
PATIENT ASLEEP LAYING ON LEFT SIDE. HOB AT 30 DEGREES. RESPIRATIONS EVEN. NO SIGNS OF DISTRESS. CALL LIGHT IN REACH. BED IN LOWEST POSITION.
--- NOTE | 2018-09-03 02:10 | NUR ---
PATIENT ASLEEP WITH EYES CLOSED LAYING ON RIGHT SIDE. HOB AT 30 DEGREES. RESPIRATIONS EVEN. NO SIGNS OF DISTRESS. CALL LIGHT IN REACH. BED IN LOWEST POSITION.
--- NOTE | 2018-09-03 03:38 | NUR ---
PATIENT AWAKE AND REQUESTING ICE CHIPS.
[2018-09-03 08:00] VITALS: BP 112/64
--- NOTE | 2018-09-03 16:00 | NUR ---
PATIENT HAS A SCHEDULED SHOWER FOR THIS SHIFT. TOWELS BROUGHT INTO PATIENT BY THIS NURSE. PATIENT STATED HE DID NOT WANT TO TAKE A SHOWER AT THIS TIME, STATED HE WILL TAKE ONE TONIGHT. PATIENT DOES NOT NEEDS ANY HELP WITH A SHOWER. INDEPENDANT IN ROOM.
--- NOTE | 2018-09-03 19:40 | NUR ---
RESTING IN BED WITH RESPIRATIONS UNLABORED. NO C/O PAIN. GARBLED SPEECH AT TIMES BUT CAN MAKE NEEDS KNOWN. NO DISTRESS NOTED.
[2018-09-03 19:53] VITALS: BP 90/50
--- NOTE | 2018-09-04 02:14 | NUR ---
RESTING IN BED WITH RESPIRATIONS UNLABORED.
--- NOTE | 2018-09-04 05:25 | NUR ---
BLOOD SUGAR SHOWED 421, RECHECKED AND RESULTS WERE 438. 20 UNITS GIVEN ORDERED PER SLIDING SCALE AND MESSAGE LEFT FOR DR REEDER. INSTRUCTED PATIENT TO CALL IF HE STARTS FEELING WEAK, CLAMMY SWEATY OR ANYTHING UNUSUAL. STATES HE UNDERSTANDS. WILL CONTINUE TO ASSESS.
--- NOTE | 2018-09-04 06:02 | NUR ---
BLOOD SUGAR NOW 366. ALERT AND ORIENTED. SKIN WARM AND DRY. WILL CONTINUE TO ASSESS.
--- NOTE | 2018-09-04 06:31 | NUR ---
BLOOD SUGAR NOW 395. HE STATES HE ATE SOME GRAHM CRACKERS. WILL REPORT TO ONCOMING NURSE.
[2018-09-04 07:11] LABS: BASOPHILS 0.4 % (0-2); EOSINOPHILS 1.7 % (0-7); HEMATOCRIT 30.6 % (42.0-54.0); HEMOGLOBIN 10.1 g/dL (13.5-17.5); IMMATURE GRANULOCYTES 0.1 % (0-5); LYMPHOCYTES 20.8 % (15-50); MCH 29.6 pg (26.0-34.0); MCV 89.7 fL (80.0-100.0); MEAN PLATELET VOLUME 11.8 fL (7.4-10.4); MONOCYTES 4.9 % (2-11); NEUTROPHILS 72.1 % (40-80); PLATELET COUNT 190 10x3/uL (130-400); RBC 3.41 10x6/uL (4.20-6.10); RDW 14.3 % (11.5-14.5); WBC 7.5 10x3/uL (4.8-10.8)
[2018-09-04 07:14] LABS: CALC OSMOLALITY 288 mosm/kg (275-300); CALCIUM 8.7 mg/dL (8.5-10.1); CARBON DIOXIDE 23.1 mmol/L (21.0-32.0); CHLORIDE - SERUM 100 mmol/L (98-107); SODIUM 136 mmol/L (136-145); UREA NITROGEN 19 mg/dL (7-18); eGFR NON AFRICAN AMERICAN 81 mL/min (90-120)
[2018-09-04 07:15] LABS: GLUCOSE 367 mg/dL (74-106)
[2018-09-04 07:57] VITALS: BP 115/65
--- NOTE | 2018-09-04 08:01 | NUR ---
PT SITTING ON SIDE OF THE BED EATING BREAKFAST CALL LIGHT IN REACH WILL MONITER
--- NOTE | 2018-09-04 11:04 | NUR ---
PATIENT ADMITTED TO REHAB FROM ACUTE FLOOR. DR. DAVIS IS PATIENT PCP. HE IS A CLIENT OF [facility] AND THEY WILL RESUME CARE AT DISCHARGE . WILL CONTINUE TO FOLLOW WITH PATIENT.
--- NOTE | 2018-09-04 18:40 | NUR ---
PT RESTING IN BED WITH EYES OPEN CALL LIGHT IN REACH NO PROBLEMS WILL MONITER
--- NOTE | 2018-09-04 19:32 | NUR ---
AWAKE AND ALERT. LYING IN BED WATCHING TV. RESPIRATIONS UNLABORED. STATES HIS BLOOD SUGAR WAS STILL A LITTLE HIGH THROUGHOUT THE DAY. SKIN WARM AND DRY. NO DISTRESS NOTED. CALL LIGHT IN REACH.
[2018-09-04 19:36] VITALS: BP 109/65
--- NOTE | 2018-09-05 03:31 | NUR ---
RESTING IN BED. RESPIRATIONS UNLABORED. NO DISTRESS NOTED.
[2018-09-05 08:00] VITALS: BP 129/78
--- NOTE | 2018-09-05 16:17 | NUR ---
RESTING QUIETLY IN BED WATCHING TV. DENIES NEEDS OR C/O. CALL LIGHT IN REACH
[2018-09-05 19:15] VITALS: BP 105/61
--- NOTE | 2018-09-05 19:15 | NUR ---
GREETED PATIENT AND INTRODUCED MYSELF HIS NURSE FOR THE EVENING. PATIENT IS LAYING SUPINE POSITION, HOB AT 25 DEGREES WATCHING TV. DENIES ANY PAIN OR ANY FURTHER NEEDS AT THIS TIME. CALL LIGHT IN REACH. BED IN LOWEST POSITION.
--- NOTE | 2018-09-05 22:36 | NUR ---
PATIENT ASLEEP WITH EYES CLOSED LAYING ON LEFT SIDE. RESPIRATIONS EVEN. NO SIGNS OF DISTRESS. CALL LIGHT IN REACH. BED IN LOWEST POSITION.
--- NOTE | 2018-09-06 02:54 | NUR ---
PATIENT ASLEEP WITH EYES CLOSED LAYING ON LEFT SIDE. RESPIRATIONS EVEN. NO SIGNS OF DISTRESS. CALL LIGHT IN REACH. BED IN LOWEST POSITION.
--- NOTE | 2018-09-06 10:34 | NUR ---
PATIENT AWAKE AND ALERT THIS MORNING. NO COMPLAINTS OF PAIN OR DISCOMFORT. ATE 90% OF BREAKFAST. RESTING IN BED AND WATCHING TV AT THIS TIME. WILL CONINTUE TO MONITOR.
[2018-09-06 10:58] VITALS: BP 110/66
--- NOTE | 2018-09-06 13:23 | NUR ---
PATIENT ATE 100% OF LUNCH. NO COMPLAINTS AT THIS TIME. RESTING IN BED WATCHING TV AT THIS TIME.
[2018-09-06 18:50] VITALS: BP 104/57
--- NOTE | 2018-09-06 18:50 | NUR ---
GREETED PATIENT AND INTRODUCED MYSELF HIS NURSE FOR THE EVENING. PATIENT IS LAYING DOWN IN BED WATCHING TV. DENIES ANY NEEDS AT THIS TIME. CALL LIGHT IN REACH.
--- NOTE | 2018-09-06 21:12 | NUR ---
PATIENT REFUSED LANTUS DUE TO MAJOR DROP IN BLOOD SUGAR BY MORNING.WCTM.
--- NOTE | 2018-09-06 23:47 | NUR ---
PATIENT SLEEPING WITH EYES CLOSED LAYING ON RIGHT SIDE. HOB AT 30 DEGREES. RESPIRATIONS EVEN. NO SIGNS OF DISTRESS. CALL LIGHT IN REACH. BED IN LOWEST POSITION.
--- NOTE | 2018-09-07 02:12 | NUR ---
PATIENT ASLEEP WITH EYES CLOSED LAYING ON LEFT SIDE. RESPIRATIONS EVEN. NO SIGNS OF DISTRESS. CALL LIGHT IN REACH. TM.
[2018-09-07 07:38] LABS: BASOPHILS 0.4 % (0-2); EOSINOPHILS 2.8 % (0-7); HEMATOCRIT 31.2 % (42.0-54.0); HEMOGLOBIN 10.2 g/dL (13.5-17.5); IMMATURE GRANULOCYTES 0.1 % (0-5); LYMPHOCYTES 21.1 % (15-50); MCH 29.3 pg (26.0-34.0); MCHC 32.7 g/dL (31.0-37.0); MCV 89.7 fL (80.0-100.0); MEAN PLATELET VOLUME 11.6 fL (7.4-10.4); MONOCYTES 5.2 % (2-11); NEUTROPHILS 70.4 % (40-80); RBC 3.48 10x6/uL (4.20-6.10); RDW 14.5 % (11.5-14.5); WBC 7.9 10x3/uL (4.8-10.8)
[2018-09-07 07:40] LABS: PLATELET COUNT 275 10x3/uL (130-400)
[2018-09-07 07:42] LABS: CALC OSMOLALITY 280 mosm/kg (275-300); CALCIUM 8.3 mg/dL (8.5-10.1); CARBON DIOXIDE 25.4 mmol/L (21.0-32.0); CHLORIDE - SERUM 103 mmol/L (98-107); CREATININE - SERUM 0.9 mg/dL (0.6-1.3); SODIUM 138 mmol/L (136-145); UREA NITROGEN 12 mg/dL (7-18); eGFR NON AFRICAN AMERICAN > 90 mL/min (90-120)
[2018-09-07 07:45] LABS: GLUCOSE 188 mg/dL (74-106)
[2018-09-07 07:58] VITALS: BP 102/58
--- NOTE | 2018-09-07 13:00 | NUR ---
ATE 50% OF LUNCH. STATED "IT WASN'T VERY GOOD TODAY". NO OTHER COMPLAINTS AT THIS TIME.
[2018-09-07 19:00] VITALS: BP 118/66
--- NOTE | 2018-09-07 19:23 | NUR ---
AWAKE AND ALERT RESTING IN BED TALKING WITH VISITOR. NO C/O PAIN. N O DISTRESS NOTED.
--- NOTE | 2018-09-08 00:05 | NUR ---
RESTING IN BED WITH EYES CLOSED. RESPIRATIONS UNLABORED. NO DISTRESS NOTED.
--- NOTE | 2018-09-08 05:34 | NUR ---
BLOOD SUGAR 56. AWAKE AND ALERT. SKIN WARM AND DRY. JUICE WITH SUGAR AND GRAHM CRACKERS GIVEN PO. WILL RECHECK BLOOD SUGAR IN 30 MINUTES.
--- NOTE | 2018-09-08 06:11 | NUR ---
BLOOD SUGAR NOW 99. NO DISTRESS NOTED.
[2018-09-08 08:00] VITALS: BP 97/61
--- NOTE | 2018-09-08 08:00 | NUR ---
SHIFT ASSMT COMPLETED.DENIES NEEDS,SITTING UP IN WC.BREAKFAST GIVEN.UNDERSTANDS AND DEMONSTRATES MIXING HIS LIQS WITH THICKENER TO PRODUCE HONEY THICKENED CONSISTENCY.INDEPENDENT IN ROOM.
--- NOTE | 2018-09-08 12:00 | NUR ---
SITTING UP IN WC FOR LUNCH.CL IN REACH.
--- NOTE | 2018-09-08 14:03 | NUR ---
Nutrition Follow Up: Pt stated that his appetite is fair and he is tired of the meals here. RD provided pt with alternative menu and he stated that there was nothing on there that he liked. Spoke with nursing who reported that pt is eating 25% or less each meal. Pt requested to go to the cafeteria for meals; nursing reported concern that pt is not eating enough to meet needs and requested that RD change diet to regular to promote po intake. RD agreed and informed pt of diet change, provided pt with cafeteria menu. Diet: ADA with honey thick liquids PO Intake: 25% or less meal avg per nursing (per chart 82% meal avg??) BM: 09/06/18 Noted per nursing stage III ulcer healed Labs reviewed Meds noted including MV Will change diet to regular with honey thick liquids. Will provide cafeteria menus and honor food preferences. RD following.
--- NOTE | 2018-09-08 20:12 | NUR ---
PATIENT RECEIVED LAYING ON HIS BACK. PATIENT ASSESSMENT & VITAL SIGNS DONE. PATIENT BED LOW. CALL LIGHT WITHIN REACH. WILL CONTINUE TO MONITOR.
[2018-09-08 20:21] VITALS: BP 110/65
--- NOTE | 2018-09-08 23:07 | NUR ---
PATIENT EYES CLOSED. RESPIRATIONS 18 & EVEN. BED LOW CALL LIGHT WITHIN REACH. WILL CONTINUE TO MONITOR.
--- NOTE | 2018-09-09 04:08 | NUR ---
RESTING IN BED WITH RESPIRATIONS UNLABORED. SLEEPS AT INTERVALS. GOES TO BATHROOM INDEPENDENTLY. SPEAKS IN WHISPER TONE. NO DISTRESS NOTED.
--- NOTE | 2018-09-09 05:34 | NUR ---
PATIENT AWAKE WATCHING TV. PATIENT FSBS 121. NO INSULIN GIVEN. PATIENT MEDICATION GIVEN. NO C/O PAIN OR DISTRESS. BED LOW. CALL LIGHT WITHIN REACH. WILL CONTINUE TO MONITOR.
[2018-09-09 07:35] LABS: BASOPHILS 0.3 % (0-2); EOSINOPHILS 4.1 % (0-7); HEMOGLOBIN 9.4 g/dL (13.5-17.5); IMMATURE GRANULOCYTES 0.2 % (0-5); LYMPHOCYTES 27.9 % (15-50); MCH 29.5 pg (26.0-34.0); MCHC 32.4 g/dL (31.0-37.0); MCV 90.9 fL (80.0-100.0); MEAN PLATELET VOLUME 11.4 fL (7.4-10.4); MONOCYTES 4.6 % (2-11); NEUTROPHILS 62.9 % (40-80); PLATELET COUNT 262 10x3/uL (130-400); RBC 3.19 10x6/uL (4.20-6.10); RDW 14.8 % (11.5-14.5); WBC 6.1 10x3/uL (4.8-10.8)
[2018-09-09 07:50] LABS: CALC OSMOLALITY 282 mosm/kg (275-300); CALCIUM 8.2 mg/dL (8.5-10.1); CARBON DIOXIDE 25.7 mmol/L (21.0-32.0); CHLORIDE - SERUM 106 mmol/L (98-107); POTASSIUM - SERUM 3.8 mmol/L (3.5-5.1); SODIUM 141 mmol/L (136-145); UREA NITROGEN 17 mg/dL (7-18); eGFR NON AFRICAN AMERICAN 81 mL/min (90-120)
[2018-09-09 08:00] VITALS: BP 118/75
--- NOTE | 2018-09-09 08:00 | NUR ---
PATIENT IS ALERT/ORIENT. SITTING UP IN CHAIR AT BEDSIDE TO EAT BREAKFAST. CALL LIGHT WITHIN REACH. VOICES NO NEEDS AT THIS TIME. WILL CONTINUE WITH PLAN OF CARE.
[2018-09-09 08:03] LABS: GLUCOSE 100 mg/dL (74-106)
--- NOTE | 2018-09-09 08:45 | NUR ---
DR. Sheri WEINBERG INTO SEE PATIENT. NEW ORDERS RECEIVED.
--- NOTE | 2018-09-09 12:20 | NUR ---
SITTING UP IN CHAIR.DENIES NEEDS.
--- NOTE | 2018-09-09 14:10 | NUR ---
PATIENT HAS SIGNED A BED/CHAIR ALARM WAVIOR. PATIENT HAS A STEADY GAIT WHEN WALKING WITH A CANE. PATIENT WALKED FROM ROOM TO VENDING MACHINES BY FRONT DOOR.
[2018-09-09 19:00] VITALS: BP 120/67
--- NOTE | 2018-09-09 19:00 | NUR ---
PT WATCHING TV, SMILING I ENTERED THE ROOM JOKING WITH ME, PLEASANT STATES FEELS MUCH BETTER THAN HE DID A FEW WEEKS AGO, NO NEEDS NOTED FLUIDS AND CALL LIGHT WITHIN REACH
--- NOTE | 2018-09-09 19:53 | RHP ---
PATIENT: ESTELLA GUSMAN MEDICAL RECORD: [id number] ACCOUNT: [id number] LOCATION:[facility] : 58 ADMISSION DATE: 08/31/18 REHABILITATION HISTORY AND PHYSICAL EXAMINATION POST ADMISSION PHYSICIAN EXAMINATION POST-ADMISSION PHYSICAL EXAMINATION AND HISTORY AND PHYSICAL ADMITTING DIAGNOSIS: Acute metabolic encephalopathy. HISTORY OF PRESENT ILLNESS: The patient is a 57-year-old gentleman whom we have had in the rehab several times for acute metabolic encephalopathy. He presented to the Emergency Room on August 25 for altered mental status and blood sugar was noted to be too high to read. He had been having some lightheadedness and generalized weakness. His appearence was well nourished, cooperative, lethargic, dehydrated, unkempt, and hyperventilating. He was found to be in DKA. He was admitted to ICU with an insulin drip, strict dietary control, strict in's and out's, PPI prophylaxis, and continuation of home medications where appropriate. On August 26, his chest x-ray showed some bilateral lower lobe airspace disease, suggestive of developing pneumonia. He had leukocytosis with elevated white count. Bedtime swallow eval was done and it showed [id number] oropharyngeal dysphagia with no signs of aspirations. An ADA diet was placed on him with thickened liquids. He was recently in the hospital with pancreatitis. He suffered an WV and got stented. He also has history of CVA with expressive aphasia and residual weakness. He has been somewhat independent with ADLs and mobility at home. Currently, he is mod-to-max assist for ADLs and mobility. He is working with speech therapy for oropharyngeal dysphagia with modified diet of mechanical soft and thickened liquids. He has a delayed response sometimes, both physically and verbally. He has had prolonged immobility and progressive generalized weakness, especially on left side affecting his tolerance to PT. He is very fatigued with limited flexion and extension. He has limited strength. He has got some proximal muscle weakness. It is noted he is living with his daughter and plans to return there at discharge. She and the patient feel that he is just not strong enough to return home now without some type of treatment and I agree with this. COMORBIDITIES: In this patient, include oropharyngeal dysphagia, coronary artery disease, CVA, diabetes, acute kidney injury, expressive aphasia, peripheral neuropathy, dysphagia, alcohol dependence, chronic back pain, acute metabolic encephalopathy, hypertension, and diabetes. PAST MEDICAL HISTORY: Significant for CVA, neuropathy, diabetes, coronary artery disease, WV, angina, shortness of breath, chronic back pain, tobacco use, alcohol use, and DKA. PAST SURGICAL HISTORY: Includes coronary artery bypass grafting, stent placement times 7, vasectomy, and left shoulder surgery. ALLERGIES: No known drug allergies. CURRENT MEDICATIONS: Include Crestor 10 mg daily. He is on Protonix 40 mg daily, multivitamin daily, folate 1 mg daily, TriCor 145 mg daily, Plavix 75 mg daily, aspirin 325 mg daily, Zenpep two caps t.i.d. p.r.n. with meals, Atrovent updrafts as needed, and Xalatan eyedrops one drop at bedtime. He is on Lantus 20 units at bedtime. He is on Humulin R with intermediate sliding scale. He is HISTORY AND PHYSICAL [id number] UZMAESTELLA TALLEY on hydrocodone 5/325 one tab q. 6 hours p.r.n. and Neurontin 300 mg b.i.d. HABITS: He does have history of alcohol and tobacco use. FAMILY HISTORY: Noncontributory. SOCIAL HISTORY: The patient hopes to return back home and get back to his prior level of functioning. REVIEW OF SYSTEMS: GENERAL: He does complain of weakness and fatigue. HEENT: Denies cold, cough, or congestion. CARDIOVASCULAR: He denies chest pain. PHYSICAL EXAMINATION: VITAL SIGNS: Stable and afebrile. GENERAL: Older than stated age white male, in no acute distress upon exam. HEENT: Normocephalic and atraumatic. Mucosa moist. NECK: Supple. No lymphadenopathy. LUNGS: Clear at this time. HEART: Regular rate and rhythm. ABDOMEN: Benign. EXTREMITIES: No clubbing, cyanosis, or edema. NEUROLOGIC: He does have noted dysarthria. He has also got noted weakness. LABORATORY DATA: White count 7.1, H&H of 11 and 34, and platelet count is noted to be 144. Sodium is 139, potassium 3.9, BUN and creatinine of 23 and 1.0, and blood sugar is noted to be 229. ASSESSMENT: This is a 57-year-old gentleman admitted to rehab with working diagnosis of acute metabolic encephalopathy, complicated by known coronary artery disease and DKA. The patient has potential to make improvement. We will institute the following multidisciplinary therapies including, but not limited to physical, occupational, respiratory, speech, nutritional services, prosthetics, and orthotics. Given his complex medical condition and risk for more complications, rehabilitation services cannot be provided at a low level of care such as skilled nurse facility. PLAN: 1. Admit to [facility] for intensive inpatient therapy to include the following disciplines; A. Physical therapy to improve gait, all transfer skills, and bed mobility to a modified independent level. B. Occupational therapy to improve activities of daily living to a modified independent level. C. Case management to assist with discharge planning and placement options. D. Nutrition to assist with nutritional needs. E. Rehabilitation nursing to assist in monitoring the patient's underlying medical conditions and to assist with any type of bowel or bladder management. 2. The patient's current medications and medical care will be continued. 3. The patient will be placed on standard fall precautions. 4. I will go ahead and place him on an antidepressant. I feel like he is pretty depressed with everything that has been going on. 5. I will follow up in the a.m. HISTORY AND PHYSICAL [id number] ESTELLA GUSMAN TRANSINT:[id number] Voice Confirmation ID: [id number] DOCUMENT ID: [id number] JOSH notes whether there has been none or any medical/functional change since admission: - No change since the PAS JOSH attests patient continues to be appropriate for IRF: - Remains appropriate for the ARU JENA WEINBERG MD at 1953 CC: [id number] DICTATION DATE: 09/01/18 1512 COTTON GROWER: 09/01/18 1803 ADM IN [facility] [address] [place] [address]
--- NOTE | 2018-09-10 00:22 | NUR ---
PT ASLEEP NO NEEDS NOTED THICKENED LIQUIDS AND CALL LIGHT WITHIN REACH
--- NOTE | 2018-09-10 04:26 | NUR ---
PT ASLEEP NO NEEDS NOTED FLUIDS AND CALL LIGHT WITHIN REACH
--- NOTE | 2018-09-10 07:30 | NUR ---
RESTING QUIETLY IN BED. EYES CLOSED. RESP EFFORT NON LABORED. CALL LIGHT IN REACH
[2018-09-10 08:00] VITALS: BP 95/57
--- NOTE | 2018-09-10 12:22 | NUR ---
DR WEINBERG NOTIFIED OF FSBS OF 420. NO NEW ORDERS
--- NOTE | 2018-09-10 13:03 | NUR ---
SITTING UP IN WC IN ROOM FINISHING LUNCH AND TALKING WITH VISITOR. DENIES NEEDS OR C/O. CALL LIGHT IN REACH.
--- NOTE | 2018-09-10 16:20 | NUR ---
PATIENT REQUEST TO HAVE [facility] AT DISCHARGE.
[2018-09-10 19:00] VITALS: BP 103/51
--- NOTE | 2018-09-10 19:54 | NUR ---
PT ASLEEP NO NEEDS NOTED AT THIS TIME THICKENED FLUIDS AND CALL LIGHT WITHIN REACH ALARM WAIVER SIGNED IN CHART, PT INDEPENDENT
--- NOTE | 2018-09-10 21:00 | NUR ---
PATIENT FSBS 92. PATIENT GIVEN PUDDING CUP TO EAT. WILL CONTINUE TO MONITOR
--- NOTE | 2018-09-11 01:08 | NUR ---
PATIENT EYES CLOSED. RESPIRATIONS 18 & EVEN. BED LOW. CALL LIGHT WITHIN REACH. WILL CONTINUE TO MONITOR.
[2018-09-11 05:51] LABS: BASOPHILS 0.6 % (0-2); EOSINOPHILS 6.3 % (0-7); HEMATOCRIT 30.2 % (42.0-54.0); IMMATURE GRANULOCYTES 0.4 % (0-5); LYMPHOCYTES 40.3 % (15-50); MCH 29.6 pg (26.0-34.0); MCHC 33.1 g/dL (31.0-37.0); MCV 89.3 fL (80.0-100.0); MONOCYTES 6.5 % (2-11); NEUTROPHILS 45.9 % (40-80); RBC 3.38 10x6/uL (4.20-6.10); RDW 14.8 % (11.5-14.5); WBC 4.9 10x3/uL (4.8-10.8)
[2018-09-11 05:55] LABS: PLATELET COUNT 184 10x3/uL (130-400)
[2018-09-11 06:29] LABS: CALCIUM 8.3 mg/dL (8.5-10.1); CARBON DIOXIDE 27.4 mmol/L (21.0-32.0); CHLORIDE - SERUM 108 mmol/L (98-107); POTASSIUM - SERUM 3.6 mmol/L (3.5-5.1); SODIUM 144 mmol/L (136-145); eGFR NON AFRICAN AMERICAN 81 mL/min (90-120)
[2018-09-11 06:41] LABS: CALC OSMOLALITY 282 mosm/kg (275-300)
[2018-09-11 06:42] LABS: UREA NITROGEN 11 mg/dL (7-18)
[2018-09-11 06:43] LABS: GLUCOSE 50 mg/dL (74-106)
--- NOTE | 2018-09-11 06:49 | NUR ---
PATIENT FSBS 108 AFTER SNACK.
--- NOTE | 2018-09-11 08:00 | NUR ---
PATIENT IS ALERT/ORIENT. CALL LIGHT WITHIN REACH. VOICES NO NEEDS AT THIS TIME. WILL CONTINUE WITH PLAN OF CARE.
--- NOTE | 2018-09-11 10:16 | NUR ---
OCCUPATIONAL THERAPIST WORKING WITH PATIENT. DENIES ANY PAIN/DISC AT THIS TIME.
--- NOTE | 2018-09-11 12:39 | NUR ---
Nutrition Follow Up: Chart reviewed. Diet: Regular with Honey Thick Liquids PO Intake: 64% meal avg - po intake is improving BM: 09/09/18 Labs reviewed - Glucose elevated at times, low at times Meds noted including Lantus, Humulin, MV Rec continue regular diet with PORTABLE TRACKMAN recs for consistencies. Will continue to honor food preferences. RD following.
[2018-09-11 13:42] VITALS: BP 106/73
--- NOTE | 2018-09-11 17:34 | NUR ---
PATIENT WALKING IN HALLWAY WITH CANE. GAIT STEADY
--- NOTE | 2018-09-11 20:00 | NUR ---
PT IS RESTING IN BED WITH EYES OPEN. ALERT AND ORIENTED X 3. DENIES ANY PAIN OR DISCOMFORT AT THIS TIME. NO NEEDS VOICED. SR'S ARE UP X 3 IN BED. CALL LIGHT AND BEDSIDE TABLE ARE WITHIN EASY REACH.
[2018-09-11 20:32] VITALS: BP 113/71
--- NOTE | 2018-09-11 23:34 | NUR ---
PT IS RESTING QUIETLY IN BED WITH EYES CLOSED. RESPS ARE EVEN AND UNLABORED. NO ACUTE DISTRESS NOTED.
--- NOTE | 2018-09-12 01:45 | NUR ---
RESTING IN BED WITH EYES CLOSED.
--- NOTE | 2018-09-12 04:50 | NUR ---
PT RESTING IN BED WITH EYES CLOSED.
--- NOTE | 2018-09-12 05:56 | NUR ---
PT ASLEEP NO NEEDS NOTED FLUIDS AND CALL LIGHT WITHIN REACH
--- NOTE | 2018-09-12 08:00 | NUR ---
SHIFT ASSMT COMPLETED.DENIES NEEDS.CL IN REACH.
[2018-09-12 08:07] VITALS: BP 115/73
--- NOTE | 2018-09-12 12:00 | NUR ---
SITTING UP EATING LUNCH.GOOD APPETITE NOTED.
--- NOTE | 2018-09-12 16:00 | NUR ---
RESTING QUIETLY IN BED AFTER DOING LAUNDRY.
[2018-09-12 19:00] VITALS: BP 110/70; BP 162/67
--- NOTE | 2018-09-12 19:24 | NUR ---
PATIENT IS SLEEPING. BED IS DOWN LOW. CALL LIGHT IS IN REACH.
--- NOTE | 2018-09-12 21:10 | NUR ---
PATIENT IS RESTING IN HIS BED. VITAL SIGNS STABLE. HE DENIES ANY NEEDS. BED IS DOWN LOW WITH SIDE RAILS UP X 2 AND CALL LIGHT IS IN REACH.
--- NOTE | 2018-09-13 00:14 | NUR ---
PATIENT IS SLEEPING. BED IS DOWN LOW WITH SIDE RAILS UP X2 AND CALL LIGHT IN REACH.
--- NOTE | 2018-09-13 00:19 | NUR ---
PATIENT CALLED FOR HIS BLOOD SUGAR TO BE CHECKED. DFS IS 37. WILL GIVE PATIENT SOME SNACKS AND RECHECK BLOOD SUGAR.
--- NOTE | 2018-09-13 00:51 | NUR ---
PATIENT WAS GIVEN 2 PUDDING, 2 PKGS GRAHM CRACKERS AND 1 OJ. BLOOD SUGAR RECHECK IS 96.
--- NOTE | 2018-09-13 04:04 | NUR ---
PATIENT IS SLEEPING. BED IS DOWN LOW WITH SIDE RAILS UP X2. CALL LIGHT IS IN REACH.
[2018-09-13 08:00] VITALS: BP 120/74
--- NOTE | 2018-09-13 08:00 | NUR ---
SHIFT ASSMT COMPLETED.SITTING UP IN WC FOR BREAKFAST.DENIES NEEDS.
--- NOTE | 2018-09-13 12:00 | NUR ---
STATES SNEEZING ALOT TODAY.EATING LUNCH.USING HONEY THICKNER IN LIQS.CL IN REACH.
[2018-09-13 19:19] VITALS: BP 123/77
--- NOTE | 2018-09-13 19:40 | NUR ---
PATIENT IS SLEEPING. BED IS DOWN LOW WITH SIDE RAILS UP X2. CALL LIGHT IS IN REACH.
--- NOTE | 2018-09-13 20:53 | NUR ---
PATIENT IS RESTING IN HIS BED. VITAL SIGNS ARE STABLE. HE DENIES ANY NEEDS. BEED IS DOWN LOW WITH SIDE RAILS UP X2 AND CALL LIGHT IS IN REACH.
--- NOTE | 2018-09-14 | NUR ---
PATIENT IS SLEEPING. BED IS DOWN LOW. SIDE RAILS UP X2. CALL LIGHT IN REACH.
--- NOTE | 2018-09-14 04:00 | NUR ---
PATIENT IS SLEEPING. BED IS DOWN LOW WITH SIDE RAILS UP X2. CALL LIGHT IN REACH.
[2018-09-14 07:27] LABS: BASOPHILS 0.3 % (0-2); EOSINOPHILS 5.4 % (0-7); HEMATOCRIT 34.1 % (42.0-54.0); HEMOGLOBIN 11.1 g/dL (13.5-17.5); IMMATURE GRANULOCYTES 0.2 % (0-5); LYMPHOCYTES 32.8 % (15-50); MCH 29.8 pg (26.0-34.0); MCHC 32.6 g/dL (31.0-37.0); MCV 91.7 fL (80.0-100.0); MEAN PLATELET VOLUME 11.3 fL (7.4-10.4); MONOCYTES 3.7 % (2-11); NEUTROPHILS 57.6 % (40-80); RBC 3.72 10x6/uL (4.20-6.10)
[2018-09-14 07:48] LABS: CALCIUM 8.8 mg/dL (8.5-10.1); CARBON DIOXIDE 28.8 mmol/L (21.0-32.0); CREATININE - SERUM 1.2 mg/dL (0.6-1.3); POTASSIUM - SERUM 3.8 mmol/L (3.5-5.1)
[2018-09-14 07:53] LABS: PLATELET COUNT 320 10x3/uL (130-400)
--- NOTE | 2018-09-14 10:18 | NUR ---
PATIENT AWAKE AND ALERT THIS MORNING. ATE 100% OF BREAKFAST. GAVE SELF SHOWER THIS MORNING. NO COMPLAINTS OF PAIN OR DISCOMFORT. VISITED THIS MORNING. PATIENT IS TO BE DISCHARGED TOMORROW. IN THERAPY AT THIS TIME.
[2018-09-14 10:46] VITALS: BP 116/68
[2018-09-14 19:00] VITALS: BP 144/52
--- NOTE | 2018-09-14 19:00 | NUR ---
PATIENT IS SLEEPING. BED IS DOWN LOW WITH SIDE RAILS UP X2. CALL LIGHT IS IN REACH.
--- NOTE | 2018-09-14 20:51 | NUR ---
PATIENT IS RESTING IN HIS BED. VITAL SIGNS ARE STABLE. BED IS DOWN LOW WITH SIDE RAILS UP X2. CALL LIGHT IS IN REACH.
--- NOTE | 2018-09-15 00:02 | NUR ---
PATIENT IS SLEEPING. CALL LIGHT IN REACH.
--- NOTE | 2018-09-15 04:00 | NUR ---
PATIENT IS SLEEPING. BED IS DOWN LOW AND CALL LIGHT IS IN REACH.
[2018-09-15 07:33] VITALS: BP 125/65
--- NOTE | 2018-09-15 08:00 | NUR ---
SITTING UP IN WC IN ROOM EATING BREAKFAST. CALL LIGHT IN REACH.
[2018-09-15] MEDS ORDERED: LEXAPRO10 MG PO (08:34)
[2018-09-15] MEDS ORDERED: Lantus Solostar PEN SC (08:37)
[2018-09-15] MEDS ORDERED: HYDROCODON-ACE1 EAC7 PO (08:38)
--- NOTE | 2018-09-15 10:46 | NUR ---
DC FROM FLOOR WITH ALL PERSONAL BELONGINGS. LEFT FLOOR IN . BROTHER CAME TO GET PT. MEDS CALLED IN TO [facility] IN [place]. REVIEWED MEDS, DC PLAN AND FOLLOW UP APPTS.
--- NOTE | 2018-09-15 11:23 | NUR ---
PATIENT DISCHARGING HOME WITH FAMILY. [facility] WILL FOLLOW WITH PATIENT AT HOME. NO NEW DME NEEDED AT THIS TIME. DR. DAVIS 09/18/18 @ 3:30, DR. RM/ERNIE REID 10/13/18 @ 10:30. PATIENT CHICE FORM FOR HOME HEALTH AND IM[facility] FORMS SIGNED AND FILED IN CHART. DISCHARGE INSTRUCTIONS WITH FIM DATA FAXED TO PCP AND TO HOME HEALTH
== END 2018-09-15 10:45 | disposition home health service (06) | DRG 70 ==
LOC: D.REHAB 13:40
PROVIDERS: ADMIT Emergency Medicine
DX: G93.41 Metabolic encephalopathy (principal); E11.10 Type 2 diabetes mellitus with ketoacidosis without coma; N17.9 Acute kidney failure, unspecified; E87.2 Acidosis; F17.203 Nicotine dependence unspecified, with withdrawal; R13.12 Dysphagia, oropharyngeal phase; I25.10 Atherosclerotic heart disease of native coronary artery without angina pectoris; E11.40 Type 2 diabetes mellitus with diabetic neuropathy, unspecified; I69.320 Aphasia following cerebral infarction; F10.20 Alcohol dependence, uncomplicated; G89.29 Other chronic pain; I10 Essential (primary) hypertension; R53.1 Weakness; E11.65 Type 2 diabetes mellitus with hyperglycemia

== ENCOUNTER 2019-03-04 12:31 | Inpatient (IN) | payer MEDICARE, BC ==
[~2019-03-04] VITALS: Ht 177.8 cm; Wt 96.4 kg
[2019-03-04] VITALS (9 sets, daily range): BP systolic 93–146; BP diastolic 53–89; BMI 24.1
--- NOTE | ~2019-03-04 | HEMODYNAMI ---
PATIENT:ARTIE GUSMAN MEDICAL RECORD: [id number] : 58 LOCATION:[facility] D.[address] [facility]# [id number] ADMISSION DATE: 03/04/19 Generatedon:03/05/201910:40 Patient name: ARTIE GUSMAN Patient #: [id number] SSN: : 1960 Date of study: 03/05/2019 Page: Of Hemodynamic Procedure Report Patient Data Patient Demographics Procedure consent was obtained First Name: ARTIE Gender: Male Last Name: UZMA : 1960 Middle Initial: TEETEE Age: 58 year(s) Patient #: [id number] Race: Additional ID: [id number] Contact details Address: [place] [address] State: [place] City: [place] Zip code: [address] Past Medical History Allergies: No allergy information Admission Admission Data Admission Date: 03/04/2019 Admission Time: 16:50 Room #: D.2311 Weight (lbs.): 171.96 Weight (kg.): 78 Lab Results Lab Result Date: 03/05/2019 Lab Result Time: 0:00 Biochemistry Name Units Result Min Max Creatinine mg/dl 1.5 --(----)-* 0.6 1.3 eGFR ml/min 51 *-(----)-- 90 120 NONAFRICAN CBC Name Units Result Min Max Hematocrit % 32.6 *-(----)-- 42 54 Hemoglobin g/dl 11.4 *-(----)-- 13.5 17.5 Procedure Procedure Types Cath Procedure Diagnostic Procedure LHC LHC w/Coronaries w/Grafts Sedation Charges Moderate Sedation up to 15 minutes PCI Procedure PTCA PTCA Initial Procedure Description Procedure Date Procedure Date: 03/05/2019 Procedure Start Time: 10:15 Procedure End Time: 10:39 Procedure Staff Name Function Artie King MD Performing Physician Therese Salguero RT Monitor Virgie Catherine RT Scrub Vipul Johnson RT Chest Painting And Sealing Supervisor Buffie Turner RN Nurse Procedure Data Cath Procedure Fluoroscopy Diagnostic fluoroscopy Total fluoroscopy Time: 5.4 time: 5.4 min min Diagnostic fluoroscopy Total fluoroscopy dose: dose: 1053 mGy 1053 mGy Contrast Material Contrast Material Type Amount (ml) Isovue 300 116 Entry Location Entry Primary Successful Side Size Upsize Upsize Entry Closure Succes sful Closure Location (Fr) 1 (Fr) 2 (Fr) Remarks Device Remarks Femoral Right 6 Fr Exoseal artery Short Estimated blood loss: 10 ml Diagnostic catheters Device Type Used For End Catheter Placement MULTIPACK JL 4.0 5Fr Procedure catheter MULTIPACK 3DRC 5Fr Procedure catheter DIAGNOSTIC AR2 MOD 5 Fr Procedure catheter ([id number]) MULTIPACK Pigtail 5 Fr Procedure catheter Procedure Complications No complications Procedure Medications Medication Administration Route Dosage Oxygen etCO2 Nasal cannula 2 l/min Lidocaine 2% added to field 20 Heparin Flush Bag added to field 2 bags (1000units/500ml NS) 0.9% NaCl I.V. Versed I.V. 1 mg Fentanyl I.V. 50 mcg Versed I.V. 1 mg Fentanyl I.V. 50 mcg Heparin Bolus I.V. 5000 units Integrilin (Bolus 6.8 ml 2mg/ml) Hemodynamics Rest Heart Rate: 80 (bpm) Pressure Samples Time Site Value (mmHg) Purpose Heart Use Rate(bpm) 10:24 LV 86/8,9 Snapshot 75 10:24 LV 85/8,7 Snapshot 74 10:25 AO 81/61(70) Pullback 73 10:25 LV 81/18,19 Pullback 73 Gradients Valve Time Site 1 Site 2 Mean SEP/DFP Peak To Heart Use (mmHg) (sec/min) Peak Rate (mmHg) (bpm) Aortic 10:25 LV AO 0 73 81/18,19 81/61(70) Calculations Valve P-P Mean Valve Index Valve Source Name Gradient Area Flow (cm2) Aortic 0 0 Snapshots Pre Cath Intra NCS Post Cath Vital Signs Time Heart Resp SPO2 etCO2 NIBP Rhythm Pain Sedation Rate (ipm) (%) (mmHg) (mmHg) Status Level (bpm) 10:09:22 73 20 100 0 98/64(78) NSR 0 (11) 10(A) , No pain 10:13:26 79 15 100 0 94/67(78) NSR 0 (11) 10(A) , No pain 10:17:28 78 15 100 0 95/70(79) NSR 0 (11) 9(A) , No pain 10:21:32 78 14 100 0 103/65(82) NSR 0 (11) 9(A) , No pain 10:25:40 73 20 100 0 94/64(72) NSR 0 (11) 9(A) , No pain 10:29:43 73 14 100 0 87/60(68) NSR 0 (11) 9(A) , No pain 10:33:45 75 15 100 0 91/61(70) NSR 0 (11) 10(A) , No pain 10:37:49 72 16 100 0 93/61(73) NSR 0 (11) 10(A) , No pain Medications Time Medication Route Dose Verified Delivered Reason Notes Effectiveness by by 10:07:56 Oxygen etCO2 2 Artie Up used for Nasal l/min St Kevin Turner RN procedure cannula 10:08:06 Lidocaine 2% added 20ml Artie Alva for local to vial [facility] anesthetic field MD APARICIO 10:08:32 Heparin Flush added 2 Artie Alva used for Bag to bags [facility] procedure (1000units/500ml field MD APARICIO NS) 10:08:43 0.9% NaCl I.V. kvo Artie Up Per physician ml/hr St Kevin Turner RN, MD 10:10:03 Versed I.V. 1 mg Artie Up for sedation St Kevin Turner RN, MD 10:11:09 Fentanyl I.V. 50 Artie Up for sedation mcg St Kevin Turner RN, MD 10:24:13 Versed I.V. 1 mg Artie Up for sedation St Kevin Turner RN, MD 10:24:18 Fentanyl I.V. 50 Artie Up for sedation mcg St Kevin Turner RN, MD 10:27:24 Heparin Bolus I.V. 5000 Artie Up for verif ied units St Kevin Turner RN anticoagulation with dr MD mcgill 10:29:46 Integrilin I.C 6.8 Artie Alva for waste d (Bolus 2mg/ml) ml [facility] antiplatelet 3.2 ml MD APARICIO therapy of vial. placed on table for artem Procedure Log Time Note 9:14:25 Signed procedure consent form obtained from patient. 9:14:26 Diagnostic Cath status Urgent 9:14:28 Time tracking: Stay late (Procedures after 5:00pm) 9:14:33 Plan of Care:Hemodynamics will remain stable., Cardiac rhythm will remain stable., Comfort level will be maintained., Respiratory function will remain adequate., Patient/ family verbilizes understanding of procedure., Procedure tolerated without complication., Recovers from procedure without complications.. 9:15:22 Patient Weight : 171.96 lbs 9:15:29 Patient allergic to No allergy information 9:17:00 Lab Result : eGFR NONAFRICAN 51 ml/min 9:17:00 Lab Result : Creatinine 1.5 mg/dl 9:17:00 Lab Result : Hematocrit 32.6 % 9:17:00 Lab Result : Hemoglobin 11.4 g/dl 9:30:52 Vipul CRANE(R) sent for patient. Start room use. 9:41:09 Patient received from ICU to CCL 1 Alert and oriented. Tansferred to table in Supine position. 9:41:10 Warm blankets applied, and laron hugger turned on for patient comfort. 9:41:10 Correct patient and procedure confirmed by team. 9:41:11 ECG and BP/O2 sat monitors applied to patient. 9:45:17 Pre-procedure instructions explained to patient. 9:45:18 Pre-op teaching completed and patient verbalized understanding. 9:45:20 Family in waiting room. 9:45:21 Patient NPO since Midnight. 9:45:24 Is patient on blood thinner?Yes 9:45:27 Patient diabetic? Yes. 9:45:29 Previous problem with sedation/anesthesia? No ? 9:45:31 Snore? Yes 9:45:55 Deviated septum? No 9:45:57 Opens mouth fully? Yes 9:45:58 Sticks out tongue? Yes 9:46:02 Airway obstruction? No ? 9:46:06 Dentures? No ? 9:46:43 Lab results completed and on chart. 9:54:06 IV started by Annel Turner RN inleft hand with a 22 gauge IV catheter with 0.9% NaCl at KVO. 10:07:56 Oxygen 2 l/min etCO2 Nasal cannula was administered by Annel Turner RN; used for procedure; 10:08:06 Lidocaine 2% 20ml vial added to field was administered by Artie King MD; for local anesthetic; 10:08:11 Right groin area was prepped with chlora-prep and draped in sterile fashion 10:08:13 Alarms reviewed by R. N. 10:08:14 Sharps counted by scrub and verified by R.N. 10:08:15 Physician arrived 10:08:18 Vital chart was started 10:08:19 --------ALL STOP TIME OUT------ 10:08:29 Final Timeout: patient, procedure, and site verified with staff and physician. All members of the team are in agreement. 10:08:32 Heparin Flush Bag (1000units/500ml NS) 2 bags added to field was administered by Artie King MD; used for procedure; 10:08:32 Right groin site verified by team. 10:08:37 Fire Safety Assessment: A--An alcohol-based skin anteseptic being used preoperatively., C--Open oxygen or nitrous oxide is being used., D--An ESU, laser, or fiber-optic light is being used. 10:08:43 0.9% NaCl kvo ml/hr I.V. was administered by Annel Turner RN; Per physician; 10:08:45 Physical assessment completed. ASA score P 2 - A patient with mild systemic disease as per Arite King MD. 10:09:15 3a) 45-59 Moderately reduced kidney function. 10:09:21 Maximum allowable contrast does (3.7 X eGFR X 0.75)142 ml. 10:09:27 Sedation plan: IV Moderate Sedation Medication:Versed, Fentanyl 10:09:51 Use device set Femoral Dx 10:09:52 ACIST Syringe (12796) opened to sterile field. 10:09:52 Bag Decanter (2002) opened to sterile field. 10:09:53 Medline Cath Pack ([id number]) opened to sterile field. 10:09:54 ACIST Hand Control (96669) opened to sterile field. 10:09:54 ACIST Manifold (89067) opened to sterile field. 10:09:55 DIAGNOSTIC Multipack 5Fr catheter set (DW2522) opened to sterile field. 10:09:56 Tegaderm 4 x 4 (1626W) opened to sterile field. 10:09:59 EMERALD Guide Wire (837-121) opened to sterile field. 10:10:02 SHEATH 5FR [place] (RPB816) opened to sterile field. 10:10:03 Versed 1 mg I.V. was administered by Annel Turner RN; for sedation; 10:10:56 Zero performed for pressure channel P1 10:11:09 Fentanyl 50 mcg I.V. was administered by Annel Turner RN; for sedation; 10:13:37 Baseline sample Acquired. 10:13:38 Full Disclosure recording started 10:15:05 Procedure started. 10:15:15 Local anesthetic to right femoral artery with Lidocaine 2% by Artie King MD.INITIAL ACCESS ONLY 10:15:27 A 6 Fr Short sheath was inserted into the Right Femoral artery 10:16:38 A MULTIPACK JL 4.0 5Fr catheter was advanced over the wire and used for Procedure. 10:16:42 LCA angiography performed. 10:18:49 A MULTIPACK 3DRC 5Fr catheter was advanced over the wire and used for Procedure. 10:18:53 RCA angiography performed. 10:19:41 SVG to RCA angiography performed. 10:22:17 STARKS to Diag angiography performed. 10:22:56 A DIAGNOSTIC AR2 MOD 5 Fr catheter (132065L) was advanced over the wire and used for Procedure. 10:23:21 SVG to Circ angiography performed. 10:24:13 Versed 1 mg I.V. was administered by Annel Turner RN; for sedation; 10:24:18 Fentanyl 50 mcg I.V. was administered by Annel Turner RN; for sedation; 10:24:19 Catheter removed. 10:24:28 A MULTIPACK Pigtail 5 Fr catheter was advanced over the wire and used for Procedure. 10:24:36 LV angiography performed. 10:25:22 EF : 15 % 10:25:24 Catheter removed. 10:26:49 GUIDE 6FR XBLAD 3.5 catheter ([id number]) opened to sterile field. 10:26:50 WHISPER 300cm guide wire ([id number]) opened to sterile field. 10:27:00 INFLATOR Merit BasixCompak (VE1173) opened to sterile field. 10:27:24 Heparin Bolus 5000 units I.V. was administered by Annel Turner RN; for anticoagulation; verified with dr mcgill 10:27:48 6 Fr XBLAD3.5 guide catheter was inserted over the wire 10:27:52 WHISPER wire advanced. 10:29:46 Integrilin (Bolus 2mg/ml) 6.8 ml I.C was administered by Artie King MD; for antiplatelet therapy; wasted 3.2 ml of vial. placed on table for artem 10:33:43 Inflate balloon Inflation number: 1 A EMERGE OTW 3.0 x 15 balloon ([id number]) was prepped and advanced across the Mid LAD 80, then inflated to 10 LITZY for 0:26 (min:sec) 0. 10:34:21 Inflation number: 2 The EMERGE OTW 3.0 x 15 balloon ([id number]) was reinflated across the Mid LAD 0, to 10 LITZY for 0:13 (min:sec) . 10:36:19 Balloon removed over the wire. 10:36:20 Wire removed. 10:36:22 Guide catheter removed. 10:36:32 Sheath removed intact; hemostasis achieved with Exoseal to the Right Femoral artery. 10:36:45 EXOSEAL 6Fr (EX600) opened to sterile field. 10:37:04 Procedure ended.(Physican Out) 10:37:18 Fluoroscopy time 05.40 minutes. 10:37:23 Flurop Dose total: 1053 10:37:23 Fluoroscopy dose: 1053 mGy 10:37:30 Contrast amount:Isovue 300 116ml. 10:37:32 Sharps counted by scrub and verified by R.N. 10:37:33 Insertion/operative site no bleeding no hematoma. 10:38:23 Post-op/insertion site Right Femoral artery dressed using a 4 x 4 and Tegaderm. 10:38:26 Post Procedure Pulses reassessed and unchanged 10:38:31 Post-procedure physical assessment completed. ASA score P 2 - A patient with mild systemic disease as per Artie King MD. 10:38:34 Post procedure rhythm: unchanged. 10:38:37 Estimated blood loss: 10 ml 10:38:39 Post procedure instruction explained to patient.Patient verbalizes understanding. 10:39:04 Procedure type changed to Cath procedure, Diagnostic procedure, LHC, LHC w/Coronaries w/Grafts, Sedation Charges, Moderate Sedation up to 15 minutes, PCI procedure, PTCA, PTCA Initial 10:39:05 Procedure and supply charges have been captured, reviewed, submitted and are correct. 10:39:30 Procedure Complication : No complications 10:39:33 Vital chart was stopped 10:39:34 See physician's report for complete and final results. 10:39:36 Report given to Pre/Post Procedure Room. 10:39:39 Patient transfered to Pre/Post Procedure Room with Stretcher. 10:39:42 Procedure ended. 10:39:42 Full Disclosure recording stopped 10:39:46 End room use (Document Last) Intervention Summary Intervention Notes Time ActionType Lesion and Equipment Action# Pressure Duration Attributes Used 10:33:43 Inflate Mid LAD EMERGE OTW 1 10 00:26 balloon 3.0 x 15 balloon ([id number]) 10:34:21 Reinflate Mid LAD EMERGE OTW 2 10 00:13 balloon 3.0 x 15 balloon ([id number]) Device Usage Item Name Manufacture Quantity Catalog Number Hospital Part Current Min imal Lot# / Charge Number Stock Stock Serial# Code ACIST Acist 1 59631 020260 860727 614520 20 Syringe Medical (66322) Systems Inc Bag Decanter Microtek 1 2002S 942793 18097 731974 5 (2002S) Medical Inc. Medline Cath Medline 1 [id number] 184390 91274 269460 5 Pack ([id number]) ACIST Hand Acist 1 50450 800815 815208 756828 5 Control Medical (42833) Systems Inc ACIST Acist 1 05559 422378 811620 389940 5 Manifold Medical (74679) Systems Inc DIAGNOSTIC Cardinal 1 UK4700 751722 72042 970033 30 Multipack Health 5Fr catheter set (NP3158) Tegaderm 4 x 3M 1 1626W 485379 151153 332677 5 4 (1626W) EMERALD Cardinal 1 502-455 384157 293497 769507 5 Guide Wire Health (502-455) SHEATH 5FR Terumo 1 TIV289 194338 755385 770357 5 [place] (LFD791) MULTIPACK JL Cardinal 1 800192 5 4.0 5Fr Health catheter MULTIPACK Cardinal 1 778379 5 3DRC 5Fr Health catheter DIAGNOSTIC Cardinal 1 [id number] 596816 420911 245690 20 AR2 MOD 5 Fr Health catheter (865080N) MULTIPACK Cardinal 1 668989 5 Pigtail 5 Fr Health catheter GUIDE 6FR Cardinal 1 [id number] 632566 447712 946776 10 XBLAD 3.5 Health catheter (35598802) WHISPER Baeza 1 [id number] 438499 326193 675623 5 300cm guide Vascular wire ([id number]) INFLATOR Merit 1 FY7084 636493 745775 055889 15 Merit Health [place] Medical BasixCompak (FC1041) EMERGE OTW [place] 1 [id number] 562630 949487 135016 5 [id number] 3.0 x 15 Scientific balloon ([id number]) EXOSEAL 6Fr Cardinal 1 EX600 846898 718831 766249 10 (EX600) Health Signature Audit [place] Stage Time Signature Unsigned Intra-Procedure 03/05/2019 Therese Salguero 10:40:15 AM RT(R) Signatures Monitor : Therese Salguero Signature : RT Date : Time : [place] [id number] [place] [address]
[~2019-03-04 12:31] MED LIST changes: +LEXAPRO10 MG PO
[2019-03-04] MEDS ORDERED: LANTUS INSULIN10 ML SC (12:41)
[2019-03-04] MEDS ORDERED: LIPITOR80 MG PO (12:42)
[2019-03-04] MEDS ORDERED: LISINOPRIL2.5 MG PO (12:42)
[2019-03-04 13:20] LABS: KETONE - SERUM MODERATE mg/dL (NEGATIVE)
[2019-03-04 13:38] LABS: BASOPHILS 0.2 % (0-2); EOSINOPHILS 0.1 % (0-7); HEMATOCRIT 37.7 % (42.0-54.0); HEMOGLOBIN 12.8 g/dL (13.5-17.5); IMMATURE GRANULOCYTES 0.1 % (0-5); LYMPHOCYTES 11.3 % (15-50); MCH 30.4 pg (26.0-34.0); MCV 89.5 fL (80.0-100.0); MEAN PLATELET VOLUME 12.6 fL (7.4-10.4); MONOCYTES 3.1 % (2-11); NEUTROPHILS 85.2 % (40-80); RBC 4.21 10x6/uL (4.20-6.10); RDW 14.7 % (11.5-14.5); WBC 9.4 10x3/uL (4.8-10.8)
[2019-03-04 13:40] LABS: PLATELET COUNT 243 10x3/uL (130-400)
[2019-03-04 13:45] LABS: ALBUMIN 3.7 g/dL (3.4-5.0); ALKALINE PHOSPHATASE 104 U/L (46-116); ALT (SGPT) 18 U/L (10-68); CALCIUM 9.1 mg/dL (8.5-10.1); CARBON DIOXIDE 14.9 mmol/L (21.0-32.0); CHLORIDE - SERUM 93 mmol/L (98-107); CKMB 2.9 U/L (0.0-3.6); CREATINE KINASE 95 UL (21-232); CREATININE - SERUM 1.7 mg/dL (0.6-1.3); MAGNESIUM - SERUM 2.2 mg/dL (1.8-2.4); POTASSIUM - SERUM 4.5 mmol/L (3.5-5.1); PROTEIN - SERUM 7.6 g/dL (6.4-8.2); SODIUM 134 mmol/L (136-145); UREA NITROGEN 26 mg/dL (7-18); eGFR NON AFRICAN AMERICAN 44 mL/min (90-120)
[2019-03-04 13:47] LABS: CALC OSMOLALITY 290 mosm/kg (275-300)
[2019-03-04 14:01] LABS: GLUCOSE 424 mg/dL (74-106); TROPONIN-I 0.458 ng/mL (0.000-0.060)
--- NOTE | 2019-03-04 16:14 | NUR ---
PT WT 165.6 LBS/75.3 KG
[2019-03-04 16:15] LABS: % SATURATION 18 % (15-55); IRON 60 ug/dl (35-150); TOTAL IRON BIND CAPACITY 322 ug/dl (260-445); UNSAT IRON BIND CAPACITY 262 ug/dl (150-375)
[2019-03-04 16:25] LABS: MAGNESIUM - SERUM 2.2 mg/dL (1.8-2.4); THYROID STIMULATING HORMONE 1.43 uIU/mL (0.36-3.74)
[2019-03-04 16:57] LABS: APPEARANCE CLEAR (CLEAR); BILIRUBIN NEGATIVE (NEGATIVE); COLOR YELLOW (YELLOW); GLUCOSE 500 mg/dL (NEGATIVE); KETONE MODERATE mg/dL (NEGATIVE); NITRITE NEGATIVE (NEGATIVE); PROTEIN NEGATIVE (NEGATIVE); SPECIFIC GRAVITY 1.015 (1.005-1.020); UROBILINOGEN NORMAL (NORMAL)
--- NOTE | 2019-03-04 17:32 | NUR ---
NAUSEA/VOMITING. GAVE IM IN L VG. PT TOLERATED WELL.
--- NOTE | 2019-03-04 18:04 | NUR ---
RECEIVED PATIENT AT THIS TIME. HOOKED UP TO MONITOR. VSS ON NITRO DRIP 5MCG/MIN--1.5ML/HR. NO COMPLAINTS OF CHEST PAIN OR SOB. AWAKE ALERT AND ORIENTED. WILL CHECK SUGAR AND START INSULIN DRIP
[2019-03-04 18:46] LABS: FERRITIN 262 ng/mL (3-244); LDH 232 U/L (85-227)
--- NOTE | 2019-03-04 18:59 | NUR ---
INSULIN DRIP INITIATED AT 1.74ML/HR PER DKA PROTOCOL CALCULATION. BG 118. CHARTING ON DIABETIC FLOW RECORD.
--- NOTE | 2019-03-04 19:00 | NUR ---
REPORT RECEIVED, CARE ASSUMED. PT IS LAYING IN BED WITH EYES CLOSED AT THIS TIME. NO NEEDS VOICED. ADMISSION ASSESSMENT, HX COMPLETED, SEE FLOWSHEET FOR DETAILS. PT PROVIDED WITH A URINAL FOR BATHROOM NEEDS. NO SIGNS OF ACUTE DISTRESS NOTED. WILL CONTINUE TO MONITOR CLOSELY.
[2019-03-04 20:39] LABS: CKMB 184.6 U/L (0.0-3.6)
--- NOTE | 2019-03-04 21:00 | NUR ---
PT IS RESTING IN BED WITH EYES CLOSED AT THIS TIME. BLOOD GLUCOSE CHECKS ARE BEING DONE HOURLY AND TITRATING DRIP ACCORDINGLY. PT DENIES NEEDS AT THIS TIME. NO SIGNS OF ACUTE DISTRESS. WILL CONTINUE TO MONITOR.
[2019-03-04 21:06] LABS: CREATINE KINASE 1979 UL (21-232); TROPONIN-I 105.066 ng/mL (0.000-0.060)
[2019-03-04 21:11] LABS: KETONE - SERUM SMALL mg/dL (NEGATIVE)
[2019-03-04 21:44] LABS: CALC OSMOLALITY 282 mosm/kg (275-300); CALCIUM 8.8 mg/dL (8.5-10.1); CHLORIDE - SERUM 102 mmol/L (98-107); CREATININE - SERUM 1.5 mg/dL (0.6-1.3); GLUCOSE 110 mg/dL (74-106); MAGNESIUM - SERUM 2.1 mg/dL (1.8-2.4); POTASSIUM - SERUM 3.9 mmol/L (3.5-5.1); SODIUM 140 mmol/L (136-145); UREA NITROGEN 21 mg/dL (7-18); eGFR NON AFRICAN AMERICAN 51 mL/min (90-120)
[2019-03-04 21:45] LABS: CARBON DIOXIDE 25.5 mmol/L (21.0-32.0)
[2019-03-04 22:48] LABS: KETONE - SERUM SMALL mg/dL (NEGATIVE)
[2019-03-04 22:53] LABS: CALC OSMOLALITY 279 mosm/kg (275-300); CALCIUM 8.6 mg/dL (8.5-10.1); CARBON DIOXIDE 25.4 mmol/L (21.0-32.0); CHLORIDE - SERUM 103 mmol/L (98-107); CREATININE - SERUM 1.4 mg/dL (0.6-1.3); GLUCOSE 89 mg/dL (74-106); MAGNESIUM - SERUM 1.9 mg/dL (1.8-2.4); POTASSIUM - SERUM 3.4 mmol/L (3.5-5.1); SODIUM 139 mmol/L (136-145); UREA NITROGEN 20 mg/dL (7-18); eGFR NON AFRICAN AMERICAN 55 mL/min (90-120)
--- NOTE | 2019-03-04 23:00 | NUR ---
REASSESSMENT COMPLETED, SEE FLOWSHEET FOR DETAILS. REVIEWED LAB RESULTS, TROPONIN ELEVATED A CONSIDERABLE AMOUNT. DR MEADE NOTIFIED OF THE INCREASE. ORDERS RECEIVED TO KEEP PT NPO TONIGHT FOR POSSIBLE CATH PROCEDURE TOMORROW. PT DENIES NEEDS AT THIS TIME. BLOOD GLUCOSE CHECKS STILL BEING COMPLETED HOURLY, DOCUMENTING ACCORDING. NO SIGNS OF ACUTE DISTRESS NOTED. WILL CONTINUE TO MONITOR.
[2019-03-05] VITALS (25 sets, daily range): BP systolic 90–118; BP diastolic 47–80; Ht 177.8 cm; Wt 96.4 kg
--- NOTE | 2019-03-05 | NUR ---
PER DR. BAH TELEPHONE VERBAL ORDER CONTINUE INSULIN DRIP FOR 24 HOURS TO ABOID BEBOUND HYPERFLYCEMIA
--- NOTE | 2019-03-05 00:02 | NUR ---
PT RSTING COMFORTABLY EYES CLOSED - EVEN RISE AND FALL OF CHEST CPOC
--- NOTE | 2019-03-05 01:00 | NUR ---
PT IS RESTING IN BED WITH EYES CLOSED AT THIS TIME. NO NEEDS VOICED. NO SIGNS OF ACUTE DISTRESS. WILL CONTINUE TO MONITOR.
[2019-03-05 03:00] LABS: BASOPHILS 0.2 % (0-2); EOSINOPHILS 2.1 % (0-7); HEMATOCRIT 32.6 % (42.0-54.0); HEMOGLOBIN 11.4 g/dL (13.5-17.5); IMMATURE GRANULOCYTES 0.1 % (0-5); LYMPHOCYTES 23.7 % (15-50); MCH 30.6 pg (26.0-34.0); MCV 87.4 fL (80.0-100.0); MEAN PLATELET VOLUME 11.3 fL (7.4-10.4); MONOCYTES 5.4 % (2-11); NEUTROPHILS 68.5 % (40-80); PLATELET COUNT 197 10x3/uL (130-400); RBC 3.73 10x6/uL (4.20-6.10); RDW 14.4 % (11.5-14.5); WBC 8.5 10x3/uL (4.8-10.8)
--- NOTE | 2019-03-05 03:00 | NUR ---
REASSESSMENT COMPLETED, SEE FLOWSHEET FOR DETAILS. PT IS LAYING IN BED WITH EYES CLOSED. NO NEEDS VOICED AT THIS TIME. PT'S BLOOD GLUCOSE IS BEING CHECKED HOURLY ORDERED, SEE FLOWSHEET FOR DETAILS. NO SIGNS OF ACUTE DISTRESS NOTED. WILL CONTINUE TO MONITOR.
[2019-03-05 03:01] LABS: KETONE - SERUM MODERATE mg/dL (NEGATIVE)
[2019-03-05 03:17] LABS: ALBUMIN 2.9 g/dL (3.4-5.0); ALKALINE PHOSPHATASE 80 U/L (46-116); ALT (SGPT) 45 U/L (10-68); BILIRUBIN - TOTAL 0.41 mg/dL (0.2-1.3); CALC OSMOLALITY 283 mosm/kg (275-300); CALCIUM 8.3 mg/dL (8.5-10.1); CARBON DIOXIDE 25.4 mmol/L (21.0-32.0); CHLORIDE - SERUM 104 mmol/L (98-107); CKMB 153.9 U/L (0.0-3.6); CREATINE KINASE 1782 UL (21-232); CREATININE - SERUM 1.5 mg/dL (0.6-1.3); GLUCOSE 149 mg/dL (74-106); MAGNESIUM - SERUM 1.8 mg/dL (1.8-2.4); POTASSIUM - SERUM 3.6 mmol/L (3.5-5.1); PROTEIN - SERUM 6.1 g/dL (6.4-8.2); SODIUM 140 mmol/L (136-145); UREA NITROGEN 19 mg/dL (7-18); eGFR NON AFRICAN AMERICAN 51 mL/min (90-120)
[2019-03-05 03:18] LABS: TROPONIN-I 140.285 ng/mL (0.000-0.060)
--- NOTE | 2019-03-05 05:00 | NUR ---
PT IS RESTING IN BED WITH EYES CLOSED AT THIS TIME. NO NEEDS VOICED. NO SIGNS OF ACUTE DISTRESS. WILL CONTINUE TO MONITOR.
[2019-03-05 08:22] LABS: CKMB 104.1 U/L (0.0-3.6)
[2019-03-05 08:48] LABS: CREATINE KINASE 1468 UL (21-232)
[2019-03-05 08:49] LABS: TROPONIN-I 83.252 ng/mL (0.000-0.060)
--- NOTE | 2019-03-05 09:40 | NUR ---
PT OFF UNIT TO MANAGED CARE PROVIDER
--- NOTE | 2019-03-05 11:33 | NUR ---
GROUND HOST/HOSTESS AT BEDSIDE. PULSE CHECK PERFORMED, PALPABLE. RIGHT GROIN ENTRY SITE DRESSING C,D,I. SITE SOFT.
[2019-03-05 11:53] LABS: ALBUMIN 2.9 g/dL (3.4-5.0); ANION GAP 15.8 mmol/L (8-16); BILIRUBIN - TOTAL 0.38 mg/dL (0.2-1.3); CALCIUM 8.4 mg/dL (8.5-10.1); CARBON DIOXIDE 24.1 mmol/L (21.0-32.0); CREATININE - SERUM 1.2 mg/dL (0.6-1.3); MAGNESIUM - SERUM 1.8 mg/dL (1.8-2.4); POTASSIUM - SERUM 3.9 mmol/L (3.5-5.1)
--- NOTE | 2019-03-05 14:33 | OP ---
PATIENT NAME: ESTELLA GUSMAN MEDICAL RECORD: [id number] :58 LOCATION:D.[facility] D.2311 ADMISSION DATE:03/04/19 SURGEON: ESTELLA ANDREW MD DATE OF OPERATION: 03/05/2019 PROCEDURE: Left heart catheterization, selective coronary angiography, right femoral artery approach. CATHETERS: A 5-Arabic sheath, 5/4 left and right Agueda, 5/4 pig. The procedure was well tolerated and we proceeded to do PTCA stenting of the LAD along with intracoronary Integrilin. FINDINGS: Left ventriculography in 30-degree PALACIO view shows severe global hypokinesis, EF is markedly reduced at 15% to 20%. CORONARY ANATOMY: LEFT MAIN: Left main fills the LAD. LAD: In the area of previous stenting shows a marked thrombus formation throughout the stent with YASMINE flow 2 distally. CIRCUMFLEX: The true circumflex fills via competitive flow from the saphenous graft. RIGHT CORONARY ARTERY: Totally occluded proximally. BYPASS GRAFTS: STARKS: This appears to be STARKS attached into the diagonal, it is widely patent. Saphenous vein graft is widely patent. PLAN: Intervention to the [place] LAD momentarily. DESCRIPTION OF PROCEDURE: The patient was given an IC Integrilin over 5 minutes to help with his thrombus burden. This showed some decrease in thrombus burden with excellent YASMINE flow of 2. Next, a 3.0 x 15 mm [place] balloon was taken up and down the stent up to 12 atmospheres. This showed marked improvement with thrombus burden with no residual stenosis and improvement in YASMINE flow from 2-3. Sheath closed with ExoSeal device. The patient was previously on Plavix. Heparin was used in the lab. TRANSINT:[id number] Voice Confirmation ID: [id number] DOCUMENT ID: [id number] ESTELLA ANDREW MD at 1433 CC: [id number] DICTATION DATE: 03/05/19 1053 SENIOR QUALITY ASSURANCE ENGINEER: 03/05/19 1[address] [place] [address]
--- NOTE | 2019-03-05 14:33 | CN ---
PATIENT NAME:ESTELLA GUSMAN MEDICAL RECORD: [id number] : 58 LOCATION:TOM.2311 ADMIT DATE: 03/04/19 ACCOUNT: [id number] CONSULTING PHYSICIAN: ESTELLA ANDREW MD REFERRING PHYSICIAN: JAMES BAH MD DATE OF CONSULTATION: 03/05/2019 HISTORY OF PRESENT ILLNESS: A 58-year-old gentleman with a known history of coronary artery disease, status post coronary bypass grafting subsequent with intervention in August at that time with cardiogenic shock, acute [place], admitted with DKA, found to have NSTEMI with troponin approximately in the 100 range accompanied by classic angina, ST depression in inferior leads. We are asked to see him concerning his cardiovascular status. PAST MEDICAL HISTORY: Includes: 1. History of diabetes mellitus. 2. Hypertension. 3. Hyperlipidemia. 4. Cardiomyopathy. MEDICATIONS: Include insulin per scale, aspirin 325 every day, Crestor 10 every day, lisinopril 2.5 every day, TriCor 145 every day, atorvastatin 80 every day, Plavix 75 every day. SOCIAL HISTORY: Nonsmoker, nondrinker. Easily takes care of all his ADLs. ALLERGIES: No known drug allergies. REVIEW OF SYSTEMS: The patient reports easy bruising but reports no swollen glands. The patient reports no fever, no night sweats, no significant weight gain, no significant weight loss. No significant exercise tolerance. The patient reports no dry eyes, no irritation, no vision change. Patient reports no difficulty hearing and no ear pain. Patient reports no frequent nose bleeds or nose and sinus problems. Patient reports on arm pain on exertion. No shortness of breath while lying down. No history of heart murmur. Patient reports no cough, no wheezing or coughing up blood. Patient reports no abdominal pain, no vomiting. Normal appetite. No diarrhea and not vomiting blood. No nausea and no constipation. Patient reports no incontinence. No difficulty urinating. No hematuria. No increased frequency. Patient reports no muscle aches. No weakness, no arthralgias, no back pain. No swelling of the extremities. Patient reports no abnormal mole, no jaundice, no rashes. Reports no loss of consciousness. No weakness and no numbness. No seizures, dizziness, or headaches. The patient reports no depression, no sleep disturbance, feeling safe in a relationship and no alcohol abuse. Patient reports on fatigue. Reports no runny nose or sinus pressure. No itching, no hives, and no frequent sneezing. PHYSICAL EXAMINATION: GENERAL: Pleasant gentleman in no acute distress. VITAL SIGNS: Blood pressure 104/69, pulse 82 and regular. HEENT: Normocephalic, atraumatic. NECK: No bruits noted. HEART: Regular. S3 gallop is noted, II/ systolic ejection murmur. LUNGS: Fairly good air excursion. ABDOMEN: Soft, nontender. CONSULT REPORT [id number] ESTELLA GUSMAN EXTREMITIES: Pulses 2+. No edema. IMPRESSION: NSTEMI. PLAN: For angiography, intervention based on the above. TRANSINT:[id number] Voice Confirmation ID: [id number] DOCUMENT ID: [id number] ESTELLA ANDREW MD at 1433 CC: [id number] DICTATION DATE: 03/05/19 1051 OFFICE SUPPORT: 03/05/19 1113 ADM IN [place] [id number] [place] [address]
[2019-03-05 19:11] LABS: ALBUMIN 2.8 g/dL (3.4-5.0); ANION GAP 11.8 mmol/L (8-16); BILIRUBIN - TOTAL 0.42 mg/dL (0.2-1.3); CALCIUM 8.2 mg/dL (8.5-10.1); CARBON DIOXIDE 27.8 mmol/L (21.0-32.0); CREATININE - SERUM 1.2 mg/dL (0.6-1.3); MAGNESIUM - SERUM 1.8 mg/dL (1.8-2.4); POTASSIUM - SERUM 3.6 mmol/L (3.5-5.1); PROTEIN - SERUM 6.3 g/dL (6.4-8.2)
--- NOTE | 2019-03-05 20:00 | NUR ---
RECFEIVED PATIENT CARE - PT AAOX4 - REQUESTING EYE GLESSES, FOUND THEM ON BEDSIDE DRESSER - BAGGED ALL BELONGINGS AND PUT IN BEDSIDE DRESSER, SEE FLOWSHEET FOR SHIFT ASSESSMENT. PT DENIES NEEDS AT THIST TIME, VSS CPOC
--- NOTE | 2019-03-05 23:00 | NUR ---
REASSESSENT COMPLETED SEE FLOWSHEET
[2019-03-06] VITALS (12 sets, daily range): BP systolic 90–113; BP diastolic 55–74
--- NOTE | 2019-03-06 03:15 | NUR ---
REASSESSMENT COMPLETED SEE FLOWSHEET
[2019-03-06 03:41] LABS: BASOPHILS 0.3 % (0-2); EOSINOPHILS 3.1 % (0-7); HEMATOCRIT 33.3 % (42.0-54.0); HEMOGLOBIN 11.5 g/dL (13.5-17.5); IMMATURE GRANULOCYTES 0.2 % (0-5); LYMPHOCYTES 30.4 % (15-50); MCH 30.2 pg (26.0-34.0); MCHC 34.5 g/dL (31.0-37.0); MCV 87.4 fL (80.0-100.0); MEAN PLATELET VOLUME 12.4 fL (7.4-10.4); PLATELET COUNT 187 10x3/uL (130-400); RBC 3.81 10x6/uL (4.20-6.10); RDW 14.7 % (11.5-14.5); WBC 6.4 10x3/uL (4.8-10.8)
[2019-03-06 03:55] LABS: CALC OSMOLALITY 282 mosm/kg (275-300); CALCIUM 7.9 mg/dL (8.5-10.1); CARBON DIOXIDE 23.4 mmol/L (21.0-32.0); CHLORIDE - SERUM 109 mmol/L (98-107); POTASSIUM - SERUM 3.3 mmol/L (3.5-5.1); SODIUM 141 mmol/L (136-145); UREA NITROGEN 11 mg/dL (7-18); eGFR NON AFRICAN AMERICAN 81 mL/min (90-120)
[2019-03-06 03:59] LABS: GLUCOSE 145 mg/dL (74-106)
--- NOTE | 2019-03-06 05:17 | NUR ---
PATIENT RESTING COMFORTABLE EVEM RISE AND FALL OF CHEST NO ACUTE DIESTRESS NOTED VSS CPOC - INSULIN DIRIP TITRATED UP SEE DIABETIC FLOW SHEET
--- NOTE | 2019-03-06 07:00 | NUR ---
REC'ED REPORT FROM OUT GOING RN - PT AA&O X 4 - DENIES PAIN - CPOC
--- NOTE | 2019-03-06 07:30 | NUR ---
B/S AT 57 - NOTIFIED DR. BAH - REVIEWED [facility] 11.8 - ORDERS TO D/C INSULIN DRIP - PATIENT C/O LIGHTHEADEDNESS WITH VSS PER CONTINIOUS CARDIAC MONITORING. CPOC AND REPORT FINDINGS
--- NOTE | 2019-03-06 08:00 | NUR ---
ASSESSMENT COMPLETE - BREAKFAST TRAY GIVEN TO PATIENT - CPOC
--- NOTE | 2019-03-06 09:00 | NUR ---
P/U BREAKFAST TRAY - 100% EATEN - MEDICATIONS GIVEN - SEE MAR - CPOC
--- NOTE | 2019-03-06 10:08 | NUR ---
PATIENT TALKING ON CELL PHONE - REPORTS NO ACUTE DISTRESS - CPOC
--- NOTE | 2019-03-06 11:30 | NUR ---
ACCU CHECK COMPLETE/REG INSULIN GIVEN - SEE MAR - LUNCH TRAY SET UP FOR PATIENT - CPOC
--- NOTE | 2019-03-06 12:15 | NUR ---
DR. BAH AT BEDSIDE FOR ASSESSMENT - OFFERED TO TRANSFER PATIENT - PATIENT AGREED TO PLAN OF CARE. TRANSFER ORDERS ENTERED PATIENT ATE 100% OF LUNCH TRAY.
--- NOTE | 2019-03-06 14:16 | NUR ---
OFFERED LEONOR MOU[facility]ONT - PT DECLINED - INFORMAED PATIENT OF ROOM TO BE TRANSFERRED 2121 - PATIENT WILL NOTIFY HIS FAMILY OF TRANSFER
--- NOTE | 2019-03-06 14:32 | NUR ---
REPORT CALLED TO [facility] - WILL TRANSFER PT VIA W/C
--- NOTE | 2019-03-06 15:00 | NUR ---
TRANSFERRED PT VIA W/C WITH ALL PERSONAL BELONGINGS TO ROOM 2121 - PT SUPINE IN BED, IV INFUSING.
--- NOTE | 2019-03-06 16:54 | NUR ---
SPOKE WITH DR. BAH BECAUSE FSBS WAS 401, ALSO THE HUMULIN DRIP WAS STILL ON OCT AND PT WAS RECIEVING D5NS. DR. BAH STATED TO DC ALL OF THE ABOVE AND TO GIVE ORDERED DOSE ON SLIDING SCALE AND TO RECHECK FSBS IN ON HOUR. WILL CONTINUE TO MONITOR.
--- NOTE | 2019-03-06 20:00 | NUR ---
INITIAL ROUNDS AND ASSESSMENT COMPLETED. PT RESTING IN BED WITH NO DISTRESS. CALL LIGHT IN REACH. CPOC.
--- NOTE | 2019-03-06 23:15 | NUR ---
FSBS 44, PT FEELING COOL TO TOUCH AND STATES HE KNEW IT WAS LOW BECAUSE HE WAS GIVEN NEW INSULIN EARLIER + SLIDING SCALE. HE DECLINED TO EAT A SANDWHICH OR PEANUT BUTTER AND CRACKERS. BUT DID REQUEST AND EAT VANILLA ICECREAM X2 + EVELIO CRACKERS AT THIS TIME. WILL RECHECK IN ONE HOUR.
[2019-03-07 04:30] VITALS: BP 102/65
--- NOTE | 2019-03-07 07:00 | NUR ---
PT RESTED THE REMAINDER OF THE NIGHT WITH NO MORE FEELINGS OF LOW BLOOD SUGAR. AM BLOOD SUGAR 76. INSTRUCTED PT TO PLEASE EAT A GOOD BREAKFAST. HE WANTS MD TO REEVALUATE HIS NEWLY ORDERED INSULIN. CPOC.
--- NOTE | 2019-03-07 07:05 | NUR ---
REPORT RECEIVED. ALERT ABLE TO VOICE NEEDS. SKIN W/D. RESP EVEN WITHOUT LABOR CL IN REACH NO S/S OF HYPER/HYPOGLYCEMIA NOTED.
[2019-03-07 07:41] VITALS: BP 109/62
--- NOTE | 2019-03-07 10:48 | EC ---
PATIENT:ESTELLA GUSMANN DATE OF SERVICE: 03/04/19 SEX: M MEDICAL RECORD: [id number] DATE OF : 58 LOCATION:D.M2 D.212 AGE OF PATIENT: 58 ADMISSION DATE: 03/04/19 REFERRING PHYSICIAN: INTERPRETING PHYSICIAN: ESTELLA ANDREW MD ECHOCARDIOGRAM REPORT ECHO CHARGES 4 ECHO COMPLETE Date: 03/05/19 CLINICAL DIAGNOSIS: LVF ECHOCARDIOGRAPHIC MEASUREMENTS (adult normal given) AC root (d.<3.7cm) 3.7 cm LV Septum d (<1.2 cm> 0.7 cm Valve Excursion 1.5 cm LV Septum (systole) 0.9 cm Left Atria (s.<4.0cm> 2.8 cm LVPW d(<1.2cm) 0.8 cm RV (d.<2.3cm) 2.2 cm LVPW (sytole) 1.1 cm LV diastole(<5.6CM) 6.8 cm MV E-F(>70mm/sec) cm LV systole 6.1 cm LVOT Diameter 2.1 cm MV exc.(>10mm) cm Est.ejection fraction (50-75%) % DOPPLER: LVIT cm/sec A 62 cm/sec E 41 cm/sec LA cm/sec RVSP 22.0 mmHg LVOT 74 cm/sec AOP1/2T m/s Asc. Ao 105 cm/sec RVOT 61 cm/sec RA cm/sec PA 73 cm/sec AV Gradient Peak 4.4 mmHg AV Mean 2.8 mmHg AV Area 2.3 cm MV Gradient Peak 2.9 mmHg MV Mean 1.3 mmHg MV Area cm COMMENTS: School Custodian: Beulah HOANG Nut Sorter: 3 Dr. Solorio TAPE# PACS Pericardial Effusion N DATE OF SERVICE: 03/06/2019 Adequate 2D, color flow imaging, spectral Doppler, and M-Mode LVH is present. LV internal dimension is dilated. LV is globally hypokinetic with reduced EF, estimated EF 20% to 25%. Aortic valve is tricuspid. No evidence of stenosis by Doppler interrogation. Left atrium is normal. Mitral valve shows no prolapse. Mild MR. Right-sided chambers are grossly normal. Thij-wt-sjexvpad TR by color-flow imaging. ECHOCARDIOGRAM REPORT [id number] ESTELLA GUSMAN TRANSINT:[id number] Voice Confirmation ID: [id number] DOCUMENT ID: [id number] ESTELLA ANDREW MD at 1048 CC: [id number] DICTATION DATE: 03/06/19 1034 RESOLUTION EXPERT: 03/06/19 1313 ADM IN [facility] [address] [place] [address]
[2019-03-07 11:38] VITALS: BP 118/74
--- NOTE | 2019-03-07 11:54 | NUR ---
FSBS IS 264 AT THIS TIME, INULIN GIVEN PER SLIDING SCALE ORDERS. FAMILY AT BEDSIDE.
--- NOTE | 2019-03-07 13:50 | NUR ---
UP AMBULATING IN HALLWAY WITH FAMILY. STATES HE HAD TO GET OUT OF THE ROOM FOR A LITTLE WHILE. OFFERS NO C/O
[2019-03-07 16:12] VITALS: BP 115/69
--- NOTE | 2019-03-07 16:15 | MORECARE ---
CASE MANAGEMENT DISCHARGE SUMMARY PATIENT: ESTELLA GUSMAN UNIT: [id number] ADM DATE: 03/04/19 AGE: 58 : 58 SEX: M ROOM/BED: D.7029 AUTHOR: JANINEDOC PHYSICIAN: REFERRING PHYSICIAN: JAMES BAH MD DATE OF SERVICE: 03/07/19 Discharge Plan Patient Name: ESTELLA GUSMAN Facility: [facility]:[place] : 1960 Planned Disposition: Home Anticipated Discharge Date: 03/07/19 Discharge Date: Expected LOS: 3 Initial Reviewer: [email or web address] Initial Review Date: 03/04/2019 Generated: 03/07/19 5:15 pm Comments DCP- Discharge Planning Updated by [email or web address]: Leela Hui on 03/07/19 3:[address] Patient Name: ESTELLA GUSMAN Admission Status: ER Accout number: [id number] Admission Date: 03-04-2019 : 1960 Admission Diagnosis: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 CM educated patient on the CM role and verbal consent given by patient to complete assessment. CM verified patient's address, phone number, and emergency contact phone numbers. Patient lives at home alone and reports he is independent in his care. Discharge order received and the patient plans to return home alone and feels this is a safe discharge plan. CM discussed availability of home health, rehab services, and medical equipment. Patient denied known discharge needs. Patient reports his brother will transport him home today. CM will continue to follow and will assist as needed with dc plans/needs. DC IMM delivered, explained, signed by the patient, and placed in his chart. Signed form also left with patient. Medical Illustrator: Leela Hui DCPIA - Discharge Planning Initial Assessment Updated by [email or web address]: Leela Hui on 03/07/19 4:12 pm * Is the patient Alert and Oriented? Yes * How many steps to enter\exit or inside your home? NONE * PCP DR. DAVIS * Pharmacy [facility] * Preadmission Environment Home Alone * ADLs Independent * Equipment None * List name and contact numbers for known caregivers / representatives who currently or will assist patient after discharge: JOSE EDUARDO GUSMAN - BROTHER - [phone] * Verbal permission to speak to the caregivers and representatives has been obtained from the patient. Yes * Community resources currently utilized None * Additional services required to return to the preadmission environment? No * Can the patient safely return to the preadmission environment? Yes * Has this patient been hospitalized within the prior 30 days at any hospital? 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
--- NOTE | 2019-03-07 17:10 | NUR ---
DISCHARGE INSTRUCTIONS EXPLAINED AND COPY GIVEN TO HIM. HEPLOCK SITE X2 D/C WITH CATH TIP INTACT WITH BLEEDING CONTROLLED. RESP EVEN WITHOUT LABOR. ALERT WITH NO CHANGE IN STATUS. FRIEND HERE TO TAKE IN PRIVATE AUTO, OFFERED W/C TRANSPORT BUT IT WAS REFUSED
== END 2019-03-07 17:10 | disposition home or self-care (01) | DRG 250 ==
LOC: D.ER 12:31 → D.M2 13:10 → D.ICU 16:50 → D.M2 03-06 14:49
PROVIDERS: Family Medicine; Internal Medicine Interventional Cardiology; ADMIT Internal Medicine Nephrology; ATTEND Internal Medicine Nephrology
PROC: 4A023N7 Measurement of Cardiac Sampling and Pressure, Left Heart, Percutaneous Approach (ICD-10-PCS; 2019-03-05)
PROC: 02703ZZ Dilation of Coronary Artery, One Artery, Percutaneous Approach (ICD-10-PCS; principal; 2019-03-05 09:30)
PROC: B2081ZZ Plain Radiography of Left Internal Mammary Bypass Graft using Low Osmolar Contrast (ICD-10-PCS; 2019-03-05 09:30)
DX: I21.4 Non-ST elevation (NSTEMI) myocardial infarction (principal); E11.10 Type 2 diabetes mellitus with ketoacidosis without coma; I50.23 Acute on chronic systolic (congestive) heart failure; N17.9 Acute kidney failure, unspecified; I24.9 Acute ischemic heart disease, unspecified; I11.0 Hypertensive heart disease with heart failure; E78.5 Hyperlipidemia, unspecified; I25.10 Atherosclerotic heart disease of native coronary artery without angina pectoris; I69.322 Dysarthria following cerebral infarction; D64.9 Anemia, unspecified; F32.9 Major depressive disorder, single episode, unspecified